=== PATIENT | female | born 1960 | race Caucasian/White ===

== ENCOUNTER 2022-11-22 08:43 | Outpatient (OUT) | payer OTHER, SELFPAY ==
--- NOTE | 2022-11-22 08:47 | MM_ITS ---
Patient: PARISA SANCHEZ Exam Date: 11/22/2022 : 1960 Gender:F Ordering : DR GURWINDER MAHMOOD Admission #: [id number] Family : DR LAU DeenaSmitha JOSEYUE Order #: [id number] CLICK HERE TO VIEW EXAM RADIOLOGY REPORT PROCEDURE: MM TOMOSYNTHESIS SCREENING BI COMPARISON: MG MAMM SCREEN 3D CJ CAD, 11/02/2021. MG MAMM SCREEN CJ W CAD, 05/02/2020. MG MAMM SCREEN CJ W CAD, 01/05/2019. MG MAMM CJ SCRN W CAD DIG, 05/10/2009. INDICATIONS: Screening Calculator Name NCI Breast Cancer Risk Assessment Tool 5 Year Breast Cancer Risk 3.00% Lifetime Breast Cancer Risk 12.40% Personal Breast Cancer No Personal Ovarian Cancer No Treatments chemotherapy, bowel resection- hysterectomy Family Cancers Mother with breast cancer at age 42. LOCATION: [facility] BREAST COMPOSITION: Scattered areas fibroglandular density. FINDINGS: DIAGNOSTIC CATEGORY 2--BENIGN FINDING: RIGHT BREAST: No significant suspicious finding. Scattered benign-appearing calcifications are present. No significant change has occurred. LEFT BREAST: No significant suspicious finding. Scattered benign-appearing calcifications are present. No significant change has occurred. RECOMMENDATIONS: ROUTINE MAMMOGRAM AND CLINICAL EVALUATION IN 12 MONTHS. PLEASE NOTE: A NORMAL MAMMOGRAM DOES NOT EXCLUDE THE POSSIBILITY OF BREAST CANCER. A CLINICALLY SUSPICIOUS PALPABLE LUMP SHOULD BE BIOPSIED. Dictated by: Carlos Chappell M.D. on 11/22/2022 at 12:48 Approved by: Carlos Chappell M.D. on 11/22/2022 at 12:51
== END 2022-11-22 08:44 | disposition home or self-care (01) ==
LOC: MAMMO 08:43
PROVIDERS: PCP Family Medicine; Visit Provider Nurse Practitioner Family
DX: Z12.31 Encounter for screening mammogram for malignant neoplasm of breast (principal); Z80.3 Family history of malignant neoplasm of breast
CPT/HCPCS: 77063; 77067

== ENCOUNTER 2023-06-23 07:38 | Outpatient (OUT) | payer OTHER, SELFPAY ==
[2023-06-23 09:46] LABS: Alanine Aminotransferase 47 U/L (14-59); Albumin Globulin Ratio 0.9; Albumin Level 3.7 g/dL (3.4-5.0); Alkaline Phosphatase 62 U/L (46-116); Anion Gap 13.7; Aspartate Amino Transferase 32 U/L (15-37); BUN Creatinine Ratio 25.5; Bilirubin Total 0.7 mg/dL (0.2-1.0); Calcium 9.5 mg/dL (8.5-10.1); Carbon Dioxide 26.7 mmol/L (21.0-32.0); Chloride 104 mmol/L (98-107); Estimated GFR (African America >60 (>=60); Estimated GFR (Non-African Ame >60 (>=60); Globulin 4.2 g/dL; Glucose 125 mg/dL (74-106); Potassium 3.4 mmol/L (3.5-5.1); Sodium 141 mmol/L (136-145); Total Protein 7.9 g/dL (6.4-8.2)
[2023-06-23 11:14] LABS: Free T4 1.07 ng/dL (0.76-1.46)
[2023-06-23 11:19] LABS: Thyroid Stimulating Hormone 0.015 uIU/mL (0.358-3.740)
[2023-06-23 12:11] LABS: Estimated Average Glucose 137 mg/dL; Glycohemoglobin A1C 6.4 % (4.5-6.2)
== END 2023-06-23 07:39 | disposition home or self-care (01) ==
LOC: LAB 07:40
PROVIDERS: PCP Family Medicine; Visit Provider Nurse Practitioner Family
DX: E11.65 Type 2 diabetes mellitus with hyperglycemia (principal); E05.90 Thyrotoxicosis, unspecified without thyrotoxic crisis or storm
CPT/HCPCS: 36415; 80053; 83036; 84439; 84443

== ENCOUNTER 2023-11-28 07:28 | Outpatient (OUT) | payer OTHER, SELFPAY ==
--- OUTSIDE RECORDS SUMMARY | 2023-11-28 07:31 | XMS_ITS | CCD ---
Author Organization [facility]ini[facility] Care Team Providers Care Broomcorn Seeder Name Role Phone DR CARYN GOMEZ Admitting Unavailable PATRICIA, DR CARYN Art Attending Unavailable RAYMOND, DR SID Shaffer Primary Care Unavailable PETER, DR CARLOS Art Consulting Unavailable PATRICIA, DR CARYN Art Consulting Unavailable Yina Avila Unavailable Patricia DATA MANAGEMENT MANAGER-CENTRAL OFFICE EQUIPMENT INSTALLERCaryn Fraire Primary Care Provider LEOPOLDO CHIU. Attending Unavailable CLINT BOYKIN Referring Unavailable CARYN GOMEZ Primary Care Unavailable CLINT BOYKIN Attending Unavailable CARYN GOMEZ Referring Unavailable CARYN GOMEZ Primary Care Unavailable LEOPOLDO CHIU Attending Unavailable LEOPOLDO CHIU Referring Unavailable CARYN GOMEZ Primary Care Unavailable FRED MILLER Admitting Unavailable CARYN GOMEZ Attending Unavailable CARYN GOMEZ Referring Unavailable CARYN GOMEZ Primary Care Unavailable Allergies Allergy Classification Reported Allergen(s) Allergy Type Date of Onset Reaction(s) Facility (12 sources) Acetaminophen / oxyCODONE Drug Allergy 3 Vomiting [facility] Other (1 source) Adhesive Tape Propensity to adverse reactions rash [facility] Other (15 sources) Cephalexin; Translations: [CEPHALEXIN] Drug Allergy rash [facility] Other (1 source) Cephalexin Drug Allergy rash [facility] Other (15 sources) predniSONE; Translations: [PREDNISONE] Drug Allergy rash [facility] Other (14 sources) Adhesive Tape-Silicones; Translations: [ADHESIVE TAPE-SILICONES] Propensity to adverse reactions to drug [facility] Work Phone: (3 sources) Acetaminophen / oxyCODONE; Translations: [OXYCODONE-ACETAM INOPHEN] Drug Allergy 3 [facility] Medications Current Medications Medication Drug Class(es) Dates Sig (Normalized) Sig (Original) acetaminophen 500 mg oral tablet (11 sources) take 1 tablet by mouth every six hours as needed for pain acetaminophen (TYLENOL) 500 mg tablet Indications: headache disorder Take 1 tablet (500 mg total) by mouth every 6 (six) hours as needed for pain Indications: headache. 0 Active Monica-D 24 Hour (1 source) Monica-D 24 Renetta r Active amLODIPine 5 mg oral tablet (13 sources) Dihydropyridine Calcium Channel Tiffany Start: 04-09-2022 End: 04-07-2023 take 1 tablet by mouth once daily amLODIPine (NORVASC) 5 mg tablet Take 1 tablet by mouth once daily 90 tablet 0 04/07/2023 Active amLODIPine Besyl ate Active calcium carbonate 1500 mg oral tablet (11 sources) take 1 tablet by mouth in the morning, then take 1 tablet by mouth at mealtime calcium carbonate (OS-HARRISON) 600 mg (1,500 mg) tablet Take 1 tablet (600 mg total) by mouth in the morning and 1 tablet (600 mg total) in the evening. Take with meals. 0 Active doxycycline monohydrate 100 mg oral capsule (1 source) Tetracycline-class Drug Start: 02-21-20 take 1 capsule by mouth every twelve hours Doxycycline Monohydrate 100 MG 1 capsule Orally every 12 hrs for 10 days Jan, Active empagliflozin 10 mg oral tablet (13 sources) Sodium-Glucose Cotransporter 2 Inhibitor Start: 11-06-19 End: 05-12-19 take 1 tablet by mouth once daily JARDIANCE 10 mg tablet tablet Take 1 tablet by mouth once daily 90 tablet 0 05/12/2023 Active Jardiance Active escitalopram 10 mg oral tablet (13 sources) Serotonin Reuptake Inhibitor Start: 12-03-2022 End: 03-04-2023 take 1 tablet by mouth once daily in the evening escitalopram (LEXAPRO) 10 mg tablet TAKE 1 TABLET BY MOUTH ONCE DAILY IN THE EVENING 90 tablet 1 03/04/2023 Active Lexapro Active 24 hr fexofenadine hydrochloride 180 mg / pseudoephedrine hydrochloride 240 mg extended release oral tablet (11 sources) alpha-Adrenergic Agonist, Histamine-1 Receptor Antagonist Start: 05-29-2022 take 1 tablet by mouth once in the morning fexofenadine-pseudoephedrine (MONICA-D 24) 180-240 mg per 24 hr tablet Indications: Seasonal allergic rhinitis due to pollen Take 1 tablet by mouth in the morning. 30 tablet 11 05/29/2022 Active lisinopril 20 mg oral tablet (11 sources) Angiotensin Converting Enzyme Inhibitor Start: 11-05-2022 take 1 tablet by mouth in the morning lisinopriL (PRINIVIL,ZESTRIL) 20 mg tablet Take 1 tablet (20 mg total) by mouth in the morning. 90 tablet 1 11/05/2022 Active Lisinopril unknown (1 source) take 1 tablet by mouth once daily metFORMIN hydrochloride 500 mg oral tablet (14 sources) Biguanide Start: 06-01-2023 take 2 tablets by mouth twice daily metFORMIN (GLUCOPHAGE) 500 mg tablet Take 2 tablets by mouth twice daily 360 tablet 0 06/01/2023 Active Start: 12-03-2022 End: 06-01-2023 take 2 tablets by mouth twice daily metFORMIN (GLUCOPHAGE) 500 mg tablet Take 2 tablets by mouth twice daily 360 tablet 0 03/03/2023 06/01/2023 Discontinued take 1 tablet by kimberley th once daily metFORMIN HCl 1000 MG (OSM) 1 tablet with evening meal Orally Once a day for 30 day(s) Active Multi Vitamin Daily - (1 source) take 1 tablet by mouth once daily Multi Vitamin Daily - 1 tablet Orally Once a day Active egnndmfl-mswu-VN-calc ium &mins (THERAGRAN-M) 9 mg iron-400 mcg tablet (11 sources) eqklbtxr-wuyh-HD -calc ium &mins (THERAGRAN-M) 9 mg iron-400 mcg tablet Take 1 tablet by mouth in the morning. 0 Active nystatin [id number] unt/ml topical cream (11 sources) Polyene Antifungal Start: nystatin (MYCOSTATIN) cream Indications: Candidiasis of genitalia Apply topically 3 (three) times a day. 60 g 1 12/10/2022 Active prasterone 6.5 mg vaginal insert (12 sources) Start: End: 024 prasterone, dhea, (INTRAROSA) 6.5 mg insert Indications: Vaginal atrophy , Dyspareunia in female , Vaginal dryness, menopausal INSERT 1 SUPPOSITORY VAGINALLY ONCE DAILY IN THE MORNING 28 each 3 04/07/2023 Active simvastatin 20 mg oral tablet (11 sources) HMG-CoA Reductase Inhibitor Start: 023 take 1 tablet by mouth once daily simvastatin (ZOCOR) 20 mg tablet Indications: Mixed hyperlipidemia Take 1 tablet by mouth nightly 90 tablet 1 01/01/2023 Active Simvastatin unknown (1 source) triamcinolone acetonide 0.055 mg/actuat metered dose nasal spray (13 sources) Corticosteroid take 2 spray(s) nasal route in the morning triamcinolone (NASACORT) 55 mcg nasal inhaler Administer 2 sprays into each nostril in the morning. 0 Active take 1 puff(s) nasal route once daily Nasacort Allergy 24HR 55 MCG/ACT 1 puff in each nostril Nasally Once a day Active Triamcinolone Ac etonide Active Completed/Discontinued Medications Medication Drug Class(es) Dates Sig (Normalized) Sig (Original) amoxicillin 875 mg / clavulanate 125 mg oral tablet (1 source) Penicillin-class Antibacterial Start: 08-23-2018 take 1 tablet by mouth every twelve hours Amoxicillin-Pot Clavulanate 875-125 MG 1 tablet Orally every 12 hrs for 10 day(s) Jul, Not-Taking/PRN Problems Active Problems Problem Classification Problem Date Documented Da te Episodic/Chronic Adjustment disorders (1 source) Adjustment disorder with mixed anxiety and depressed mood; Translations: [Adjustment disorder with mixed anxiety and depressed mood] Onset: 06-30-2023 Chronic Cancer of rectum and anus (11 sources) Malignant neoplasm of colon and/or rectum; Translations: [Malignant neoplasm of rectosigmoid junction] Onset: 11-18-2018 11-18-2018 Chronic Cancer of uterus (11 sources) Endometrial carcinoma; Translations: [Malignant neoplasm of endometrium] Onset: 01-19-2018 11-18-2018 Chronic Diabetes mellitus with complications (1 source) Type 2 diabetes mellitus with hyperglycemia; Translations: [Type 2 diabetes mellitus with hyperglycemia] Onset: 11-18-2018 Chronic Diabetes mellitus without complication (13 sources) Type 2 diabetes mellitus without complication; Translations: [Diabetes mellitus without mention of complication, type II or unspecified, not stated as uncontrolled] Onset: 11-18-2018 11-18-2018 Chronic Disorders of lipid metabolism (12 sources) Mixed hyperlipidemia; Translations: [Hyperlipidemia, mixed] Onset: 11-18-2018 11-18-2018 Chronic Essential hypertension (13 sources) Hypertensive disorder; Translations: [Hypertension, unspecified] Onset: 11-18-2018 05-22-2022 Chronic Malignant neoplasm without specification of site (11 sources) Malignant neoplastic disease; Translations: [Malignant (primary) neoplasm, unspecified] Onset: 11-18-2018 11-18-2018 Chronic Menopausal disorders (2 sources) Atrophy of vagina; Translations: [Postmenopausal atrophic vaginitis] 04-07-2023 Chronic Other connective tissue disease (1 source) Plantar fascial fibromatosis; Translations: [Plantar fascial fibromatosis] Onset: 06-30-2023 Episodic Other diseases of kidney and ureters (12 sources) Renal mass; Translations: [Other specified disorders of kidney and ureter] Onset: 03-10-2023 02-25-2023 Chronic Other diseases of kidney and ureters (2 sources) Other specified disorders of kidney and ureter; Translations: [Other specified disorders of kidney and ureter] Onset: 02-25-2023 Chronic Other ear and sense organ disorders (11 sources) Otitis externa; Translations: [Unspecified otitis externa, unspecified ear] Onset: 11-18-2018 11-18-2018 Chronic Other ear and sense organ disorders (11 sources) Conductive hearing loss, bilateral; Translations: [Conductive hearing loss, bilateral] Onset: 11-26-2021 11-26-2021 Chronic Other female genital disorders (1 source) Pain in female genitalia on intercourse; Translations: [Unspecified dyspareunia] 04-07-2023 Chronic Other nutritional; endocrine; and metabolic disorders (11 sources) Obesity; Translations: [Obesity, unspecified] Onset: 11-18-2018 11-18-2018 Chronic Other nutritional; endocrine; and metabolic disorders (1 source) Morbid (severe) obesity due to excess calories; Translations: [Morbid (severe) obesity due to excess calories] Onset: 11-18-2018 Chronic Other nutritional; endocrine; and metabolic disorders (1 source) Body mass index (BMI) 35.0-35.9, adult; Translations: [Body mass index (BMI) 35.0-35.9, adult] Onset: 11-18-2018 Chronic Other screening for suspected conditions (not mental disorders or infectious disease) (4 sources) Encounter for screening mammogram for malignant neoplasm of breast; Translations: [ENC SCR MAMMO MALIG NEOPLASM BREAST] Onset: 11-02-2021 Episodic Other upper respiratory infections (1 source) Acute maxillary sinusitis, unspecified Episodic Residual codes; unclassified (1 source) Family history of malignant neoplasm of breast; Translations: [FAMILY HX MALIG NEOPLASM OF BREAST] Onset: 11-09-2021 Episodic Thyroid disorders (12 sources) Hyperthyroidism; Translations: [Thyrotoxicosis, unspecified without thyrotoxic crisis or storm] Onset: 11-18-2018 11-18-2018 Chronic Unclassified (1 source) Right Renal Mass Onset: 03-10-2023 Unclassified (1 source) New Patient Onset: 02-25-2023 Past or Other Problems Problem Classification Problem Date Documented Da te Episodic/Chronic Abdominal hernia (13 sources) Hernia of anterior abdominal wall; Translations: [Ventral hernia without obstruction or gangrene] Onset: 03-02-2018 02-25-2023 Episodic Cancer of colon (11 sources) Malignant tumor of large intestine ; Translations: [Malignant neoplasm of colon, unspecified] Onset: 11-18-2018 Resolved: 12-10-2022 12-10-2022 Chronic Cancer of colon (12 sources) History of malignant neoplasm of colon; Translations: [History of large intestine malignacy] Onset: 01-19-2018 04-12-2021 Episodic Deficiency and other anemia (11 sources) Anemia; Translations: [Anemia, unspecified] Onset: 11-18-2018 11-18-2018 Episodic Mood disorders (11 sources) Mood disorders Onset: 12-10-2022 12-10-2022 Mycoses (11 sources) Candidiasis of vagina; Translations: [Candidiasis of vagina] Onset: 11-18-2018 11-18-2018 Episodic Open wounds of head; neck; and trunk (20 sources) Open wound of abdomen; Translations: [Unspecified open wound of abdominal wall, unspecified quadrant without penetration into peritoneal cavity, initial encounter] Onset: 08-17-2018 08-17-2018 Episodic Phlebitis; thrombophlebitis and thromboembolism (11 sources) Deep venous thrombosis; Translations: [Acute embolism and thrombosis of unspecified deep veins of unspecified lower extremity] Onset: 11-18-2018 11-18-2018 Episodic Unclassified (1 source) Acute cough R05.1 Unclassified (11 sources) Onset: 12-10-2022 12-10-2022 Results Test Name Value Interpretation Reference Range Facility COVID + FLU Quick Testingon 02-20-2023 SARS-CoV-2 (COVID-19) RNA [place]+probe Ql (Unsp spec) Negative [facility] Other COVID + FLU Quick Testing Negative [facility] Other MG MAMM SCREEN 3D CJ CADon 11-02-2021 MG MAMM SCREEN 3D CJ CAD Patient: SANYD SANCHEZ Exam Date: 11/02/2021 : 1960 Gender:F Ordering : DR CARYN GOMEZ Admission #: [id number] Family : Order #: [id number] CLICK HERE TO VIEW EXAM RADIOLOGY REPORT PROCEDURE: MAMMOGRAM SCREENING 3D BILATERAL CAD COMPARISON: MG MAMM SCREEN CJ W CAD, 05/02/2020. MG MAMM SCREEN CJ W CAD, 01/05/2019. INDICATIONS: Screening mammography Calculator Name NCI Breast Cancer Risk Assessment Tool 5 Year Breast Cancer Risk 2.90% Lifetime Breast Cancer Risk 12.80% Personal Breast Cancer No Personal Ovarian Cancer No Treatments chemotherapy, bowel resection- hysterectomy Family Cancers Mother with breast cancer at age 42. LOCATION: [facility] BREAST COMPOSITION: Scattered areas fibroglandular density. FINDINGS: DIAGNOSTIC CATEGORY 2--BENIGN FINDING: RIGHT BREAST: No significant suspicious finding. Scattered benign-appearing calcifications are present. No significant change has occurred. LEFT BREAST: No significant suspicious finding. Scattered benign-appearing calcifications are present. No significant change has occurred. RECOMMENDATIONS: ROUTINE MAMMOGRAM AND CLINICAL EVALUATION IN 12 MONTHS. PLEASE NOTE: A NORMAL MAMMOGRAM DOES NOT EXCLUDE THE POSSIBILITY OF BREAST CANCER. A CLINICALLY SUSPICIOUS PALPABLE LUMP SHOULD BE BIOPSIED. Dictated by: Carlos Chappell M.D. on 11/02/2021 at 12:35 Approved by: Carlos Chappell M.D. on 11/02/2021 at 12:38 Normal [facility] ALBUMIN, RANDOM URINE W/CREA TININEon 04-05-2021 ALBUMIN, URINE 2.0 mg/dL Normal See Note: [facility] Comment on above: Result Comment: Refe rence Range: Reference Range Not established Performed By: #### 6 517, 35554, 496, 84547, 7600 #### [facility] [address], [address] [place] [address] [employer]: Judd Warren MD ALBUMIN/CREATININE RATIO, RANDOM URINE 17 mcg/mg creat Normal <30 [facility] Comment on above: Result Comment: The ADA defines abnormalities in albumin excretion as follows: Albuminuria Category Result (mcg/mg creatinine) Normal to Mildly increased <30 Moderately increased 30-299 Severely increased > OR = 300 The ADA recommends that at least two of three specimens collected within a 3-6 month period be abnormal before considering a patient to be within a diagnostic category. Performed By: #### 6 517, 48185, 496, 66835, 7600 #### [facility] [address], [address] [place] [address] [employer]: Judd Warren MD Creatinine (U) [Mass/Vol] 115 mg/dL Normal 20-275 [facility] Comment on above: Performed By: #### 6 517, 12593, 496, 56612, 7600 #### [facility] [address], [address] [place] [address] [employer]: Judd Warren MD [facility] 04-05-2021 Albumin [Mass/Vol] 4.5 g/dL Normal 3.6-5.1 [facility] Comment on above: Performed By: #### 6 517, 02245, 496, 51164, 7600 #### [facility] [address], [address] [place] [address] [employer]: Judd Warren MD Albumin/Globulin [Mass ratio] 1.4 {ratio} Normal 1.0-2.5 [facility] Comment on above: Performed By: #### 6 517, 07368, 496, 39743, 7600 #### [facility] [address], [address] [place] [address] [employer]: Judd Warren MD ALP [Catalytic activity/Vol] 65 U/L Normal 37-153 [facility] Comment on above: Performed By: #### 6 517, 93016, 496, 00573, 7600 #### [facility] of [address], [address] [place] [address] [employer]: Judd Warren MD ALT [Catalytic activity/Vol] 44 U/L High 6-29 [facility] Comment on above: Performed By: #### 6 517, 45408, 496, 03635, 7600 #### [facility] of [address], [address] [place] [address] [employer]: Judd Warren MD AST [Catalytic activity/Vol] 31 U/L Normal 10-35 [facility] Comment on above: Performed By: #### 6 517, 59708, 496, 52459, 7600 #### [facility] of [address], [address] [place] [address] [employer]: Judd Warren MD Bilirubin [Mass/Vol] 0.7 mg/dL Normal 0.2-1.2 [facility] Comment on above: Performed By: #### 6 517, 66768, 496, 93092, 7600 #### [facility] [address], [address] [place] [address] [employer]: Judd Warren MD BUN/CREATININE RATIO NOT APPLICABLE Normal 6-22 [facility] Comment on above: Performed By: #### 6 517, 21246, 496, 56618, 7600 #### [facility] [address], [address] [place] [address] [employer]: Judd Warren MD Calcium [Mass/Vol] 9.5 mg/dL Normal 8.6-10.4 [facility] Comment on above: Performed By: #### 6 517, 50013, 496, 98680, 7600 #### [facility] [address], [address] [place] [address] [employer]: Judd Warren MD Chloride [Moles/Vol] 106 mmol/L Normal 98-110 [facility] Comment on above: Performed By: #### 6 517, 04526, 496, 08598, 7600 #### [facility] [address], [address] [place] [address] [employer]: Judd Warren MD CO2 [Moles/Vol] 23 mmol/L Normal 20-32 [facility] Comment on above: Performed By: #### 6 517, 97887, 496, 94005, 7600 #### [facility] [address], [address] [place] [address] [employer]: Judd Warren MD Creatinine [Mass/Vol] 0.55 mg/dL Normal 0.50-0.99 [facility] Comment on above: Result Comment: For patients >49 years of age, the reference limit for Creatinine is approximately 13% higher for people identified as -Cymraes. Performed By: #### 6 517, 20919, 496, 60470, 7600 #### [facility] [address], [address] [place] [address] [employer]: Judd Warren MD eGFR NON-AFR. MARTINIQUAIS 101 mL/min/1.73m2 Normal > OR = 60 [facility] Comment on above: Performed By: #### 6 517, 87213, 496, 02456, 7600 #### [facility] [address], [address] [place] [address] [employer]: Judd Warren MD GFR/1.73 sq M.predicted among blacks MDRD (S/P/Bld) [Vol rate/Area] 117 mL/min/{1.73_m2} Normal > OR = 60 [facility] Comment on above: Performed By: #### 6 517, 02969, 496, 34346, 7600 #### [facility] [address], [address] [place] [address] [employer]: Judd Warren MD Globulin (S) [Mass/Vol] 3.3 g/dL Normal 1.9-3.7 [facility] Comment on above: Performed By: #### 6 517, 48205, 496, 90115, 7600 #### [facility] [place] [address] [employer]: Judd Warren MD Glucose [Mass/Vol] 131 mg/dL High 65-99 [facility] Comment on above: Result Comment: Fasting reference interval For someone without known diabetes, a glucose value >125 mg/dL indicates that they may have diabetes and this should be confirmed with a follow-up test. Performed By: #### 6 517, 32449, 496, 17941, 7600 #### [facility] [place] [address] [employer]: Judd Warren MD Potassium [Moles/Vol] 3.9 mmol/L Normal 3.5-5.3 [facility] Comment on above: Performed By: #### 6 517, 59195, 496, 42212, 7600 #### [facility] [place] [address] [employer]: Judd Warren MD Protein [Mass/Vol] 7.8 g/dL Normal 6.1-8.1 [facility] Comment on above: Performed By: #### 6 517, 66065, 496, 30068, 7600 #### [facility] [place] [address] [employer]: Judd Warren MD Sodium [Moles/Vol] 139 mmol/L Normal 135-146 [facility] Comment on above: Performed By: #### 6 517, 56219, 496, 38982, 7600 #### [facility] [place] [address] [employer]: Judd Warren MD Urea nitrogen [Mass/Vol] 16 mg/dL Normal 7-25 [facility] Comment on above: Performed By: #### 6 517, 74711, 496, 42521, 7600 #### [facility] [address], [address] [place] [address] [employer]: Judd Warren MD HEMOGLOBIN A1con 04-05-2021 HEMOGLOBIN A1c 6.5 % of total Hgb High <5.7 [facility] Comment on above: Result Comment: For someone without known diabetes, a hemoglobin A1c value of 6.5% or greater indicates that they may have diabetes and this should be confirmed with a follow-up test. For someone with known diabetes, a value <7% indicates that their diabetes is well controlled and a value greater than or equal to 7% indicates suboptimal control. A1c targets should be individualized based on duration of diabetes, age, comorbid conditions, and other considerations. Currently, no consensus exists regarding use of hemoglobin A1c for diagnosis of diabetes for children. Performed By: #### 6 517, 75770, 496, 85833, 7600 #### [facility] [address], [address] [place] [address] [employer]: Judd Warren MD LIPID PANEL, STANDARDon 03-27 Cholesterol [Mass/Vol] 119 mg/dL Normal <200 [facility] Comment on above: Order Comment: FASTI NG:YES FASTING: YES Performed By: #### 6 517, 72741, 496, 96028, 7600 #### [facility] [address], [address] [place] [address] [employer]: Judd Warren MD Cholesterol in HDL [Mass/Vol] 49 mg/dL Low > OR = 50 [facility] Comment on above: Order Comment: FASTI NG:YES FASTING: YES Performed By: #### 6 517, 22326, 496, 60189, 7600 #### [facility] [address], [address] [place] [address] [employer]: Judd Warren MD Cholesterol in LDL [Mass/Vol] 52 mg/dL Normal [facility] Comment on above: Order Comment: FASTI NG:YES FASTING: YES Result Comment: Refe rence range: <100 Desirable range <100 mg/dL for primary prevention; <70 mg/dL for patients with CHD or diabetic patients with > or = 2 CHD risk factors. LDL-C is now calculated using the Blanca calculation, which is a validated novel method providing better accuracy than the Friedewald equation in the estimation of LDL-C. Horacio SS et al. ISHMAEL. 2013;310(19): 2178-4118 (http://education.Ciplex/faq/ZIP911) Performed By: #### 6 517, 56049, 496, 59443, 7600 #### [facility] [address], [address] [place] [address] [employer]: Judd Warren MD Cholesterol.total/C holesterol in HDL [Mass ratio] 2.4 {ratio} Normal <5.0 [facility] Comment on above: Order Comment: FASTI NG:YES FASTING: YES Performed By: #### 6 517, 08960, 496, 59257, 7600 #### [facility] [address], [address] [place] [address] [employer]: Judd Warren MD NON HDL CHOLESTEROL 70 mg/dL (calc) Normal <130 [facility] Comment on above: Order Comment: FASTI NG:YES FASTING: YES Result Comment: For patients with diabetes plus 1 major ASCVD risk factor, treating to a non-HDL-C goal of <100 mg/dL (LDL-C of <70 mg/dL) is considered a therapeutic option. Performed By: #### 6 517, 63588, 496, 62463, 7600 #### [facility] [address], [address] [place] [address] [employer]: Judd Warren MD Triglyceride [Mass/Vol] 96 mg/dL Normal <150 [facility] Comment on above: Order Comment: FASTI NG:YES FASTING: YES Performed By: #### 6 517, 69821, 496, 22427, 7600 #### [facility] [address], [address] [place] [address] [employer]: Judd Warren MD TSH+FREE T4on 04-05-2021 Free T4 [Mass/Vol] 1.1 ng/dL Normal 0.8-1.8 [facility] Comment on above: Performed By: #### 6 517, 52806, 496, 77215, 7600 #### [facility] [address] [facility], [address] [place] [address] [employer]: Judd Warren MD TSH Qn 0.05 m[IU]/L Low 0.40-4.50 [facility] Comment on above: Performed By: #### 6 517, 77991, 496, 12241, 7600 #### [facility] [facility] [address] [place] [address], [address] [place] [address] Door To Door Lead Generation: Judd Warren MD Vital Signs Date Time Vital Sign Value Performing Clinician Facility 03-10-2023 13:58-0500 Body height 157.5 cm Leopoldo Chiu MD Work Phone: [facility] 03-10-2023 13:58-0500 Body mass index (BMI) [Ratio] 40.24 kg/m2 Leopoldo Chiu MD Work Phone: [facility] 03-10-2023 13:58-0500 Body weight 99.79 kg Leopoldo Chiu MD Work Phone: [facility] 03-10-2023 13:58-0500 Diastolic blood pressure 80 mm[Hg] Leopoldo Chiu MD Work Phone: [facility] 03-10-2023 13:58-0500 Heart rate 92 /min Leopoldo Chiu MD Work Phone: [facility] 03-10-2023 13:58-0500 Systolic blood pressure 125 mm[Hg] Leopoldo Chiu MD Work Phone: [facility] 02-25-2023 09:36-0500 Body height 157.5 cm Clint Boykin MD Work Phone: [facility] 02-25-2023 09:36-0500 Body mass index (BMI) [Ratio] 40.24 kg/m2 Clint Boykin MD Work Phone: [facility] 02-25-2023 09:36-0500 Body weight 99.79 kg Clint Boykin MD Work Phone: [facility] 02-20-2023 13:20-0500 Body height 160.02 cm Yina Avila Other [facility] Other 02-20-2023 13:20-0500 Body mass index (BMI) [Ratio] 34.89 kg/m2 Yina Avila Other [facility] Other 02-20-2023 13:20-0500 Body temperature 98.5 [degF] Yina Avila Other [facility] Other 02-20-2023 13:20-0500 Body weight 89.36 kg Yina Avila Other [facility] Other 02-20-2023 13:20-0500 Respiratory rate 18 /min Yina Avila Other [facility] Other 02-20-2023 13:20-0500 SaO2% (BldA) [Mass fraction] 98 % Yina Avila Other [facility] Other Encounters Encounter Date Encounter Type Care Provider Facility Start: 06-30-2023 End: 06-30-2023 ambulatory CARYN GOMEZ [facility] Start: 06-01-2023 Refill Caryn Gomez DATA MANAGEMENT MANAGER-CENTRAL OFFICE EQUIPMENT INSTALLER Work Phone: [facility] Internal [facility] - Family [facility] Start: 05-12-2023 Telephone encounter Caryn Gomez DATA MANAGEMENT MANAGER-CENTRAL OFFICE EQUIPMENT INSTALLER Work Phone: [facility] - [facility] Start: 05-11-2023 Refill Caryn Gomez DATA MANAGEMENT MANAGER-CENTRAL OFFICE EQUIPMENT INSTALLER Work Phone: [facility] Internal Medicine - Family Medicine Start: 04-19-2023 Telephone encounter Leopoldo Chiu MD Work Phone: [facility] Start: 04-07-2023 Refill Caryn Gomez DATA MANAGEMENT MANAGER-CENTRAL OFFICE EQUIPMENT INSTALLER Work Phone: [facility] - [facility] Comment on above: Vaginal atrophy; Dyspareunia in female; Vaginal dryness, menopausal Start: 04-04-2023 Telephone encounter Leopoldo Chiu MD Work Phone: [facility] Start: 04-02-2023 End: 04-02-2023 ambulatory LEOPOLDO CHIU [facility] Start: 03-10-2023 End: 03-10-2023 ambulatory LEOPOLDO CHIU [facility] Start: 03-10-2023 End: 03-10-2023 Office consultation new/estab patient 60 min Leopoldo Chiu MD Work Phone: [facility] Comment on above: Renal mass (Primary Dx); Right renal mass Start: 03-04-2023 Refill Caryn Gomez DATA MANAGEMENT MANAGER-CENTRAL OFFICE EQUIPMENT INSTALLER [facility] Start: 03-02-2023 Refill Caryn Gomez DATA MANAGEMENT MANAGER-CENTRAL OFFICE EQUIPMENT INSTALLER Work Phone: [facility] - [facility] Start: 02-25-2023 End: 02-25-2023 ambulatory CLINT BOYKIN [facility] Start: 02-25-2023 End: 02-25-2023 Office outpatient new 45 minutes Clint Boyikn MD Work Phone: [facility] General [facility] Comment on above: Right renal mass (Pr imary Dx); Ventral hernia without obstruction or gangrene Start: 02-20-2023 End: 02-20-2023 ambulatory Yina Avila Other [facility] Other Start: 02-20-2023 Office outpatient ne w 30 minutes Yina Avila [facility] Start: 11-02-2021 End: 11-03-[address] CARYN GOMEZ Facility:H1 Procedures Date Procedure Procedure Detail Performing Clinician Start: 12-10-2022 Adult depression scr eening assessment Clint Boykin MD Work Phone: Start: 11-25-2022 Mammography Clint dwyer MD Work Phone: Start: 06-20-2022 Diabetic retinal eye exam Clint Boykin MD Work Phone: Start: 05-23-2022 Microalbumin [Mass/v olume] in Urine by Test strip Clint Boykin MD Work Phone: Start: 05-02-2021 Colonoscopy Clint dwyer MD Work Phone: Plan of Treatment Date Care Activity Detail Author Start: 12-16-2029 DTaP,Tdap and Td Vaccines (3 - Td or Tdap) DTaP,Tdap and Td Vaccines (3 - Td or Tdap) [facility] Start: 05-02-2026 Screening for malign ant neoplasm of colon Colonoscopy [facility] Start: 03-10-2024 Adult BMI Screening Adult BMI Screen ing [facility] Start: 03-10-2024 Tobacco Screening Tobacco Screening [facility] Start: 02-26-2024 Adult BMI Screening Adult BMI Screen ing [facility] Start: 02-26-2024 Tobacco Screening Tobacco Screening [facility] Start: 01-19-2024 End: 01-19-2024 Patient encounter procedure 01/19/2024 1:45 PM EST Office Visit [facility] [address] [place] [address] [place] [address] Leopoldo Chiu MD [address] [place] [address] [facility] Start: 01-09-2024 End: 01-09-2024 Patient encounter procedure 01/09/2024 11:00 AM EST Office Visit [facility] [address] [address] Mendy Plascencia, PAVikram [address] [place] [address] [facility] Start: 12-30-2023 End: 04-18-2024 MR Abdomen WO and W contrast IV MR abdomen with and without contrast Imaging Routine Renal mass Expected: 12/30/2023 (Approximate), Expires: 04/18/2024 [facility] Work Phone: Comment on above: Expected: 12/30/2023 (Approximate), Expires: 04/18/2024 Start: 12-11-2023 Adult BMI Follow Up Plan Adult BMI Follow Up Plan [facility] Start: 12-11-2023 Depression Screening Depression Scre ening [facility] Start: 11-26-2023 Screening for malign ant neoplasm of breast Mammogram [facility] Start: 10-26-2023 Influenza vaccination Influenza Vacc ine [facility] Start: 08-26-2023 End: 08-26-2023 Patient encounter procedure 08/26/2023 10:00 AM EDT Office Visit [facility] [address] [facility] [address] [place] [address] Clint Boykin MD [address] [facility] [place] [address] [facility] Start: 06-21-2023 Glaucoma screening Diabetic Op hthalmology Exam [facility] Start: 05-30-2023 Diabetic foot examination Diabetic Foot Exam [facility] Start: 05-24-2023 Urine screening for protein Urine Microalbumin [facility] Start: 05-14-2023 End: 05-14-2023 Patient encounter procedure 05/14/2023 11:45 AM EDT Office Visit [facility] [address] [place] [address] [address] [facility] [place] [address] Leopoldo Chiu MD [address] [place] [id number] [facility] Start: 03-10-2023 End: 03-10-2024 Guidance for cryoablation of Kidney IR cryoablation renal right Imaging Routine Right renal mass Expected: 03/10/2023, Expires: 03/10/2024 [facility] Work Phone: Comment on above: Expected: 03/10/2023 , Expires: 03/10/2024 Start: 03-10-2023 End: 03-10-2023 Patient encounter procedure 03/10/2023 2:00 PM EST Office Visit [facility] [address] [place] [address] [address] [place] [address] Leopoldo Chiu MD [address] [place] [address] [facility] Start: 03-10-2023 End: 03-09-2024 XR Chest PA and Lateral X-ray chest 2 views Imaging Routine Right renal mass Expected: 03/10/2023, Expires: 03/09/2024 [facility] Comment on above: Expected: 03/10/2023 , Expires: 03/09/2024 Immunizations Immunization Date Immunization Notes Care Provider [facility] 12-08-2022 influenza, injectabl e, quadrivalent, preservative free Clint Boykin MD Work Phone: [facility] 12-08-2022 influenza virus vaccine, unspecified formulation Caryn Gomez DATA MANAGEMENT MANAGER-CENTRAL OFFICE EQUIPMENT INSTALLER Work Phone: [facility] 05-16-2022 zoster vaccine recombinant Clint Boykin MD Work Phone: [facility] 01-15-2022 zoster vaccine recombinant Clint Boykin MD Work Phone: [facility] 01-08-2022 zoster vaccine recombinant Clint Boykin MD Work Phone: [facility] 01-08-2022 zoster vaccine, live Clint Boykin MD Work Phone: [facility] 12-01-2021 influenza virus vaccine, unspecified formulation Clint Boykin MD Work Phone: [facility] 12-01-2021 influenza, injectabl e, quadrivalent, preservative free Clint Boykin MD Work Phone: [facility] 12-17-2019 influenza, injectabl e, quadrivalent, preservative free Clint Boykin MD Work Phone: [facility] 12-17-2019 tetanus toxoid, redu felix diphtheria toxoid, and acellular pertussis vaccine, adsorbed Clint Boykin MD Work Phone: [facility] 02-04-2019 Seasonal, quadrivale nt, recombinant, injectable influenza vaccine, preservative free Clint Boykin MD Work Phone: [facility] 12-24-2017 influenza, injectabl e, quadrivalent, contains preservative Clint Boykin MD Work Phone: [facility] 12-25-2016 influenza virus vaccine, unspecified formulation Clint Boykin MD Work Phone: [facility] 02-07-2014 influenza virus vaccine, unspecified formulation Clint Boykin MD Work Phone: [facility] 02-07-2013 pneumococcal conjuga te vaccine, 13 valent Clint Boykin MD Work Phone: [facility] 07-06-2010 tetanus toxoid, redu felix diphtheria toxoid, and acellular pertussis vaccine, adsorbed Clint Boykin MD Work Phone: [facility] 03-06-2009 novel [id number], preservative-free, injectable Clint Boykin MD Work Phone: [facility] Payers Date Payer Category Payer Private Health Insurance [employer] ACCESS PLUS (OAP,OA PLUS) [id number] 2018-Present [phone] [address] [place] [address] [id number] 1960 Unknown [id number] 1960 Unknown [id number] 1960 Unknown [id number] 1960 Unknown [id number] 1960 Unknown [id number] 1960 Private Health Insurance [id number] Social History Date Type Detail Facility Start: 11-25-2021 End: 03-10-2023 Sex Assigned At [facility] Start: 04-23-2022 Tobacco smoking status NHIS Never smoked tobacco [facility] Start: 04-23-2022 Tobacco use and exposure Smokeless tobacco non-user [facility] Start: 02-25-2023 End: 03-10-2023 Alcohol intake Current non-drinker of alcohol (finding) [facility] Start: 11-25-2021 End: 03-10-2023 History of Social function [facility] Do you belong to any clubs or organizations such as holiness groups, unions, fraternal or athletic groups, or school groups? Yes [facility] Are you now , , , , never or living with a partner? [facility] How often to you hav e a drink containing alcohol? Never [facility] How many standard dr inks containing alcohol do you have on a typical day? Patient does not drink [facility] How hard is it for y ou to pay for the very basics like food, housing, medical care, and heating Not very hard [facility] Do you feel stress - tense, restless, nervous, or anxious, or unable to sleep at night because your mind is troubled all the time - these days [OSQ] Only a little [facility] Start: 11-25-2021 Education 17 [facility] Start: 1960 Sex Assigned At Female [facility] Start: 11-16-2019 Gender identity Identifies as female gender (finding) [facility] Start: 11-16-2019 Sexual orientation Heterosexual (finding) [facility] Medical Equipment Procedure Code Equipment Code Equipment Origin al Text Equipment Identifier Dates 1 strip by other route in the morning. [id number] Start: 04-08-2022 Inject 1 Lancet. under the skin in the morning. [id number] Start: 04-08-2022 Goals Date Patient Goal Desired Activity /State Personal health goal Comment on above: Formatting of this n ote might be different from the original. Evaluation of progress towards goal: Pt plans to discharge home with self care and family assistance. Clinical Notes 02-20-2023 to 05-12-2023 Telephone Encounter - Lashonda Reid - 05/12/2023 12:00 PM EDTTelephone Encounter - Lashonda Reid - 05/12/2023 12:00 PM EDTTelephone Encounter - Lashonda Reid - 05/12/2023 12:00 PM EDT Note Date & Type Note Facility 05-12-2023 Miscellaneous Notes ----- Message from CHAVA Sprague sent at 12/10/2022 3:41 PM EDT ----- Regarding: cv, dm Due mid June 17 - usually gets labs before - Caryn LM on VM LM on VM Sending letter documented in this encounter [facility] 05-12-2023 Telephone encounter Note ----- Message from Caryn Gomez APRN-JEIMY sent at 12/10/2022 3:41 PM EDT ----- Regarding: cv, dm Due mid June 17 - usually gets labs before - Caryn [facility] 05-12-2023 Telephone encounter Note LM on VM [facility] 05-12-2023 Telephone encounter Note LM on VM [facility] 05-12-2023 Telephone encounter Note Sending letter [facility] 04-19-2023 Miscellaneous Notes Have the patient obtain an MRI in about 9 months. Return the office after that MRIs done off day appointment. Has a renal mass that we are following. documented in this encounter [facility] 04-19-2023 Telephone encounter Note Have the patient obtain an MRI in about 9 months. Return the office after that MRIs done off day appointment. Has a renal mass that we are following. [facility] 04-04-2023 Note CONSULT TO INTERVENT IONAL RADIOLOGY Consultation in Interventional Radiology, Consulting Physician: Dr. Fred Miller Referring Physician: Dr. Chiu Reason for consultation: Renal Lesion History: The patient is a 63-year-old female seen in interventional radiology clinic today for discussion of incidentally discovered right renal lesion. Patient was seen with family members today in clinic. The patient has a history of colon and uterine cancer as well as multiple intra-abdominal surgeries. Patient had a CT scan done and the radiologist noted in upper pole renal lesion measuring approximately 1.5 cm. Patient was initially seen by urology and was referred to interventional radiology for at least discussion of percutaneous ablation. Patient is currently doing well with no acute complaints. Patient denies any flank pain, abdominal pain, hematuria, or recent illness. Patient denies headache, chest pain, neurologic deficit. Past Medical History: Colon cancer. Cataracts. Diabetes. Hearing loss. DVT in 2005 and 2010. Hypertension. Uterine cancer Past Surgical History: . Colon resection. Hernia repair. Hysterectomy. Medications: Reviewed and electronic medical record and positive for amlodipine. Lisinopril. Metformin. Simvastatin. Allergies: Cephalexin. Prednisone. Adhesive tape. Oxycodone/acetaminophen Imaging: CT scan 02/05/2023 and MRI 02/19/2023 demonstrated an approximately 1.6 cm slightly endophytic upper pole right renal lesion at the hepatorenal border. Physical Examination: General appearance?- alert, well appearing, and in no distress Mental status?- affect appropriate to mood Neurological?- alert, oriented, normal speech Head?- normocephalic, atraumatic Chest?- no tachypnea, retractions or cyanosis Heart?- On palpation rate is regular Labs: Most recent labs on 12/03/2022 demonstrated a normal creatinine. IMPRESSION: The patient is a 63-year-old female seen in interventional radiology clinic today for discussion of incidentally discovered right upper pole enhancing renal lesion. The patient has a history of colon and uterine cancer with multiple intra-abdominal surgeries. Patient initially was seen by urology and was referred to us for discussion of ablation candidacy for this lesion. During clinic visit today, I discussed the imaging findings with the patient. I discussed solid renal masses in detail. I discussed that there is a high likelihood that this could be a very small renal cell carcinoma however it could also be a benign entity as well. I reviewed in general treatment options for small solid renal cell tumors including conservative management with imaging follow-up, partial nephrectomy, and percutaneous ablation. I discussed the ablation procedure in detail. I discussed that the ablation procedures performed under ultrasound and CT guidance under moderate sedation. I discussed percutaneous needle access into the lesion with either microwave or cryoablation to treat the lesion. I discussed the risks of the procedure including but not limited to infection, bleeding, or nontarget ablation injury. I discussed the need for routine imaging follow-up post procedure to assess for any residual or recurrent neoplasm. I reviewed with the patient that this lesion is very small and in a somewhat difficult location at the upper pole right kidney at the hepatorenal space. Given the small size of the lesion in the difficult location, my recommendation was to treat this finding conservatively for now with follow-up imaging in 6-12 months. If this solid lesion were to increase in size over time, it would be possible to perform a biopsy and cryoablation of this lesion if necessary. The patient was understanding of this and all the patient's questions were answered. I will refer the patient back to urology and if in the future on follow-up imaging this lesion does grow, I'm happy to see her back for discussion of treatment if needed. Plan: 1. No IR intervention at this time. 2. The patient's upper pole right renal lesion would be amendable to biopsy and/or ablation at this time if necessary; however, given the very small size of the lesion, continued imaging follow-up with MRI in 6-12 months is totally reasonable. 3. If the upper pole right renal lesion does show any interval growth, we can proceed with biopsy and/or ablation at that time if the patient so desires. Thank you very much for referring Sandy Sanchez to the Interventional Radiology clinic. Please contact me with any questions or concerns. Fred Miller M.D. Interventional radiologist. Finalized by Fred Miller MD on 04/04/2023 4:51 PM [facility] 04-04-2023 Miscellaneous Notes error documented in this encounter [facility] 04-04-2023 Telephone encounter Note error [facility] 03-10-2023 Evaluation + Plan note Associated Problem(s): Renal mass Liver looks good on MRI. Complete metastatic evaluation. PA and lateral chest x-ray. [facility] 03-10-2023 Miscellaneous Notes Associated Problem(s): Renal mass Liver looks good on MRI. Complete metastatic evaluation. PA and lateral chest x-ray. documented in this encounter [facility] 03-10-2023 History of Presen t illness Narrative Images from the original note were not included. [address] [place] [address] [address] [facility] [place] [address] Patient: Sandy Sanchez Date of : 1960 Encounter Date: 03/10/2023 History of Present Illness: The patient is a 62 y.o. female, a new patient consultation, and is here for right renal mass. Incidentally found. Very small. 16 mm. 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 Two major abdominal surgeries. Does have a ventral hernia as well. No gross hematuria no dysuria. Chief Complaint: Urinalysis today: No results for input(s): EXTPOCURCO , EXTPOCURCH , EXTPOCAPP , EXTPOCURBS , EXTPOCURBIL , EXTPOCUKET , EXTPOCUSPG , EXTPOCUHGB , EXTPOCUPRO , EXTPOCUURO , EXTPOCULEU , EXTPOCUNIT , EXTPOCUWBC , EXTPOCUBLD , EXTPOCURBC , EXTPOCUCRY , EXTPOCUBAC , EXTPOCUTREP , EXTPOCUPH , EXTPOCULEE in the last 72 hours. Last BUN and creatinine: Lab Results Component Value Date BUN 18 12/03/2022 Lab Results Component Value Date CREATININE 0.56 02/05/2023 Last PSA: No results found for: PSA No results found for: PROSTATICSP Past Medical, Family, and Social History Update: The following portions of the patient's history were reviewed and updated as appropriate: allergies, current medications, past family history, past medical history, past social history, past surgical history and problem list. Past Medical History: Diagnosis Date Cataract Colon cancer ([facility]) Dental disease crowns Diabetes ([facility]) Diabetes mellitus type 2, controlled ([facility]) Disease of thyroid gland Eczema History of chemotherapy 2005 HL (hearing loss) hearing aids Hx of blood clots 2005 and 2010 Hyperlipidemia Hypertension Obesity Uterine cancer ([facility]) Visual impairment glasses left Past Surgical History: Procedure Laterality Date SECTION COLON SURGERY colon resection COLONOSCOPY COLONOSCOPY N/A 05/02/2021 Performed by Jose Chambers DO at [facility] CYSTOSCOPY W/ SPINCTEROTOMY DEBRIDEMENT WOUND ABDOMEN N/A 11/18/2018 Performed by Clint Boykin MD at [facility] HEMICOLECTOMY HERNIA REPAIR RECURRENT INCARCERATED INCISIONAL HERNIA REPAIR WITH LEFT MYOFASCIAL FLAP ADVANCEMENT AND RIGHT MYOFASCIAL FLAP ADVANCEMENT N/A 04/03/2018 Performed by Clint Boykin MD at [facility] TOTAL HYSTERECTOMY ABDOMINAL BSO/REGIONAL LYMPHADENECTOMY, LEFT URETEROLYSIS, PARTIAL GREATER OMENTECTOMY, BIOPSY VAGINA, CYTOLOGIC PELVIC WASHINGS N/A 04/03/2018 Performed by Maurizio Gutierres MD at [facility] TUBAL LIGATION Family History Problem Relation Age of Onset Diabetes Mother Breast cancer Mother 42 Cancer Mother Hypertension Father Stroke Father Arthritis Father COPD Father Diabetes Sister Diabetes Brother Anesthesia problems Neg Hx Current Outpatient Medications Medication Sig Dispense Refill acetaminophen (TYLENOL) 500 mg tablet Take 1 tablet (500 mg total) by mouth every 6 (six) hours as needed for pain Indications: headache. amLODIPine (NORVASC) 5 mg tablet Take 1 tablet by mouth once daily 90 tablet 1 blood sugar diagnostic (ONETOUCH ULTRA TEST) strip 1 strip by other route in the morning. 100 strip 3 calcium carbonate (OS-HARRISON) 600 mg (1,500 mg) tablet Take 1 tablet (600 mg total) by mouth in the morning and 1 tablet (600 mg total) in the evening. Take with meals. empagliflozin (JARDIANCE) 10 mg tablet tablet Take 1 tablet (10 mg total) by mouth in the morning. 90 tablet 1 escitalopram (LEXAPRO) 10 mg tablet TAKE 1 TABLET BY MOUTH ONCE DAILY IN THE EVENING 90 tablet 1 fexofenadine-pseudoephedrine (MONICA-D 24) 180-240 mg per 24 hr tablet Take 1 tablet by mouth in the morning. 30 tablet 11 lancets 33 gauge misc Inject 1 Lancet. under the skin in the morning. 100 each 3 lisinopriL (PRINIVIL,ZESTRIL) 20 mg tablet Take 1 tablet (20 mg total) by mouth in the morning. 90 tablet 1 metFORMIN (GLUCOPHAGE) 500 mg tablet Take 2 tablets by mouth twice daily 360 tablet 0 wjxucllj-qjbi-JK-calcium &mins (THERAGRAN-M) 9 mg iron-400 mcg tablet Take 1 tablet by mouth in the morning. nystatin (MYCOSTATIN) cream Apply topically 3 (three) times a day. 60 g 1 prasterone, dhea, (INTRAROSA) 6.5 mg insert INSERT 1 SUPPOSITORY VAGINALLY ONCE DAILY IN THE MORNING 84 each 0 simvastatin (ZOCOR) 20 mg tablet Take 1 tablet by mouth nightly 90 tablet 1 triamcinolone (NASACORT) 55 mcg nasal inhaler Administer 2 sprays into each nostril in the morning. No current facility-administered medications for this visit. (All medications reviewed and updated by provider since last office visit or hospitalization) Allergies: Cephalexin, Prednisone, Adhesive tape-silicones, and Oxycodone-acetaminophen Tobacco History: Social History Tobacco Use Smoking Status Never Smokeless Tobacco Never (If patient a smoker, smoking cessation counseling offered) Social History: Social History Substance and Sexual Activity Alcohol Use No Review of Systems: Constitutional: Normal activity and energy. Patient denies change in appetite, weight loss or gain, malaise (depression), chills, fever, or diaphoresis (sweating). Eyes: Patient denies vision changes or diplopia (double vision). Ears, Nose, Nose and Throat: Hearing Loss Respiratory: Patient denies dyspnea (shortness of breath), cough, hemotypsis (blood in sputum), and wheezing. Cardiovascular: Patient denies chest pain, palpitations, and shortness of breath. Gastrointestinal: Patient denies abdominal pain, nausea, vomiting, bloating, diarrhea (chronic), constipation (chronic), melena (black stool), hematochezia (blood in stool). Musculoskeletal: Patient denies joint pain/stiffness, weakness, swelling, and backache. Neurologic: Patient denies weakness, dizziness, loss of consciousness, transient ischemic symptoms, and seizures. Integument: Patient denies rashes and non-healing lesions. Psychiatric: Patient denies increased nervousness, mood changes, or depression. Endocrine: Diabetes Blood Disorders: Patient denies anemia, easy bruising, and easy bleeding. Physical Exam: BP 125/80 Pulse 92 Ht 157.5 cm (5' 2 ) Wt 99.8 kg (220 lb) BMI 40.24 kg/m General Alert., Cooperative. Not in acute distress. Non-toxic. Orientation - Oriented X3. Head and Neck Normocephalic, atraumatic with no lesions. No abnormal movements. Trachea - midline. Integumentary Normal coloration of skin. Skin Moisture - normal skin moisture. Chest and Lung Exam Quiet, even and easy respiratory effort with no use of accessory muscles. Neurologic NON-focal Multiple midline well healed the incisions. Larger pannus. Assessment and Plan: Sandy was seen today for right renal mass. Diagnoses and all orders for this visit: Renal mass Right renal mass - [facility] - RUBIN Yan - LUIS cryoablation renal right; Future - X-ray chest 2 views; Future Problem List High Renal mass - Primary Overview ==== 03/10/2023 ==== incidentally found right renal mass. Workup for ventral hernia repair. Regarding ventral hernia this is observation. Hostile abdomen given prior history colon carcinoma. Uterine carcinoma as well. Distant history DVT. No longer on any antiplatelet therapy. Size lesion is only 16 mm. Quite small. Plan: Given the size is probably too small to biopsy or treat but I do want Interventional Radiology input regarding the location lesion whether not they feel should the lesion meet size criteria in the future that it could be treated percutaneously. Current Assessment & Plan Liver looks good on MRI. Complete metastatic evaluation. PA and lateral chest x-ray. Follow-up: Leopoldo Chiu MD This note was created with the assistance of a speech recognition program. While intending to generate a timely document that accurately reflects the content of the visit, no guarantee can be provided that every grammatical or spelling mistake has been or will be identified or corrected. Thank you for your understanding. documented in this encounter [facility] 02-25-2023 History of Presen t illness Narrative Images from the original note were not included. Clint Boykin MD, FACS General Surgery and Minimally Invasive Surgery Chief Complaint: recurrent ventral hernia History of Present Illness: Sandy Sanchez is a 62 y.o. female with a recurrent ventral hernia. The patient denies the hernias are bothersome at this time. Currently, she is actively losing weight and has noticed the hernias more. Patient has a past surgical history of a total hysterectomy abdominal BSO/Regional lymphadenectomy left ureterolysis, partial greater omentectomy on 04/03/2018. MRI Abdomen 02/19/2023 was independently interpreted and demonstrates a complex ventral incisional hernia containing nonobstructed sigmoid and transverse colon CT AP 02/05/2023 was independently interpreted and demonstrates an indeterminate 1.7 mm right renal lesion is seen in the right upper pole. She presents to me for further care/evaluation. Review of Systems Constitutional: Negative for activity change and appetite change. HENT: Negative for double vision and tinnitus. Eyes: Negative for redness and itching. Respiratory: Negative for chest tightness and shortness of breath. Cardiovascular: Negative for chest pain and chest discomfort. Gastrointestinal: Negative for abdominal pain and abdominal distention. Endocrine: Negative for cold intolerance and heat intolerance. Genitourinary: Negative for dysuria and hematuria. Musculoskeletal: Negative for myalgias and arthralgias. Skin: Negative for rash and wound. Allergic/Immunologic: Negative for environmental allergies and food allergies. Neurological: Negative for dizziness and light-headedness. Hematological: Negative for adenopathy. Does not bruise/bleed easily. Psychiatric/Behavioral: Negative for behavioral problems. The patient is not nervous/anxious. Past Medical History: Diagnosis Date Cataract Colon cancer ([facility]) Dental disease crowns Diabetes ([facility]) Diabetes mellitus type 2, controlled ([facility]) Disease of thyroid gland Eczema History of chemotherapy 2005 HL (hearing loss) hearing aids Hx of blood clots 2005 and 2010 Hyperlipidemia Hypertension Obesity Uterine cancer ([facility]) Visual impairment glasses left Past Surgical History: Procedure Laterality Date SECTION COLON SURGERY colon resection COLONOSCOPY COLONOSCOPY N/A 05/02/2021 Performed by Jose Chambers DO at [facility] CYSTOSCOPY W/ SPINCTEROTOMY DEBRIDEMENT WOUND ABDOMEN N/A 11/18/2018 Performed by Clint Boykin MD at [facility] HEMICOLECTOMY HERNIA REPAIR RECURRENT INCARCERATED INCISIONAL HERNIA REPAIR WITH LEFT MYOFASCIAL FLAP ADVANCEMENT AND RIGHT MYOFASCIAL FLAP ADVANCEMENT N/A 04/03/2018 Performed by Clint Boykin MD at [facility] TOTAL HYSTERECTOMY ABDOMINAL BSO/REGIONAL LYMPHADENECTOMY, LEFT URETEROLYSIS, PARTIAL GREATER OMENTECTOMY, BIOPSY VAGINA, CYTOLOGIC PELVIC WASHINGS N/A 04/03/2018 Performed by Maurizio Gutierres MD at [facility] TUBAL LIGATION Allergies Allergen Reactions Cephalexin Rash Prednisone Rash Adhesive Tape-Silicones Oxycodone-Acetaminophen Vomiting Current Outpatient Medications: acetaminophen (TYLENOL) 500 mg tablet, Take 1 tablet (500 mg total) by mouth every 6 (six) hours as needed for pain Indications: headache., Disp: , Rfl: amLODIPine (NORVASC) 5 mg tablet, Take 1 tablet by mouth once daily, Disp: 90 tablet, Rfl: 1 blood sugar diagnostic (GrooptTOUCH ULTRA TEST) strip, 1 strip by other route in the morning., Disp: 100 strip, Rfl: 3 calcium carbonate (OS-HARRISON) 600 mg (1,500 mg) tablet, Take 1 tablet (600 mg total) by mouth in the morning and 1 tablet (600 mg total) in the evening. Take with meals., Disp: , Rfl: empagliflozin (JARDIANCE) 10 mg tablet tablet, Take 1 tablet (10 mg total) by mouth in the morning., Disp: 90 tablet, Rfl: 1 escitalopram (LEXAPRO) 10 mg tablet, TAKE 1 TABLET BY MOUTH ONCE DAILY IN THE EVENING, Disp: 90 tablet, Rfl: 0 fexofenadine-pseudoephedrine (MONICA-D 24) 180-240 mg per 24 hr tablet, Take 1 tablet by mouth in the morning., Disp: 30 tablet, Rfl: 11 lancets 33 gauge misc, Inject 1 Lancet. under the skin in the morning., Disp: 100 each, Rfl: 3 lisinopriL (PRINIVIL,ZESTRIL) 20 mg tablet, Take 1 tablet (20 mg total) by mouth in the morning., Disp: 90 tablet, Rfl: 1 metFORMIN (GLUCOPHAGE) 500 mg tablet, Take 2 tablets by mouth twice daily, Disp: 360 tablet, Rfl: 0 pzxcdoqe-ebxo-TV-calcium &mins (THERAGRAN-M) 9 mg iron-400 mcg tablet, Take 1 tablet by mouth in the morning., Disp: , Rfl: nystatin (MYCOSTATIN) cream, Apply topically 3 (three) times a day., Disp: 60 g, Rfl: 1 prasterone, dhea, (INTRAROSA) 6.5 mg insert, INSERT 1 SUPPOSITORY VAGINALLY ONCE DAILY IN THE MORNING, Disp: 84 each, Rfl: 0 simvastatin (ZOCOR) 20 mg tablet, Take 1 tablet by mouth nightly, Disp: 90 tablet, Rfl: 1 triamcinolone (NASACORT) 55 mcg nasal inhaler, Administer 2 sprays into each nostril in the morning., Disp: , Rfl: Social History Socioeconomic History Marital status: Spouse name: Not on file Number of children: Not on file Years of education: Not on file Highest education level: Bachelor's degree (e.g., BA, AB, BS) Occupational History Not on file Tobacco Use Smoking status: Never Smokeless tobacco: Never Substance and Sexual Activity Alcohol use: No Drug use: No Sexual activity: Defer Other Topics Concern Not on file Social History Narrative Not on file Social Determinants of Health Financial Resource Strain: Low Risk (12/03/2022) Overall Financial Resource Strain (CARDIA) Difficulty of Paying Living Expenses: Not very hard Food Insecurity: No Food Insecurity (02/25/2023) Hunger Screening Food Insecurity - Worry: Never True Food Insecurity - Inability: Never True Transportation Needs: No Transportation Needs (12/03/2022) PRAPARE - Transportation Lack of Transportation (Medical): No Lack of Transportation (Non-Medical): No Physical Activity: Inactive (11/25/2021) Exercise Vital Sign Days of Exercise per Week: 0 days Minutes of Exercise per Session: 0 min Stress: No Stress Concern Present (11/25/2021) [employer] [place] [employer] - Occupational Stress Questionnaire Feeling of Stress : Only a little Social Connections: Socially Integrated (11/25/2021) Social Connection and Isolation Panel [NHANES] Frequency of Communication with Friends and Family: Three times a week Frequency of Social Gatherings with Friends and Family: Once a week Attends Mandaeism Services: More than 4 times per year Active Member of Clubs or Organizations: Yes Attends Club or Organization Meetings: More than 4 times per year Marital Status: Interpersonal Safety: Not At Risk (11/25/2021) Humiliation, Afraid, Rape, and Kick questionnaire Fear of Current or Ex-Partner: No Emotionally Abused: No Physically Abused: No Sexually Abused: No Family History Problem Relation Age of Onset Diabetes Mother Breast cancer Mother 42 Cancer Mother Hypertension Father Stroke Father Arthritis Father COPD Father Diabetes Sister Diabetes Brother Anesthesia problems Neg Hx Physical Exam Constitutional: Appearance: Normal appearance. HENT: Head: Normocephalic and atraumatic. Right Ear: External ear normal. Left Ear: External ear normal. Nose: Nose normal. Eyes: Pupils: Pupils are equal, round, and reactive to light. Abdominal: General: There is no distension. Palpations: There is no mass. Tenderness: There is no abdominal tenderness. There is no guarding or rebound. Hernia: A hernia is present. Musculoskeletal: General: Normal range of motion. Cervical back: Normal range of motion. Neurological: General: No focal deficit present. Mental Status: She is alert. Psychiatric: Mood and Affect: Mood normal. Behavior: Behavior normal. Labs: Lab Results Component Value Date WBC 8.7 04/08/2018 HGB 10.9 (L) 04/08/2018 HCT 32.6 (L) 04/08/2018 MCV 85 04/08/2018 PLT 236 04/08/2018 Lab Results Component Value Date GLU 134 (H) 12/03/2022 CALCIUM 9.8 12/03/2022 K 3.7 12/03/2022 CO2 24 12/03/2022 CL 106 12/03/2022 BUN 18 12/03/2022 CREATININE 0.56 02/05/2023 No results found for: AMYLASE No results found for: LIPASE Lab Results Component Value Date ALT 51 (H) 12/03/2022 AST 42 (H) 12/03/2022 ALKPHOS 56 12/03/2022 No results found for: INR , PROTIME Imaging: MRI Abdomen 02/19/2023 was independently interpreted and demonstrates a complex ventral incisional hernia containing nonobstructed sigmoid and transverse colon CT AP 02/05/2023 was independently interpreted and demonstrates an indeterminate 1.7 mm right renal lesion is seen in the right upper pole. Assessment: Sandy Sanchez is a 62 y.o.female with a recurrent ventral hernia. Plan: 1) Recurrent ventral hernia - I had a long discussion with the patient regarding the ventral hernia, its etiology, and potential treatment options. - I discussed her previous mesh was infected and removed during her total hysterectomy on 04/03/2018. - I briefly discussed a laparoscopic ventral hernia repair with mesh. - The patient is currently losing weight. I advised she continue to lose more weight before discussing surgical intervention of the hernia and mesh repair. 2) potential renal cell carcinoma - I reviewed and discussed the results of her MRI abdomen. - I will refer her to urology. - I will follow up with patient in 6 months in follow up. She may call with any questions or concerns. Clint Boykin MD, [facility] General Surgery and Minimally Invasive Surgery [address], [address] [place] [address] Office: Scribed for and in the presence of Clint Boykin MD by Fadi Blankenship(scribe). Provider Statement: I, Clint Boykin MD, personally performed the services described in the documentation as scribed by Fadi Blankenship in my presence, and it is both accurate and complete. Electronically signed by Clint Boykin MD. Fadi Blankenship 02/25/2023 9:49 AM Fadi Blankenship CMA 02/25/23 0950 documented in this encounter [facility] 02-20-2023 Evaluation note Encounter Date Diagnosis Assessment Notes Jan, Acute non-recurrent maxillary sinusitis (ICD-10 - J01.00) Advised patient that rapid COVID/influenz a A/B test was negative today in office. Discussed diagnosis with patient. Will today for bacterial sinusitis based on physical exam and duration of symptoms. Take antibiotic as prescribed, complete entire course of therapy even if symptoms resolve. Reviewed allergies and recent antibiotic use with patient. Encouraged supportive care as directed, push fluids and rest, Tylenol and/or Motrin as directed for discomfort/fev er, warm moist compress over sinuses several times a day, cool mist humidification , nasal saline spray as directed. Symptoms should improve in the next 3 days, if symptoms persist follow up with PCP. Immediate eval for warning s/sx as discussed. Patient verbalizes understanding and is agreeable to treatment plan Jan, Acute cough (ICD-10 - R05.1) [facility] [employer] [facility] Other Evaluation note* Diagnosis Right renal mass- Primary Unspecified disorder of kidney and ureter Ventral hernia without obstruction or gangrene Unspecified ventral hernia without mention of obstruction or gangrene documented in this encounter [facility]* Diagnosis Renal mass- Primary Unspecified disorder of kidney and ureter Right renal mass Unspecified disorder of kidney and ureter documented in this encounter [facility]* Diagnosis Vaginal atrophy Postmenopausal atrophic vaginitis Dyspareunia in female Vaginal dryness, menopausal [facility] Diagnosis Renal mass- Primary Unspecified disorder of kidney and ureter documented in this encounter [facility] System[facility] general Narrative - Reported* Type Description Date Medical History hyperlipidemia Medical History HTN Medical History Diabetes type 2 Medical History colon cancer Medical History uterine cancer Surgical History x 3 Surgical History hernia surgery x 2 Surgical History bowel reconstruction Surgical History cholecystectomy Surgical History hysterectomy, total with BSO Surgical History hernia repair Hospitalization History see surgical hx [facility] [employer] [facility] Other InstructionsNot on filedocumented in this encounter [facility] filedocumented in this encounter [facility] filedocumented in this encounter [facility] on filedocumented in this encounter [facility]Not on filedocumented in this encounter [facility] System[facility]ructionsNot on filedocumented in this encounter [facility] SystemReason for referral (narrative)* Consultation (Routine) - Pending Review Specialty Diagnoses / Procedures Referred By Yasmani andre Referred To Contact Urology Diagnoses Right renal mass Clint Boykin MD [address] [address] [facility] [address] [place] [address] Referral ID Status Reason Start Date Expiration Date Visits Requested Visits Authorized [id number] Pending Review Specialty Services Required 02/25/2023 02/25/[address] [facility] Summary Purpose Family History No Family History Records FoundNo Family History Records FoundNo Family History Records FoundNo Family History Records FoundNo Family History Records Found Advance Directives No Advanced Directives Records FoundLatest Code Status on File Code Status Date Activated Date Inactivated Comments Full Code 04/03/2018 11:19 AM 04/08/2018 3:38 PM Latest Code Status on File Code Status Date Activated Date Inactivated Comments Full Code 04/03/2018 11:19 AM 04/08/2018 3:38 PM Reason for Referral Specialty Diagnoses / Procedures Referred By Contac t Referred To Contact Radiology Diagnoses Renal mass Procedures MR abdomen with and without contrast Leopoldo Chiu MD [address] [place] [address] Referral ID Status Reason Start Date Expiration Date V isits Requested Visits Authorized [id number] Pending Review 04/19/2023 04/18/2024 1 1 Specialty Diagnoses / Procedures Referred By Contac t Referred To Contact Radiology Diagnoses Right renal mass Procedures IR cryoablation renal right Leopoldo Chiu MD [address] [place] [id number] Referral ID Status Reason Start Date Expiration Date V isits Requested Visits Authorized [id number] Pending Review 03/10/2023 03/09/2024 1 1 Additional Source Comments INFORMATION SOURCE (unrecogn ized section and content) DATE CREATED AUTHOR 04/05/2021 [facility] DATE CREATED AUTHOR AUTHOR'S ORGANIZ ATION 11/24/2021 [facility] DATE CREATED AUTHOR AUTHOR'S ORGANIZ ATION 03/11/[address] [facility] DATE CREATED AUTHOR AUTHOR'S ORGANIZ ATION 04/07/2023 [facility] DATE CREATED AUTHOR AUTHOR'S ORGANIZ ATION 07[facility]01/2023 [facility] REASON FOR VISIT (unrecogniz ed section and content) Reason Comments New Patient Ventral hernia Specialty Diagnoses / Procedures Referred By Contac t Referred To Contact General Surgery Diagnoses Ventral hernia without obstruction or gangrene Mendy Plascencia, PA-C [address] [facility] [address] [place] [address] Clint Boykin MD [address] [facility] [address] [place] [address] Referral ID Status Reason Start Date Expiration Date Visits Requested Visits Authorized [id number] Pending Review Specialty Services Required 3 01/07/2024 1 1 Reason Comments Med Refill Reason Comments Right Renal Mass Specialty Diagnoses / Procedures Referred By Contjavier t Referred To Contact Urology Diagnoses Right renal mass Clint Boykin MD [address] [facility] [address] [place] [address] [facility] [address] [place] [address] Referral ID Status Reason Start Date Expiration Date Visits Requested Visits Authorized [id number] Pending Review Specialty Services Required 02/25/2023 02/25/2024 1 1 Care Teams (unrecognized sec tion and content) [employer] Relationship Specialty Start Date End Date Caryn Gomez APRN-FNP [address] [place] [address] PCP - General Internal Medicine 05/22/22 [employer] Se[employer] Relationship Specialty Start Date End Date Caryn Gomez APRN-FNP [address] [place] [address] PCP - General Internal Medicine 05/22/22 [employer] Seeder Relationship Specialty Start Date End Date Caryn Gomez APRN-FNP [address] [place] [address] PCP - General Internal Medicine 05/22/22 [employer] Seeder Relationship Specialty Start Date End Date Caryn Gomez APRN-FNP [address] [place] [address] PCP - General Internal Medicine 05/22/22 [employer] Seeder Relationship Specialty Start Date End Date [facility] [address] [place] [address] PCP - General Internal Medicine 05/22/22 [employer] Seeder Relationship Specialty Start Date End Date Caryn Gomez [facility] [address] [place] [address] PCP - General Internal Medicine 05/22/22 [employer] Seeder Relationship Specialty Start Date End Date Caryn Gomez [facility] [address] [place] [address] PCP - General Internal Medicine 05/22/22 [employer] Seeder Relationship Specialty Start Date End Date Caryn Gomez [facility] [address] [place] [address] PCP - General Internal Medicine 05/22/22 FOR RECORDS PERTAINING TO PATIENTS WHO ARE OR HAVE BEEN ENROLLED IN A CHEMICAL DEPENDENCY/SUBSTANCEABUSE PROGRAM, SOME INFORMATION MAY BE OMITTED. This clinical summary was aggregated from multiple sources. Caution should be exercised in using it in the provision of clinical care. This summary normalizes information from multiple sources, and as a consequence, information in this document may materially change the coding, format and clinical context of patient data. In addition, data may be omitted in some cases. CLINICAL DECISIONS SHOULD BE BASED ON THE PRIMARY CLINICAL RECORDS. [employer] [facility]. provides no warranty or guarantee of the accuracy or completeness of information in this document.
--- NOTE | 2023-11-28 07:42 | MM_ITS ---
Patient Name: PARISA SANCHEZ MR#: [id number] : 1960 Exam Date: 11/28/2023 Ordering Doctor: YASHIRA CORONADO RADIOLOGY REPORT PROCEDURE: MM TOMOSYNTHESIS SCREENING BI COMPARISON: MM TOMOSYNTHESIS SCREENING BI, 11/22/2022. MG MAMM SCREEN 3D CJ CAD, 11/02/2021. MG MAMM SCREEN CJ W CAD, 05/02/2020. MG MAMM CJ SCRN W CAD DIG, 05/10/2009. INDICATIONS: Screening Calculator Name NCI Breast Cancer Risk Assessment Tool 5 Year Breast Cancer Risk 3.10% Lifetime Breast Cancer Risk 12.10% Personal Breast Cancer No Personal Ovarian Cancer No Treatments chemotherapy, bowel resection- hysterectomy Family Cancers Mother with breast cancer at age 42. LOCATION: [facility] BREAST COMPOSITION: There are scattered areas of fibroglandular density. FINDINGS: DIAGNOSTIC CATEGORY 2--BENIGN FINDING: RIGHT BREAST: No significant suspicious finding. Scattered benign-appearing calcifications are present. No significant change has occurred. LEFT BREAST: No significant suspicious finding. Scattered benign-appearing calcifications are present. No significant change has occurred. RECOMMENDATIONS: ROUTINE MAMMOGRAM AND CLINICAL EVALUATION IN 12 MONTHS. PLEASE NOTE: A NORMAL MAMMOGRAM DOES NOT EXCLUDE THE POSSIBILITY OF BREAST CANCER. A CLINICALLY SUSPICIOUS PALPABLE LUMP SHOULD BE BIOPSIED. Dictated by: Carlos Chappell M.D. on 11/28/2023 at 10:30 Approved by: Carlos Chappell M.D. on 11/28/2023 at 10:33
[2023-11-28 08:16] LABS: Basophils Absolute Auto 0.1 10^3/uL (0.0-0.1); Basophils Percent Auto 0.7 % (0.2-2.0); Eosinophils Absolute Auto 0.2 10^3/uL (0.0-0.7); Eosinophils Percent Auto 1.6 % (0.9-7.0); Hematocrit 45.8 % (36.0-48.0); Hemoglobin 14.8 g/dL (12.0-16.0); Immature Granulocytes Abs Auto 0.03 10^3/uL (0.00-0.03); Immature Granulocytes Pct Auto 0.3 % (0.0-0.5); Lymphocytes Absolute Auto 2.8 10^3/uL (1.2-3.8); Lymphocytes Percent Auto 29.2 % (20.5-60.0); Mean Corpuscular HGB Conc 32.3 g/dL (29.9-35.2); Mean Corpuscular Hemoglobin 28.3 pg (26.7-34.0); Mean Corpuscular Volume 87.6 fL (81.0-99.0); Monocytes Absolute Auto 0.8 10^3/uL (0.3-0.8); Monocytes Percent Auto 7.8 % (1.7-12.0); Neutrophils Absolute Auto 5.8 10^3/uL (1.4-6.5); Neutrophils Percent Auto 60.4 % (43.0-75.0); Platelet Count 249 10^3/uL (150-450); Red Blood Count 5.23 10^6/uL (4.20-5.40); Red Cell Distribution Width 13.1 % (11.0-15.0); White Blood Count 9.6 10^3/uL (4.0-11.0)
[2023-11-28 08:38] LABS: Microalbumin Urine Random 2.2 mg/dL (<=30.0)
[2023-11-28 08:40] LABS: Estimated Average Glucose 134 mg/dL; Glycohemoglobin A1C 6.3 % (4.5-6.2)
[2023-11-28 09:25] LABS: Chol HDL Ratio 2.1; Cholesterol 115 mg/dL (<=200); HDL Cholesterol 54 mg/dL (40-60); LDL Cholesterol Calculated 40.8 mg/dL; Thyroid Stimulating Hormone 0.008 uIU/mL (0.358-3.740); Triglycerides 101 mg/dL (<=150); VLDL CHOLESTEROL 20.2 mg/dL
== END 2023-11-28 07:29 | disposition home or self-care (01) ==
LOC: LAB 07:29
PROVIDERS: PCP Family Medicine; Visit Provider Nurse Practitioner
DX: Z00.00 Encounter for general adult medical examination without abnormal findings (principal); E11.65 Type 2 diabetes mellitus with hyperglycemia; Z13.820 Encounter for screening for osteoporosis; Z78.0 Asymptomatic menopausal state; Z12.31 Encounter for screening mammogram for malignant neoplasm of breast; Z80.3 Family history of malignant neoplasm of breast
CPT/HCPCS: 36415; 77063; 77067; 80061; 82043; 82570; 83036; 84443; 85025

== ENCOUNTER 2023-12-01 12:56 | Outpatient (OUT) | payer OTHER, SELFPAY ==
--- NOTE | 2023-12-01 13:00 | XR_ITS ---
The [address] [address] Patient Name: PARISA SANCHEZ MRN: [id number] date: 1960 Sex: F Assigned Patient Location: [facility] Current Patient Location: Accession/Order Number: [id number] Exam Date: 12/01/2023 13:05 Report Date: 12/02/2023 04:53 At the request of: YASHIRA CORONADO Procedure: XR DEXA axial skeleton EXAMINATION: XR DEXA axial skeleton HISTORY: Screening Osteoporosis COMPARISON: No relevant comparison available. TECHNIQUE: Dual-energy X-ray absorptiometry (DXA) was performed. FINDINGS: SPINE ANALYSIS: Average bone mineral density is 1.23 g/cm2. T-score (standard deviation relative to young adult mean): 0.7 . HIP ANALYSIS: Lowest bone mineral density is within the right femoral neck, 1.046 g/cm2. T-score (standard deviation relative to young adult mean): 0.1 . XR/XR DEXA axial skeleton IMPRESSION: World Health Organization Classification: Normal - Low Fracture Risk FRAX: Cannot be calculated. Pharmacologic treatment recommendations * No uniform recommendation applies to all patients. Management plans must be individualized. * Consider initiating pharmacologic treatment in postmenopausal women and men >= 50 years of age who have the following: Primary fracture prevention: * T-score <= - 2.5 at the femoral neck, total hip, lumbar spine, 33% radius (some uncertainty with existing data) by DXA. * Low bone mass (osteopenia: T-score between - 1.0 and - 2.5) at the femoral neck or total hip by DXA with a 10-year hip fracture risk >= 3% or a 10-year major osteoporosis-related fracture risk >= 20% (i.e., clinical vertebral, hip, forearm, or proximal humerus) based on the [place]-adapted FRAXregistered model. Secondary fracture prevention: * Fracture of the hip or vertebra regardless of BMD [4, 5]. * Fracture of proximal humerus, pelvis, or distal forearm in persons with low bone mass (osteopenia: T-score between - 1.0 and - 2.5). The decision to treat should be individualized in persons with a fracture of the proximal humerus, pelvis, or distal forearm who do not have osteopenia or low BMD [12, 13]. Leslie MS, Avinash SL, Alexa KL, Sweetie EM, Mitch KG, AJ, Johnny ES. The clinician's guide to prevention and treatment of osteoporosis. Osteoporos Int. 2021;33(10):1924-1962. doi: 10.1007/r69983-924-84494-f. Epub 2021Jun 21. Erratum in: Osteoporos Int. 2021Sep 20;: PMID: [id number]; PMCID: [id number]. Electronically authenticated by: MICHAEL GREEN Date: 12/02/2023 04:53
--- OUTSIDE RECORDS SUMMARY | 2023-12-01 13:00 | XMS_ITS | CCD ---
Author Organization [facility]iniSymi Care Team Providers Care Tappet Adjuster Name Role Phone DR CARYN GOMEZ Admitting Unavailable PATRICIA, DR CARYN Art Attending Unavailable RAYMOND, DR SID Shaffer Primary Care Unavailable PETER, DR CARLOS Art Consulting Unavailable PATRICIA, DR CARYN Art Consulting Unavailable Yina Avila Unavailable Patricia GARBAGE COLLECTOR DRIVER-ESTATE PLANNING DIRECTORCaryn Fraire Primary Care Provider LEOPOLDO CHIU. Attending [...] Acetaminophen / oxyCODONE Drug Allergy 3 Vomiting [facility] Other (1 source) Adhesive Tape Propensity to adverse reactions rash [facility] Other (15 sources) Cephalexin; Translations: [CEPHALEXIN] Drug Allergy rash [facility] Other (1 source) Cephalexin Drug Allergy rash [facility] Other (15 sources) predniSONE; Translations: [PREDNISONE] Drug Allergy rash [facility] Other (14 sources) Adhesive Tape-Silicones; Translations: [ADHESIVE TAPE-SILICONES] Propensity to adverse reactions to drug [facility] Work Phone: (3 sources) Acetaminophen [...] 1 tablet Orally Once a day Active cizeuxmm-cmlq-WD-calc ium &mins (THERAGRAN-M) 9 mg iron-400 mcg tablet (11 sources) wtncklns-rwtr-VP -calc ium &mins (THERAGRAN-M) 9 mg iron-400 mcg tablet Take 1 tablet by mouth in the morning. 0 Active nystatin [id number] unt/ml topical cream (11 sources) Polyene Antifungal [...] (COVID-19) RNA SANFORD+probe Ql (Unsp spec) Negative [facility] Other COVID + FLU Quick Testing Negative [facility] Other MG MAMM SCREEN 3D CJ CADon 11-02-2021 MG MAMM SCREEN 3D CJ CAD Patient: SANDY SANCHEZ Exam Date: 11/02/2021 : 1960 Gender:F Ordering : DR CARYN GOMEZ Admission #: [id number] Family : Order #: [id number] CLICK HERE TO VIEW EXAM RADIOLOGY REPORT [...] breast cancer at age 41. LOCATION: [facility] BREAST COMPOSITION: Scattered areas fibroglandular density. FINDINGS: [...] M.D. on 11/02/2021 at 12:38 Normal [facility] ALBUMIN, RANDOM URINE W/CREA TININEon 04-05-2021 ALBUMIN, URINE 2.0 mg/dL Normal See Note: [facility] Comment on above: Result Comment: Refe rence Range: Reference Range Not established Performed By: #### 6 517, 64548, 496, 99450, 7600 #### [facility] [address], [address] [place] [address] Helmet Hat Brim Cutter: Judd Warren MD ALBUMIN/CREATININE RATIO, RANDOM URINE [...] diagnostic category. Performed By: #### 6 517, 16326, 496, 98612, 7600 #### [facility] [address], [address] [place] [address] Helmet Hat Brim Cutter: Judd Warren MD Creatinine (U) [Mass/Vol] 115 mg/dL Normal 20-275 [facility] Comment on above: Performed By: #### 6 517, 63943, 496, 34839, 7600 #### [facility] [address], [address] [place] [address] Helmet Hat Brim Cutter: Judd Warren MD [facility] METABOLIC PANE [facility] ([place], [place]) 04-05-2021 Albumin [Mass/Vol] 4.5 g/dL Normal 3.6-5.1 [facility] Comment on above: Performed By: #### 6 517, 39288, 496, 03819, 7600 #### [facility] [address], [address] [place] [address] Helmet Hat Brim Cutter: Judd Warren MD Albumin/Globulin [Mass ratio] 1.4 {ratio} Normal 1.0-2.5 [facility] Comment on above: Performed By: #### 6 517, 87676, 496, 63366, 7600 #### [facility] [address], [address] [place] [address] Helmet Hat Brim Cutter: Judd Warren MD ALP [Catalytic activity/Vol] 65 U/L Normal 37-153 [facility] Comment on above: Performed By: #### 6 517, 55369, 496, 96538, 7600 #### [facility] of [address], [address] [place] [address] Helmet Hat Brim Cutter: Judd Warren MD ALT [Catalytic activity/Vol] 44 U/L High 6-29 [facility] Comment on above: Performed By: #### 6 517, 37487, 496, 49465, 7600 #### [facility] of [address], [address] [place] [address] Helmet Hat Brim Cutter: Judd Warren MD AST [Catalytic activity/Vol] 31 U/L Normal 10-35 [facility] Comment on above: Performed By: #### 6 517, 47559, 496, 28573, 7600 #### [facility] [address], [address] [place] [address] Helmet Hat Brim Cutter: Judd Warren MD Bilirubin [Mass/Vol] 0.7 mg/dL Normal 0.2-1.2 [facility] Comment on above: Performed By: #### 6 517, 87873, 496, 31202, 7600 #### [facility] [address], [address] [place] [address] Helmet Hat Brim Cutter: Judd Warren MD BUN/CREATININE RATIO NOT APPLICABLE Normal 6-22 [facility] Comment on above: Performed By: #### 6 517, 52849, 496, 05896, 7600 #### [facility] [address], [address] [place] [address] Helmet Hat Brim Cutter: Judd Warren MD Calcium [Mass/Vol] 9.5 mg/dL Normal 8.6-10.4 [facility] Comment on above: Performed By: #### 6 517, 74514, 496, 48443, 7600 #### [facility] [address], [address] [place] [address] Helmet Hat Brim Cutter: Judd Warren MD Chloride [Moles/Vol] 106 mmol/L Normal 98-110 [facility] Comment on above: Performed By: #### 6 517, 01199, 496, 87913, 7600 #### [facility] [address], [address] [place] [address] Helmet Hat Brim Cutter: Judd Warren MD CO2 [Moles/Vol] 23 mmol/L Normal 20-32 [facility] Comment on above: Performed By: #### 6 517, 31926, 496, 83430, 7600 #### [facility] [address], [address] [place] [address] Helmet Hat Brim Cutter: Judd Warren MD Creatinine [Mass/Vol] 0.55 mg/dL Normal 0.50-0.99 [facility] Comment on above: Result Comment: For patients >49 years of age, the reference limit for Creatinine is approximately 13% higher for people identified as -Bruneian. Performed By: #### 6 517, 73228, 496, 55353, 7600 #### [facility] [address], [address] [place] [address] Helmet Hat Brim Cutter: Judd Warren MD eGFR NON-AFR. EGYPTIAN 101 mL/min/1.73m2 Normal > OR = 60 [facility] Comment on above: Performed By: #### 6 517, 64565, 496, 60529, 7600 #### [facility] [address], [address] [place] [address] Helmet Hat Brim Cutter: Judd Warren MD GFR/1.73 sq M.predicted among blacks MDRD (S/P/Bld) [Vol rate/Area] 117 mL/min/{1.73_m2} Normal > OR = 60 [facility] Comment on above: Performed By: #### 6 517, 60188, 496, 70164, 7600 #### [facility] [address], [address] [place] [address] Helmet Hat Brim Cutter: Judd Warren MD Globulin (S) [Mass/Vol] 3.3 g/dL Normal 1.9-3.7 [facility] Comment on above: Performed By: #### 6 517, 31366, 496, 24433, 7600 #### [facility] [place] [address] Helmet Hat Brim Cutter: Judd Warren MD Glucose [Mass/Vol] 131 mg/dL High 65-99 [facility] Comment on above: Result Comment: Fasting reference interval For someone without known diabetes, a glucose value >125 mg/dL indicates that they may have diabetes and this should be confirmed with a follow-up test. Performed By: #### 6 517, 79065, 496, 78465, 7600 #### [facility] [place] [address] Helmet Hat Brim Cutter: Judd Warren MD Potassium [Moles/Vol] 3.9 mmol/L Normal 3.5-5.3 [facility] Comment on above: Performed By: #### 6 517, 32551, 496, 97247, 7600 #### [facility] [place] [address] Helmet Hat Brim Cutter: Judd Warren MD Protein [Mass/Vol] 7.8 g/dL Normal 6.1-8.1 [facility] Comment on above: Performed By: #### 6 517, 88090, 496, 64625, 7600 #### [facility] [place] [address] Helmet Hat Brim Cutter: Judd Warren MD Sodium [Moles/Vol] 139 mmol/L Normal 135-146 [facility] Comment on above: Performed By: #### 6 517, 04104, 496, 32940, 7600 #### [facility] [place] [address] Helmet Hat Brim Cutter: Judd Warren MD Urea nitrogen [Mass/Vol] 16 mg/dL Normal 7-25 [facility] Comment on above: Performed By: #### 6 517, 90917, 496, 73425, 7600 #### [facility] [address], [address] [place] [address] Helmet Hat Brim Cutter: uJdd Warren MD HEMOGLOBIN A1con 04-05-2021 HEMOGLOBIN A1c [...] for children. Performed By: #### 6 517, 50652, 496, 13045, 7600 #### [facility] [address], [address] [place] [address] Helmet Hat Brim Cutter: Judd Warren MD LIPID PANEL, STANDARDon 03-27 Cholesterol [Mass/Vol] 119 mg/dL Normal <200 [facility] Comment on above: Order Comment: FASTI NG:YES FASTING: YES Performed By: #### 6 517, 98780, 496, 12705, 7600 #### [facility] [address], [address] [place] [address] Helmet Hat Brim Cutter: Judd Warren MD Cholesterol in HDL [Mass/Vol] 49 mg/dL Low > OR = 50 [facility] Comment on above: Order Comment: FASTI NG:YES FASTING: YES Performed By: #### 6 517, 66733, 496, 66601, 7600 #### [facility] [address], [address] [place] [address] Helmet Hat Brim Cutter: Judd Warren MD Cholesterol in LDL [Mass/Vol] [...] LDL-C. Horacio SS et al. ISHMAEL. 2013;310(19): 6813-0333 (http://education.Guide [employer]/faq/KXN174) Performed By: #### 6 517, 15859, 496, 75088, 7600 #### [facility] [address], [address] [place] [address] Helmet Hat Brim Cutter: Judd Warren MD Cholesterol.total/C holesterol in HDL [Mass ratio] 2.4 {ratio} Normal <5.0 [facility] Comment on above: Order Comment: FASTI NG:YES FASTING: YES Performed By: #### 6 517, 04530, 496, 28551, 7600 #### [facility] [address], [address] [place] [address] Helmet Hat Brim Cutter: Judd Warren MD NON HDL CHOLESTEROL 70 mg/dL (calc) Normal <130 [facility] Comment on above: Order Comment: FASTI NG:YES FASTING: YES Result Comment: For patients with diabetes plus 1 major ASCVD risk factor, treating to a non-HDL-C goal of <100 mg/dL (LDL-C of <70 mg/dL) is considered a therapeutic option. Performed By: #### 6 517, 22955, 496, 80779, 7600 #### [facility] [address], [address] [place] [address] Helmet Hat Brim Cutter: Judd Warren MD Triglyceride [Mass/Vol] 96 mg/dL Normal <150 [facility] Comment on above: Order Comment: FASTI NG:YES FASTING: YES Performed By: #### 6 517, 65219, 496, 74112, 7600 #### [facility] [address], [address] [place] [address] Helmet Hat Brim Cutter: Judd Warren MD TSH+FREE T4on 04-05-2021 Free T4 [Mass/Vol] 1.1 ng/dL Normal 0.8-1.8 [facility] Comment on above: Performed By: #### 6 517, 85607, 496, 77506, 7600 #### [facility] [address] [facility], [address] [place] [address] Helmet Hat Brim Cutter: Judd Warren MD TSH Qn 0.05 m[IU]/L Low 0.40-4.50 [facility] Comment on above: Performed By: #### 6 517, 97060, 496, 45760, 7600 #### [facility] [address] [place] [address], [address] [place] [address] Helmet Hat Brim Cutter: Judd Warren MD Vital Signs Date Time Vital Sign Value Performing Clinician Facility 03-10-2023 13:58-0500 Body height 157.5 cm Leopoldo Chiu MD Work Phone: [facility] 03-10-2023 13:58-0500 Body mass index (BMI) [Ratio] 40.24 kg/m2 Leopoldo Chiu MD Work Phone: [facility] 03-10-2023 13:58-0500 Body weight 99.79 kg Leopoldo Chiu MD Work Phone: [facility] 03-10-2023 13:58-0500 Diastolic blood pressure 80 mm[Hg] Leopoldo Chiu MD Work Phone: [facility] 03-10-2023 13:58-0500 Heart rate 92 /min Leopoldo Chiu MD Work Phone: [facility] 03-10-2023 13:58-0500 Systolic blood pressure 125 mm[Hg] Leopoldo Chiu MD Work Phone: [facility] 02-25-2023 09:36-0500 Body height 157.5 cm Clint Boykin MD Work Phone: [facility] 02-25-2023 09:36-0500 Body mass index (BMI) [Ratio] 40.24 kg/m2 Clint Boykin MD Work Phone: [facility] 02-25-2023 09:36-0500 Body weight 99.79 kg Clint Boykin MD Work Phone: [facility] [employer] [facility] 02-20-2023 13:20-0500 Body height 160.02 cm Yina Avila Other [facility] Other 02-20-2023 13:20-0500 Body mass index (BMI) [Ratio] 34.89 kg/m2 Yina Avila Other [facility] Other 02-20-2023 13:20-0500 Body temperature 98.5 [degF] Yina Avila Other [facility] Other 02-20-2023 13:20-0500 Body weight 89.36 kg Yina Avila Other [facility] Other 02-20-2023 13:20-0500 Respiratory rate 18 /min Yina Avila Other [facility] Other 02-20-2023 13:20-0500 SaO2% (BldA) [Mass fraction] 98 % Yina Avila Other [facility] Other Encounters Encounter Date Encounter Type Care Provider Facility Start: 06-30-2023 End: 06-30-2023 ambulatory CARYN GOMEZ [facility] Start: 06-01-2023 Refill Caryn Gomez GARBAGE COLLECTOR DRIVER-ESTATE PLANNING DIRECTOR Work Phone: [facility] - [facility] Start: 05-12-2023 Telephone encounter Caryn Gomez GARBAGE COLLECTOR DRIVER-ESTATE PLANNING DIRECTOR Work Phone: [facility] - [facility] Start: 05-11-2023 Refill Caryn Gomez GARBAGE COLLECTOR DRIVER-ESTATE PLANNING DIRECTOR Work Phone: [facility] Internal Medicine - Family Medicine Start: 04-19-2023 Telephone encounter Leopoldo Chiu MD Work Phone: [facility] Start: 04-07-2023 Refill Caryn Gomez GARBAGE COLLECTOR DRIVER-ESTATE PLANNING DIRECTOR Work Phone: [facility] - [facility] Comment on above: Vaginal atrophy; Dyspareunia in female; Vaginal dryness, menopausal Start: 04-04-2023 Telephone encounter Leopoldo Chiu MD Work Phone: [facility] Start: 04-02-2023 End: 04-02-2023 ambulatory LEOPOLDO CHIU [facility] Start: 03-10-2023 End: 03-10-2023 ambulatory LEOPOLDO CHIU [facility] Start: 03-10-2023 End: 03-10-2023 Office consultation new/estab patient 60 min Leopoldo Chiu MD Work Phone: [facility] Comment on above: Renal mass (Primary Dx); Right renal mass Start: 03-04-2023 Refill Caryn Gomez GARBAGE COLLECTOR DRIVER-ESTATE PLANNING DIRECTOR [facility] Start: 03-02-2023 Refill Caryn Gomez GARBAGE COLLECTOR DRIVER-ESTATE PLANNING DIRECTOR Work Phone: [facility] - [facility] Start: 02-25-2023 End: 02-25-2023 ambulatory CLINT BOYKIN [facility] Start: 02-25-2023 End: 02-25-2023 Office outpatient new 45 minutes Clint Boykin MD Work Phone: [facility] General Surgery Comment on above: Right renal mass (Pr imary Dx); Ventral hernia without obstruction or gangrene Start: 02-20-2023 End: 02-20-2023 ambulatory Yina Avila Other [facility] Other Start: 02-20-2023 Office outpatient ne w 30 minutes Yina Avila [facility] Start: 11-02-2021 End: [...] Td Vaccines (3 - Td or Tdap) [facility] Start: 05-02-2026 Screening for malign ant neoplasm of colon Colonoscopy [facility] Start: 03-10-2024 Adult BMI Screening Adult BMI Screen ing [facility] Start: 03-10-2024 Tobacco Screening Tobacco Screening [facility] Start: 02-26-2024 Adult BMI Screening Adult BMI Screen ing [facility] Start: 02-26-2024 Tobacco Screening Tobacco Screening [facility] Start: 01-19-2024 End: 01-19-2024 Patient encounter procedure 01/19/2024 1:45 PM EST Office Visit [facility] [address] [place] [address] [place] [address] Leopoldo Chiu MD [address] [place] [address] [facility] Start: 01-09-2024 End: 01-09-2024 Patient encounter procedure 01/09/2024 11:00 AM EST Office Visit [facility] [address] [address] Mendy Plascencia, PAVikram [address] [place] [address] [facility] Start: 12-30-2023 End: 04-18-2024 MR Abdomen WO and W contrast IV MR abdomen with and without contrast Imaging Routine Renal mass Expected: 12/30/2023 (Approximate), Expires: 04/18/2024 [facility] Work Phone: Comment on above: Expected: 12/30/2023 (Approximate), Expires: 04/18/2024 Start: 12-11-2023 Adult BMI Follow Up Plan Adult BMI Follow Up Plan [facility] Start: 12-11-2023 Depression Screening Depression Scre ening [facility] Start: 11-26-2023 Screening for malign ant neoplasm of breast Mammogram [facility] Start: 10-26-2023 Influenza vaccination Influenza Vacc ine [facility] Start: 08-26-2023 End: 08-26-2023 Patient encounter procedure 08/26/2023 10:00 AM EDT Office Visit [facility] [address] [place] [address] Clint Boykin MD [address] [facility] [place] [address] [facility] General Surgery Start: 06-21-2023 Glaucoma screening Diabetic Op hthalmology Exam [facility] Start: 05-30-2023 Diabetic foot examination Diabetic Foot Exam [facility] Start: 05-24-2023 Urine screening for protein Urine Microalbumin [facility] Start: 05-14-2023 End: 05-14-2023 Patient encounter procedure 05/14/2023 11:45 AM EDT Office Visit [facility] [address] [place] [address] [address] [facility] [address] Leopoldo Chiu MD [address] [place] [address] [id number] [facility] Start: 03-10-2023 End: 03-10-2024 Guidance for cryoablation of Kidney IR cryoablation renal right Imaging Routine Right renal mass Expected: 03/10/2023, Expires: 03/10/2024 [facility] Work Phone: Comment on above: Expected: 03/10/2023 , Expires: 03/10/2024 Start: 03-10-2023 End: 03-10-2023 Patient encounter procedure 03/10/2023 2:00 PM EST Office Visit [facility] [address] [place] [address] [address] [place] [address] Leopoldo Chiu MD [address] [place] [address] [facility] Start: 03-10-2023 End: 03-09-2024 XR Chest PA and Lateral X-ray chest 2 views Imaging Routine Right renal mass Expected: 03/10/2023, Expires: 03/09/2024 [facility] Comment on above: Expected: 03/10/2023 , Expires: 03/09/2024 Immunizations Immunization Date Immunization Notes Care Provider [facility] 12-08-2022 influenza, injectabl e, quadrivalent, preservative free Clint Boykin MD Work Phone: [facility] 12-08-2022 influenza virus vaccine, unspecified formulation Caryn Gomez GARBAGE COLLECTOR DRIVER-ESTATE PLANNING DIRECTOR Work Phone: [facility] 05-16-2022 zoster vaccine recombinant Clint Boykin MD Work Phone: [facility] 01-15-2022 zoster vaccine recombinant Clint Boykin MD Work Phone: [facility] 01-08-2022 zoster vaccine recombinant Clint Boykin MD Work Phone: [facility] 01-08-2022 zoster vaccine, live Clint Boykin MD Work Phone: [facility] 12-01-2021 influenza virus vaccine, unspecified formulation Clint Boykin MD Work Phone: [facility] 12-01-2021 influenza, injectabl e, quadrivalent, preservative free Clint Boykin MD Work Phone: [facility] 12-17-2019 influenza, injectabl e, quadrivalent, preservative free Clint Boykin MD Work Phone: [facility] 12-17-2019 tetanus toxoid, redu felix diphtheria toxoid, and acellular pertussis vaccine, adsorbed Clint Boykin MD Work Phone: [facility] 02-04-2019 Seasonal, quadrivale nt, recombinant, injectable influenza vaccine, preservative free Clint Boykin MD Work Phone: [facility] 12-24-2017 influenza, injectabl e, quadrivalent, contains preservative Clint Boykin MD Work Phone: [facility] 12-25-2016 influenza virus vaccine, unspecified formulation Clint Boykin MD Work Phone: [facility] 02-07-2014 influenza virus vaccine, unspecified formulation Clint Boykin MD Work Phone: [facility] 02-07-2013 pneumococcal conjuga te vaccine, 13 valent Clint Boykin MD Work Phone: [facility] 07-06-2010 tetanus toxoid, redu felix diphtheria toxoid, and acellular pertussis vaccine, adsorbed Clint Boykin MD Work Phone: [facility] 03-06-2009 novel [id number], preservative-free, injectable Clint Boykin MD Work Phone: [facility] Payers Date Payer Category Payer Private Health Insurance [employer]-OPEN ACCESS PLUS (OAP,OA PLUS) [id number] 2018-Present [phone] [address] [place] [address] [id number] 1960 Unknown [id number] 1960 Unknown [id number] 1960 Unknown [id number] 1960 Unknown [id number] 1960 Unknown [id number] 1960 Private Health Insurance [id number] Social History Date Type Detail Facility Start: 11-25-2021 End: 03-10-2023 Sex Assigned At [facility] Start: 04-23-2022 Tobacco smoking status NHIS Never smoked tobacco [facility] Start: 04-23-2022 Tobacco use and exposure Smokeless tobacco non-user [facility] Start: 02-25-2023 End: 03-10-2023 Alcohol intake Current non-drinker of alcohol (finding) [facility] Start: 11-25-2021 End: 03-10-2023 History of Social function [facility] Do you belong to any clubs or organizations such as lutheran groups, unions, fraternal or athletic groups, or school groups? Yes [facility] Are you now , , , , never or living with a partner? [facility] How often to you hav e a drink containing alcohol? Never [facility] How many standard dr inks containing alcohol do you have on a typical day? Patient does not drink [facility] How hard is it for y ou to pay for the very basics like food, housing, medical care, and heating Not very hard [facility] Do you feel stress - tense, restless, nervous, or anxious, or unable to sleep at night because your mind is troubled all the time - these days [OSQ] Only a little [facility] Start: 11-25-2021 Education 17 [facility] Start: 1960 Sex Assigned At Female [facility] Start: 11-16-2019 Gender identity Identifies as female gender (finding) [facility] Start: 11-16-2019 Sexual orientation Heterosexual (finding) [facility] Medical Equipment Procedure Code Equipment Code Equipment Origin al Text Equipment Identifier Dates 1 strip by other route in the morning. [id number] Start: 04-08-2022 Inject 1 Lancet. under the skin in the morning. [id number] Start: 04-08-2022 Goals Date Patient Goal Desired [...] VM Sending letter documented in this encounter [facility] 05-12-2023 Telephone encounter Note ----- Message from Caryn Gomez APRN-JIEMY sent at 12/10/2022 3:41 PM EDT ----- Regarding: cv, dm Due mid June 17 - usually gets labs before - Caryn [facility] 05-12-2023 Telephone encounter Note LM on VM [facility] 05-12-2023 Telephone encounter Note LM on VM [facility] 05-12-2023 Telephone encounter Note Sending letter [facility] 04-19-2023 Miscellaneous Notes Have the patient obtain an MRI in about 9 months. Return the office after that MRIs done off day appointment. Has a renal mass that we are following. documented in this encounter [facility] 04-19-2023 Telephone encounter Note Have the patient obtain an MRI in about 9 months. Return the office after that MRIs done off day appointment. Has a renal mass that we are following. [facility] 04-04-2023 Note CONSULT TO INTERVENT IONAL RADIOLOGY [...] Fred Miller MD on 04/04/2023 4:51 PM [facility] 04-04-2023 Miscellaneous Notes error documented in this encounter [facility] 04-04-2023 Telephone encounter Note error [facility] 03-10-2023 Evaluation + Plan note Associated Problem(s): Renal mass Liver looks good on MRI. Complete metastatic evaluation. PA and lateral chest x-ray. [facility] 03-10-2023 Miscellaneous Notes Associated Problem(s): Renal mass Liver looks good on MRI. Complete metastatic evaluation. PA and lateral chest x-ray. documented in this encounter [facility] 03-10-2023 History of Presen t illness Narrative Images from the original note were not included. [address] [place] [address] [address] [facility] [id number] Patient: Sandy Sanchez Date of : 1960 [...] Medical History: Diagnosis Date Cataract Colon cancer ([facility]) Dental disease crowns Diabetes ([facility]) Diabetes mellitus type 2, controlled ([facility]) Disease of thyroid gland Eczema History of chemotherapy 2005 HL (hearing loss) hearing aids Hx of blood clots 2005 and 2010 Hyperlipidemia Hypertension Obesity Uterine cancer ([facility]) Visual impairment glasses left Past Surgical History: Procedure Laterality Date SECTION COLON SURGERY colon resection COLONOSCOPY COLONOSCOPY N/A 05/02/2021 Performed by Jose Chambers DO at [facility] CYSTOSCOPY W/ SPINCTEROTOMY DEBRIDEMENT WOUND ABDOMEN N/A 11/18/2018 Performed by Clint Boykin MD at [facility] EYE SURGERY HEMICOLECTOMY HERNIA REPAIR RECURRENT INCARCERATED INCISIONAL HERNIA REPAIR WITH LEFT MYOFASCIAL FLAP ADVANCEMENT AND RIGHT MYOFASCIAL FLAP ADVANCEMENT N/A 04/03/2018 Performed by Clint Boykin MD at [facility] TOTAL HYSTERECTOMY ABDOMINAL BSO/REGIONAL LYMPHADENECTOMY, LEFT URETEROLYSIS, PARTIAL GREATER OMENTECTOMY, BIOPSY VAGINA, CYTOLOGIC PELVIC WASHINGS N/A 04/03/2018 Performed by Maurizio Gutierres MD at [facility] TUBAL LIGATION Family History Problem Relation [...] by mouth twice daily 360 tablet 0 cyctrdif-jtdl-DY-calcium &mins (THERAGRAN-M) 9 mg iron-400 mcg tablet [...] visit: Renal mass Right renal mass - [facility] - RUBIN Yan - [...] for your understanding. documented in this encounter [facility] 02-25-2023 History of Presen t illness Narrative [...] Medical History: Diagnosis Date Cataract Colon cancer ([facility]) Dental disease crowns Diabetes ([facility]) Diabetes mellitus type 2, controlled ([facility]) Disease of thyroid gland Eczema History of chemotherapy 2005 HL (hearing loss) hearing aids Hx of blood clots 2005 and 2010 Hyperlipidemia Hypertension Obesity Uterine cancer ([facility]) Visual impairment glasses left Past Surgical History: Procedure Laterality Date SECTION COLON SURGERY colon resection COLONOSCOPY COLONOSCOPY N/A 05/02/2021 Performed by Jose Chambers DO at [facility] CYSTOSCOPY W/ SPINCTEROTOMY DEBRIDEMENT WOUND ABDOMEN N/A 11/18/2018 Performed by Clint Boykin MD at [facility] EYE SURGERY HEMICOLECTOMY HERNIA REPAIR RECURRENT INCARCERATED INCISIONAL HERNIA REPAIR WITH LEFT MYOFASCIAL FLAP ADVANCEMENT AND RIGHT MYOFASCIAL FLAP ADVANCEMENT N/A 04/03/2018 Performed by Clint Boykin MD at [facility] TOTAL HYSTERECTOMY ABDOMINAL BSO/REGIONAL LYMPHADENECTOMY, LEFT URETEROLYSIS, PARTIAL GREATER OMENTECTOMY, BIOPSY VAGINA, CYTOLOGIC PELVIC WASHINGS N/A 04/03/2018 Performed by Maurizio Gutierres MD at [facility] TUBAL LIGATION Allergies Allergen Reactions Cephalexin Rash Prednisone Rash Adhesive Tape-Silicones Oxycodone-Acetaminophen Vomiting Current Outpatient Medications: acetaminophen (TYLENOL) 500 mg tablet, Take 1 tablet (500 mg total) by mouth every 6 (six) hours as needed for pain Indications: headache., Disp: , Rfl: amLODIPine (NORVASC) 5 mg tablet, Take 1 tablet by mouth once daily, Disp: 90 tablet, Rfl: 1 blood sugar diagnostic (Mallzee.comTOUCH ULTRA TEST) strip, 1 strip by other [...] twice daily, Disp: 360 tablet, Rfl: 0 xyuhdaig-ebsl-BG-calcium &mins (THERAGRAN-M) 9 mg iron-400 mcg tablet, [...] min Stress: No Stress Concern Present (11/25/2021) [place] [place] [employer] - Occupational Stress Questionnaire Feeling of Stress : Only a little Social Connections: Socially Integrated (11/25/2021) Social Connection and Isolation Panel [NHANES] Frequency of Communication with Friends and Family: Three times a week Frequency of Social Gatherings with Friends and Family: Once a week Attends Buddhism Services: More than 4 times per year [...] any questions or concerns. Clint Boykin MD, [facility] General Surgery and Minimally Invasive Surgery [address] [facility], [address] [place] [address] Office: Scribed for and in the presence of Clint Boykin MD by Fadi Blankenship(scribe). Provider Statement: I, Clint Boykin MD, personally performed the services described in the documentation as scribed by Fadi Blankenship in my presence, and it is both accurate and complete. Electronically signed by Clint Boykin MD. Fadi Blankenship 02/25/2023 9:49 AM Fadi Blankenship CMA 02/25/23 0950 documented in this encounter [facility] 02-20-2023 Evaluation note Encounter Date Diagnosis Assessment [...] plan Jan, Acute cough (ICD-10 - R05.1) [facility] Other Evaluation note* Diagnosis Right renal mass- Primary Unspecified disorder of kidney and ureter Ventral hernia without obstruction or gangrene Unspecified ventral hernia without mention of obstruction or gangrene documented in this encounter [facility] [employer] SystemEvaluation note* Diagnosis Renal mass- Primary Unspecified disorder of kidney and ureter Right renal mass Unspecified disorder of kidney and ureter documented in this encounter [facility] [employer] SystemEvaluation note* Diagnosis Vaginal atrophy Postmenopausal atrophic vaginitis Dyspareunia in female Vaginal dryness, menopausal [facility] this [facility] Diagnosis Renal mass- Primary Unspecified disorder of kidney and ureter documented in this encounter [facility] [employer] SystemHistory general Narrative - Reported* Type Description Date Medical History hyperlipidemia Medical History HTN Medical History Diabetes type 2 Medical History colon cancer Medical History uterine cancer Surgical History x 3 Surgical History hernia surgery x 2 Surgical History bowel reconstruction Surgical History cholecystectomy Surgical History hysterectomy, total with BSO Surgical History hernia repair Hospitalization History see surgical hx [facility] Other InstructionsNot on filedocumented in this encounter [facility] SystemInstructionsNot on filedocumented in this encounter [facility] filedocumented in this encounter [facility]ructionsNot on filedocumented in this encounter [facility] SystemInstructionsNot on filedocumented in this encounter [facility] FS[employer] SystemInstructionsNot on filedocumented in this encounter [facility] [employer] SystemReason for referral (narrative)* Consultation (Routine) - Pending Review Specialty Diagnoses / Procedures Referred By Yasmani andre Referred To Contact Urology Diagnoses Right renal mass Clint Boykin MD [address] [address] [facility] [address] [place] [address] Referral ID Status Reason Start Date Expiration Date Visits Requested Visits Authorized [id number] Pending Review Specialty Services Required 02/25/2023 02/25/2024 1 1 Health system Summary Purpose Family History No Family History [...] with and without contrast Leopoldo Chiu MD [address] [place] [id number] Referral ID Status Reason Start Date Expiration Date V isits Requested Visits Authorized [id number] Pending Review 04/19/2023 04/18/2024 1 1 Specialty Diagnoses / Procedures Referred By Contac t Referred To Contact Radiology Diagnoses Right renal mass Procedures IR cryoablation renal right Leopoldo Chiu MD [address] [place] [id number] Referral ID Status Reason Start Date Expiration Date V isits Requested Visits Authorized [id number] Pending Review 03/10/2023 03/09/2024 1 1 Additional Source Comments INFORMATION SOURCE (unrecogn ized section and content) DATE CREATED AUTHOR 04/05/2021 [facility] DATE CREATED AUTHOR AUTHOR'S ORGANIZ ATION 11/24/2021 [facility] DATE CREATED AUTHOR AUTHOR'S ORGANIZ ATION 03/11/2023 [facility] DATE CREATED AUTHOR AUTHOR'S ORGANIZ ATION 04/07/2023 [facility] DATE CREATED AUTHOR AUTHOR'S ORGANIZ ATION [facility]01[facility]2023 [facility] REASON FOR VISIT (unrecogniz ed section and content) Reason Comments New Patient Ventral hernia Specialty Diagnoses / Procedures Referred By Contac t Referred To Contact General Surgery Diagnoses Ventral hernia without obstruction or gangrene Mendy Plascencia, PA-C [address] [facility] [address] [place] [address] Clint Boykin MD [address] [facility] [address] [place] [address] Referral ID Status Reason Start Date Expiration Date Visits Requested Visits Authorized [id number] Pending Review Specialty Services Required 3 01/07/2024 1 1 Reason Comments Med Refill Reason Comments Right Renal Mass Specialty Diagnoses / Procedures Referred By Contjavier t Referred To Contact Urology Diagnoses Right renal mass Clint Boykin MD [address] [facility] [address] [place] [address] [facility] [address] [place] [address] Referral ID Status Reason Start Date Expiration Date Visits Requested Visits Authorized [id number] Pending Review Specialty Services Required 02/25/2023 02/25/2024 1 1 Care Teams (unrecognized sec tion and content) Tappet Adjuster Relationship Specialty Start Date End Date Caryn Gomez APRN-FNP [address] [place] [address] PCP - General Internal Medicine 05/22/22 Tappet Adjuster Relationship Specialty Start Date End Date Caryn Gomez APRN-FNP [address] [place] [address] PCP - General Internal Medicine 05/22/22 Tappet Adjuster Relationship Specialty Start Date End Date Caryn Gomez APRN-FNP [address] [place] [address] PCP - General Internal Medicine 05/22/22 Tappet Adjuster Relationship Specialty Start Date End Date Caryn Gomez APRN-FNP [address] [place] [address] PCP - General Internal Medicine 05/22/22 Tappet Adjuster Relationship Specialty Start Date End Date [facility] [address] [place] [address] PCP - General Internal Medicine 05/22/22 Tappet Adjuster Relationship Specialty Start Date End Date Caryn Gomez [facility] [address] [place] [address] PCP - General Internal Medicine 05/22/22 Tappet Adjuster Relationship Specialty Start Date End Date Caryn Gomez [facility] [address] [place] [address] PCP - General Internal Medicine 05/22/22 Tappet Adjuster Relationship Specialty Start Date End Date Caryn Goemz GARBAGE COL[facility]OR [facility] [address] [place] [address] PCP - General Internal Medicine 05/22/22 FOR [...] BE BASED ON THE PRIMARY CLINICAL RECORDS. [employer] [facility]. provides no warranty or guarantee of the accuracy or completeness of information in this document.
== END 2023-12-01 12:57 | disposition home or self-care (01) ==
LOC: RAD 12:56
PROVIDERS: PCP Family Medicine; Visit Provider Nurse Practitioner
DX: Z13.820 Encounter for screening for osteoporosis (principal); Z78.0 Asymptomatic menopausal state
CPT/HCPCS: 77080

== ENCOUNTER 2024-05-03 07:37 | Outpatient (OUT) | payer OTHER, SELFPAY ==
--- OUTSIDE RECORDS SUMMARY | 2024-05-03 07:43 | XMS_ITS | CCD ---
Author Organization [facility] Care Team Providers Care Non Morse Intercept Technician Name Role Phone DR CARYN GOMEZ Admitting Unavailable TIMOTEO, DR CARYN Art Attending Unavailable RAYMOND, DR MACK Shaffer Primary Care Unavailable PETER, DR MICHAEL Art Consulting Unavailable KUNS, DR CARYN Art Consulting Unavailable Yina Avila Unavailable LEOPOLDO CHIU Attending Unavailable GIUSEPPE BOYKIN Referring Unavailable CARYN GOMEZ Primary Care Unavailable GIUSEPPE BOYKIN Attending Unavailable ACRYN GOMEZ Referring Unavailable CARYN GOMEZ Primary Care Unavailable LEOPOLDO CHIU Attending Unavailable LEOPOLDO CHIU Referring Unavailable TIMOTEO, CARYN SANCHEZ Primary Care Unavailable FRED MILLER Admitting Unavailable CARYN GOMEZ Attending Unavailable CARYN GOMEZ Referring Unavailable TIMOTEO, CARYN SANCHEZ Primary Care Unavailable YASHIRA ROMAN Attending Unavailable YASHIRA ROMAN Referring Unavailable YASHIRA ROMAN Primary Care Unavailable Yashira Moralez Unavailable Mack Jarrett MD Primary Care Provider LUZMARIA MONTERO Attending Unavailable LUZMARIA MONTERO Referring Unavailable MICHAEL CURRAN Attending Unavailable YASHIRA ROMAN Referring Unavailable Brandans WES-PROFILING MACHINE SET UP OPERATORCaryn Primary Care Provider Abel HARVEY-AUTOMOBILE SERVICE STATION ATTENDANTYashira Primary Care [facility] Luzmaria Montero DO Unavailable Mack Jarrett DO Primary Care Provider Ivory Estrada Attending Unavailable Ivory Estrada Attending Unavailable MACK JARRETT Primary Care Unavailab le MILES, EVE Referring Unavailable KRISTINE VINCENT Attending Unavailable MACK JARRETT Primary Care Unavailab le Allergies Allergy Classification Reported Allergen(s) Allergy Type Date of Onset Reaction(s) Facility (20 sources) Acetaminophen / oxyCODONE Drug Allergy 3 Vomiting [facility] [employer] Other (1 source) Adhesive Tape Propensity to adverse reactions rash [facility] Other (20 sources) Cephalexin; Translations: [CEPHALEXIN] Drug Allergy 4 rash [facility] (1 source) Cephalexin Drug Allergy rash [facility] Other (20 sources) predniSONE; Translations: [PREDNISONE] Drug Allergy 4 rash [facility] (4 sources) Acetaminophen / oxyCODONE; Translations: [OXYCODONE-ACETAM INOPHEN] Drug Allergy 3 [facility] (20 sources) ADHESIVE TAPE-SILICONES; Translations: [ADHESIVE TAPE-SILICONES] Propensity to adverse reactions to drug (disorder) 5 Rash [facility] (4 sources) Latex Allergy to substance 4 Rash [facility] Healthcare (4 sources) oxyCODONE Drug Allergy 4 Unknown [facility] Healthcare (4 sources) Wound Dressing Adhesive Drug Allergy 4 Rash [facility] Healthcare Medications Current Medications Medication Drug Class(es) Dates Sig (Normalized) Sig (Original) acetaminophen 500 mg oral tablet (17 sources) take 1 tablet by mouth every six hours as needed for pain acetaminophen (TYLENOL) 500 mg tablet Indications: headache disorder Take 1 tablet (500 mg total) by mouth every 6 (six) hours as needed for pain Indications: headache. Active Monica-D 24 Hour (1 source) Monica-D 24 Renetta r Active amLODIPine 5 mg oral tablet (20 sources) Dihydropyridine Calcium Channel Osiel Start: 04-26-2024 take 1 tablet by mouth in the morning amLODIPine (NORVASC) 5 mg tablet Indications: Primary hypertension TAKE 1 TABLET BY MOUTH IN THE MORNING 90 tablet 1 04/26/2024 Active Start: 04-09-2022 End: 04-26-2024 take 1 tablet by mouth in the morning amLODIPine (NORVASC) 5 mg tablet Indications: Primary hypertension Take 1 tablet (5 mg total) by mouth in the morning. 90 tablet 1 10/28/2023 04/26/2024 Discontinued amLODIPine Besyl ate Active calcium carbonate 1500 mg oral tablet (17 sources) take 1 tablet by mouth in the morning, then take 1 tablet by mouth at mealtime calcium carbonate (OS-HARRISON) 600 mg (1,500 mg) tablet Take 1 tablet (600 mg total) by mouth in the morning and 1 tablet (600 mg total) in the evening. Take with meals. Active Calcium Carbonate / vitamin D3 (4 sources) CALCIUM CARBONATE/VITAMIN D3 (CALTRATE 600 + D ORAL) Take by mouth once daily. Active Calcium-Cholecalcifer ol-Zinc (VIACTIV CALCIUM IMMUNE PO) (4 sources) Calcium-Cholecal cife rol-Zinc (VIACTIV CALCIUM IMMUNE PO) Take by mouth Active doxycycline monohydrate 100 mg oral capsule (1 source) Tetracycline-class Drug Start: 02-21-20 take 1 capsule by mouth every twelve hours Doxycycline Monohydrate 100 MG 1 capsule Orally every 12 hrs for 10 days Jan, Active empagliflozin 10 mg oral tablet (20 sources) Sodium-Glucose Cotransporter 2 Inhibitor Start: 08-04-19 24 End: 12-01-19 24 take 1 tablet by mouth in the morning empagliflozin (JARDIANCE) 10 mg tablet tablet Indications: Type 2 diabetes mellitus with hyperglycemia, without long-term current use of insulin ([facility]) Take 1 tablet (10 mg total) by mouth in the morning. 90 tablet 1 12/01/2023 Active Start: 11-05-2022 End: 05-12-2023 take 1 tablet by mouth once daily JARDIANCE 10 mg tablet tablet Take 1 tablet by mouth once daily 90 tablet 05/12/2023 Active Jardiance Active escitalopram 20 mg oral tablet (20 sources) Serotonin Reuptake Inhibitor Start: 06-30-2023 End: 12-01-2023 take 1 tablet by mouth in the morning escitalopram (LEXAPRO) 20 mg tablet Indications: Situational mixed anxiety and depressive disorder Take 1 tablet (20 mg total) by mouth in the morning. 90 tablet 1 12/01/2023 Active Start: 12-03-2022 End: 03-04-2023 take 1 tablet by mouth once daily in the evening escitalopram (LEXAPRO) 10 mg tablet TAKE 1 TABLET BY MOUTH ONCE DAILY IN THE EVENING 90 tablet 1 03/04/2023 Active Lexapro Active ferrous sulfate (4 sources) take 1 tablet by mouth in the morning Ferrous Sulfate (IRON PO) Take 1 tablet by mouth in the morning. Active 24 hr fexofenadine hydrochloride 180 mg / pseudoephedrine hydrochloride 240 mg extended release oral tablet (20 sources) alpha-Adrenergic Agonist, Histamine-1 Receptor Antagonist Start: End: take 1 tablet by mouth once in the morning, then take 1 tablet by mouth every twenty-four hours MONICA-D 24 HOUR 180-240 mg per 24 hr tablet Indications: Seasonal allergic rhinitis due to pollen Take 1 tablet by mouth in the morning. 30 tablet 6 12/01/2023 Active Start: 09-03-2023 take 1 tablet by kimberley th once in the morning, then take 1 tablet by mouth every twenty-four hours fexofenadine-pseudoephedrine (MONICA-D 24 HOUR) 180-240 mg per 24 hr tablet Indications: Seasonal allergic rhinitis due to pollen Take 1 tablet by mouth in the morning. 30 tablet 1 09/03/2023 Active Start: 07-29-2023 take 1 tablet by kimberley th once in the morning, then take 1 tablet by mouth every twenty-four hours MONICA-D 24 HOUR 180-240 mg per 24 hr tablet Indications: Seasonal allergic rhinitis due to pollen take 1 tablet by mouth in the morning 30 tablet 07/29/2023 Active Start: 06-02-2023 End: 06-30-2023 take 1 tablet by mouth once in the morning, then take 1 tablet by mouth every twenty-four hours MONICA-D 24 HOUR 180-240 mg per 24 hr tablet Indications: Seasonal allergic rhinitis due to pollen take 1 tablet by mouth in the morning 30 tablet 06/30/2023 Active Start: 05-29-2022 take 1 tablet by kimberley th once in the morning fexofenadine-pseudoephedrine (MONICA-D 24) 180-240 mg per 24 hr tablet Indications: Seasonal allergic rhinitis due to pollen Take 1 tablet by mouth in the morning. 30 tablet 11 05/29/2022 Active fexofenadine/pse udoephedrine (MONICA-D 24 HOUR ORAL) Active take 180-240 mg by m outh every twenty-four hours in the morning Monica-D Allergy & Congestion 180-240 M G 24 hr tablet Take 1 tablet by mouth in the morning. Active lisinopril 20 mg oral tablet (20 sources) Angiotensin Converting Enzyme Inhibitor Start: 04-26-2024 End: 04-27-2024 take 1 tablet by mouth in the morning lisinopriL (PRINIVIL,ZESTRIL) 20 mg tablet Take 1 tablet (20 mg total) by mouth in the morning. 90 tablet 1 04/27/2024 Active Start: 11-05-2022 End: 04-26-2024 take 1 tablet by mouth in the morning lisinopriL (PRINIVIL,ZESTRIL) 20 mg tablet Take 1 tablet (20 mg total) by mouth in the morning. 90 tablet 1 10/28/2023 04/26/2024 Discontinued Lisinopril unknown (1 source) take 1 tablet by mouth once daily metFORMIN hydrochloride 500 mg oral tablet (20 sources) Biguanide Start: 09-03-2023 End: 12-01-2023 take 2 tablets by mouth in the morning, then take 2 tablets by mouth at mealtime metFORMIN (GLUCOPHAGE) 500 mg tablet Indications: Type 2 diabetes mellitus with hyperglycemia, without long-term current use of insulin ([facility]) Take 2 tablets (1,000 mg total) by mouth in the morning and 2 tablets (1,000 mg total) in the evening. Take with meals. 360 tablet 1 12/01/2023 Active Start: 06-01-2023 take 2 tablets by mo uth twice daily metFORMIN (GLUCOPHAGE) 500 mg tablet Take 2 tablets by mouth twice daily 360 tablet 06/01/2023 Active Start: 12-03-2022 take 2 tablets by mo uth twice daily metFORMIN (GLUCOPHAGE) 500 mg tablet Take 2 tablets by mouth twice daily 360 tablet 0 03/03/2023 Active take 1 tablet by kimberley th once daily at breakfast metFORMIN 1,000 mg tablet Take 1,000 mg by mouth daily with breakfast. Active Multi Vitamin Daily - (1 source) take 1 tablet by kimberley th once daily Multi Vitamin Daily - 1 tablet Orally Once a day Active gcyygzlx-fsth-VU-calcium &mins (THERAGRAN-M) 9 mg iron-400 mcg tablet (17 sources) mvoqelbg-qktl-HL -calcium &mins (THERAGRAN-M) 9 mg iron-400 mcg tablet Take 1 tablet by mouth in the morning. Active whszprgp-mewv-AK -calcium &mins (THERAGRAN-M) 9 mg iron-400 mcg tablet Take 1 tablet by mouth in the morning. 0 Active nystatin 199649 unt/ml topical cream (17 sources) Polyene Antifungal Start: 12-10-2022 nystatin (M YCOSTATIN) cream Indications: Candidiasis of genitalia Apply topically 3 (three) times a day. 60 g 1 12/10/2022 Active prasterone 6.5 mg vaginal insert (20 sources) Start: 12-25-2023 prasterone, dh ea, (INTRAROSA) 6.5 mg insert Indications: Vaginal atrophy , Dyspareunia in female , Vaginal dryness, menopausal INSERT 1 SUPPOSITORY VAGINALLY ONCE DAILY IN THE MORNING 28 each 3 12/25/2023 Active Start: 12-25-2023 Intrarosa 6.5 MG insert Insert 6.5 mg into the vagina 1 time 12/25/2023 Active Start: 04-07-2023 End: 09-29-2023 prasterone, dhea, (INTRAROSA ) 6.5 mg insert Indications: Vaginal atrophy , Dyspareunia in female , Vaginal dryness, menopausal INSERT 1 SUPPOSITORY VAGINALLY ONCE DAILY IN THE MORNING 28 each 2 09/29/2023 Active Start: 01-07-2023 prasterone, dh ea, (INTRAROSA) 6.5 mg insert Indications: Vaginal atrophy , Dyspareunia in female , Vaginal dryness, menopausal INSERT 1 SUPPOSITORY VAGINALLY ONCE DAILY IN THE MORNING 84 each 0 01/07/2023 Active simvastatin 20 mg oral tablet (20 sources) HMG-CoA Reductase Inhibitor Start: 04-26-2024 take 1 tablet by mouth once daily simvastatin (ZOCOR) 20 mg tablet Indications: Mixed hyperlipidemia Take 1 tablet by mouth nightly 90 tablet 1 04/26/2024 Active Start: 01-01-2023 End: 04-26-2024 take 1 tablet by mouth once daily simvastatin (ZOCOR) 20 mg tablet Indications: Mixed hyperlipidemia Take 1 tablet (20 mg total) by mouth nightly. 90 tablet 1 10/28/2023 04/26/2024 Discontinued Simvastatin unknown (1 source) triamcinolone acetonide 0.055 mg/actuat metered dose nasal spray (20 sources) Corticosteroid take 2 spray(s) nasal route in the morning triamcinolone (NASACORT) 55 mcg nasal inhaler Administer 2 sprays into each nostril in the morning. Active take 1 puff(s) nasal route once [...] Date Documented Da te Episodic/Chronic Adjustment disorders (2 sources) Adjustment disorder with mixed anxiety and depressed mood; Translations: [Mixed anxiety and depressive disorder] Onset: 06-30-2023 12-01-2023 Chronic Administrative/social admission (2 sources) Persons encountering health services in other specified circumstances; Translations: [Referral statuses] Onset: 12-01-2023 12-01-2023 Episodic Cancer of rectum and anus (20 sources) Malignant neoplasm of colon and/or rectum; Translations: [Malignant neoplasm of rectosigmoid junction] Onset: 11-18-2018 11-18-2018 Chronic Cancer of uterus (17 sources) Endometrial carcinoma; Translations: [Malignant neoplasm of endometrium] Onset: 01-19-2018 11-18-2018 Chronic Diabetes mellitus with complications (4 sources) Type 2 diabetes mellitus with hyperglycemia; Translations: [Type 2 diabetes mellitus] Onset: 11-18-2018 06-06-2023 Chronic Diabetes mellitus without complication (20 sources) Type 2 diabetes mellitus without complication; Translations: [Diabetes mellitus without mention of complication, type II or unspecified, not stated as uncontrolled] Onset: 11-18-2018 11-18-2018 Chronic Disorders of lipid metabolism (20 sources) Mixed hyperlipidemia; Translations: [Hyperlipidemia, mixed] Onset: 11-18-2018 11-18-2018 Chronic Essential hypertension (20 sources) Hypertensive disorder; Translations: [Hypertension, unspecified] Onset: 11-18-2018 05-22-2022 Chronic Malignant neoplasm without specification of site (17 sources) Malignant neoplastic disease; Translations: [Malignant (primary) neoplasm, unspecified] Onset: 11-18-2018 11-18-2018 Chronic Menopausal disorders (4 sources) Atrophy of vagina; Translations: [Postmenopausal atrophic vaginitis] 07-27-2023 Chronic Other connective tissue disease (2 sources) Pain in hallux; Translations: [Pain in right toe(s)] 01-05-2024 Episodic Other diseases of kidney and ureters (2 sources) Other specified disorders of kidney and ureter; Translations: [Other specified disorders of kidney and ureter] Onset: 02-25-2023 Chronic Other diseases of kidney and ureters (19 sources) Renal mass; Translations: [Other specified disorders of kidney and ureter] Onset: 03-10-2023 02-25-2023 Chronic Other ear and sense organ disorders (17 sources) Otitis externa; Translations: [Unspecified otitis externa, unspecified ear] Onset: 11-18-2018 11-18-2018 Chronic Other ear and sense organ disorders (17 sources) Conductive hearing loss, bilateral; Translations: [Conductive hearing loss, bilateral] Onset: 11-26-2021 11-26-2021 Chronic Other female genital disorders (2 sources) Pain in female genitalia on intercourse; Translations: [Unspecified dyspareunia] 07-27-2023 Chronic Other gastrointestinal disorders (4 sources) Disorder of abdomen; Translations: [Other specified complication of other internal prosthetic devices, implants and grafts, initial encounter] 01-08-2024 Episodic Other nervous system disorders (2 sources) Difficulty walking; Translations: [Difficulty in walking, not elsewhere classified] 01-05-2024 Chronic Other nutritional; endocrine; and metabolic disorders (1 source) Morbid (severe) obesity due to excess calories; Translations: [Morbid (severe) obesity due to excess calories] Onset: 11-18-2018 Chronic Other nutritional; endocrine; and metabolic disorders (1 source) Body mass index (BMI) 35.0-35.9, adult; Translations: [Body mass index (BMI) 35.0-35.9, adult] Onset: 11-18-2018 Chronic Other nutritional; endocrine; and metabolic disorders (17 sources) Obesity; Translations: [Obesity, unspecified] Onset: 11-18-2018 11-18-2018 Chronic Other screening for suspected conditions (not mental disorders or infectious disease) (4 sources) Encounter for screening mammogram for malignant neoplasm of breast; Translations: [ENC SCR MAMMO MALIG NEOPLASM BREAST] Onset: 11-02-2021 Episodic Other skin disorders (2 sources) Acquired keratoderma; Translations: [Acquired keratosis [keratoderma] palmaris et plantaris] 01-05-2024 Episodic Other skin disorders (2 sources) Ingrowing nail; Translations: [Ingrowing nail] 01-05-2024 Episodic Other upper respiratory disease (1 source) Allergic rhinitis due to pollen; Translations: [Allergic rhinitis due to pollen] Onset: 12-01-2023 Chronic Other upper respiratory disease (2 sources) Allergic rhinitis due to pollen; Translations: [Allergic rhinitis due to pollen] 06-30-2023 Chronic Other upper respiratory infections (1 source) Acute maxillary sinusitis, unspecified Episodic Residual codes; unclassified (1 source) Family history of malignant neoplasm of breast; Translations: [FAMILY HX MALIG NEOPLASM OF BREAST] Onset: 11-09-2021 Episodic Thyroid disorders (19 sources) Thyrotoxicosis, unspecified without thyrotoxic crisis or storm; Translations: [Hyperthyroidism] Onset: 11-18-2018 11-18-2018 Chronic Unclassified (1 source) Right Renal Mass Onset: 03-10-2023 Unclassified (1 source) New Patient Onset: 02-25-2023 Unclassified (3 sources) Preprocedural examination done 04-22-2024 Past or Other Problems Problem Classification Problem Date Documented Da te Episodic/Chronic Abdominal hernia (20 sources) Ventral hernia without obstruction or gangrene; Translations: [Hernia of abdominal cavity] Onset: 03-02-2018 01-08-2024 Episodic Cancer of colon (17 sources) Malignant tumor of large intestine ; Translations: [Malignant neoplasm of colon, unspecified] Onset: 11-18-2018 Resolved: 12-10-2022 12-10-2022 Chronic Cancer of colon (18 sources) History of malignant neoplasm of colon; Translations: [History of large intestine malignacy] Onset: 01-19-2018 04-12-2021 Episodic Deficiency and other anemia (17 sources) Anemia; Translations: [Anemia, unspecified] Onset: 11-18-2018 11-18-2018 Episodic Mood disorders (17 sources) Mood disorders Onset: 12-10-2022 Resolved: 06-30-2023 12-10-2022 Mycoses (17 sources) Candidiasis of vagina; Translations: [Candidiasis of vagina] Onset: 11-18-2018 11-18-2018 Episodic Open wounds of head; neck; and trunk (20 sources) Open wound of abdomen; Translations: [Unspecified open wound of abdominal wall, unspecified quadrant without penetration into peritoneal cavity, initial encounter] Onset: 08-17-2018 08-17-2018 Episodic Other connective tissue disease (1 source) Plantar fascial fibromatosis; Translations: [Plantar fascial fibromatosis] Onset: 06-30-2023 Episodic Phlebitis; thrombophlebitis and thromboembolism (17 sources) Deep venous thrombosis; Translations: [Acute embolism and thrombosis of unspecified deep veins of unspecified lower extremity] Onset: 11-18-2018 11-18-2018 Episodic Unclassified (1 source) Acute cough R05.1 Unclassified (17 sources) Onset: 12-10-2022 Resolved: 12-01-2023 12-10-2022 Results Test Name Value Interpretation Reference Range Facility [facility] 04-19-2024 CNOV Office Visit (GENN) ---- PARISA SANCHEZ ([id number]) 1960 F Date Time Provider Department 04/19/24 2:30 PM KRISTINE VINCENT During your visit today, we recorded the following information about you: Temperature Pulse Blood pressure Weight 97.2 degrees 98/minute 114/67 86.2 kg Height 1.588 m Carlos Dang MA 04/19/2024 4:02 PM Signed What is the reason for your visit today? Consult Who is your referring physician? No Are you having poor oral intake? NO Have you had unintentional weight loss of 15 lbs/7 Kg in the last 3-6 months? NO Bowels: regular Wound: None Temperature: No Drains: No Childs, Ashish, MD 04/19/2024 4:02 PM Signed [facility] - HISTORY AND PHYSICAL SUBJECTIVE: Chief Complaint: ventral hernia HPI: Parisa Sanchez is a 64 year old female with history of CP, T2DM, HTN, colon cancer, endometrial carcinoma, and h/o multiple recurrent incisional hernia repairs who presents with multiple ventral hernias containing fat and colon. Approximately 2 years after most recent surgery, patient noticed an increasing abdominal bulge. Denies obstructive symptoms. Has very minimal pain from hernias. Will have increase in size throughout the day. Patient recently had to change surgeons d/t insurance. Has had SBO in the past, but ~2010. No use of blood thinners. Patient is in the process of being seen for potential RCC. 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 - open cholecystectomy 2005 - R fay-colectomy (unclear how much bowel resected, for colon CA) and appendectomy Multiple hernia repairs with mesh infections and explants 2019 - mesh removal, possible rectus abdominal muscle release v partial component separation 2019 - IANDD chronic abdominal wound Smoking status: N/A Risk factors: History of component separation, History of abdominal wall surgical site infection Opioid Dependence Risk Screen: No history of Psychiatric Disorders or Opioid Use Functional Status: Independent Employment: Unknown Sporting Activity: Sporadic (once/month) Co-morbidities: Hypertension, Diabetes Mellitus Complete Review of Systems: GENERAL: No weight loss, malaise or fevers HEENT: No changes in hearing or vision, no nose bleeds or other nasal problems NECK: Negative for lumps, goiter, pain and significant neck swelling RESPIRATORY: Negative for cough, hemoptysis, wheezing, dyspnea or shortness of breath CARDIOVASCULAR: Negative for chest pain, leg swelling, or palpitations GI: No nausea, vomiting, or diarrhea : No history of dysuria, frequency or incontinence MUSCULOSKELETAL: Negative for joint pain or swelling, back pain or muscle pain SKIN: Negative for lesions, rash, and itching PSYCH: Negative for sleep disturbance, mood disorder and recent psychosocial stressors HEMATOLOGY/LYMPHOLO GY: Negative for prolonged bleeding, bruising easily or swollen nodes ENDOCRINE: Negative for cold or heat intolerance, polyuria, polydipsia and goiter NEURO: No history of headaches, syncope, paralysis, seizures or tremors PAST MEDICAL HISTORY Diagnosis Date Colorectal cancer No past surgical history on file. FAMILY HISTORY Problem Relation Age of Onset Breast Cancer Mother Social History Tobacco Use Smoking status: Never Smokeless tobacco: Never Prior to Admission medications as of 04/19/24 1521 Medication Sig Last Dose Taking fexofenadine/pseudo ephedrine (MONICA-D 24 HOUR ORAL) Yes JARDIANCE 10 mg tablet Take 10 mg by mouth every morning. Yes amLODIPine (NORVASC) 5 mg tablet Take 5 mg by mouth every morning. Yes escitalopram oxalate (LEXAPRO) 20 mg tablet Take 20 mg by mouth every morning. Yes metFORMIN 1,000 mg tablet Take 1,000 mg by mouth daily with breakfast. Yes lisinopril 20 mg tablet Take 20 mg by mouth once daily. Yes simvastatin 20 mg tablet Take 20 mg by mouth daily at bedtime. Yes CALCIUM CARBONATE/VITAMIN D3 (CALTRATE 600 + D ORAL) Take by mouth once daily. Yes ALLERGIES Allergen Reactions Cephalexin Rash Prednisone Rash Percocet [Oxycodone* Vomiting Adhesive Tape-Silic* Rash PHYSICAL EXAM: BP 114/67 Pulse 98 Temp (Src) 97.2 (Temporal) Ht 5' 2.5 (1.59m) Wt 190 lb (86.2kg) BMI 34.18 kg/(m2). GENERAL: awake, alert and oriented, no acute distress. CARDIOVASCULAR: warm and well perfused throughout, regular rate and rhythm, normal S1 and S2. LUNGS: non-labored breathing, lungs clear to auscultation, good diaphragmatic excursion. ABDOMEN: soft, non-tender, non-distended. Multiple well-healed abdominal incisions. Midline bulge, soft, nontender. EXTREMITY: no lower extremity edema. NEUROLOGICAL: no gross focal neurologic deficits. IMAGING: CT A/P 04/19: numerous hernias along the anterior abdominal wall c (more content not included)... Normal [facility] CT ABD/PEL WO IVCONon 2024 CT ABD/PEL WO IVCON * * *Final Report* * * DATE OF EXAM: Apr 19 2024 10:32AM [facility] [id number] - CT ABD/PEL WO IVCON / PROCEDURE REASON: Ventral hernia without obstruction or gangrene * * * * Physician Interpretation * * * * EXAMINATION: CT ABDOMEN AND PELVIS WITHOUT IV CONTRAST CLINICAL HISTORY: Ventral hernia. TECHNIQUE: Non-IV contrast imaging of the abdomen and pelvis was performed using standard technique, scanning from just above the dome of the diaphragm to the symphysis pubis. Unenhanced imaging is limited for the evaluation of some intra-abdominal and pelvic pathology. MQ: [id number] Contrast: IV: None CT Radiation dose: Integrated Dose-length product (DLP) for this visit = 950 mGy*cm. CT Dose Reduction Employed: Automated exposure control (AEC) COMPARISON: None. RESULT: Evaluation of the abdomen and pelvis is limited due to the lack of intravenous contrast. The following findings are within this limitation. Abdomen / Pelvis: Liver: There is very minimal nodularity on the contour of the liver. This makes it difficult to exclude mild/early cirrhosis. Biliary: Cholecystectomy. Pneumobilia. Spleen: Benign calcified splenic granulomas. Pancreas: Unremarkable. Adrenals: No mass. Kidneys: Along the lateral upper pole of the right kidney, there is a 1.7 x 1.5 cm partially exophytic lesion on slice 59 of series 3. This is greater in density than expected for a simple renal cyst. This may represent a hemorrhagic/protein aceous cyst or a solid renal mass. GI Tract: No bowel obstruction. Small bowel anastomosis renny are present in the right mid abdomen. Surgical changes compatible with right hemicolectomy. Multiple abdominal wall hernias. For example, there is a small hernia along the right upper abdominal wall on slice 62 of series 3 which contains fat and transverse colon. Moderate sized hernia along the right mid abdominal wall containing fat and transverse colon on slice 79 of series 3. Moderate sized hernia along the right mid abdominal wall containing fat and sigmoid colon on slice 97 of series 3. Small fat-containing hernia along the left lower abdominal wall on slice 113 of series 3. Small fat-containing hernia along the left lower abdominal wall on slice 129 of series 3. Within the fat, there is a nonspecific density with peripheral calcification which may represent an area of fat necrosis. There are additional small fat-containing abdominal wall hernias. Lymph Nodes: No lymphadenopathy. Mesentery/peritoneu m: No ascites. Pelvis: Hysterectomy. Bones/Soft Tissues: Multilevel spondylosis and degenerative disc disease of the lumbar spine. Lower thorax: Unremarkable. Localizer images: No additional findings. IMPRESSION: 1. Numerous hernias along the anterior abdominal wall as described above. This includes hernias containing both fat and colon as described above. 2. Along the lateral upper pole of the right kidney, there is a 1.7 x 1.5 cm partially exophytic lesion. This is greater in density than expected for a simple renal cyst. This may represent a hemorrhagic/protein aceous cyst or a solid renal mass. Would advise attempt differentiation between a hemorrhagic/protein aceous cyst and a solid renal mass with renal ultrasound. If this area remains indeterminate on ultrasound, then a renal protocol MRI with and without contrast can be performed. 3. Very minimal nodularity on the contour of the liver. This makes it difficult to exclude mild/early cirrhosis. ACTIONABLE RESULT: FOLLOW-UP Acuity: Actionable Findings: Kidneys/Ureters/Blaze dder Routing Code: GU_1 Recommendation: US KIDNEY/BLADDER Time Frame: 4-6 weeks COMMUNICATION: Results will be communicated with the ordering provider via [employer] staff message or phone message by [facility] within 2 business days of report finalization. --END OF FINDING-- Algorithms for management of incidental imaging findings can be found on the [facility] Intranet Sharepoint site at: [email or web address] Incidental%20Findi ngs%20at%20Imaging/ [email or web address] Farmworker Machine: [email or web address] Transcribe Date/Time: Apr 19 2024 10:48A Dictated by : LEOPOLDO CARY MD This examination was interpreted and the report reviewed and electronically signed by: LEOPOLDO CARY MD on Apr 19 2024 11:10AM EST [id number] [id number] ACTIONABLE Invalid Interpretation Code [facility] CT Abdomen and Pelvis WO con trastOrdered By: [facility] Provider on 04-19-2024 Interpretation and review of laboratory results Abnormal [facility] tino Radiology Result ACTIONABLE Abnormal [facility] Comment on above: This report contains an incidental or actionable finding. This finding may be a new finding separate from the reason your provider ordered the imaging test or it may be an already known finding that needs additional or continued follow-up. Because of this incidental or actionable finding, you may need another test (imaging or a different type of test). Please contact your provider for the next steps. [facility] CT Abdomen and Pelvis WO con traston 04-19-2024 IMPRESSION: 1. Numerous hernias along the anterior abdominal wall as described above. This includes hernias containing both fat and colon as described above. 2. Along the lateral upper pole of the right kidney, there is a 1.7 x 1.5 cm partially exophytic lesion. This is greater in density than expected for a simple renal cyst. This may represent a hemorrhagic/protein aceous cyst or a solid renal mass. Would advise attempt differentiation between a hemorrhagic/protein aceous cyst and a solid renal mass with renal ultrasound. If this area remains indeterminate on ultrasound, then a renal protocol MRI with and without contrast can be performed. 3. Very minimal nodularity on the contour of the liver. This makes it difficult to exclude mild/early cirrhosis. ACTIONABLE RESULT: FOLLOW-UP Acuity: Actionable Findings: Kidneys/Ureters/Blaze dder Routing Code: GU_1 Recommendation: US KIDNEY/BLADDER Time Frame: 4-6 weeks COMMUNICATION: Results will be communicated with the ordering provider via [employer] staff message or phone message by [facility] within 2 business days of report finalization. --END OF FINDING-- Algorithms for management of incidental imaging findings can be found on the [facility] Intranet Sharepoint site at: [email or web address] Incidental%20Findi ngs%20at%20Imaging/ [email or web address] Farmworker Machine: [email or web address] Transcribe Date/Time: Apr 19 2024 10:48A Dictated by : LEOPOLDO CARY MD This examination was interpreted and the report reviewed and electronically signed by: LEOPOLDO CARY MD on Apr 19 2024 11:10AM [facility] DIVISION OF RADIOLOGY * * *Final Report* * * DATE OF EXAM: Apr 19 2024 10:32AM [facility] 0531 - CT ABD/PEL WO IVCON / PROCEDURE REASON: Ventral hernia without obstruction or gangrene * * * * Physician Interpretation * * * * EXAMINATION: CT ABDOMEN AND PELVIS WITHOUT IV CONTRAST CLINICAL HISTORY: Ventral hernia. TECHNIQUE: Non-IV contrast imaging of the abdomen and pelvis was performed using standard technique, scanning from just above the dome of the diaphragm to the symphysis pubis. Unenhanced imaging is limited for the evaluation of some intra-abdominal and pelvic pathology. MQ: CTAPWO_3 Contrast: IV: None CT Radiation dose: Integrated Dose-length product (DLP) for this visit = 950 mGy*cm. CT Dose Reduction Employed: Automated exposure control (AEC) COMPARISON: None. RESULT: Evaluation of the abdomen and pelvis is limited due to the lack of intravenous contrast. The following findings are within this limitation. Abdomen / Pelvis: Liver: There is very minimal nodularity on the contour of the liver. This makes it difficult to exclude mild/early cirrhosis. Biliary: Cholecystectomy. Pneumobilia. Spleen: Benign calcified splenic granulomas. Pancreas: Unremarkable. Adrenals: No mass. Kidneys: Along the lateral upper pole of the right kidney, there is a 1.7 x 1.5 cm partially exophytic lesion on slice 59 of series 3. This is greater in density than expected for a simple renal cyst. This may represent a hemorrhagic/protein aceous cyst or a solid renal mass. GI Tract: No bowel obstruction. Small bowel anastomosis renny are present in the right mid abdomen. Surgical changes compatible with right hemicolectomy. Multiple abdominal wall hernias. For example, there is a small hernia along the right upper abdominal wall on slice 62 of series 3 which contains fat and transverse colon. Moderate sized hernia along the right mid abdominal wall containing fat and transverse colon on slice 79 of series 3. Moderate sized hernia along the right mid abdominal wall containing fat and sigmoid colon on slice 97 of series 3. Small fat-containing hernia along the left lower abdominal wall on slice 113 of series 3. Small fat-containing hernia along the left lower abdominal wall on slice 129 of series 3. Within the fat, there is a nonspecific density with peripheral calcification which may represent an area of fat necrosis. There are additional small fat-containing abdominal wall hernias. Lymph Nodes: No lymphadenopathy. Mesentery/peritoneu m: No ascites. Pelvis: Hysterectomy. Bones/Soft Tissues: Multilevel spondylosis and degenerative disc disease of the lumbar spine. Lower thorax: Unremarkable. Localizer images: No additional findings. DIVISION OF RADIOLOGY Provider, [facility] Imaging [place] - 04/19/2024 * * *Final Report* * * DATE OF EXAM: Apr 19 2024 10:32AM [facility] 0531 - CT ABD/PEL WO IVCON / PROCEDURE REASON: Ventral hernia without obstruction or gangrene * * * * Physician Interpretation * * * * EXAMINATION: CT ABDOMEN AND PELVIS WITHOUT IV CONTRAST CLINICAL HISTORY: Ventral hernia. TECHNIQUE: Non-IV contrast imaging of the abdomen and pelvis was performed using standard technique, scanning from just above the dome of the diaphragm to the symphysis pubis. Unenhanced imaging is limited for the evaluation of some intra-abdominal and pelvic pathology. MQ: CTAPWO_3 Contrast: IV: None CT Radiation dose: Integrated Dose-length product (DLP) for this visit = 950 mGy*cm. CT Dose Reduction Employed: Automated exposure control (AEC) COMPARISON: None. RESULT: Evaluation of the abdomen and pelvis is limited due to the lack of intravenous contrast. The following findings are within this limitation. Abdomen / Pelvis: Liver: There is very minimal nodularity on the contour of the liver. This makes it difficult to exclude mild/early cirrhosis. Biliary: Cholecystectomy. Pneumobilia. Spleen: Benign calcified splenic granulomas. Pancreas: Unremarkable. Adrenals: No mass. Kidneys: Along the lateral upper pole of the right kidney, there is a 1.7 x 1.5 cm partially exophytic lesion on slice 59 of series 3. This is greater in density than expected for a simple renal cyst. This may represent a hemorrhagic/protein aceous cyst or a solid renal mass. GI Tract: No bowel obstruction. Small bowel anastomosis renny are present in the right mid abdomen. Surgical changes compatible with right hemicolectomy. Multiple abdominal wall hernias. For example, there is a small hernia along the right upper abdominal wall on slice 62 of series 3 which contains fat and transverse colon. Moderate sized hernia along the right mid abdominal wall containing fat and transverse colon on slice 79 of series 3. Moderate sized hernia along the right mid abdominal wall containing fat and sigmoid colon on slice 97 of series 3. Small fat-containing hernia along the left lower abdominal wall on slice 113 of series 3. Small fat-containing hernia along the left lower abdominal wall on slice 129 of series 3. Within the fat, there is a nonspecific density with peripheral calcification which may represent an area of fat necrosis. There are additional small fat-containing abdominal wall hernias. Lymph Nodes: No lymphadenopathy. Mesentery/peritoneu m: No ascites. Pelvis: Hysterectomy. Bones/Soft Tissues: Multilevel spondylosis and degenerative disc disease of the lumbar spine. Lower thorax: Unremarkable. Localizer images: No additional findings. IMPRESSION IMPRESSION: 1. Numerous hernias along the anterior abdominal wall as described above. This includes hernias containing both fat and colon as described above. 2. Along the lateral upper pole of the right kidney, there is a 1.7 x 1.5 cm partially exophytic lesion. This is greater in density than expected for a simple renal cyst. This may represent a hemorrhagic/protein aceous cyst or a solid renal mass. Would advise attempt differentiation between a hemorrhagic/protein aceous cyst and a solid renal mass with renal ultrasound. If this area remains indeterminate on ultrasound, then a renal protocol MRI with and without contrast can be performed. 3. Very minimal nodularity on the contour of the liver. This makes it difficult to exclude mild/early cirrhosis. ACTIONABLE RESULT: FOLLOW-UP Acuity: Actionable Findings: Kidneys/Ureters/Blaze dder Routing Code: GU_1 Recommendation: US KIDNEY/BLADDER Time Frame: 4-6 weeks COMMUNICATION: Results will be communicated with the ordering provider via [employer] staff message or phone message by Imaging Support Services within 2 business days of report finalization. --END OF FINDING-- Algorithms for management of incidental imaging findings can be found on the [facility] Intranet Sharepoint site at: [email or web address] [email or web address] ngs%[email or web address]/ [email or web address] Farmworker Machine: EZ Transcribe Date/Time: Apr 19 2024 10:48A Dictated by : LEOPOLDO CARY MD This examination was interpreted and the report reviewed and electronically signed by: LEOPOLDO CARY MD on Apr 19 2024 11:10AM EST [facility] Radiology Study observation (narrative) [facility] HISTORY PHYSICALon HISTORY PHYSICAL HNO ID: [id number] Author: ASHISH CHILDS MD Service: ? Author Type: Resident Type: H&P Filed: 04/19/2024 16:02 Note Text: [facility] - HISTORY AND PHYSICAL SUBJECTIVE: Chief Complaint: ventral hernia HPI: Parisa Sanchez is a 64 year old female with history of CP, T2DM, HTN, colon cancer, endometrial carcinoma, and h/o multiple recurrent incisional hernia repairs who presents with multiple ventral hernias containing fat and colon. Approximately 2 years after most recent surgery, patient noticed an increasing abdominal bulge. Denies obstructive symptoms. Has very minimal pain from hernias. Will have increase in size throughout the day. Patient recently had to change surgeons d/t insurance. Has had SBO in the past, but ~2010. No use of blood thinners. Patient is in the process of being seen for potential RCC. 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 - open cholecystectomy 2005 - R fay-colectomy (unclear how much bowel resected, for colon CA) and appendectomy Multiple hernia repairs with mesh infections and explants 2019 - mesh removal, possible rectus abdominal muscle release v partial component separation 2019 - IANDD chronic abdominal wound Smoking status: N/A Risk factors: History of component separation, History of abdominal wall surgical site infection Opioid Dependence Risk Screen: No history of Psychiatric Disorders or Opioid Use Functional Status: Independent Employment: Unknown Sporting Activity: Sporadic (once/month) Co-morbidities: Hypertension, Diabetes Mellitus Complete Review of Systems: GENERAL: No weight loss, malaise or fevers HEENT: No changes in hearing or vision, no nose bleeds or other nasal problems NECK: Negative for lumps, goiter, pain and significant neck swelling RESPIRATORY: Negative for cough, hemoptysis, wheezing, dyspnea or shortness of breath CARDIOVASCULAR: Negative for chest pain, leg swelling, or palpitations GI: No nausea, vomiting, or diarrhea : No history of dysuria, frequency or incontinence MUSCULOSKELETAL: Negative for joint pain or swelling, back pain or muscle pain SKIN: Negative for lesions, rash, and itching PSYCH: Negative for sleep disturbance, mood disorder and recent psychosocial stressors HEMATOLOGY/LYMPHOLO GY: Negative for prolonged bleeding, bruising easily or swollen nodes ENDOCRINE: Negative for cold or heat intolerance, polyuria, polydipsia and goiter NEURO: No history of headaches, syncope, paralysis, seizures or tremors PAST MEDICAL HISTORY Diagnosis Date Colorectal cancer No past surgical history on file. FAMILY HISTORY Problem Relation Age of Onset Breast Cancer Mother Social History Tobacco Use Smoking status: Never Smokeless tobacco: Never Prior to Admission medications as of 04/19/24 1521 Medication Sig Last Dose Taking fexofenadine/pseudo ephedrine (MONICA-D 24 HOUR ORAL) Yes JARDIANCE 10 mg tablet Take 10 mg by mouth every morning. Yes amLODIPine (NORVASC) 5 mg tablet Take 5 mg by mouth every morning. Yes escitalopram oxalate (LEXAPRO) 20 mg tablet Take 20 mg by mouth every morning. Yes metFORMIN 1,000 mg tablet Take 1,000 mg by mouth daily with breakfast. Yes lisinopril 20 mg tablet Take 20 mg by mouth once daily. Yes simvastatin 20 mg tablet Take 20 mg by mouth daily at bedtime. Yes CALCIUM CARBONATE/VITAMIN D3 (CALTRATE 600 + D ORAL) Take by mouth once daily. Yes ALLERGIES Allergen Reactions Cephalexin Rash Prednisone Rash Percocet [Oxycodone* Vomiting Adhesive Tape-Silic* Rash PHYSICAL EXAM: BP 114/67 Pulse 98 Temp (Src) 97.2 (Temporal) Ht 5' 2.5 (1.59m) Wt 190 lb (86.2kg) BMI 34.18 kg/(m2). GENERAL: awake, alert and oriented, no acute distress. CARDIOVASCULAR: warm and well perfused throughout, regular rate and rhythm, normal S1 and S2. LUNGS: non-labored breathing, lungs clear to auscultation, good diaphragmatic excursion. ABDOMEN: soft, non-tender, non-distended. Multiple well-healed abdominal incisions. Midline bulge, soft, nontender. EXTREMITY: no lower extremity edema. NEUROLOGICAL: no gross focal neurologic deficits. IMAGING: CT A/P 04/19: numerous hernias along the anterior abdominal wall containing both fat and colon. ASSESSMENT/PLAN: Parisa Sanchez is a 64 year old female with history CP, T2DM, HTN, colon cancer, endometrial carcinoma, and h/o multiple recurrent incisional hernia repairs who presents with multiple ventral hernias containing fat and colon. Risks and benefits of repair were discussed in detail with the patient and her . All questions were answered. Patient elects to proceed with open abdominal wall reconstruction with mesh. Consent was obtained and placed in the chart. - open abdominal wall reconstruction with mesh - consent obtained Patient seen and discusse (more content not included)... Normal [facility] COVID + FLU Quick Testingon 02-20-2023 SARS-CoV-2 (COVID-19) RNA [place]+probe Ql (Unsp spec) Negative [facility] Other COVID + FLU Quick Testing Negative [facility] Other MG MAMM SCREEN 3D CJ CADon 11-02-2021 MG MAMM SCREEN 3D CJ CAD Patient: PARISA SANCHEZ Exam Date: 11/02/2021 : 1960 Gender:F Ordering : DR CARYN GOMEZ Admission #: [id number] Family : Order #: [id number] CLICK HERE TO VIEW EXAM RADIOLOGY REPORT [...] breast cancer at age 41. LOCATION: [facility] BREAST COMPOSITION: Scattered areas fibroglandular density. FINDINGS: [...] PALPABLE LUMP SHOULD BE BIOPSIED. Dictated by: Michael Chappell M.D. on 11/02/2021 at 12:35 Approved by: Michael Chappell M.D. on 11/02/2021 at 12:38 Normal [facility] ALBUMIN, RANDOM URINE W/CREA TININEon 04-05-2021 ALBUMIN, URINE 2.0 mg/dL Normal See Note: [facility] Comment on above: Result Comment: Refe rence Range: Reference Range Not established Performed By: #### 6 517, [id number], 496, 61936, 7600 #### [facility] of [place], [address] [place] [address] Residential Support Worker: Judd Warren MD ALBUMIN/CREATININE RATIO, RANDOM URINE 17 mcg/mg creat Normal <30 [facility] Comment on above: Result Comment: The ADA [...] diagnostic category. Performed By: #### 6 517, 83165, 496, 50099, 7600 #### [facility] [place] [address] Residential Support Worker: Judd Warren MD Creatinine (U) [Mass/Vol] 115 mg/dL Normal 20-275 [facility] Comment on above: Performed By: #### 6 517, 10803, 496, 93609, 7600 #### [facility] [place] [address] Residential Support Worker: Judd Warren MD [facility] METABOLIC [facility] 04-05-2021 Albumin [Mass/Vol] 4.5 g/dL Normal 3.6-5.1 [facility] Comment on above: Performed By: #### 6 517, 62494, 496, 65955, 7600 #### [facility] [place] [address] Residential Support Worker: Judd Warren MD Albumin/Globulin [Mass ratio] 1.4 {ratio} Normal 1.0-2.5 [facility] Comment on above: Performed By: #### 6 517, 02177, 496, 06886, 7600 #### [facility] [place] [address] Residential Support Worker: Judd Warren MD ALP [Catalytic activity/Vol] 65 U/L Normal 37-153 [facility] Comment on above: Performed By: #### 6 517, 32717, 496, 68142, 7600 #### [facility] [address] [place] [address] Residential Support Worker: Judd Warren MD ALT [Catalytic activity/Vol] 44 U/L High 6-29 [facility] Comment on above: Performed By: #### 6 517, 11150, 496, 86071, 7600 #### [facility] of [address], [address] [place] [address] Residential Support Worker: Judd Warren MD AST [Catalytic activity/Vol] 31 U/L Normal 10-35 [facility] Comment on above: Performed By: #### 6 517, 96561, 496, 81588, 7600 #### [facility] of [address], [address] [place] [address] Residential Support Worker: Judd Warren MD Bilirubin [Mass/Vol] 0.7 mg/dL Normal 0.2-1.2 [facility] Comment on above: Performed By: #### 6 517, 98151, 496, 74598, 7600 #### [facility] of [address], [address] [place] [address] Residential Support Worker: Judd Warren MD BUN/CREATININE RATIO NOT APPLICABLE Normal 6-22 [facility] Comment on above: Performed By: #### 6 517, 62660, 496, 79379, 7600 #### [facility] of [address], [address] [place] [address] Residential Support Worker: Judd Warren MD Calcium [Mass/Vol] 9.5 mg/dL Normal 8.6-10.4 [facility] Comment on above: Performed By: #### 6 517, 84399, 496, 96723, 7600 #### [facility] of [address], [address] [place] [address] Residential Support Worker: Judd Warren MD Chloride [Moles/Vol] 106 mmol/L Normal 98-110 [facility] Comment on above: Performed By: #### 6 517, 90555, 496, 16752, 7600 #### [facility] of [address], [address] [place], [place] [address] Residential Support Worker: Judd Warren MD CO2 [Moles/Vol] 23 mmol/L Normal 20-32 [facility] Comment on above: Performed By: #### 6 517, 29880, 496, 55064, 7600 #### [facility] [place] [address] Residential Support Worker: Judd Warren MD Creatinine [Mass/Vol] 0.55 mg/dL Normal 0.50-0.99 [facility] Comment on above: Result Comment: For patients >49 years of age, the reference limit for Creatinine is approximately 13% higher for people identified as -[place]. Performed By: #### 6 517, 25877, 496, 81934, 7600 #### [facility] [place] [address] Residential Support Worker: Judd Warren MD eGFR NON-AFR. MONTSERRATIAN 101 mL/min/1.73m2 Normal > OR = 60 [facility] Comment on above: Performed By: #### 6 517, 89392, 496, 36027, 7600 #### [facility] [place] [address] Residential Support Worker: Judd Warren MD GFR/1.73 sq M.predicted among blacks MDRD (S/P/Bld) [Vol rate/Area] 117 mL/min/{1.73_m2} Normal > OR = 60 [facility] Comment on above: Performed By: #### 6 517, 61341, 496, 09329, 7600 #### [facility] [place] [address] Residential Support Worker: Judd Warren MD Globulin (S) [Mass/Vol] 3.3 g/dL Normal 1.9-3.7 [facility] Comment on above: Performed By: #### 6 517, 18114, 496, 56281, 7600 #### [facility] [place] [address] Residential Support Worker: Judd Warren MD Glucose [Mass/Vol] 131 mg/dL High 65-99 [facility] Comment on above: Result Comment: Fasting reference interval For someone without known diabetes, a glucose value >125 mg/dL indicates that they may have diabetes and this should be confirmed with a follow-up test. Performed By: #### 6 517, 37417, 496, 87234, 7600 #### [facility] [place] [address] Residential Support Worker: Judd Warren MD Potassium [Moles/Vol] 3.9 mmol/L Normal 3.5-5.3 [facility] Comment on above: Performed By: #### 6 517, 87693, 496, 12447, 7600 #### [facility] [place] [address] Residential Support Worker: Judd Warren MD Protein [Mass/Vol] 7.8 g/dL Normal 6.1-8.1 [facility] Comment on above: Performed By: #### 6 517, 17094, 496, 31662, 7600 #### [facility] [place] [address] Residential Support Worker: Judd Warren MD Sodium [Moles/Vol] 139 mmol/L Normal 135-146 [facility] Comment on above: Performed By: #### 6 517, 60756, 496, 22869, 7600 #### [facility] [place] [address] Residential Support Worker: Judd Warren MD Urea nitrogen [Mass/Vol] 16 mg/dL Normal 7-25 [facility] Comment on above: Performed By: #### 6 517, 60491, 496, 03004, 7600 #### [facility] [place] [address] Residential Support Worker: Judd Warren MD HEMOGLOBIN A1con 04-05-2021 HEMOGLOBIN [...] for children. Performed By: #### 6 517, 64110, 496, 22839, 7600 #### [facility] [address], [address] [place] [address] Residential Support Worker: Judd Warren MD LIPID PANEL, [facility] 03-27 Cholesterol [Mass/Vol] 119 mg/dL Normal <200 [facility] Comment on above: Order Comment: FASTI NG:YES FASTING: YES Performed By: #### 6 517, 35146, 496, 52464, 7600 #### [facility] [address], [address] [place] [address] Residential Support Worker: Judd Warren MD Cholesterol in HDL [Mass/Vol] 49 mg/dL Low > OR = 50 [facility] Comment on above: Order Comment: FASTI NG:YES FASTING: YES Performed By: #### 6 517, 96622, 496, 12623, 7600 #### [facility] [address], [address] [place] [address] Residential Support Worker: Judd Warren MD Cholesterol in LDL [Mass/Vol] 52 mg/dL Normal [facility] Comment on above: Order Comment: [...] equation in the estimation of LDL-C. Horacio DE LA CRUZ et al. ISHMAEL. 2013;310(19): 7520-4169 (http://education.Dog Digital.MetaCarta/faq/BKD125) Performed By: #### 6 517, 72544, 496, 65320, 7600 #### [facility] [place] [address] Residential Support Worker: Judd Warren MD Cholesterol.total/C holesterol in HDL [Mass ratio] 2.4 {ratio} Normal <5.0 [facility] Comment on above: Order Comment: FASTI NG:YES FASTING: YES Performed By: #### 6 517, 82187, 496, 07211, 7600 #### [facility] [address], [address] [place] [address] Residential Support Worker: Judd Warren MD NON HDL CHOLESTEROL 70 mg/dL (calc) Normal <130 [facility] Comment on above: Order Comment: FASTI NG:YES FASTING: YES Result Comment: For patients with diabetes plus 1 major ASCVD risk factor, treating to a non-HDL-C goal of <100 mg/dL (LDL-C of <70 mg/dL) is considered a therapeutic option. Performed By: #### 6 517, 10685, 496, 78855, 7600 #### [facility] [place] [address] Residential Support Worker: Judd Warren MD Triglyceride [Mass/Vol] 96 mg/dL Normal <150 [facility] Comment on above: Order Comment: FASTI NG:YES FASTING: YES Performed By: #### 6 517, 06714, 496, 77277, 7600 #### [facility] [place] [address] Residential Support Worker: Judd Warren MD TSH+FREE T4on 04-05-2021 Free T4 [Mass/Vol] 1.1 ng/dL Normal 0.8-1.8 [facility] Comment on above: Performed By: #### 6 517, 93006, 496, 77036, 7600 #### [facility] [place] [address] Residential Support Worker: Judd Warren MD TSH Qn 0.05 m[IU]/L Low 0.40-4.50 [facility] Comment on above: Performed By: #### 6 517, 42075, 496, 68711, 7600 #### [facility] [address], [address] [place] [address] Residential Support Worker: Judd Warren MD Vital Signs Date Time Vital Sign Value Performing Clinician Facility 04-19-2024 14:37-0500 Body height 158.8 cm Kristine Vincent MD Work Phone: [facility] 04-19-2024 14:37-0500 Body mass index (BMI) [Ratio] 34.2 kg/m2 Kristine Vincent MD Work Phone: [facility] 04-19-2024 14:37-0500 Body temperature 97.2 [degF] Kristine Vincent MD Work Phone: [facility] 04-19-2024 14:37-0500 Body weight 86.18 kg Kristine Vincent MD Work Phone: [facility] 04-19-2024 14:37-0500 Diastolic blood pressure 67 mm[Hg] Kristine Vincent MD Work Phone: [facility] 04-19-2024 14:37-0500 Heart rate 98 /min Kristine Vincent MD Work Phone: [facility] 04-19-2024 14:37-0500 Systolic blood pressure 114 mm[Hg] Kristine Vincent MD Work Phone: [facility] 01-05-2024 13:49-0500 Body height 158.8 cm Michael Curran DPM Work Phone: [facility] 01-05-2024 13:49-0500 Body mass index (BMI) [Ratio] 34.74 kg/m2 Michael Curran DPM Work Phone: [facility] 01-05-2024 13:49-0500 Body weight 87.54 kg Michael GOMEZM Work Phone: [facility] 01-05-2024 08:19-0500 Body mass index (BMI) [Ratio] 34.77 kg/m2 Luzmaria Montero DO Work Phone: [facility] 01-05-2024 08:19-0500 Body weight 87.64 kg Luzmaria Montero DO Work Phone: [facility] 01-05-2024 08:19-0500 Diastolic blood pressure 78 mm[Hg] Luzmaria Montero DO Work Phone: [facility] 01-05-2024 08:19-0500 Heart rate 96 /min Luzmariaderian Montero DO Work Phone: [facility] 01-05-2024 08:19-0500 Respiratory rate 14 /min Luzmariaderian Montero [employer] Work Phone: [facility] 01-05-2024 08:19-0500 SaO2% (BldA) [Mass fraction] 98 % Luzmariaderian Montero [employer] Work Phone: [facility] 01-05-2024 08:19-0500 Systolic blood pressure 126 mm[Hg] Luzmaria Montero [employer] Work Phone: [facility] 12-01-2023 10:22-0400 Body height 157.5 cm Yashira Roman APRNTODD Work Phone: [facility] 12-01-2023 10:22-0400 Body mass index (BMI) [Ratio] 35.01 kg/m2 Yashira Roman STAFF ANTISUBMARINE OFFICER-AUTOMOBILE SERVICE STATION ATTENDANT Work Phone: [facility] 12-01-2023 10:22-0400 Body temperature 97.7 [degF] Yashira Daltonillo STAFF ANTISUBMARINE OFFICER-AUTOMOBILE SERVICE STATION ATTENDANT Work Phone: [facility] 12-01-2023 10:22-0400 Body weight 86.82 kg Yashira Roman STAFF ANTISUBMARINE OFFICER-AUTOMOBILE SERVICE STATION ATTENDANT Work Phone: [facility] 12-01-2023 10:22-0400 Diastolic blood pressure 60 mm[Hg] Yashira Roman STAFF ANTISUBMARINE OFFICER-AUTOMOBILE SERVICE STATION ATTENDANT Work Phone: [facility] 12-01-2023 10:22-0400 Heart rate 88 /min Yashira Roman APRN-AUTOMOBILE SERVICE STATION ATTENDANT Work Phone: [facility] 12-01-2023 10:22-0400 Respiratory rate 18 /min Yashira Roman APRN-AUTOMOBILE SERVICE STATION ATTENDANT Work Phone: [facility] 12-01-2023 10:22-0400 SaO2% (BldA) [Mass fraction] 98 % Yashira Roman APRN-AUTOMOBILE SERVICE STATION ATTENDANT Work Phone: [facility] 12-01-2023 10:22-0400 Systolic blood pressure 110 mm[Hg] Yashira Roman APRN-AUTOMOBILE SERVICE STATION ATTENDANT Work Phone: [facility] 03-10-2023 13:58-0500 Body height 157.5 cm Leopoldo Chiu MD Work Phone: [facility] 03-10-2023 13:58-0500 Body mass index (BMI) [Ratio] 40.24 kg/m2 Leopoldo Chiu MD Work Phone: [facility] 03-10-2023 13:58-0500 Body weight 99.79 kg Leopoldo Chiu MD Work Phone: [facility] 03-10-2023 13:58-0500 Diastolic blood pressure 80 mm[Hg] Leopoldo Chiu MD Work Phone: [facility] 03-10-2023 13:58-0500 Heart rate 92 /min Leopoldo Chiu MD Work Phone: [facility] 03-10-2023 13:58-0500 Systolic blood pressure 125 mm[Hg] Leopoldo Chiu MD Work Phone: [facility] 02-25-2023 09:36-0500 Body height 157.5 cm Giuseppe Boykin MD Work Phone: [facility] 02-25-2023 09:36-0500 Body mass index (BMI) [Ratio] 40.24 kg/m2 Giuseppe Boykin MD Work Phone: [employer] 02-25-2023 09:36-0500 Body weight 99.79 kg Giuseppe Boykin MD Work Phone: [facility] 02-20-2023 13:20-0500 Body height 160.02 cm Yina Avila Other [employer] Other 02-20-2023 13:20-0500 Body mass index (BMI) [Ratio] 34.89 kg/m2 Yina Avila Other [employer] Other 02-20-2023 13:20-0500 Body temperature 98.5 [degF] Yina Avila Other [employer] Other 02-20-2023 13:20-0500 Body weight 89.36 kg Yina Avila Other [employer] Other 02-20-2023 13:20-0500 Respiratory rate 18 /min Yina Avila Other [employer] Other 02-20-2023 13:20-0500 SaO2% (BldA) [Mass fraction] 98 % Yina Avila Other [employer] Other Encounters Encounter Date Encounter Type Care Provider Facility Start: 05-26-2024 ambulatory Ivory Estrada Facility:[facility] Start: 04-27-2024 End: 04-27-2024 Refill Bri[facility] Kaye C[facility] Start: 04-23-2024 End: 04-26-2024 Refill Yashira NIETO Work Phone: [facility] Comment on above: Mixed hyperlipidemia ; Primary hypertension Start: 04-21-2024 End: 04-22-2024 ambulatory Kristine Vincent MD Work Phone: [facility] Comment on above: 07.22.25 Cure (Open Complex AWR 6 hours los 5) Start: 04-21-2024 End: 04-22-2024 Preprocedural examination done Kristine Vincent MD Work Phone: [facility] Start: 04-19-2024 End: 04-19-2024 Patient encounter procedure Kristine Vincent MD Work Phone: General Surgery Comment on above: Incisional hernia, w ithout obstruction or gangrene (Primary Dx) Start: 04-19-2024 End: 04-19-2024 ambulatory KRISTINE VINCENT Facility:[facility] Start: 04-19-2024 End: 04-19-2024 ambulatory MACK JARRETT Facility:[facility] Start: 04-19-2024 End: 04-19-2024 Subsequent hospital visit by physician Mary Chacon Work Phone: Radiology Comment on above: Ventral hernia witho ut obstruction or gangrene [K43.9] Start: 04-16-2024 End: 04-19-2024 Orders Only Eve Todd APRN.CNP Work Phone: General Surgery Comment on above: Ventral hernia witho ut obstruction or gangrene (Primary Dx) Start: 02-04-2024 ambulatory Ivory Estrada Facility:[facility] Start: 01-27-2024 End: 01-27-2024 Telephone encounter Leopoldo Chiu MD Work Phone: [facility] Start: 01-05-2024 End: 01-05-2024 Bamboo flowsheet Luzmaria Montero DO Work Phone: [facility] Start: 01-05-2024 End: 01-05-2024 Bamboo flowsheet Luzmaria Montero DO Work Phone: [facility] Start: 01-05-2024 End: 01-05-2024 ambulatory MICHAEL CURRAN Not Available Start: 01-05-2024 End: 01-05-2024 Office outpatient new 30 minutes Michael Carol Curran DPM Work Phone: [facility] Comment on above: Acquired keratoderma (Primary Dx); Onychocryptosis; Pain of right great toe; Difficulty walking Start: 01-05-2024 End: 01-05-2024 ambulatory LUZMARIA MONTERO Not Available Start: 01-05-2024 End: 01-05-2024 Office outpatient new 45 minutes Luzmaria Montero DO Work Phone: [facility] Comment on above: Recurrent abdominal hernia without obstruction or gangrene, unspecified hernia type (Primary Dx); 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 Facility:[facility] Start: 12-01-2023 End: 12-01-2023 Office outpatient visit 25 minutes Yashira Roman APRN-AUTOMOBILE SERVICE STATION ATTENDANT Work Phone: [facility] Comment on above: Primary hypertension (Primary Dx); Seasonal allergic rhinitis due to pollen; Referral of patient; Type 2 diabetes mellitus with hyperglycemia, without long-term current use of insulin ([facility]); Situational mixed anxiety and depressive disorder Start: 12-01-2023 End: 12-01-2023 ambulatory [facility] Start: 10-28-2023 End: 10-28-2023 Refill Yashira Roman APRN-AUTOMOBILE SERVICE STATION ATTENDANT Work Phone: [facility] Comment on above: Primary hypertension (Primary Dx); Mixed hyperlipidemia Start: 09-29-2023 End: 09-29-2023 Refill Mendy Plascencia PA-C Work Phone: [facility] Comment on above: Vaginal atrophy; Dyspareunia in female; Vaginal dryness, menopausal Start: 08-12-2023 End: 08-12-2023 Refill Caryn Gomez APRN-PROFILING MACHINE SET UP OPERATOR Work Phone: [facility] Comment on above: Type 2 diabetes alexander itus without complication, without long- term current use of insulin [place] Start: 07-27-2023 End: 07-27-2023 Refill Mendy Plascencia PA-C Work Phone: [facility] Comment on above: Vaginal atrophy; Dyspareunia in female; Vaginal dryness, menopausal Start: 06-30-2023 End: 06-30-2023 Refill Caryn Gomez STAFF ANTISUBMARINE OFFICER-PROFILING MACHINE SET UP OPERATOR Work Phone: [facility] Comment on above: Seasonal allergic rh initis due to pollen; Mixed hyperlipidemia Start: 06-30-2023 End: 06-30-2023 ambulatory [facility] Start: 06-06-2023 End: 06-06-2023 Orders Only Alisha Hawley STAFF ANTISUBMARINE OFFICER-AUTOMOBILE SERVICE STATION ATTENDANT Work Phone: [facility] Comment on above: Type 2 diabetes alexander itus with hyperglycemia, without long-term current use of insulin ([facility]) (Primary Dx); Hyperthyroidism Start: 05-11-2023 Refill Caryn Gomez STAFF ANTISUBMARINE OFFICER-PROFILING MACHINE SET UP OPERATOR Work Phone: [facility] Start: 04-19-2023 Telephone encounter Leopoldo Chiu MD Work Phone: [facility] Start: 04-02-2023 End: 04-02-2023 ambulatory LEOPOLDO CHIU [facility] Start: 03-10-2023 End: 03-10-2023 ambulatory LEOPOLDO CHIU [facility] Start: 03-10-2023 End: 03-10-2023 Office consultation new/estab patient 60 min Leopoldo Chiu MD Work Phone: [facility] Comment on above: Renal mass (Primary Dx); Right renal mass Start: 03-04-2023 Refill Caryn Gomez STAFF ANTISUBMARINE OFFICER-PROFILING MACHINE SET UP OPERATOR Work Phone: [facility] Start: 02-25-2023 End: 02-25-2023 ambulatory GIUSEPPE BOYKIN [facility] Start: 02-25-2023 End: 02-25-2023 Office outpatient new 45 minutes Giuseppe Boykin MD Work Phone: [facility] Comment on above: Right renal mass (Pr imary Dx); Ventral hernia without obstruction or gangrene Start: 02-20-2023 End: 02-20-2023 ambulatory Yina Avila Other [employer] Other Start: 02-20-2023 Office outpatient ne w 30 minutes Yina Avila [facility] Start: 11-02-2021 End: 11-03-[address] CARYN GOMEZ Facility:[facility] Procedures Date Procedure Procedure Detail Performing Clinician Start: 04-19-2024 Ct abdomen & pelvis w/o contrast material Eve Todd APRN.AUTOMOBILE SERVICE STATION ATTENDANT Work Phone: Start: 06-30-2023 Adult depression scr eening assessment Caryn Gomez STAFF ANTISUBMARINE OFFICER-PROFILING MACHINE SET UP OPERATOR Work Phone: Start: 12-10-2022 Adult depression scr eening assessment Giuseppe Boykin MD Work Phone: Start: 12-03-2022 Lipid 1996 panel - S george or Plasma Eve Todd STAFF ANTISUBMARINE OFFICER.AUTOMOBILE SERVICE STATION ATTENDANT Work Phone: Start: 11-25-2022 Mammography Giuseppe dwyer MD Work Phone: Start: 06-20-2022 Diabetic retinal eye exam Giuseppe Boykin MD Work Phone: Start: 05-23-2022 Microalbumin [Mass/v olume] in Urine by Test strip Giuseppe Boykin MD Work Phone: Start: 05-02-2021 Colonoscopy Giuseppe dwyer MD Work Phone: Plan of Treatment Date Care Activity Detail Author Start: 2034 RSV Vaccine (1 - 1-d ose 75+ series) RSV Vaccine (1 - 1-dose 75+ series) [facility] Start: 12-16-2029 DTaP,Tdap and Td Vaccines (3 - Td or Tdap) DTaP,Tdap and Td Vaccines (3 - Td or Tdap) [facility] Start: 12-16-2029 Urine microalbumin profile DTaP,Tdap,Td Vaccine (3 - Td or Tdap) [facility] Start: 12-04-2027 Lipid panel Lipid Screening [facility] Start: 11-27-2026 Diabetes Screening Diabetes Screenin g [facility] Start: 05-02-2026 Screening for malign ant neoplasm of colon Colonoscopy [facility] Start: 11-30-2024 Adult BMI Follow Up Plan Adult BMI Follow Up Plan [facility] Start: 11-30-2024 Adult BMI Screening Adult BMI Screen ing [facility] Start: 11-30-2024 Tobacco Screening Tobacco Screening [facility] Start: 09-14-2024 End: 09-14-2024 Admission to same day surgery center 09/14/2024 7:30 AM EDT - 09/14/2024 3:14 PM EDT Surgery Admitting [address] [place] [address] Kristine Vincent MD [address] [place] [address] HERNIORRHAPHY INCISIONAL ABDOMINAL RECURRENT REDUCIBLE GREATER THAN 10cm Admitting Comment on above: HERNIORRHAPHY INCISI ONAL ABDOMINAL RECURRENT REDUCIBLE GREATER THAN 10cm Start: 09-14-2024 End: 09-14-2024 HERNIORRHAPHY INCISIONAL ABDOMINAL RECURRENT REDUCIBLE GREATER THAN 10cm HERNIORRHAPHY INCISIONAL ABDOMINAL RECURRENT REDUCIBLE GREATER THAN 10cm Preoperative examination Incisional hernia, without obstruction or gangrene 09/14/2024 7:30 AM EDT [facility] Start: 09-14-2024 Subsequent hospital visit by physician 09/14/2024 7:30 AM EDT Hospital Encounter Admitting [address] [place] [address] Kristine Vincent MD [address] [facility] [place] [address] Preoperative examination [Z01.818], Incisional hernia, without obstruction or gangrene [K43.2] Admitting Comment on above: Preoperative examina tion [Z01.818], Incisional hernia, without obstruction or gangrene [K43.2] Start: 08-25-2024 End: 11-25-2024 aPTT in Platelet poor plasma by Coagulation assay ACTIVATED PARTIAL THROMBOPLASTIN TIME Lab Routine Preoperative examination Incisional hernia, without obstruction or gangrene Expected: 08/25/2024, Expires: 11/25/2024 [facility] Comment on above: Expected: 08/25/2024 , Expires: 11/25/2024 Start: 08-25-2024 End: 11-25-2024 CBC W Auto Differential panel - Blood COMPLETE BLOOD COUNT AND DIFFERENTIAL Lab Routine Preoperative examination Incisional hernia, without obstruction or gangrene Expected: 08/25/2024, Expires: 11/25/2024 [facility] Comment on above: Expected: 08/25/2024 , Expires: 11/25/2024 Start: 08-25-2024 End: 11-25-2024 Comprehensive metabolic 2000 panel - Serum or Plasma COMPREHENSIVE METABOLIC PANEL Lab Routine Preoperative examination Incisional hernia, without obstruction or gangrene Expected: 08/25/2024, Expires: 11/25/2024 [facility] Comment on above: Expected: 08/25/2024 , Expires: 11/25/2024 Start: 08-25-2024 End: 11-25-2024 PT panel - Platelet poor plasma by Coagulation assay PROTHROMBIN TIME Lab Routine Preoperative examination Incisional hernia, without obstruction or gangrene Expected: 08/25/2024, Expires: 11/25/2024 [facility] Comment on above: Expected: 08/25/2024 , Expires: 11/25/2024 Start: 08-25-2024 End: 11-25-2024 TYPE AND SCREEN,30 DAY TYPE AND SCREEN,30 DAY Blood Bank Routine Preoperative examination Incisional hernia, without obstruction or gangrene Expected: 08/25/2024, Expires: 11/25/2024 [facility] Comment on above: Expected: 08/25/2024 , Expires: 11/25/2024 Start: 06-29-2024 Adult BMI Follow Up Plan Adult BMI Follow Up Plan [facility] Start: 06-29-2024 Adult BMI Screening Adult BMI Screen ing [facility] Start: 06-29-2024 Depression Screening Depression Scre ening [facility] Start: 06-29-2024 Diabetic foot examination Diabetic Foot Exam [facility] Start: 06-29-2024 Tobacco Screening Tobacco Screening [facility] Start: 06-25-2024 Covid-19 Vaccine () Covid-19 Vaccine () [facility] Start: 05-18-2024 End: 05-18-2024 Patient encounter procedure 05/18/2024 11:30 AM EDT Office Visit [facility] [place] [address] [place] [address] [facility] Start: 05-17-2024 End: 05-17-2024 Patient encounter procedure 05/17/2024 9:00 AM EDT Office Visit [facility] [address] [facility] [address] Yashira Roman, STAFF ANTISUBMARINE OFFICER-AUTOMOBILE SERVICE STATION ATTENDANT [address] [facility] [address] [facility] Start: 04-28-2024 End: 04-28-2024 Patient encounter procedure 04/28/2024 11:00 AM EST Office Visit [facility] [place] [address] [place] [address] [facility] Start: 04-19-2024 End: 04-19-2024 Patient encounter procedure 04/19/2024 2:30 PM EST Office Visit General Surgery [address] [address] Kristine Vincent MD [address] [place] [address] K46.9 (ICD-10-CM) - Non-recurrent abdominal hernia without obstruction or gangrene, unspecified hernia type General Surgery Comment on above: K46.9 (ICD-10-CM) - Non-recurrent abdominal hernia without obstruction or gangrene, unspecified hernia type Start: 04-19-2024 End: 04-19-2024 Patient encounter procedure 04/19/2024 10:30 AM EST Appointment Radiology [address] [place] [address] Ventral hernia without obstruction or gangrene [K43.9] Radiology Comment on above: Ventral hernia witho ut obstruction or gangrene [K43.9] Start: 2024 Advance Directive Discussion Advance Directive Discussion [facility] Start: 2024 Fall Risk Screening Fall Risk Screen ing [facility] Start: 03-10-2024 Adult BMI Screening Adult BMI Screen ing [facility] Start: 03-10-2024 Tobacco Screening Tobacco Screening [facility] Start: 03-09-2024 End: 03-09-2024 Patient encounter procedure 03/09/2024 10:30 AM EST Office Visit [facility] [address] [place] [id number] Yashira Roman, STAFF ANTISUBMARINE OFFICER-AUTOMOBILE SERVICE STATION ATTENDANT [address] [place] [address] [facility] Start: 02-26-2024 Adult BMI Screening Adult BMI Screen ing [facility] Start: 02-26-2024 Tobacco Screening Tobacco Screening [facility] Start: 01-19-2024 End: 01-19-2024 Patient encounter procedure 01/19/2024 1:45 PM EST Office Visit [facility] [address] [place] [address] [place] [address] Leopoldo Chiu MD [address] [place] [address] [facility] Start: 01-09-2024 End: 01-09-2024 Patient encounter procedure 01/09/2024 11:00 AM EST Office Visit [facility] [address] [place] [phone] Mendy Plascencia PA-C [address] [place] [address] [facility] Start: 01-05-2024 End: 01-05-2024 Patient encounter procedure 01/05/2024 1:45 PM EST Office Visit [facility] [address] [place] [address] Michael Curran DPM [address] [place], [place] [id number] [facility] Start: 12-30-2023 End: 04-18-2024 MR Abdomen WO and W contrast IV MR abdomen with and without contrast Imaging Routine Renal mass Expected: 12/30/2023 (Approximate), Expires: 04/18/2024 [facility] Work Phone: Comment on above: Expected: 12/30/2023 (Approximate), Expires: 04/18/2024 Start: 12-11-2023 Adult BMI Follow Up Plan Adult BMI Follow Up Plan [facility] Start: 12-11-2023 Depression Screening Depression [facility] Start: 12-01-2023 End: 12-01-2023 Patient encounter procedure 12/01/2023 10:20 AM EDT [facility] - [facility] [address] [place] [address] Yashira Roman, STAFF ANTISUBMARINE OFFICER-AUTOMOBILE SERVICE STATION ATTENDANT [address] [place] [id number] [facility] Start: 11-26-2023 Screening for malign ant neoplasm of breast [facility] Start: 10-26-2023 Covid-19 Vaccine (1 - 2024-25 season) Covid-19 Vaccine ( season) [facility] Start: 10-26-2023 Influenza vaccination [facility] Start: 08-26-2023 End: 08-26-2023 Patient encounter procedure 08/26/2023 10:00 AM EDT Office Visit [facility] [address] [place] [address] Giuseppe Boykin MD [address] [place] [address] [facility] Start: 06-30-2023 End: 06-30-2023 Patient encounter procedure 06/30/2023 1:40 PM EDT Office Visit [facility] - Family Medicine [address] [place] [address] Caryn Gomez, WES-PROFILING MACHINE SET UP OPERATOR [address] [place] [address] [facility] Start: 06-21-2023 Glaucoma screening Diabetic Op hthalmology Exam [facility] Start: 06-06-2023 End: 06-05-2024 Thyrotropin [Units/volume] in Serum or Plasma TSH Lab Routine Hyperthyroidism Expected: 06/06/2023 (Approximate), Expires: 06/05/2024 [facility] Comment on above: Expected: 06/06/2023 (Approximate), Expires: 06/05/2024 Start: 05-30-2023 Diabetic foot examination Diabetic Foot Exam [facility] Start: 05-24-2023 Urine screening for protein Urine Microalbumin [facility] Start: 05-14-2023 End: 05-14-2023 Patient encounter procedure 05/14/2023 11:45 AM EDT Office Visit [facility] [address] [place] [address] [place] [phone] Leopoldo Chiu MD [address] [place] [address] [facility] Start: 03-10-2023 End: 03-10-2024 Guidance for cryoablation of Kidney IR cryoablation renal right Imaging Routine Right renal mass Expected: 03/10/2023, Expires: 03/10/2024 [facility] Work Phone: Comment on above: Expected: 03/10/2023 , Expires: 03/10/2024 Start: 03-10-2023 End: 03-10-2023 Patient encounter procedure 03/10/2023 2:00 PM EST Office Visit [facility] [address] [place] [address] [address] [place] [address] Leopoldo Chiu MD [address] [place] [address] [facility] Start: 03-10-2023 End: 03-09-2024 XR Chest PA and Lateral X-ray chest 2 views Imaging Routine Right renal mass Expected: 03/10/2023, Expires: 03/09/2024 [facility] Comment on above: Expected: 03/10/2023 , Expires: 03/09/2024 Start: 02-07-2014 Pneumococcal Vaccine : 50+ (2 of 2 - PPSV23) Pneumococcal Vaccine: 50+ (2 of 2 - PPSV23) [facility] Start: 2004 Screening for malign ant neoplasm of colon [facility] Start: 1989 Screening for malign ant neoplasm of cervix [facility] Start: 1980 Screening for malign ant neoplasm of cervix Pap Smear [facility] Start: 1977 Anxiety Screening Anxiety Screening [facility] Start: 1977 [facility]: [facility] Hepatitis C screening Hepatitis C Sc tabitha [facility] Start: 1977 HIV screening HIV Screening [facility] Start: 1959 Screening for malign ant neoplasm of colon [facility] End: 06-05-2024 Comprehensive metabolic 2000 panel - Serum or Plasma Comprehensive metabolic panel Lab Routine Type 2 diabetes mellitus with hyperglycemia, without long-term current use of insulin ([facility] 1 Occurrences starting 06/06/2023 until 06/05/2024 [place] Work Phone: Comment on above: 1 Occurrences starti ng 06/06/2023 until 06/05/2024 End: 04-19-2025 Comprehensive metabolic 2000 panel - Serum or Plasma Comprehensive metabolic panel Lab Routine Type 2 diabetes mellitus with hyperglycemia, without long-term current use of insulin ([facility] 1 Occurrences starting 04/19/2024 until 04/19/2025 [facility] Comment on above: 1 Occurrences starti ng 04/19/2024 until 04/19/2025 End: 05-16-2025 CT Abdomen and Pelvis WO contrast CT ABD/PEL WO IVCON Radiology Routine Ventral hernia without obstruction or gangrene 1 Occurrences starting 04/16/2024 until 05/16/2025 [facility] Work Phone: Comment on above: 1 Occurrences starti ng 04/16/2024 until 05/16/2025 End: 04-21-2025 ECG COMPLETE ECG COMPLETE ECG Routine Preoperative examination Incisional hernia, without obstruction or gangrene 1 Occurrences starting 04/22/2024 until 04/21/2025 [facility] Comment on above: 1 Occurrences starti ng 04/22/2024 until 04/21/2025 End: 06-05-2024 Hemoglobin A1c/Hemoglobin.total in Blood Hemoglobin A1c Lab Routine Type 2 diabetes mellitus with hyperglycemia, without long-term current use of insulin ([facility] 1 Occurrences starting 06/06/2023 until 06/05/2024 [facility] Comment on above: 1 Occurrences starti ng 06/06/2023 until 06/05/2024 End: 04-20-2025 Hemoglobin A1c/Hemoglobin.total in Blood Hemoglobin A1c Lab Routine Type 2 diabetes mellitus with hyperglycemia, without long-term current use of insulin ([facility] 1 Occurrences starting 04/19/2024 until 04/20/2025 [facility] Comment on above: 1 Occurrences starti ng 04/19/2024 until 04/20/2025 End: 04-19-2025 Microalbumin - Albumin: Creatinine Urine Ratio Microalbumin - Albumin: Creatinine Urine Ratio Lab Routine Type 2 diabetes mellitus with hyperglycemia, without long-term current use of insulin ([facility] 1 Occurrences starting 04/19/2024 until 04/19/2025 [facility] Work Phone: Comment on above: 1 Occurrences starti ng 04/19/2024 until 04/19/2025 REFER FOR ADMIT INTERVIEW REFER FOR ADMIT INTERVIEW Procedures Routine Preoperative examination Incisional hernia, without obstruction or gangrene Ordered: 04/22/2024 [facility] Work Phone: Comment on above: Ordered: 04/22/2024 End: 06-05-2024 Thyroxine (T4) free [Mass/volume] in Serum or Plasma T4, free Lab Routine Hyperthyroidism 1 Occurrences starting 06/06/2023 until 06/05/2024 [facility] Comment on above: 1 Occurrences starti ng 06/06/2023 until 06/05/2024 Immunizations Immunization Date Immunization Notes Care Provider [facility] 12-08-2022 influenza, injectabl e, quadrivalent, preservative free Giuseppe Boykin MD Work Phone: [facility] 12-08-2022 influenza virus vaccine, unspecified formulation Alisha NIETO Work Phone: [facility] 05-16-2022 zoster vaccine recombinant Giuseppe Boykin MD Work Phone: [facility] 01-15-2022 zoster vaccine recombinant Giuseppe Boykin MD Work Phone: [facility] 01-08-2022 zoster vaccine recombinant Giuseppe Boykin MD Work Phone: [facility] 01-08-2022 zoster vaccine, live Giuseppe Boykin MD Work Phone: [facility] 12-01-2021 influenza virus vaccine, unspecified formulation Giuseppe Boykin MD Work Phone: [facility] 12-01-2021 influenza, injectabl e, quadrivalent, preservative free Giuseppe Boykin MD Work Phone: [facility] 12-17-2019 influenza, injectabl e, quadrivalent, preservative free Giuseppe Boykin MD Work Phone: [facility] 12-17-2019 tetanus toxoid, redu felix diphtheria toxoid, and acellular pertussis vaccine, adsorbed Giuseppe Boykin MD Work Phone: [facility] 02-04-2019 Seasonal, quadrivale nt, recombinant, injectable influenza vaccine, preservative free Giuseppe Boykin MD Work Phone: [facility] 12-24-2017 influenza, injectabl e, quadrivalent, contains preservative Giuseppe Boykin MD Work Phone: [facility] 12-25-2016 influenza virus vaccine, unspecified formulation Giuseppe Boykin MD Work Phone: [facility] 02-07-2014 influenza virus vaccine, unspecified formulation Giuseppe Boykin MD Work Phone: [facility] 02-07-2013 pneumococcal conjuga te vaccine, 13 valent Giuseppe Boykin MD Work Phone: [facility] 07-06-2010 tetanus toxoid, redu felix diphtheria toxoid, and acellular pertussis vaccine, adsorbed Giuseppe Boykin MD Work Phone: [facility] 03-06-2009 novel [id number], preservative-free, injectable Giuseppe Boykin MD Work Phone: [facility] Payers Date Payer Category Payer Private Health Insurance [id number] 1960 Unknown [id number] [id number] [id number] 1960 Unknown [id number] [id number] 1959 Unknown [id number] [id number] 1959 Unknown [id number] 2.16.84 [id number] 1959 Unknown [id number] 2.16.8 [id number] 1959 Unknown [id number] 2.16.8 [id number] 1959 Unknown [id number] 2.16.84 [id number] 1959 Unknown [id number] [id number] [id number] 1960 Private Health Insurance [id number] Social History Date Type Detail Facility Start: 11-25-2021 End: 01-05-2024 Sex Assigned At [facility] Tobacco smoking stat [facility] Tobacco smoking consumption unknown [facility] Start: 1960 Sex assigned at Not on file [facility] Start: 04-23-2022 End: 01-05-2024 Tobacco smoking status [facility] Never smoked tobacco [facility] Start: 01-05-2024 Alcoholic beverage intake Lifetime non-drinker (finding) [facility] Start: 11-25-2021 End: 01-05-2024 History of Social function [facility] Start: 07-22-2012 End: 04-23-2022 Tobacco use and exposure Smokeless tobacco non-user [facility] Start: 02-25-2023 End: 12-01-2023 Alcohol intake Current non-drinker of alcohol (finding) [facility] Do you belong to any clubs or organizations such as christianity groups, unions, fraternal or athletic groups, or school groups? Yes [facility] Are you now , , , , never or living with a partner? [facility] How often to you hav e a drink containing alcohol? Never [facility] How many standard dr inks containing alcohol do you have on a typical day? Patient does not drink [facility] How hard is it for y ou to pay for the very basics like food, housing, medical care, and heating Not very hard [facility] Do you feel stress - tense, restless, nervous, or anxious, or unable to sleep at night because your mind is troubled all the time - these days [OSQ] Only a little [facility] Start: 11-25-2021 Education 17 [facility] Start: 1960 Sex Assigned At Female [facility] Start: 11-16-2019 Gender identity Identifies as female gender (finding) [facility] Start: 11-16-2019 Sexual orientation Heterosexual (finding) [facility] Start: 09-29-2014 Sex Female (finding) [facility] Start: 07-22-2012 End: 04-19-2024 Alcoholic beverage intake Not Asked [facility] Procedure Code Equipment Code Equipment Origin al Text Equipment Identifier Dates 1 strip by other route in the morning. [id number] Start: 04-08-2022 End: 08-12-2023 Inject 1 Lancet. under the skin in the morning. [id number] Start: 04-08-2022 End: 08-12-2023 1 strip by other route in the morning. [id number] Start: 08-12-2023 Inject 1 Lancet. under the skin in the morning. [id number] Start: 08-12-2023 Goals Date Patient Goal Desired Activity /State Personal health goal Comment on above: Formatting of this n ote might be different from the original. Evaluation of progress towards goal: Pt plans to discharge home with self care and family assistance. Clinical Notes 02-20-2023 to 04-19-2024 Kristine Vincent MD - 04/19/2024 3:55 PM Carlos Garcia MA - 04/19/2024 2:36 PM Ashish Rosas MD - 04/19/2024 2:58 PM Ashish Rosas MD - 04/19/2024 2:58 PM ESTPatient Instructions Note Date & Type Note Facility 04-19-2024 Note HNO ID: [id number] Author: KRISTINE VINCENT MD Service: ? Author Type: Physician Type: Progress Notes Filed: 04/19/2024 16:02 Note Text: Consultation requested by Dr. Mack Jarrett for an opinion regarding multiply recurrent incisional hernia. My final recommendations will be communicated back to the requesting physician by way of shared Medical record or letter to requesting physician via [place] mail. I have seen and evaluated the patient and discussed the case with the resident physician. I agree with the assessment and plan as documented in the resident?s note. Parisa Sanchez is a 64 year old female here for evaluation of a(n) incisional hernia hernia. Prior surgical history is significant for multiple prior hernia repairs, prior mesh infection (notes not available from hernia repairs other than one with PTFE but cannot tell where that was placed), and prior open cholecystectomy. Now with recurrent hernia. She thinks she underwent some type of component separation with primary hernia repair but is not sure and there are no notes to describe this. Other significant comorbidities include kidney mass that is being followed, Dm, HTN, depression. On exam, she has a protuberant abdomen with multiple scars and a midline hernia defect. Plan is for open AWR with mesh. She is understandably anxious given her prior infectious history. Of note, there is a R kidney lesion that she is having followed by imaging with a urologist - no current plans for intervention. Patient consented for study? Not applicable Kristine Vincent MD April 19, 2024 3:55 PM [facility] 04-19-2024 History of Present illness Narrative Consultation requested by Dr. Mack Jarrett for an opinion regarding multiply recurrent incisional hernia. My final recommendations will be communicated back to the requesting physician by way of shared Medical record or letter to requesting physician via [place] mail. I have seen and evaluated the patient and discussed the case with the resident physician. I agree with the assessment and plan as documented in the resident s note. Parisa Sanchez is a 64 year old female here for evaluation of a(n) incisional hernia hernia. Prior surgical history is significant for multiple prior hernia repairs, prior mesh infection (notes not available from hernia repairs other than one with PTFE but cannot tell where that was placed), and prior open cholecystectomy. Now with recurrent hernia. She thinks she underwent some type of component separation with primary hernia repair but is not sure and there are no notes to describe this. Other significant comorbidities include kidney mass that is being followed, Dm, HTN, depression. On exam, she has a protuberant abdomen with multiple scars and a midline hernia defect. Plan is for open AWR with mesh. She is understandably anxious given her prior infectious history. Of note, there is a R kidney lesion that she is having followed by imaging with a urologist - no current plans for intervention. Patient consented for study? Not applicable Kristine Vincent MD April 19, 2024 3:55 PM What is the reason for your visit today? Consult Who is your referring physician? No Are you having poor oral intake? NO Have you had unintentional weight loss of 15 lbs/7 Kg in the last 3-6 months? NO Bowels: regular Wound: None Temperature: No Drains: No documented in this encounter [facility] 04-19-2024 History and physical note [facility] Abdominal [facility] - HISTORY AND PHYSICAL SUBJECTIVE: Chief Complaint: ventral hernia HPI: Parisa Sanchez is a 64 year old female with history of CP, T2DM, HTN, colon cancer, endometrial carcinoma, and h/o multiple recurrent incisional hernia repairs who presents with multiple ventral hernias containing fat and colon. Approximately 2 years after most recent surgery, patient noticed an increasing abdominal bulge. Denies obstructive symptoms. Has very minimal pain from hernias. Will have increase in size throughout the day. Patient recently had to change surgeons d/t insurance. Has had SBO in the past, but ~2010. No use of blood thinners. Patient is in the process of being seen for potential RCC. 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 - open cholecystectomy 2005 - R fay-colectomy (unclear how much bowel resected, for colon CA) and appendectomy Multiple hernia repairs with mesh infections and explants 2019 - mesh removal, possible rectus abdominal muscle release v partial component separation 2019 - I&D chronic abdominal wound Smoking status: N/A Risk factors: History of component separation, History of abdominal wall surgical site infection Opioid Dependence Risk Screen: No history of Psychiatric Disorders or Opioid Use Functional Status: Independent Employment: Unknown Sporting Activity: Sporadic (once/month) Co-morbidities: Hypertension, Diabetes Mellitus Complete Review of Systems: GENERAL: No weight loss, malaise or fevers HEENT: No changes in hearing or vision, no nose bleeds or other nasal problems NECK: Negative for lumps, goiter, pain and significant neck swelling RESPIRATORY: Negative for cough, hemoptysis, wheezing, dyspnea or shortness of breath CARDIOVASCULAR: Negative for chest pain, leg swelling, or palpitations GI: No nausea, vomiting, or diarrhea : No history of dysuria, frequency or incontinence MUSCULOSKELETAL: Negative for joint pain or swelling, back pain or muscle pain SKIN: Negative for lesions, rash, and itching PSYCH: Negative for sleep disturbance, mood disorder and recent psychosocial stressors HEMATOLOGY/LYMPHOLOGY: Negative for prolonged bleeding, bruising easily or swollen nodes ENDOCRINE: Negative for cold or heat intolerance, polyuria, polydipsia and goiter NEURO: No history of headaches, syncope, paralysis, seizures or tremors PAST MEDICAL HISTORY Diagnosis Date Colorectal cancer No past surgical history on file. FAMILY HISTORY Problem Relation Age of Onset Breast Cancer Mother Social History Tobacco Use Smoking status: Never Smokeless tobacco: Never Prior to Admission medications as of 04/19/24 1521 Medication Sig Last Dose Taking fexofenadine/pseudoephedrine (MONICA-D 24 HOUR ORAL) Yes JARDIANCE 10 mg tablet Take 10 mg by mouth every morning. Yes amLODIPine (NORVASC) 5 mg tablet Take 5 mg by mouth every morning. Yes escitalopram oxalate (LEXAPRO) 20 mg tablet Take 20 mg by mouth every morning. Yes metFORMIN 1,000 mg tablet Take 1,000 mg by mouth daily with breakfast. Yes lisinopril 20 mg tablet Take 20 mg by mouth once daily. Yes simvastatin 20 mg tablet Take 20 mg by mouth daily at bedtime. Yes CALCIUM CARBONATE/VITAMIN D3 (CALTRATE 600 + D ORAL) Take by mouth once daily. Yes ALLERGIES Allergen Reactions Cephalexin Rash Prednisone Rash Percocet [Oxycodone* Vomiting Adhesive Tape-Silic* Rash PHYSICAL EXAM: BP 114/67 Pulse 98 Temp (Src) 97.2 (Temporal) Ht 5' 2.5 (1.59m) Wt 190 lb (86.2kg) BMI 34.18 kg/(m^2). GENERAL: awake, alert and oriented, no acute distress. CARDIOVASCULAR: warm and well perfused throughout, regular rate and rhythm, normal S1 and S2. LUNGS: non-labored breathing, lungs clear to auscultation, good diaphragmatic excursion. ABDOMEN: soft, non-tender, non-distended. Multiple well-healed abdominal incisions. Midline bulge, soft, nontender. EXTREMITY: no lower extremity edema. NEUROLOGICAL: no gross focal neurologic deficits. IMAGING: CT A/P 04/19: numerous hernias along the anterior abdominal wall containing both fat and colon. ASSESSMENT/PLAN: Parisa Sanchez is a 64 year old female with history CP, T2DM, HTN, colon cancer, endometrial carcinoma, and h/o multiple recurrent incisional hernia repairs who presents with multiple ventral hernias containing fat and colon. Risks and benefits of repair were discussed in detail with the patient and her . All questions were answered. Patient elects to proceed with open abdominal wall reconstruction with mesh. Consent was obtained and placed in the chart. - open abdominal wall reconstruction with mesh - consent obtained Patient seen and discussed with Dr. Vincent. Ashish Childs MD [facility] Work Phone: 04-19-2024 History and physical note [facility] Abdominal [facility] - HISTORY AND PHYSICAL SUBJECTIVE: Chief Complaint: ventral hernia HPI: Parisa Sanchez is a 64 year old female with history of CP, T2DM, HTN, colon cancer, endometrial carcinoma, and h/o multiple recurrent incisional hernia repairs who presents with multiple ventral hernias containing fat and colon. Approximately 2 years after most recent surgery, patient noticed an increasing abdominal bulge. Denies obstructive symptoms. Has very minimal pain from hernias. Will have increase in size throughout the day. Patient recently had to change surgeons d/t insurance. Has had SBO in the past, but ~2010. No use of blood thinners. Patient is in the process of being seen for potential RCC. 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 - open cholecystectomy 2005 - R fay-colectomy (unclear how much bowel resected, for colon CA) and appendectomy Multiple hernia repairs with mesh infections and explants 2019 - mesh removal, possible rectus abdominal muscle release v partial component separation 2019 - I&D chronic abdominal wound Smoking status: N/A Risk factors: History of component separation, History of abdominal wall surgical site infection Opioid Dependence Risk Screen: No history of Psychiatric Disorders or Opioid Use Functional Status: Independent Employment: Unknown Sporting Activity: Sporadic (once/month) Co-morbidities: Hypertension, Diabetes Mellitus Complete Review of Systems: GENERAL: No weight loss, malaise or fevers HEENT: No changes in hearing or vision, no nose bleeds or other nasal problems NECK: Negative for lumps, goiter, pain and significant neck swelling RESPIRATORY: Negative for cough, hemoptysis, wheezing, dyspnea or shortness of breath CARDIOVASCULAR: Negative for chest pain, leg swelling, or palpitations GI: No nausea, vomiting, or diarrhea : No history of dysuria, frequency or incontinence MUSCULOSKELETAL: Negative for joint pain or swelling, back pain or muscle pain SKIN: Negative for lesions, rash, and itching PSYCH: Negative for sleep disturbance, mood disorder and recent psychosocial stressors HEMATOLOGY/LYMPHOLOGY: Negative for prolonged bleeding, bruising easily or swollen nodes ENDOCRINE: Negative for cold or heat intolerance, polyuria, polydipsia and goiter NEURO: No history of headaches, syncope, paralysis, seizures or tremors PAST MEDICAL HISTORY Diagnosis Date Colorectal cancer No past surgical history on file. FAMILY HISTORY Problem Relation Age of Onset Breast Cancer Mother Social History Tobacco Use Smoking status: Never Smokeless tobacco: Never Prior to Admission medications as of 04/19/24 1521 Medication Sig Last Dose Taking fexofenadine/pseudoephedrine (MONICA-D 24 HOUR ORAL) Yes JARDIANCE 10 mg tablet Take 10 mg by mouth every morning. Yes amLODIPine (NORVASC) 5 mg tablet Take 5 mg by mouth every morning. Yes escitalopram oxalate (LEXAPRO) 20 mg tablet Take 20 mg by mouth every morning. Yes metFORMIN 1,000 mg tablet Take 1,000 mg by mouth daily with breakfast. Yes lisinopril 20 mg tablet Take 20 mg by mouth once daily. Yes simvastatin 20 mg tablet Take 20 mg by mouth daily at bedtime. Yes CALCIUM CARBONATE/VITAMIN D3 (CALTRATE 600 + D ORAL) Take by mouth once daily. Yes ALLERGIES Allergen Reactions Cephalexin Rash Prednisone Rash Percocet [Oxycodone* Vomiting Adhesive Tape-Silic* Rash PHYSICAL EXAM: BP 114/67 Pulse 98 Temp (Src) 97.2 (Temporal) Ht 5' 2.5 (1.59m) Wt 190 lb (86.2kg) BMI 34.18 kg/(m^2). GENERAL: awake, alert and oriented, no acute distress. CARDIOVASCULAR: warm and well perfused throughout, regular rate and rhythm, normal S1 and S2. LUNGS: non-labored breathing, lungs clear to auscultation, good diaphragmatic excursion. ABDOMEN: soft, non-tender, non-distended. Multiple well-healed abdominal incisions. Midline bulge, soft, nontender. EXTREMITY: no lower extremity edema. NEUROLOGICAL: no gross focal neurologic deficits. IMAGING: CT A/P 04/19: numerous hernias along the anterior abdominal wall containing both fat and colon. ASSESSMENT/PLAN: Parisa Sanchez is a 64 year old female with history CP, T2DM, HTN, colon cancer, endometrial carcinoma, and h/o multiple recurrent incisional hernia repairs who presents with multiple ventral hernias containing fat and colon. Risks and benefits of repair were discussed in detail with the patient and her . All questions were answered. Patient elects to proceed with open abdominal wall reconstruction with mesh. Consent was obtained and placed in the chart. - open abdominal wall reconstruction with mesh - consent obtained Patient seen and discussed with Dr. Vincent. Ashish Childs MD documented in this encounter [facility] 04-19-2024 Note HNO ID: [id number] Author: CARLOS DANG MA Service: ? Author Type: Medical Records Secretary Type: Progress Notes Filed: 04/19/2024 16:02 Note Text: What is the reason for your visit today? Consult Who is your referring physician? No Are you having poor oral intake? NO Have you had unintentional weight loss of 15 lbs/7 Kg in the last 3-6 months? NO Bowels: regular Wound: None Temperature: No Drains: No [facility] 04-19-2024 History of Present illness Narrative Radiology Service Progress Note PATIENT NAME: Parisa Sanchez DATE OF SERVICE: April 19, 2024 TIME: 10:27 AM PATIENT IDENTITY VERIFICATION COMPLETED USING TWO (2) IDENTIFIERS: Name and Date of confirmed by patient verbally and Name and Date of confirmed by identification band. FALL SCREENING: Has the patient had 2 falls in the last year or 1 fall with injury or currently using an Ambulatory Assistive Device (Walker, Cane, Wheelchair, Crutches, etc.)? No PATIENT GENDER DATA: Assigned female at . status: : No status: NO. PATIENT RELEVANT IMPLANT DATA REVIEWED: Yes PATIENT PRESENTS WITH AN IMPLANTABLE OR ATTACHED DELIVERY STOCK CLERK: No RADIOLOGY DEPARTMENT: CT; Exam(s) Completed: Abdomen/Pelvis PERIPHERAL IV DATA: Not applicable SIGNED BY: RT Jameson(Rubens) April 19, 2024 10:27 AM documented in this encounter [facility] 04-19-2024 Note HNO ID: [id number] Author: KARON ELIZALDE RT(R) Service: ? Author Type: Technologist Type: Progress Notes Filed: 04/19/2024 10:28 Note Text: Radiology Service Progress Note PATIENT NAME: Parisa Sanchez DATE OF SERVICE: April 19, 2024 TIME: 10:27 AM PATIENT IDENTITY VERIFICATION COMPLETED USING TWO (2) IDENTIFIERS: Name and Date of confirmed by patient verbally and Name and Date of confirmed by identification band. FALL SCREENING: Has the patient had 2 falls in the last year or 1 fall with injury or currently using an Ambulatory Assistive Device (Walker, Cane, Wheelchair, Crutches, etc.)? No PATIENT GENDER DATA: Assigned female at . status: : No status: NO. PATIENT RELEVANT IMPLANT DATA REVIEWED: Yes PATIENT PRESENTS WITH AN IMPLANTABLE OR ATTACHED DELIVERY STOCK CLERK: No RADIOLOGY DEPARTMENT: CT; Exam(s) Completed: Abdomen/Pelvis PERIPHERAL IV DATA: Not applicable SIGNED BY: RT Jameson(Rubens) April 19, 2024 10:27 AM [facility] 04-16-2024 Miscellaneous Notes Comes in 05/17 would like labs sent to [facility] documented in this encounter [facility] 04-16-2024 Telephone encounter Note Comes in 05/17 would like labs sent to [facility] 01-27-2024 Miscellaneous Notes Based on previous notes the patient secondary to insurance canceled their appointment with us. Please send certified letter stating that the patient has been followed for small renal masses potentially for kidney cancer that needs continued follow up with another provider. Can you please place a referral to a provider outside of [facility] - I can send it with the letter. documented in this encounter [facility] 01-27-2024 Telephone encounter Note Based on previous notes the patient secondary to insurance canceled their appointment with us. Please send certified letter stating that the patient has been followed for small renal masses potentially for kidney cancer that needs continued follow up with another provider. [facility] 01-27-2024 Telephone encounter Note Can you please place a referral to a provider outside of [facility] - I can send it with the letter. [facility] 01-05-2024 History of Present illness Narrative Images from the original note were not included. Subjective Patient ID: Parisa Sanchez is a 63 y.o. female who presents for Callouses (Parisa Sanchez 63yo New Patient, referred by Jayden, for callous. BS149 A1C 6.3V. Abel 12/01/2023 Patient relates she is hearing impaired. SS10 SS 10). HPI Initial patient encounter and assessment. Chief complaint: Problematic/symptomatic callus and ingrown toenail deformity of the right great toe. Insidious onset without known injury or trauma. Relates no recent change in activity. Relates recent change to new balance shoes (from [employer]); with some relief and improvement noted. The condition has been problematic/mildly symptomatic over the past 5 or 6 months or so. Denies bleeding or drainage. Attempts at self-care are difficult, ineffective and not practical. Onychocryptosis condition recently exacerbated following pedicure treatment. Risk factors: Type II diabetes. Cerebral palsy by history with atrophy of the right lower extremity. Mobility, flexibility and dexterity restraints. Digital and/or shoe trauma and related complications. Medications Current Outpatient Medications: escitalopram (Lexapro) 20 MG tablet, Take 20 mg by mouth in the morning., Disp: , Rfl: simvastatin (Zocor) 20 MG tablet, Take 20 mg by mouth at bedtime, Disp: , Rfl: Monica-D Allergy & Congestion 180-240 MG 24 hr tablet, Take 1 tablet by mouth in the morning., Disp: , Rfl: Hattgrd-Iiefqzjlxlcaxmq-Kzoo (VIACTIV CALCIUM IMMUNE PO), Take by mouth, Disp: , Rfl: empagliflozin (Jardiance) 10 MG, Take 10 mg by mouth in the morning., Disp: , Rfl: Ferrous Sulfate (IRON PO), Take 1 tablet by mouth in the morning., Disp: , Rfl: Intrarosa 6.5 MG insert, Insert 6.5 mg into the vagina 1 time, Disp: , Rfl: lisinopril 20 MG tablet, Take 20 mg by mouth in the morning., Disp: , Rfl: metFORMIN (Glucophage) 1000 MG tablet, Take 1,000 mg by mouth in the morning. Take with meals., Disp: , Rfl: triamcinolone (Nasacort) 55 MCG/ACT nasal inhaler, Administer 2 sprays into affected nostril(s) in the morning., Disp: , Rfl: Allergies Cephalexin, Prednisone, Oxycodone hcl, Latex, and Wound dressing adhesive Past Surgical History History reviewed. No pertinent surgical history. Family History No family history on file. Objective GENERAL ASSESSMENT: Alert and oriented. Pleasant disposition. Independently ambulatory. Wearing new balance footwear. Vascular: DP 2/4 bilateral. PT 1/4 bilateral. CFT brisk all digits. Gradient temperature: Warm-warm bilateral. Unremarkable for ankle edema. Left lower extremity: Multiple telangiectasias with several varicosities. Neurologic: Tactile and light touch sensation intact. 5.07 monofilament: Intact localization multiple sites. Dermatologic: Skin turgor is good. Web space areas are clean, dry, non-inflamed. Unremarkable for eczema or dermatitis. Mild non-inflamed xerosis bilateral. Right great toe: Pincer toenail deformity: The medial margin is incurvated, keratotic, tender, slightly inflamed, without drainage. All remaining digits: Toenails are clear, minimally dystrophic. Unremarkable for ulceration or open wound. Orthopedic: Range of motion: Functional ankle, subtalar and 1st MTP joint range of motion. Deformity: Atrophic right lower extremity (cerebral palsy). Right foot: Mild HAV deformity; flexible and reducible. Lesion pattern: Well-defined, slightly raised pinch callus lesion of the right great toe; minimally tender, non-inflamed; without drainage. Radiology: Assessment/Plan Symptomatic onychocryptosis medial margin right great toe. Mildly inflamed pinch callus lesion right great toe. Cerebral palsy by history. Stable atrophy right lower extremity. DVT LLE by history (2004). Tendo-Achilles lengthening right (1972) Plan: Conservative and palliative care measures are recommended, understood, preferred and indicated. Right great toe: Debridement with curettage of the offending keratotic margin; providing effective relief. Right great toe: # 15 scalpel: Aseptic technique: Sharp debridement of pinch callus lesion; reducing direct and indirect pressure; providing favorable symptom relief. Discussed appropriate supportive footwear with inherently deeper and wider toe box. Diabetic education and assessment. Recommend Amlactin lotion daily. Procedure: This note was created with the assistance of a speech recognition program. While intending to generate a timely document that accurately reflects the content of the visit, no guarantee can be provided that every grammatical or spelling mistake has been or will be identified or corrected. Thank you for your understanding. Michael Curran DPM documented in this encounter [facility] 01-05-2024 Instructions Michael Curran DPM - 01/05/2024 1:45 PM EST As noted documented in this encounter [facility] 01-05-2024 History of Present illness Narrative General Surgery H&P Parisa Sanchez 1960 Parisa Sanchez is a 63 y.o. female presents with chief complaint of a large ventral hernia. Pt presents today with what appears to be a loss of domain along side of multiple ventral hernias. She states that she has had it for a couple of years. She states that it does not currently cause her any pain. She was seeing Dr. Boykin at [facility] and he was going to do the surgery, but [facility] no longer takes [employer] insurance. She denies any issues with eating and no changes in her normal day to day activities. Denies hx of excessive weight loss. Denies fevers, chills, or sweats. Denies nausea or vomiting. Discussed how complex her abdominal wall is. She states she has had over 3-4 surgeries on her abdominal wall with the most recent being in [address] Boykin that involved a mesh removal and what sounds like a possible rectus abdominal muscle release vs partial component separation. She is unsure if Dr. Boykin used mesh the most recent time. We talked about given the complexity of her past surgeries and the need for specialized care beyond a standard hernia repair and the benefits of going to an abdominal wall reconstruction specialist such as the [facility].. She is agreeable and referral given. We discussed the warning signs of a strangulation event and reasons to present to the hospital sooner. SUBJECTIVE: MEDICATIONS: ALLERGIES Current Outpatient Medications Medication Instructions Monica-D Allergy & Congestion 180-240 MG 24 hr tablet 1 tablet, Every morning Kipctov-Rdrfalwefaklmqa-Esks (VIACTIV CALCIUM IMMUNE PO) Take by mouth empagliflozin (JARDIANCE) 10 mg, Daily RT Ferrous Sulfate (IRON PO) 1 tablet, Daily RT Intrarosa 6.5 mg, Once lisinopril 20 mg, Daily RT metFORMIN (GLUCOPHAGE) 1,000 mg, Daily with breakfast triamcinolone (Nasacort) 55 MCG/ACT nasal inhaler 2 sprays, Daily RT Allergies Allergen Reactions Cephalexin Rash Prednisone Rash Oxycodone Hcl Unknown Latex Rash Wound Dressing Adhesive Rash PAST MEDICAL HISTORY: SOCIAL HISTORY SURGICAL HISTORY: History reviewed. No pertinent past medical history. History reviewed. No pertinent surgical history. No family history on file. Allergies Allergen Reactions Cephalexin Rash Prednisone Rash Oxycodone Hcl Unknown Latex Rash Wound Dressing Adhesive Rash History reviewed. No pertinent surgical history. Tobacco Use: Low Risk (12/01/2023) Received from [facility] Patient History Smoking Tobacco Use: Never Smokeless Tobacco Use: Never Passive Exposure: Not on file Alcohol Use: Not At Risk (11/25/2021) Received from [facility] AUDIT-C Frequency of Alcohol Consumption: Never Average Number of Drinks: Patient does not drink Frequency of Binge Drinking: Never Depression: Not at risk (06/30/2023) Received from [facility] PHQ-2 Total Score: 0 Physical Activity: Inactive (11/25/2021) Received from [facility] Exercise Vital Sign Days of Exercise per Week: 0 days Minutes of Exercise per Session: 0 min REVIEW OF SYMPTOMS: Review of Systems All other systems reviewed and are negative. 10 systems were reviewed. Positives noted above. Remainder are negative per CMS guidelines OBJECTIVE: Visit Vitals BP 126/78 Pulse 96 Resp 14 Wt 193 lb 3.2 oz SpO2 98% BMI 34.77 kg/m BSA 1.97 m Physical Exam Vitals reviewed. General: AAOx3, NAD Head: atraumatic normocephalic Neck: trachea midline. No masses or lymphadenopathy Heart: Regular rate and rhythm Lungs: equal chest rise and fall, non labored breathing Abdomen: soft, nontender, loss of domain along side of multiple ventral hernias with many abdominal wall scars, partially reducible epigastric bulge Ext: motor 5/5 all extremities with no gross deformities Psych: alert and oriented, behavior appropriate ASSESSMENT AND PLAN: Assessment/Plan Diagnoses and all orders for this visit: recurrent abdominal hernia without obstruction or gangrene, unspecified hernia type - Ambulatory referral to General Surgery- [facility] hernia specialists 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 We talked about given the complexity of her past surgeries and the need for specialized care beyond a standard hernia repair and the benefits of going to an abdominal wall reconstruction specialist such as the [facility]. She is agreeable and referral given. We discussed the warning signs of a strangulation event and reasons to present to the hospital sooner. Thank you, Tiffany Montero DO documented in this encounter [facility] 12-30-2023 Miscellaneous Notes Patient's daughter called to cancel patients appointment due to patient having [employer] insurance. documented in this encounter [facility] 12-30-2023 Telephone encounter Note Patient's daughter called to cancel patients appointment due to patient having [employer] insurance. [facility] [employer] 12-01-2023 History of Present illness Narrative Images from the original note were not included. [address] [place] [address] SUBJECTIVE: Patient ID: Parisa Sanchez is a 63 y.o. female. Chief Complaint Patient presents with Diabetes Previous patient of Caryn Gomez APRN. She has completed her labs and A1c for review today. Patient has a concern about two calluses on her right foot. There is no open wounds. Would like to be seen by podiatry. States her moods have been overall stable but her anxiety does bother her at times. She worries about things that change in her life. States Lexapro is beneficial, helps her moods. Diabetes She presents for her follow-up diabetic visit. She has type 2 diabetes mellitus. Her disease course has been stable. There are no hypoglycemic associated symptoms. Pertinent negatives for diabetes include no chest pain and no foot paresthesias. There are no hypoglycemic complications. Symptoms are stable. There are no diabetic complications. Risk factors for coronary artery disease include diabetes mellitus, dyslipidemia, family history, hypertension, obesity and post-menopausal. Current diabetic treatment includes oral agent (dual therapy). She is compliant with treatment all of the time. She is following a generally healthy and low fat/cholesterol diet. Meal planning includes avoidance of concentrated sweets. She participates in exercise intermittently. There is no change in her home blood glucose trend. An MADISON inhibitor/angiotensin II receptor osiel is being taken. Eye exam is current. Hypertension This is a chronic problem. The current episode started more than 1 year ago. The problem is controlled. Pertinent negatives include no chest pain, palpitations or shortness of breath. There are no associated agents to hypertension. Risk factors for coronary artery disease include diabetes mellitus, dyslipidemia, family history, obesity, sedentary lifestyle and post-menopausal state. Past treatments include MADISON inhibitors and calcium channel blockers. The current treatment provides significant improvement. There are no compliance problems. Depression Visit: Follow-up Initial visit: Symptoms: no chest pain, no palpitations and no shortness of breath Follow-up visit: Symptoms: excessive worry and nervous/anxious Frequency: Occasionally Severity: Mild Current Treatment: SSRI's Response to treatment: Stable Hyperlipidemia This is a chronic problem. The current episode started more than 1 year ago. Recent lipid tests were reviewed and are variable. Exacerbating diseases include diabetes and obesity. There are no known factors aggravating her hyperlipidemia. Pertinent negatives include no chest pain or shortness of breath. Current antihyperlipidemic treatment includes statins. The current treatment provides significant improvement of lipids. There are no compliance problems. The following portions of the patient's history were reviewed and updated as appropriate: allergies, current medications, past family history, past medical history, past social history, past surgical history and problem list. Past Surgical History: Procedure Laterality Date SECTION COLON SURGERY colon resection COLONOSCOPY COLONOSCOPY N/A 05/02/2021 Performed by Jose Chambers DO at [facility] CYSTOSCOPY W/ SPINCTEROTOMY DEBRIDEMENT WOUND ABDOMEN N/A 11/18/2018 Performed by Giuseppe Boykin MD at [facility] EYE SURGERY HEMICOLECTOMY HERNIA REPAIR RECURRENT INCARCERATED INCISIONAL HERNIA REPAIR WITH LEFT MYOFASCIAL FLAP ADVANCEMENT AND RIGHT MYOFASCIAL FLAP ADVANCEMENT N/A 04/03/2018 Performed by Giuseppe Boykin MD at [facility] TOTAL HYSTERECTOMY ABDOMINAL BSO/REGIONAL LYMPHADENECTOMY, LEFT URETEROLYSIS, PARTIAL GREATER OMENTECTOMY, BIOPSY VAGINA, CYTOLOGIC PELVIC WASHINGS N/A 04/03/2018 Performed by Maurizio Gutierres MD at [facility] TUBAL LIGATION Past Medical History: Diagnosis Date Cataract [place] Dental disease crowns Diabetes [place] Diabetes mellitus type 2, controlled ([facility] Disease of thyroid gland Eczema History of chemotherapy 2005 HL (hearing loss) hearing aids Hx of blood clots 2005 and 2010 Hyperlipidemia Hypertension Obesity Uterine cancer [place] Visual impairment glasses left Immunization History Administered Date(s) Administered COVID-19, mRNA, LNP-S, PF, 30mcg/0.3mL Dose 05/05/2020, 05/25/2020 Covid-19, Mrna, Lnp-s, Bivalent, Pf, 30mcg/0.3 ml 12/20/2021 Covid-19, Mrna, Lnp-s, Pf,carlee-sucrose,30 Mcg/0.3ml Fall23 01/31/2023 H1N1 Inj Preservative Free 03/06/2009 Influenza, Injectable, Quadrivalent 12/24/2017 Influenza, Injectable, quadrivalent (PF) 12/17/2019, 12/01/2021, 12/08/2022 Influenza, Recombinant, Quadrivalent, Injectable, Preserv 02/04/2019 Influenza, Unspecified 02/07/2014, 12/25/2016, 12/01/2021 Pneumococcal Conjugate 13-Valent 02/07/2013 Tdap 07/06/2010, 12/17/2019 Zoster Live 01/08/2022 Zoster Vaccine Recombinant 01/08/2022, 01/15/2022, 05/16/2022 REVIEW OF SYSTEMS: Review of Systems Constitutional: Negative for chills and fever. HENT: Negative. Eyes: Negative for visual disturbance. Respiratory: Negative for chest tightness and shortness of breath. Cardiovascular: Negative for chest pain and palpitations. Gastrointestinal: Negative. Endocrine: Negative. Genitourinary: Negative for menstrual problem and pelvic pain. Musculoskeletal: Negative. Skin: Calluses on right foot Allergic/Immunologic: Negative. Neurological: Negative for syncope and facial asymmetry. Hematological: Does not bruise/bleed easily. Psychiatric/Behavioral: Negative. PHYSICAL EXAMINATION: Vitals: 12/01/23 1022 BP: 110/60 BP Site: Left Arm BP Postition: Sitting Pulse: 88 Resp: 18 Temp: 36.5 C (97.7 F) TempSrc: Oral SpO2: 98% Weight: 86.8 kg (191 lb 6.4 oz) Height: 157.5 cm (5' 2 ) Patient noted to have elevated BMI and the following intervention(s) were applied: encouragement to exercise. Physical Exam Vitals and nursing note reviewed. Constitutional: General: She is not in acute distress. Appearance: She is well-developed. She is not diaphoretic. HENT: Head: Normocephalic and atraumatic. Right Ear: Tympanic membrane and external ear normal. Left Ear: Tympanic membrane and external ear normal. Nose: Nose normal. Mouth/Throat: Mouth: Mucous membranes are moist. Pharynx: No oropharyngeal exudate. Eyes: General: Right eye: No discharge. Left eye: No discharge. Conjunctiva/sclera: Conjunctivae normal. Pupils: Pupils are equal, round, and reactive to light. Neck: Thyroid: No thyromegaly. Vascular: No JVD. Cardiovascular: Rate and Rhythm: Normal rate and regular rhythm. Heart sounds: Normal heart sounds. No murmur heard. No friction rub. No gallop. Pulmonary: Effort: Pulmonary effort is normal. Breath sounds: Normal breath sounds. Abdominal: General: Bowel sounds are normal. There is no distension. Palpations: Abdomen is soft. There is no mass. Tenderness: There is no abdominal tenderness. Musculoskeletal: General: Normal range of motion. Cervical back: Normal range of motion and neck supple. Feet: Feet: Left foot: Skin integrity: Callus present. Lymphadenopathy: Cervical: No cervical adenopathy. Skin: General: Skin is warm and dry. Capillary Refill: Capillary refill takes less than 2 seconds. Neurological: Mental Status: She is alert and oriented to person, place, and time. Deep Tendon Reflexes: Reflexes are normal and symmetric. Psychiatric: Mood and Affect: Mood normal. Behavior: Behavior normal. Thought Content: Thought content normal. Judgment: Judgment normal. ASSESSMENT/PLAN: Parisa was seen today for diabetes. Diagnoses and all orders for this visit: Primary hypertension Seasonal allergic rhinitis due to pollen - MONICA-D 24 HOUR 180-240 mg per 24 hr tablet; Take 1 tablet by mouth in the morning. Referral of patient - Ambulatory referral to Podiatry (Non[facility]); Future Type 2 diabetes mellitus with hyperglycemia, without long-term current use of insulin [place] - empagliflozin (JARDIANCE) 10 mg tablet tablet; Take 1 tablet (10 mg total) by mouth in the morning. - metFORMIN (GLUCOPHAGE) 500 mg tablet; Take 2 tablets (1,000 mg total) by mouth in the morning and 2 tablets (1,000 mg total) in the evening. Take with meals. Situational mixed anxiety and depressive disorder - escitalopram (LEXAPRO) 20 mg tablet; Take 1 tablet (20 mg total) by mouth in the morning. Type 2 DM A1c 6.3%, was 6.4. Stable. Encourage routine home blood sugar monitoring, diet modification, and exercise regimen. Doing well with metformin and Jardiance. Will continue current doses. Is taking statin and MADISON. Encourage yearly eye exams or as directed by eye provider Daily self skin foot checks Calluses Has two calluses on right foot. One is lateral top of great toe, second is along hallux. Referral to podiatry. HTN Controlled Continue amlodipine and lisinopril Mixed hyperlipidemia Continue simvastatin Depression and anxiety Depression: Not at risk (06/30/2023) PHQ-2 PHQ-2 Score: 0 Doing well with Lexapro. Admits to increased anxiety at times when she worries. Continue Lexapro 20 mg oral daily ALL QUESTIONS ANSWERED Total time spent was 40 minutes: Preparing to see the patient (e.g., review of tests) Obtaining and/or reviewing separately obtained history Performing a medically appropriate examination and/or evaluation Counseling and educating the patient/family/caregiver Ordering medications, tests, or procedures Follow-up: 3 months Dm htn GERSON Schmidt 12/01/23 1539 documented in this encounter [facility] [employer] [facility] 04-19-2023 Miscellaneous Notes Have the patient obtain an MRI in about 9 months. Return the office after that MRIs done off day appointment. Has a renal mass that we are following. [facility] 04-19-2023 Telephone encounter Note Have the patient obtain an MRI in about 9 months. Return the office after that MRIs done off day appointment. Has a renal mass that we are following. [facility] 04-04-2023 [facility] Consultation in Interventional Radiology, Consulting [...] desires. Thank you very much for referring Parisa Sanchez to the Interventional Radiology clinic. Please contact me with any questions or concerns. Fred Miller M.D. Interventional radiologist. Finalized by Fred Miller MD on 04/04/2023 4:51 PM [facility] 03-10-2023 Evaluation + Plan note Associated Problem(s): Renal mass Liver looks good on MRI. Complete metastatic evaluation. PA and lateral chest x-ray. [facility] 03-10-2023 Miscellaneous Notes Associated Problem(s): Renal mass Liver looks good on MRI. Complete metastatic evaluation. PA and lateral chest x-ray. documented in this encounter [facility] 03-10-2023 History of Present illness Narrative Images from the original note were not included. [address] [place] [address] [address] [facility] [address] Patient: Parisa Sanchez Date of : 1960 Encounter Date: [...] Medical History: Diagnosis Date Cataract [place] Dental disease crowns Diabetes [place] Diabetes mellitus type 2, controlled ([facility] Disease of thyroid gland Eczema History of chemotherapy 2005 HL (hearing loss) hearing aids Hx of blood clots 2005 and 2010 Hyperlipidemia Hypertension Obesity Uterine cancer ([facility] Visual impairment glasses left Past Surgical History: Procedure Laterality Date SECTION COLON SURGERY colon resection COLONOSCOPY COLONOSCOPY N/A 05/02/2021 Performed by Jose Chambers DO at [facility] CYSTOSCOPY W/ SPINCTEROTOMY DEBRIDEMENT WOUND ABDOMEN N/A 11/18/2018 Performed by Giuseppe Boykin MD at [facility] EYE SURGERY HEMICOLECTOMY HERNIA REPAIR RECURRENT INCARCERATED INCISIONAL HERNIA REPAIR WITH LEFT MYOFASCIAL FLAP ADVANCEMENT AND RIGHT MYOFASCIAL FLAP ADVANCEMENT N/A 04/03/2018 Performed by Giuseppe Boykin MD at [facility] TOTAL HYSTERECTOMY ABDOMINAL BSO/REGIONAL LYMPHADENECTOMY, LEFT URETEROLYSIS, PARTIAL GREATER OMENTECTOMY, BIOPSY VAGINA, CYTOLOGIC PELVIC WASHINGS N/A 04/03/2018 Performed by Maurizio Gutierres MD at [facility] TUBAL LIGATION Family History Problem Relation [...] by mouth twice daily 360 tablet 0 tvnydmuc-dgal-RL-calcium &mins (THERAGRAN-M) 9 mg iron-400 mcg tablet [...] the incisions. Larger pannus. Assessment and Plan: Parisa was seen today for right renal mass. Diagnoses and all orders for this visit: Renal mass Right renal mass - [facility] - RUBIN Yan [...] for your understanding. documented in this encounter [facility] 02-25-2023 History of Present illness Narrative Images from the original note were not included. Giuseppe Boykin MD, FACS General Surgery and Minimally Invasive Surgery Chief Complaint: recurrent ventral hernia History of Present Illness: Parisa Sanchez is a 62 y.o. female with [...] Medical History: Diagnosis Date Cataract Colon cancer ([facility]) Dental disease crowns Diabetes ([facility]) Diabetes mellitus type 2, controlled ([facility]) Disease of thyroid gland Eczema History of chemotherapy 2005 HL (hearing loss) hearing aids Hx of blood clots 2005 and 2010 Hyperlipidemia Hypertension Obesity Uterine cancer ([facility]) Visual impairment glasses left Past Surgical History: Procedure Laterality Date SECTION COLON SURGERY colon resection COLONOSCOPY COLONOSCOPY N/A 05/02/2021 Performed by Jose Chambers DO at [facility] CYSTOSCOPY W/ SPINCTEROTOMY DEBRIDEMENT WOUND ABDOMEN N/A 11/18/2018 Performed by Giuseppe Boykin MD at [facility] EYE SURGERY HEMICOLECTOMY HERNIA REPAIR RECURRENT INCARCERATED INCISIONAL HERNIA REPAIR WITH LEFT MYOFASCIAL FLAP ADVANCEMENT AND RIGHT MYOFASCIAL FLAP ADVANCEMENT N/A 04/03/2018 Performed by Giuseppe Boykin MD at [facility] TOTAL HYSTERECTOMY ABDOMINAL BSO/REGIONAL LYMPHADENECTOMY, LEFT URETEROLYSIS, PARTIAL GREATER OMENTECTOMY, BIOPSY VAGINA, CYTOLOGIC PELVIC WASHINGS N/A 04/03/2018 Performed by Maurizio Gutierres MD at [facility] TUBAL LIGATION Allergies Allergen Reactions Cephalexin Rash Prednisone Rash Adhesive Tape-Silicones Oxycodone-Acetaminophen Vomiting Current Outpatient Medications: acetaminophen (TYLENOL) 500 mg tablet, Take 1 tablet (500 mg total) by mouth every 6 (six) hours as needed for pain Indications: headache., Disp: , Rfl: amLODIPine (NORVASC) 5 mg tablet, Take 1 tablet by mouth once daily, Disp: 90 tablet, Rfl: 1 blood sugar diagnostic (CloudadminTOUCH ULTRA TEST) strip, 1 strip by other [...] twice daily, Disp: 360 tablet, Rfl: 0 nrgrvzge-aula-OK-calcium &mins (THERAGRAN-M) 9 mg iron-400 mcg tablet, [...] min Stress: No Stress Concern Present (11/25/2021) [employer] - Occupational Stress Questionnaire Feeling of Stress : Only a little Social Connections: Socially Integrated (11/25/2021) Social Connection and Isolation Panel [NHANES] Frequency of Communication with Friends and Family: Three times a week Frequency of Social Gatherings with Friends and Family: Once a week Attends Religion Services: More than 4 times per year [...] seen in the right upper pole. Assessment: Parisa Sanchez is a 62 y.o.female with a [...] may call with any questions or concerns. Giuseppe Boykin MD, [facility] General Surgery and Minimally Invasive Surgery [address], [address] [place] [address] Office: Scribed for and in the presence of Giuseppe Boykin MD by Fadi Blankenship(scribe). Provider Statement: I, Giuseppe Boykin MD, personally performed the services described in the documentation as scribed by Fadi Blankenship in my presence, and it is both accurate and complete. Electronically signed by Giuseppe Boykin MD. Fadi Blankenship 02/25/2023 9:49 AM Fadi Blankenship CMA 02/25/23 0950 documented in this encounter [facility] 02-20-2023 Evaluation note Encounter Date Diagnosis Assessment [...] plan Jan, Acute cough (ICD-10 - R05.1) Jambo Other Evaluation note* Diagnosis Recurrent abdominal hernia without obstruction or gangrene, unspecified hernia type- Primary 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 documented in this encounter [facility]* Diagnosis Acquired keratoderma- Primary Onychocryptosis Ingrowing nail Pain of right great toe Difficulty walking Difficulty in walking documented in this encounter [facility]* Diagnosis Right renal mass- Primary Unspecified disorder of kidney and ureter Ventral hernia without obstruction or gangrene Unspecified ventral hernia without mention of obstruction or gangrene [facility] Diagnosis Seasonal allergic rhinitis due to pollen Mixed hyperlipidemia [facility] Diagnosis Renal mass- Primary Unspecified disorder of kidney and ureter Right renal mass Unspecified disorder of kidney and ureter [facility] Diagnosis Vaginal atrophy Postmenopausal atrophic vaginitis Dyspareunia in female Vaginal dryness, menopausal [facility] Diagnosis Type 2 diabetes mellitus without complication, without long-term current use of insulin ([facility] [facility] Diagnosis Renal mass- Primary Unspecified disorder of kidney and ureter [facility] Diagnosis Vaginal atrophy Postmenopausal atrophic vaginitis Dyspareunia in female Vaginal dryness, menopausal [facility]* Diagnosis Type 2 diabetes mellitus with hyperglycemia, without long-term current use of insulin ([facility] Primary Hyperthyroidism Thyrotoxicosis without mention of goiter or other cause, without mention of thyrotoxic crisis or storm [facility]* Diagnosis Primary hypertension- Primary Unspecified essential hypertension Mixed hyperlipidemia [facility]* Diagnosis Primary hypertension- Primary Unspecified essential hypertension Seasonal allergic rhinitis due to pollen Referral of patient Referral of patient without examination or treatment Type 2 diabetes mellitus with hyperglycemia, without long-term current use of insulin ([facility] Situational mixed anxiety and depressive disorder [facility]* Diagnosis Ventral hernia without obstruction or gangrene- Primary Ventral hernia, unspecified, without mention of obstruction or gangrene documented [facility] [place] [facility] Diagnosis Renal mass- Primary Unspecified disorder of kidney and ureter Right renal mass Unspecified disorder of kidney and ureter Type 2 diabetes mellitus with hyperglycemia, without long-term current use of insulin ([facility])- Primary [facility] Diagnosis Incisional hernia, without obstruction or gangrene- Primary Incisional hernia without mention of obstruction or gangrene [facility] [place] [facility]* Diagnosis Ventral hernia without obstruction or gangrene Ventral hernia, unspecified, without mention of obstruction or gangrene documented in this encounter [facility] [place] [facility]* Diagnosis Preoperative examination- Primary Preoperative examination, unspecified Incisional hernia, without obstruction or gangrene Incisional hernia without mention of obstruction or gangrene Preoperative examination Preoperative examination, unspecified Incisional hernia, without obstruction or gangrene Incisional hernia without mention of obstruction or gangrene documented in this encounter [facility] [place] [facility]* Diagnosis Renal mass- Primary Unspecified disorder of kidney and ureter Right renal mass Unspecified disorder of kidney and ureter Mixed hyperlipidemia Primary hypertension Unspecified essential hypertension [facility] N[facility] - Reported* Type Description Date Medical History hyperlipidemia Medical History HTN Medical History Diabetes type 2 Medical History colon cancer Medical History uterine cancer Surgical History x 3 Surgical History hernia surgery x 2 Surgical History bowel reconstruction Surgical History cholecystectomy Surgical History hysterectomy, total with BSO Surgical History hernia repair Hospitalization History see surgical hx [employer] Other InstructionsNot on filedocumented in this encounter [facility] filedocumented in this encounter [facility] filedocumented in this encounter [facility] filedocumented in this encounter [facility] filedocumented in this encounter [facility] on filedocumented in this encounter [facility]* Attachments The following attachments cannot be sent through Care Everywhere. * High Blood Pressure Discharge Instructions (Cymraes) documented in [facility]ructionsNot on file documented in this encounter[facility] System[facility]ructionsNot on file [facility] (n[facility])* Consultation (Routine) - Pending Review Specialty Diagnoses / Procedures Referred By Yasmani andre Referred To Contact Urology Diagnoses Right renal mass Giuseppe Boykin MD [address] [address] [address] [facility] [address] [place] [address] Referral ID Status Reason Start Date Expiration Date Visits Requested Visits Authorized [id number] Pending Review Specialty Services Required 02/25/2023 02/25/2024 1 1 [facility] for referral (narrative)* Consultation (Routine) - Pending Review Specialty Diagnoses / Procedures Referred By Contjavier t Referred To Contact Podiatry Diagnoses Referral of patient Yashira Roman APRN-AUTOMOBILE SERVICE STATION ATTENDANT [address] [place] [address] Erick Marcial, JYOTI [address] [place] [address] [place] [address] Referral ID Status Reason Start Date Expiration Date Visits Requested Visits Authorized [id number] Pending Review Specialty Services Required 12/01/2023 11/30/2024 1 1 T [facility] Summary Purpose Family History No Family History Records FoundNo Family History Records FoundNo Family History Records FoundNo Family History Records FoundNo Family History Records FoundNo Family History Records FoundNo Family History Records FoundNo Family History Records Found Advance Directives Latest Code Status on File Code Status Date Activated Date Inactivated Comments Full Code 04/03/2018 11:19 AM 04/08/2018 3:38 PM Latest Code Status on File Code Status Date Activated Date Inactivated Comments Full Code 04/03/2018 11:19 AM 04/08/2018 3:38 PM Date Activated Date Inactivated Comments 04/03/2018 11:19 AM 04/08/2018 3:38 PM Date Activated Date Inactivated Comments 04/03/2018 11:19 AM 04/08/2018 3:38 PM Reason for Referral Specialty Diagnoses / Procedures Referred By Contac t Referred To Contact Radiology Diagnoses Renal mass Procedures MR abdomen with and without contrast Leopoldo Chiu MD [address] [place] [address] Referral ID Status Reason Start Date Expiration Date V isits Requested Visits Authorized [id number] Pending Review 04/19/2023 04/18/2024 1 1 Specialty Diagnoses / Procedures Referred By Contac t Referred To Contact Radiology Diagnoses Right renal mass Procedures IR cryoablation renal right Leopoldo Chiu MD [address] [place] [address] Referral ID Status Reason Start Date Expiration Date V isits Requested Visits Authorized [id number] Pending Review 03/10/2023 03/09/2024 1 1 Additional Source Comments INFORMATION SOURCE (unrecogn ized section and content) DATE CREATED AUTHOR 04/05/2021 [facility] DATE CREATED AUTHOR AUTHOR'S ORGANIZ ATION 11/24/2021 [facility] DATE CREATED AUTHOR AUTHOR'S ORGANIZ ATION 03/11/2023 [facility] DATE CREATED AUTHOR AUTHOR'S ORGANIZ ATION 04/07/2023 [facility] DATE CREATED AUTHOR AUTHOR'S ORGANIZ ATION 12/02/2023 [facility] DATE CREATED AUTHOR AUTHOR'S ORGANIZ ATION 01/06/2024 [facility] DATE CREATED AUTHOR AUTHOR'S ORGANIZ ATION 04/17/2024 [facility] DATE CREATED AUTHOR AUTHOR'S ORGANIZ ATION 04/24/2024 [facility] REASON FOR VISIT (unrecogniz ed section and content) Reason Comments Hernia Pt presents today wi th an abdominal hernia located on the right side of her abdomen. She states that she has had it for a couple of years. She states that it does not currently cause her any pain. She was seeing Dr. Boykin at [facility] and he was going to do the surgery, but mellisa no longer takes [employer] insurance. Specialty Diagnoses / Procedures Referred By Yasmani andre Referred To Contact General Surgery Diagnoses Non-recurrent abdominal hernia without obstruction or gangrene, unspecified hernia type Procedures AK OFFICE/OUTPATIENT NEW HIGH MDM 60 MINUTES Luzmaria Montero, [address] [facility] [address] [place] [address] Phone: tel: fax: Luzmaria Montero, [address] [facility] [address] [place] [address] Phone: tel: fax: Referral ID Status Reason Start Date Expiration Date V vivienne Requested Visits Authorized [id number] Closed Specialty Services Required 12/30/2023 06/27/2024 1 1 Reason Comments Callouses Parisa Adonsi 63yo Ne w Patient, referred by Jayden, for callous. BS149 A1C 6.3V. Abel 12/01/2023 Patient relates she is hearing impaired. SS10 SS 10 Specialty Diagnoses / Procedures Referred By Yasmani andre Referred To Contact Podiatry Diagnoses Type 2 diabetes mellitus with hyperglycemia, without long-term current use of insulin ([facility]) Callus of foot Procedures AMB REFERRAL TO PODIATRY Yashira Roman CRNP [address], [place] [address] Phone: tel: fax: Michael Curran, DPM [address] [place] [address] Phone: tel: fax: Referral ID Status Reason Start Date Expiration Date Visits Re quested Visits Authorized [id number] Closed 12/04/2023 12/03/2024 1 1 Reason Comments New Patient Ventral hernia Specialty Diagnoses / Procedures Referred By Yasmani andre Referred To Contact General Surgery Diagnoses Ventral hernia without obstruction or gangrene Mendy Plascencia, TONY [address] [facility] [facility] [address] [place] [address] Giuseppe Boykin MD [address] [address] Referral ID Status Reason Start Date Expiration Date Visits Requested Visits Authorized [id number] Pending Review Specialty Services Required 01/07/2024 1 1 Reason Comments Med Refill Reason Comments Right Renal Mass Specialty Diagnoses / Procedures Referred By Contac t Referred To Contact Urology Diagnoses Right renal mass Giuseppe Boykin MD [address] [address] [address] [place] [address] Referral ID Status Reason Start Date Expiration Date Visits Requested Visits Authorized [id number] Pending Review Specialty Services Required 02/25/2023 02/25/2024 1 1 Reason Onset Date Comments Med Refill 08/12/2023 Reason Onset Date Comments Med Refill 10/28/2023 Reason Comments Diabetes Reason Comments New Patient Evaluation Reason Comments Radiology CT Specialty Diagnoses / Procedures Referred By Contac t Referred To Contact CT IMAGING Diagnoses Ventral hernia without obstruction or gangrene Procedures CT ABD/PEL WO IVCON CT ABD & PELVIS W/O CONTRAST Eve Todd, STAFF ANTISUBMARINE OFFICER.AUTOMOBILE SERVICE STATION ATTENDANT [address] [address] Phone: tel: fax: [place] [address] Referral ID Status Reason Start Date Expiration Date V isits Requested Visits Authorized [id number] Closed Auto-Generat ed Referral Patient Cleared - Admin/Chairm an/Director advise to proceed or did not respond 04/16/2024 10/13/2024 1 1 Reason Comments 07.22.25 Cure Open Complex AWR 6 h ours los 5 Reason Onset Date Comments Med Refill 04/27/2024 Care Teams (unrecognized sec tion and content) Non Morse Intercept Technician Relationship Specialty Start Date End Date Mack Jarrett MD [address] [facility], [place] [address] PCP - General Family Medicine 12/11/23 Yashira Roman CRNP [address] [place] [address] Primary Care Provider Nurse Practitioner 12/11/23 Non Morse Intercept Technician Relationship Specialty Start Date End Date Mack Jarrett MD [address] [place] [address] [place] [address] PCP - General Family Medicine 12/11/23 Yashira Roman CRNP [address] [place] [address] Primary Care Provider Nurse Practitioner 12/11/23 Non Morse Intercept Technician Relationship Specialty Start Date End Date Mack Jarrett MD [address] [place] [address] [place] [address] PCP - General Family Medicine 12/11/23 Yashira Roman CRNP [address] [place] [address] Primary Care Provider Nurse Practitioner 12/11/23 Non Morse Intercept Technician Relationship Specialty Start Date End Date Caryn Gomez, STAFF ANTISUBMARINE OFFICER-PROFILING MACHINE SET UP OPERATOR [address] [place] [address] PCP - General Internal Medicine 05/22/22 Non Morse Intercept Technician Relationship Specialty Start Date End Date Caryn Gomez, STAFF ANTISUBMARINE OFFICER-PROFILING MACHINE SET UP OPERATOR [address] [place] [address] PCP - General Internal Medicine 05/22/22 Non Morse Intercept Technician Relationship Specialty Start Date End Date Caryn Gomez, STAFF ANTISUBMARINE OFFICER-PROFILING MACHINE SET UP OPERATOR [address] [place] [address] PCP - General Internal Medicine 05/22/22 Non Morse Intercept Technician Relationship Specialty Start Date End Date Caryn Gomez, STAFF ANTISUBMARINE OFFICER-PROFILING MACHINE SET UP OPERATOR [address] [place] [address] PCP - General Internal Medicine 05/22/22 Non Morse Intercept Technician Relationship Specialty Start Date End Date Yashira Roman [facility] [address] [place] [address] PCP - General Family Medicine 08/04/23 Non Morse Intercept Technician Relationship Specialty Start Date End Date Caryn Gomez, STAFF ANTISUBMARINE OFFICER-[facility] [address] [place] [address] PCP - General Internal Medicine 05/22/22 Non Morse Intercept Technician Relationship Specialty Start Date End Date Caryn Gomez, STAFF ANTISUBMARINE OFFICER-[facility] [address] [place] [address] PCP - General Internal Medicine 05/22/22 Non Morse Intercept Technician Relationship Specialty Start Date End Date Yashira Roman STAFF [facility]BMARINE [facility] [address] [place] [address] PCP - General Family Medicine 08/04/23 Non Morse Intercept Technician Relationship Specialty Start Date End Date Caryn Gomez, STAFF ANTISUBMARINE OFFICER-PROFILING MACHINE SET UP OPERATOR [address] [place] [address] PCP - General Internal Medicine 05/22/22 Non Morse Intercept Technician Relationship Specialty Start Date End Date Yashira Roman APRN-AUTOMOBILE SERVICE STATION ATTENDANT [address] [place] [address] PCP - General Family Medicine 08/04/23 Non Morse Intercept Technician Relationship Specialty Start Date End Date [facility]ash[facility] [address] [place] [address] PCP - General Family Medicine 08/04/23 Non Morse Intercept Technician Relationship Specialty Start Date End Date Mack Jarrett DO [address] [place] [address] PCP - General Family Medicine 01/07/24 Luzmaria Montero DO [address] [place] [address] Referring General Surgery 01/07/24 Non Morse Intercept Technician Relationship Specialty Start Date End Date [facility]ira [facility] [address] [place] [address] PCP - General Family Medicine 08/04/23 Non Morse Intercept Technician Relationship Specialty Start Date End Date Mack Jarrett DO [address] [place] [address] PCP - General Family Medicine 01/07/24 Luzmaria Montero DO [address] [place] [address] Referring General Surgery 01/07/24 Non Morse Intercept Technician Relationship Specialty Start Date End Date Mack Jarrett DO [address] [place] [id number] PCP - General Family Medicine 01/07/24 Luzmaria Montero, [address] [place] [address] Referring General Surgery 01/07/24 Non Morse Intercept Technician Relationship Specialty Start Date End Date Mack Jarrett [address] [place] [address] PCP - General Family Medicine 01/07/24 Winston Luzmariaderian Parisi, [address] [place] [address] Referring General Surgery 01/07/24 Non Morse Intercept Technician Relationship Specialty Start Date End Date Yashira Roman APRN-[employer]ATION ATTENDANT [address] [place] [address] PCP - General Family Medicine 08/04/23 Source Comments (unrecognize d section and content) In the event this informatio n is protected by the Federal Confidentiality of Alcohol and Drug Abuse Patient Records regulations: The Federal rules restrict any use of the information to criminally investigate or prosecute any alcohol or drug abuse patient.[facility] the event this information is protected by the Federal Confidentiality of Alcohol and Drug Abuse Patient Records regulations: The Federal rules restrict any use of the information to criminally investigate or prosecute any alcohol or drug abuse patient.[facility] the event this information is protected by the Federal Confidentiality of Alcohol and Drug Abuse Patient Records regulations: The Federal rules restrict any use of the information to criminally investigate or prosecute any alcohol or drug abuse patient.[facility] the event this information is protected by the Federal Confidentiality of Alcohol and Drug Abuse Patient Records regulations: The Federal rules restrict any use of the information to criminally investigate or prosecute any alcohol or drug abuse patient.[facility] the event this information is protected by the Federal Confidentiality of Alcohol and Drug Abuse Patient Records regulations: The Federal rules restrict any use of the information to criminally investigate or prosecute any alcohol or drug abuse patient.[facility] FOR RECORDS PERTAINING TO PATIENTS WHO ARE [...] BE BASED ON THE PRIMARY CLINICAL RECORDS. [employer] [facility]. provides no warranty or guarantee of the accuracy or completeness of information in this document.
[2024-05-03 08:31] LABS: Creatinine Urine Random 110.12 mg/dL (20.00-300.00); Microalbum Creatinine Ratio Ur 29.9 mg/g (0.0-29.9); Microalbumin Urine Random 3.3 mg/dL (<=30.0)
[2024-05-03 09:46] LABS: Alanine Aminotransferase 39 U/L (14-59); Albumin Level 3.8 g/dL (3.4-5.0); Alkaline Phosphatase 54 U/L (46-116); Anion Gap 16.7; Aspartate Amino Transferase 25 U/L (15-37); BUN Creatinine Ratio 35.3; Bilirubin Total 0.5 mg/dL (0.2-1.0); Calcium 9.2 mg/dL (8.5-10.1); Carbon Dioxide 25.6 mmol/L (21.0-32.0); Chloride 105 mmol/L (98-107); Estimated GFR (African America >60 (>=60 mL/min/1.73m^2); Estimated GFR (Non-African Ame >60 (>=60 mL/min/1.73m^2); Globulin 3.8 g/dL; Glucose 132 mg/dL (74-106); Potassium 3.3 mmol/L (3.5-5.1); Sodium 144 mmol/L (136-145); Total Protein 7.6 g/dL (6.4-8.2)
[2024-05-03 10:10] LABS: Estimated Average Glucose 134 mg/dL; Glycohemoglobin A1C 6.3 % (4.5-6.2)
== END 2024-05-03 07:38 | disposition home or self-care (01) ==
LOC: LAB 07:38
PROVIDERS: PCP Family Medicine; Visit Provider Nurse Practitioner
DX: E11.65 Type 2 diabetes mellitus with hyperglycemia (principal)
CPT/HCPCS: 36415; 80053; 82043; 82570; 83036

== ENCOUNTER 2024-11-22 07:19 | Outpatient (OUT) | payer OTHER, SELFPAY ==
--- OUTSIDE RECORDS SUMMARY | 2024-10-11 11:08 | XMS_ITS ---
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 ointment and body lotion on the rashes and requests an evaluation of them. She reports diarrhea but does not consider it a concern, as she drinks a lot of water and believes her body is starting to form normal stools again. She denies vomiting, lightheadedness, dizziness, chest pain, or shortness of breath. Surgery Date and Procedure: Open left posterior myofascial component separation, open right posterior myofascial component separation incisional hernia repair with mesh. Randomized Controlled Trial: N/A Current Medications: Current Outpatient Medications Medication Sig Dispense Refill acetaminophen (TYLENOL) 500 mg tablet Take 2 tablets by mouth every 6 hours as needed for pain for up to 5 days. traMADol (ULTRAM) 50 mg tablet Take 1 tablet by mouth every 8 hours as needed for up to 7 days. 12 tablet 0 fexofenadine/pseudoephedrine (MONICA-D 24 HOUR ORAL) JARDIANCE 10 mg tablet Take 10 mg by mouth every morning. amLODIPine (NORVASC) 5 mg tablet Take 5 mg by mouth every morning. escitalopram oxalate (LEXAPRO) 20 mg tablet Take 20 mg by mouth every morning. metFORMIN 1,000 mg tablet Take 1,000 mg by mouth daily with breakfast. lisinopril 20 mg tablet Take 20 mg by mouth once daily. simvastatin 20 mg tablet Take 20 mg by mouth daily at bedtime. CALCIUM CARBONATE/VITAMIN D3 (CALTRATE 600 + D ORAL) Take by mouth once daily. No current facility-administered medications for this visit. REVIEW OF SYSTEMS: Constitutional: (+) insomnia Cardiovascular: (-) chest pain, (-) unilateral leg swelling Respiratory: (-) shortness of breath Gastrointestinal: (+) diarrhea, (-) vomiting Musculoskeletal: (+) abdominal wall pain Skin: (+) rash Neurological: (-) dizziness PHYSICAL EXAM: BP 108/79 Pulse 98 Temp 36.4 ?C (97.5 ?F) (Temporal) Ht 158.8 cm (5' 2.5 ) Wt 86 kg (189 lb 9.5 oz) BMI 34.12 kg/m? General: No acute distress. Skin: Allergic rashes noted on areas previously covered by adhesive and under abdominal binder Abd: Two surgical drains present. Midline with surgical glue. Scant serosanguinous fluid below umbilicus SURGICAL PATHOLOGY: N/A ASSESSMENT/PLAN: 1. Postoperative visit (Z48.89) Patient is 8 days post-abdominal wall surgery with two drains in place. Current pain management includes Tylenol, ibuprofen, and occasional tramadol. Patient reports difficulty sleeping, likely due to discomfort and presence of drains. Hypokalemia noted with a potassium level of 3.1 mEq/L five days ago. Patient is eating well and consuming protein shakes. Allergic reactions to adhesive tape noted, with multiple rashes present. Drain output is minimal, averaging 15-30 mL per day. - Ordered serum potassium level to be drawn today on the first floor; results to be reviewed tomorrow. - If potassium level remains low, will resend prescription for potassium chloride, 2 tablets to be taken twice daily for one day. - Removed both drains; applied gauze with paper tape to minimize allergic reaction. - Advised patient to let soap and water run over drain sites during showering, pat dry, and apply a small bandage or gauze for 1-2 days until sites scab over. -Keep gauze in place near umbilicus for scant serosanguinous fluid - Provided a fresh abdominal binder; instructed patient that wearing the binder is optional and for comfort - Recommended continuation of current pain management regimen with Tylenol and ibuprofen; tramadol to be used as needed for breakthrough pain. - Discussed sleep hygiene; advised use of melatonin if needed - Advised patient to increase activity as tolerated - she may drive as long as she is not taking Tramadol - Advised use of hydrocortisone cream for rashes and to avoid wearing the binder to allow skin to breathe. - Scheduled follow-up appointment with Dr. Vincent on the . Eve Fuentes, MARIA LUISA, MUSIC WORKER September 22, 2024 Referring Provider: JOCELYN GILL [[id number]] Allergies As of Date: 09/22/2024 Noted Allergy Reaction CEPHALEXIN 01/05/2024 2 - Rash PREDNISONE 01/05/2024 2 - Rash PERCOCET (OXYCODONE-ACETAMINOPHEN)07/22/2012 11 - Vomiting ADHESIVE TAPE-SILICONES 04/19/2024 2 - Rash Date Reviewed: 09/22/2024 Reviewed by: Anton Joshi MA - Fully Assessed Reason for Visit: Post Op [174] Primary Visit Diagnosis:Postoperative visit [Z48.89] Order(s):COMPREHENSIVE METABOLIC PANEL [SQCMP] Order #: [id number] FUTURE Prescriptions as of 09/22/2024 - acetaminophen (TYLENOL) 500 mg tablet Take 2 tablets by mouth every 6 hours as needed for pain for up to 5 days. - traMADol (ULTRAM) 50 mg tablet Take 1 tablet by mouth every 8 hours as needed for up to 7 days. - fexofenadine/pseudoephedrine (MONICA-D 24 HOUR ORAL) - JARDIANCE 10 mg tablet Take 10 mg by mouth every morning. - amLODIPine (NORVASC) 5 mg tablet Take 5 mg by mouth every morning. - escitalopram oxalate (LEXAPRO) 20 mg tablet Take 20 mg by mouth every morning. - metFORMIN 1,000 mg tablet Take 1,000 mg by mouth daily with breakfast. - lisinopril 20 mg tablet Take 20 mg by mouth once daily. - simvastatin 20 mg tablet Take 20 mg by mouth daily at bedtime. - CALCIUM CARBONATE/VITAMIN D3 (CALTRATE 600 + D ORAL) Take by mouth once daily. Problem List As Of Date 09/22/2024 Noted Resolved Colorectal cancer (HCC) [C19] Primary hypertension [I10] 09/06/2024 PONV (postoperative nausea and vomiting) [R11.2*09/06/2024 Type 2 diabetes mellitus without complication, *09/06/2024 History of DVT (deep vein thrombosis) [Z86.718] 09/06/2024 Class 1 obesity due to excess calories without *09/06/2024 Ventral hernia without obstruction or gangrene *09/14/2024 S/P hernia repair [Z98.890, Z87.19] 09/15/2024 Acute post-operative pain [G89.18] 09/15/2024 At risk for electrolyte imbalance [Z91.89] 09/15/2024 Encounter Status:Closed by EVE FUENTES on 09/22/24 PROGRESS Observed: 09/22/2024 3:01 PM Status: COMPLETED Source: [facility] HNO ID: [id number] Author: EVE FUENTES APRN.CNP Service: ? Author Type: Nurse Practitioner Type: Progress Notes Filed: 09/22/2024 15:59 Note Text: [facility] Clinic Date: September 22, 2024 Parisa Medina Laura 64 year old female CHIEF COMPLAINT: Patient presents for follow up from surgery. HPI: Here for follow up after open bilateral TAR, incisional hernia repair and implantation of mesh on 09/14/[address] Vincent. Parisa reports feeling pretty good postoperatively and has two drains in place. She notes that this surgery was totally different from her last one, feeling much more comfortable and expressing concern about potentially overdoing activities too early. She attributes her comfort to the COLEMAN block performed during surgery. She was prescribed potassium chloride, but the prescription was canceled by Arleen, and she has not been taking it. Her potassium level was 3.1 mEq/L five days ago. She has been eating well and drinking protein shakes. Regarding pain management, Parisa reports no major pain since returning home. She initially rotated Tylenol and ibuprofen and took tramadol on Friday and today for smoother pain control. She denies major pain but describes it as annoying by the end of the day. Parisa reports difficulty sleeping for two nights, not due to pain but discomfort and inability to get comfortable. Last night, she took Lexapro at her usual time, along with Tylenol and ibuprofen, and slept 7 hours straight without waking up to use the bathroom. She felt physically good upon waking. She denies any issues with urination. She has been able to get out of bed by herself since yesterday morning without pain, rolling on her side and pushing up. She inquires about when she can start driving again and mentions that her daughter advised her to ask about it. Parisa expresses dislike for the abdominal binder she has been wearing 16/09 except during showers. She has developed several rashes, which she attributes to an allergy to tape and sweating under the heart monitor. She has been using antibiotic ointment and body lotion on the rashes and requests an evaluation of them. She reports diarrhea but does not consider it a concern, as she drinks a lot of water and believes her body is starting to form normal stools again. She denies vomiting, lightheadedness, dizziness, chest pain, or shortness of breath. Surgery Date and Procedure: Open left posterior myofascial component separation, open right posterior myofascial component separation incisional hernia repair with mesh. Randomized Controlled Trial: N/A Current Medications: Current Outpatient Medications Medication Sig Dispense Refill acetaminophen (TYLENOL) 500 mg tablet Take 2 tablets by mouth every 6 hours as needed for pain for up to 5 days. traMADol (ULTRAM) 50 mg tablet Take 1 tablet by mouth every 8 hours as needed for up to 7 days. 12 tablet 0 fexofenadine/pseudoephedrine (MONICA-D 24 HOUR ORAL) JARDIANCE 10 mg tablet Take 10 mg by mouth every morning. amLODIPine (NORVASC) 5 mg tablet Take 5 mg by mouth every morning. escitalopram oxalate (LEXAPRO) 20 mg tablet Take 20 mg by mouth every morning. metFORMIN 1,000 mg tablet Take 1,000 mg by mouth daily with breakfast. lisinopril 20 mg tablet Take 20 mg by mouth once daily. simvastatin 20 mg tablet Take 20 mg by mouth daily at bedtime. CALCIUM CARBONATE/VITAMIN D3 (CALTRATE 600 + D ORAL) Take by mouth once daily. No current facility-administered medications for this visit. REVIEW OF SYSTEMS: Constitutional: (+) insomnia Cardiovascular: (-) chest pain, (-) unilateral leg swelling Respiratory: (-) shortness of breath Gastrointestinal: (+) diarrhea, (-) vomiting Musculoskeletal: (+) abdominal wall pain Skin: (+) rash Neurological: (-) dizziness PHYSICAL EXAM: BP 108/79 Pulse 98 Temp 36.4 ?C (97.5 ?F) (Temporal) Ht 158.8 cm (5' 2.5 ) Wt 86 kg (189 lb 9.5 oz) BMI 34.12 kg/m? General: No acute distress. Skin: Allergic rashes noted on areas previously covered by adhesive and under abdominal binder Abd: Two surgical drains present. Midline with surgical glue. Scant serosanguinous fluid below umbilicus SURGICAL PATHOLOGY: N/A ASSESSMENT/PLAN: 1. Postoperative visit (Z48.89) Patient is 8 days post-abdominal wall surgery with two drains in place. Current pain management includes Tylenol, ibuprofen, and occasional tramadol. Patient reports difficulty sleeping, likely due to discomfort and presence of drains. Hypokalemia noted with a potassium level of 3.1 mEq/L five days ago. Patient is eating well and consuming protein shakes. Allergic reactions to adhesive tape noted, with multiple rashes present. Drain output is minimal, averaging 15-30 mL per day. - Ordered serum potassium level to be drawn today on the first floor; results to be reviewed tomorrow. - If potassium level remains low, will resend prescription for potassium chloride, 2 tablets to be taken twice daily for one day. - Removed both drains; applied gauze with paper tape to minimize allergic reaction. - Advised patient to let soap and water run over drain sites during showering, pat dry, and apply a small bandage or gauze for 1-2 days until sites scab over. -Keep gauze in place near umbilicus for scant serosanguinous fluid - Provided a fresh abdominal binder; instructed patient that wearing the binder is optional and for comfort - Recommended continuation of current pain management regimen with Tylenol and ibuprofen; tramadol to be used as needed for breakthrough pain. - Discussed sleep hygiene; advised use of melatonin if needed - Advised patient to increase activity as tolerated - she may drive as long as she is not taking Tramadol - Advised use of hydrocortisone cream for rashes and to avoid wearing the binder to allow skin to breathe. - Scheduled follow-up appointment with Dr. Vincent on the . Eve Fuentes, MSN, MUSIC WORKER September 22, 2024 PROGRESS Observed: 09/22/2024 3:00 PM Status: COMPLETED Source: [facility] HNO ID: [id number] Author: ANTON JOSHI MA Service: ? Author Type: Polisher Implant Type: Progress Notes Filed: 09/22/2024 15:59 Note Text: What is the reason for your visit today? Post op Who is your referring physician? Dr. Fuentes Are you having poor oral intake? NO Have you had unintentional weight loss of 15 lbs/7 Kg in the last 3-6 months? NO Bowels: diarrhea Wound: clean AND dry Temperature: No Drains: Yes 2 josé miguel CNDS Observed: 09/17/2024 12:42 PM Status: COMPLETED Source: [facility] HNO ID: [id number] Author: KRISTINE VINCENT MD Service: General Surgery Author Type: Nurse Practitioner Type: Discharge Summary Filed: 09/17/2024 13:32 Note Text: Attestation signed by Kristine Vincent MD at 09/17/2024 1:32 PM Kristine Vincent MD September 17, 2024 1:32 PM GENERAL SURGERY DISCHARGE SUMMARY PATIENT NAME: Parisa Sanchez ADMISSION DATE: 09/14/2024 DISCHARGE DATE: 09/17/2024 ATTENDING PHYSICIAN: Kristine Vincent MD Code Status: Not on file Highest Readmission Risk Score: 9 The 30 day readmissions risk score is derived from an internally validated risk model which evaluates patient level characteristics, utilization history, medication orders and lab results up until the day of discharge. Patients with a score of 39 or above are considered highest risk for readmission. Specific patient level drivers will be listed at the bottom of the summary. REASON FOR HOSPITALIZATION: Hernia surgery and recovery OPERATIONS DURING HOSPITALIZATION: Bilateral TAR with mesh PROCEDURES DURING HOSPITALIZATION: IV access Intubation for surgery Anesthesia administration HOSPITAL COURSE: Parisa Sanchez is a 64 year old female with PMHx colorectal CA, history of DVT (no AC), HTN, T2DM, and obesity (BMI 34) who presented 09/14/24 for a TAR with mesh by Dr. Vincent. The patient tolerated the procedure well, and surgery went as expected. See separate operative report for full OR details. The patient recovered in the PACU, and then was transferred to a [facility]. Hospital course as follows: 09/15- POD 1. On a CLD. Keller removed. Started on DVT ppx with Lovenox. Electrolytes corrected (hypokalemia, hypomagnesemia). Tachycardic- given additional IVF. 09/16- Kept on CLD in the AM, then GIS in the afternoon. Hypophosphatemia treatment. 09/17- Hypokalemia treatment. Once tolerating a diet, discharged home in stable condition in the afternoon. Follow up in 1 week for removal. Active Hospital Problems Diagnosis POA Ventral hernia without obstruction or gangrene Yes S/P hernia repair No Acute post-operative pain No At risk for electrolyte imbalance Yes History of DVT (deep vein thrombosis) Yes Class 1 obesity due to excess calories without serious comorbidity with body mass index (BMI) of 34.0 to 34.9 in adult Yes Type 2 diabetes mellitus without complication, without long-term current use of insulin (HCC) Yes Primary hypertension Yes Resolved Hospital Problems No resolved problems to display. Transitions of Care Critical Issues: - Follow up in 3-4 weeks from discharge for post op visit. LABS AND PROCEDURES PENDING AT DISCHARGE: No pending results. CONSULTING TEAMS DURING HOSPITALIZATION: None Treatment Team: Attending Provider: Kristine Vincent MD Primary Service: JULEE TORRE PATIENT CONDITION AT DISCHARGE: Stable DISCHARGE DISPOSITION: Home with family INFORMATION PROVIDED TO PATIENT: DCI DIET: Soft Foods ACTIVITY: Lifting restricted to < 10 lbs for 4-6 weeks May shower, do not scrub incision No driving while on narcotics May walk and use stairs as tolerated WOUND/SURGICAL SITE CARE: None ALLERGIES Allergen Reactions Cephalexin Rash Prednisone Rash Percocet [Oxycodone* Vomiting Adhesive Tape-Silic* Rash DISCHARGE MEDICATION: Medication List START taking these medications acetaminophen 500 mg tablet Commonly known as: TYLENOL Take 2 tablets by mouth every 6 hours as needed for pain for up to 5 days. potassium chloride ER 20 mEq tablet Commonly known as: KLOR-CON Take 2 tablets by mouth two times a day for 1 dose. traMADol 50 mg tablet Commonly known as: ULTRAM Take 1 tablet by mouth every 8 hours as needed for up to 7 days. CONTINUE taking these medications MONICA-D 24 HOUR PO amLODIPine 5 mg tablet Commonly known as: NORVASC CALTRATE 600 + D ORAL escitalopram oxalate 20 mg tablet Commonly known as: LEXAPRO JARDIANCE 10 mg tablet Generic drug: empagliflozin lisinopril 20 mg tablet Commonly known as: ZESTRIL metFORMIN 1,000 mg tablet Commonly known as: GLUCOPHAGE simvastatin 20 mg tablet Commonly known as: ZOCOR Where to Get Your Medications These medications were sent to [address] [address] [address] - [phone] [facility] [address] potassium chloride ER 20 mEq tablet traMADol 50 mg tablet You can get these medications from any pharmacy You don't need a prescription for these medications acetaminophen 500 mg tablet PLAN OF CARE: Plan of care discussed with Provider, RN, Patient and Care Management FUTURE APPOINTMENTS: Future Appointments Date Time Provider Department Center 09/22/2024 3:30 PM Eve Fuentes APRN.CNP [facility] - A Bld 10/11/2024 11:30 AM [facility] The patient's risk for 30-day readmission is determined using the following contributing factors: Predictive Model Details 12% (Low) Factor Value Calculated 09/17/2024 05:20 14% Admission Provider Speciality GENERAL SURGERY [facility] READMISSION RISK Model -12% diagnosis count 11 -8% Zip Code [address] -8% ED visits (365d) 0 7% Creatinine (Max) 0.32 -6% [place] 4 -5% Admissions (365d) 1 -5% Length of Stay (d) 3 -5% Observations (365d) 0 -5% Facility [facility] I have performed the [id number] and relevant services for a total of >30 minutes. SIGNATURE: Jocelyn Gill APRN.CNP DATE: September 17, 2024 TIME: 12:42 PM THERAPY NT Observed: 09/17/2024 12:29 PM Status: COMPLETED Source: [facility] HNO ID: [id number] Author: ALEJANDRA TOLLIVER, PT Service: Physical Therapy Author Type: Physical Therapist Type: Therapy (PT/OT/Speech/Resp) Filed: 09/17/2024 13:48 Note Text: Physical Therapy Evaluation Summary SERVICE DATE: 09/17/2024 SERVICE TIME: 1229 to 1253 ROOM: [place] [address] PT 6 Clicks Score: 21 DISCHARGE RECOMMENDATIONS Home Anticipated Discharge Needs: Physical Assist at Home Physical Assist at Home for: Cleaning, Laundry, Meals, Shopping, Transportation Supervision at Home due to: (.) Recommended Discharge Equipment: Shower Chair, Wheeled Walker ASSESSMENT Response to Therapy Interventions: Good Participation in Activities, On-Track to Achieve Discharge Goals, Requires Additional Time to Complete Activities Pt pleasant and cooperative. Tolerated mobility well with minimal increase in pain. Presents with post-op weakness, impaired gait, and decreased balance. Safe to ambulate with spouse in martínez using IV pole. Edu on abdominal precautions with spouse and pt verbalizing good understanding. Denies any concerns completing stairs to enter home. Pt will benefit from continued PT. PRECAUTIONS Fall Risk, Lines/Tubes/Drains, Abdominal CURRENT HOSPITAL COURSE s/p 09/14 open ventral hernia repair and abdominal wall reconstruction with mesh (bilateral TAR) Relevant Past Medical History: obesity (BMI 34), HTN, T2D, provoked DVT (no longer on AC), colon cancer (s/p 2004 R hemicolectomy), and ventral hernia s/p multiple repairs/mesh infections presenting for a recurrent ventral hernia HOME LIVING Patient Lives With: Spouse, Family (14 year old grandson) Assistance Available: Part-Time Entry To Home: Stairs, With Rail Number Of Stairs Into Home: 3 Number Of Stairs To Bed/Bath: 0 Tub/Shower Type: Walk in shower Laundry: Main level - spouse completes Equipment Owned: Cane PRIOR FUNCTIONAL LEVEL Within Functional Limits, History of Falls Pt reports indep ADLs, indep iADLs, amb without use of device, (+) driving, (+) falls but none recent, sleeping in standard bed. SUBJECTIVE I'm going home today THERAPY DIAGNOSIS Reduced mobility-other, Muscle Weakness (generalized), Unsteadiness on feet TREATMENT INTERVENTIONS Evaluation, Gait Training ([id number]) Timed Code Treatment (minutes): 9 Skilled Treatment Time (minutes): 24 TRAINING AND EDUCATION PROVIDED Anatomy and Impact on Deficits, Assistive Device Use, Bed Mobility, Benefits of In-Hospital Mobility, Discharge Planning, Energy Conservation, Expected Functional Level, Exercise Program, Falls Prevention, Gait Pattern, Reduction of Deviations, Home Safety, Precautions/Restrictions, Role of Physical Therapy, Transfers, Standing Balance THERAPEUTIC SKILLS USED Activity Dosing, Assessment of Tolerance Including Vitals Response to Activity, Cues for Sequencing/Proper Technique for Activity, Cuing Tactile, Cuing Verbal, Cuing Visual, Management of Critical Lines, Tubes and/or Drains, Postural Alignment Correction, Repetitive Task Learning, Teach-Back for Education FUNCTIONAL STATUS Bed Mobility Supine To Sit: Supervision Sit to Supine: Supervision Scooting: Supervision Transfers Sit To Stand: Stand By Assistance Stand To Sit: Stand By Assistance Bed to Chair Contact Guard Assistance Bed To Chair Transfer Type: Stepping Bed To Chair Transfer Equipment: (IV pole) Gait Contact Guard Assistance Gait Device: IV Pole General Deviations/Observations: Citlalli decreased, Flexed trunk posture, Non-functional gait speed, Step length decreased, Lateral sway increased Gait Distance (feet): 225' Stairs GOALS Patient will demonstrate progress with functional mobility to allow safe discharge to home with available support and/or physical assistance. Rehab Potential: Excellent Excellent Rehab Potential Due To: Current objective clinical presentation, Good support system/ coping skills, Good motivation ACUTE CARE TREATMENT PLAN PT Frequency: Discontinue Therapy Services Reasons Therapy Services Discontinued: No skilled needs, Goals met SIGNATURE: Alejandra Tolliver PT PATIENT NAME: Parisa Sanchez DATE: September 17, 2024 TIME: 1:45 PM MEDICAL STEPHANIA Observed: 09/17/2024 12:02 PM Status: COMPLETED Source: [facility] HNO ID: [id number] Author: RADHA MAURO APRN.MUSIC WORKER Service: Sepsis Emergency Response Team Author Type: Nurse Practitioner Type: Chg in Clinical Condition Filed: 09/17/2024 12:02 Note Text: SERT (SEPSIS EMERGENCY RESPONSE TEAM) 24 HOUR FOLLOW-UP NOTE Date/Time of Last Fired SERT BPA: 09/16/2024 3:37 PM 24 HOUR FOLLOW-UP: Date and Time: 09/17/2024 12:02 PM Sepsis Identified During SERT Activation: No At Time of 24 Hour Review, Agree With Assessment at SERT Activation: No Comments: Afebrile, Sp02 up to 96% on RA, HR improved this AM to 80s. Leukocytosis down trending, 11 this AM, plan for likely discharge today. SERT to sign off SERT BPA in Last 24 Hours Sepsis SERT Notifications Date Triggers 09/16/24 1537 Open Patient Encounter Flowsheet Row - ADDY: Pulse [8] (Value: 113) Flowsheet Row - ADDY: Pulse [8] (Value: 109) Flowsheet Row - ADDY: SpO2 [10] (Value: 92 %) Flowsheet Row - ADDY: SpO2 [10] (Value: 88 %) Rule - CER: [facility] NO DISCHARGE DATE [832415] Lab Component - LRR: WBC [[id number]] (Result 1: 12.38, Extension - LPP: GREATER THAN (USE MOST RECENT RESULT) [02616], Result 1 Unit: k/uL, Result 1 Order: COMPLETE BLOOD COUNT AND DIFFERENTIAL [[id number]]) SIGNATURE: Radha Mauro APRN.CNP PATIENT NAME: Parisa Sanchez DATE: September 17, 2024 TIME: 12:02 PM THERAPY NT Observed: 09/17/2024 9:51 AM Status: COMPLETED Source: [facility] HNO ID: [id number] Author: SELVIN SPARKS OT/L Service: Occupational Therapy Author Type: Occupational Therapist Type: Therapy (PT/OT/Speech/Resp) Filed: 09/17/2024 09:51 Note Text: Occupational Therapy Treatment Summary SERVICE DATE: 09/17/2024 SERVICE TIME: 807 to 907 ROOM: [place] [address] OT 6 Clicks Score: 22 DISCHARGE RECOMMENDATIONS Home OT Anticipated Discharge Needs: Physical Assist at Home Physical Assist at Home for: Cleaning, Laundry, Meals, Safety, Self Care, Shopping, Transportation, Ambulation, Transfers Supervision at Home due to: (.) Recommended Discharge Equipment: Wheeled Walker, Shower Chair ASSESSMENT Response to Therapy Interventions: Good Participation in Activities, Improved Tolerance for Activity, Notable Progression with Functional Activities/Skills, On-Track to Achieve Discharge Goals, Pain, Requires Additional Time to Complete Activities, Requires Encouragement to Complete Activities Pt able to complete all ADLs and functional mobility with SBA/CGA this date. Pt functioning at baseline and no further acute OT needs idenified. PRECAUTIONS Fall Risk, Lines/Tubes/Drains CURRENT HOSPITAL COURSE s/p 09/14 open ventral hernia repair and abdominal wall reconstruction with mesh (bilateral TAR) Relevant Past Medical History: obesity (BMI 34), HTN, T2D, provoked DVT (no longer on AC), colon cancer (s/p 2005 R hemicolectomy), and ventral hernia s/p multiple repairs/mesh infections presenting for a recurrent ventral hernia HOME LIVING Patient Lives With: Spouse, Family (14 yo grandson) Assistance Available: Part-Time Entry To Home: Stairs, With Rail Number Of Stairs Into Home: 3 Number Of Stairs To Bed/Bath: 0 Tub/Shower Type: WIS Laundry: Main level- spouse can assist Equipment Owned: Cane PRIOR FUNCTIONAL LEVEL Within Functional Limits, History of Falls Pt reports indep ADLs, indep iADLs, amb without use of device, (+) driving, (+) falls but none recent, sleeping in standard bed Baseline Cognition: Oriented to self, Oriented to time, Oriented to place, Oriented to situation SUBJECTIVE Pt agreeable to therapy this date COGNITION Responsiveness: Alert, Awake Follows Commands: 2-step Commands, Cueing Needed Cueing to Follow Commands: Minimum Cog 6 Start of Session Total Points (Max Score = 24): 24 (09/17/24) Cog 6 End of Session Total Points (Max Score = 24): 24 (09/17/24) 4AT Score: 0 (09/17/24) Delirium Positive/Negative: Negative (09/17/24) THERAPY DIAGNOSIS Reduced mobility-other, Decreased activities of daily living (ADL), General symptoms and signs-other TREATMENT INTERVENTIONS Therapeutic Activity (62725) Timed Code Treatment (minutes): 60 Skilled Treatment Time (minutes): 60 TRAINING AND EDUCATION PROVIDED Activity Adaptation/Compensatory Strategies, Adaptive Equipment/DME, Assistive Device Use, Bed Mobility, Benefits of In-Hospital Mobility, Command Following, Discharge Planning, Energy Conservation, Environmental Modification, Executive Functions/Problem Solving, Expected Functional Level, Functional Mobility Involving ADLs, Grooming Tasks, Home Set-up/Modifications, IADLs/Home Management, Identification of Systems of Support, Insight into Deficits, Lower Extremity Bathing, Lower Extremity Dressing, Memory/Attention, Orientation, Positioning, Precautions/Restrictions, Role of Occupational Therapy, Safety/Judgment, Self-Efficacy, Sitting Balance to Improve Quinn with ADLs/Self-Care, Standing Balance to Improve Quinn with ADLs/Self-Care, Toileting , Transfer - Sit to Stand, Transfer - Toilet/Commode, Treatment Protocol, Visual Scanning/Attention Activities, Upper Extremity Bathing, Upper Extremity Dressing THERAPEUTIC SKILLS USED Activity Dosing, Assessment of Tolerance Including Vitals Response to Activity, Bilateral UE Integration, Cues for Sequencing/Proper Technique for Activity, Cuing Tactile, Cuing Verbal, Cuing Visual, Facilitation of Joint Range of Motion, Management of Critical Lines, Tubes and/or Drains, Movement Facilitation, Muscle Activation Facilitation, Physical Assist, Teach-Back for Education, Therapeutic Use of Self FUNCTIONAL STATUS Activities of Daily Living Assist Level Additional Information Feeding Set Up Grooming Set Up Bathing Upper Body Stand By Assistance Bathing Lower Body Contact Guard Assistance Dressing Upper Body Stand By Assistance Dressing Lower Body Minimal Assistance Toileting Stand By Assistance Mobility Assist Level Additional Information Bed Mobility Supine To Sit: Contact Guard Assistance Sit To Supine: Stand By Assistance Sit to Stand Contact Guard Assistance Stand to Sit Stand By Assistance Bed to Chair Toilet/Commode Stand By Assistance Shower Functional Mobility Contact Guard Assistance Functional Mobility Device: IV Pole GOALS Patient will demonstrate understanding of importance of mobility during hospital stay and resolve all self-care, cognitive and/or coping needs identified. Rehab Potential: Good Good Rehab Potential Due To: Current objective clinical presentation Progress Toward Goals: Progressing as expected ACUTE CARE TREATMENT PLAN OT Frequency: Discontinue Therapy Services Reasons Therapy Services Discontinued: Goals met, Independent in all functional mobility Treatment Interventions: Education, Self Care/Home Management, Energy Conservation Training, Strengthening, Balance Training, Functional Mobility Training, Joint Mobility Plan for Next Visit: (.) SIGNATURE: Selvin Sparks OT/L PATIENT NAME: Parisa Sanchez DATE: September 17, 2024 TIME: 9:51 AM CBC W AUTO DIFF BLD Collected: 09/17/2024 8:[address] atus: F Source: [facility] Order Comment: Specimen Type : BLOOD SPECIMEN Ordering Facility: [facility] Address: [address] [place] [address] TYPE CODE TESTS RESULT OUT OF RANGE REFERENCE UNITS LAB 6690-2(LOINC) WBC # Bld Auto 11.83 High 3.70-11.00 k/uL LAB 789-8(LOINC) RBC # Bld Auto 3.65 Low 3.90-5.20 m/ uL LAB 718-7(LOINC) Hgb Bld-mCnc 10.6 Low 11.5-15.5 g/dL LAB 4544-3(LOINC) Hct VFr Bld Auto 31.9 Low 36.0-46.0 % LAB 787-2(LOINC) MCV RBC Auto 87.4 80.0-100.0 fL LAB 785-6(LOINC) MCH RBC Qn Auto 29.0 26.0-34.0 p g LAB 786-4(LOINC) MCHC RBC Auto-mCnc 33.2 30.5-36.0 g/dL LAB 16133-1(LOINC) RDW RBC-Rto 13.4 11.5-15.0 % LAB 777-3(LOINC) Platelet # Bld Auto 151 150-400 k/uL LAB 84977-7([facility]) PMV Bld Auto 10.8 9.0-12.7 fL LAB 770-8([facility]) Neutrophils/leuk NFr Bld Auto 71.6 % LAB 751-8([facility]) Neutrophils # Bld Auto 8.47 High 1.45-7.50 k/uL LAB 736-9([facility]) Lymphocytes/leuk NFr Bld Auto 18.2 % LAB 731-0([facility]) Lymphocytes # Bld Auto 2.15 1.00-4.00 k/uL LAB 5905-5([facility]) Monocytes/leuk NFr Bld Auto 7.3 % LAB 742-7([facility]) Monocytes # Bld Auto 0.86 <0.87 k/uL LAB 713-8([facility]) Eosinophil/leuk NFr Bld Auto 2.2 % LAB 711-2([facility]) Eosinophil # Bld Auto 0.26 <0.46 k/uL LAB 706-2([facility]) Basophils/leuk NFr Bld Auto 0.3 % LAB 704-7([facility]) Basophils # Bld Auto 0.04 <0.11 k/uL LAB 35822-0([facility]) Imm Granulocytes/brendan k NFr Bld Auto 0.4 % LAB 66383-7([facility]) Imm Granulocytes # Bld Auto 0.05 <0.10 k/uL LAB 08017-0([facility]) nRBC/100 WBC Bld-Rto 0.0 /100 WBC LAB 771-6([facility]) nRBC # Bld Auto <0.01 <0.01 k/u L LAB 51673-0([facility]) Differential method Bld Auto Performed By: #### 80025-3 # ### [facility] CLIA [id number] [address] [place] [address] [place] BAS METAB 2000 PNL SERPL Collected: 8:02 AM Status: F Source: [facility] Order Comment: Specimen Type : BLOOD SPECIMEN Ordering Facility: [facility] Address: [address] [place] [address] TYPE CODE TESTS RESULT OUT OF RANGE REFERENCE UNITS LAB 2345-7(LOINC) Glucose SerPl-mCnc 155 High 74-99 mg/dL Result Comment: The [place] [employer] (ADA) provides guidance for cutoff values for fasting glucose and random glucose. The ADA defines fasting as no caloric intake for at least 8 hours. Fasting plasma glucose results between 100 to 125 mg/dL indicate increased risk for diabetes (prediabetes). Fasting plasma glucose results greater than or equal to 126 mg/dL meet the criteria for diagnosis of diabetes. In the absence of unequivocal hyperglycemia, results should be confirmed by repeat testing. In a patient with classic symptoms of hyperglycemia or hyperglycemic crisis, random plasma glucose results greater than or equal to 200 mg/dL meet the criteria for diagnosis of diabetes. Reference: Standards of Medical Care in Diabetes 2016, [place] [employer]. Diabetes Care. 2016.39(Suppl 1). LAB 3094-0(LOINC) BUN SerPl-mCnc 7 7-21 mg/dL LAB 2160-0(LOINC) Creat SerPl-mCnc 0.26 Low 0.58-0.96 mg/dL LAB 2951-2(LOINC) Sodium SerPl-sCnc 139 136-144 mmol/L LAB 2823-3(LOINC) Potassium SerPl-sCnc 3.1 Low 3.7-5.1 mmol/L LAB 2075-0(LOINC) Chloride SerPl-sCnc 103 98-107 mmol/L LAB 2028-9(LOINC) CO2 SerPl-sCnc 21 Low 22-30 mmol/L LAB 64117-1(LOINC) Anion Gap SerPl-sCnc 15 8-15 mmol/L LAB 90918-9(LOINC) Calcium SerPl-mCnc 8.7 8.5-10.2 mg/dL LAB 70713-5(LOINC) eGFRcr SerPlBld CKD-EPI 2020 122 >=60 mL/min/1. 73m??? Result Comment: Estimated Gl omerular Filtration Rate (eGFR) is calculated using the 2020 CKD-EPI creatinine equation. This equation utilizes serum creatinine, sex, and age as parameters. The creatinine assay has traceable calibration to isotope dilution-mass spectrometry. Refer to KDIGO guidelines for clinical interpretation. In patients with unstable renal function, e.g. those with acute kidney injury, the eGFR may not accurately reflect actual GFR. Performed By: #### 2777-1, 1 9123-9, 05579-7 #### [facility] CLIA [id number] [address] [place] [address] MAGNESIUM SERPL-MCNC Collected: 09/17/2024 8:02 AM S tatus: F Source: [facility] Order Comment: Specimen Type : BLOOD SPECIMEN Ordering Facility: [facility] Address: [address] [place] [address] TYPE CODE TESTS RESULT OUT OF RANGE REFERENCE UNITS LAB 09794-2(LOINC) Magnesium SerPl-mCnc 1.8 1.7-2.3 mg/dL Performed By: #### 2777-1, 1 9123-9, 66354-9 #### [facility] CLIA [id number] [address] [place] [address] PHOSPHATE SERPL-MCNC Collected: 09/17/2024 8:02 AM S tatus: F Source: [facility] Order Comment: Specimen Type : BLOOD SPECIMEN Ordering Facility: [facility] Address: [address] [place] [address] TYPE CODE TESTS RESULT OUT OF RANGE REFERENCE UNITS LAB 2777-1(LOINC) Phosphate SerPl-mCnc 2.3 Low 2.7-4.8 mg/dL Performed By: #### 2777-1, 1 23-9, 81909-4 #### [facility] CLIA [id number] [address] [place] [address] OF [place] PROGRESS Observed: 09/17/2024 7:17 AM Status: COMPLETED Source: [facility] HNO ID: [id number] Author: MERE DOBBINS MD Service: General Surgery Author Type: Resident Type: Progress Notes Filed: 09/17/2024 07:25 Note Text: GENERAL SURGERY SERVICE PROGRESS NOTE Subjective INTERVAL HPI: No acute events overnight, tachy to low 110s Afebrile, normotensive Satting well on RA Pain controlled Bowel function yesterday 1.6 L urine output JOSÉ MIGUEL output 115 and 120 cc sero-sang Objective BP 119/69 Pulse 104 Temp (Src) 97.9 (Oral) Resp 18 Ht 5' 2.5 (1.59m) Wt 190 lb (86.2kg) SpO2 96% BMI 34.18 kg/(m2). O2 Therapy: Room Air Date 09/16/24 07 - 09/17/24 0659 09/17/24 07 - 09/18/24 0659 Shift 4326-9255 8168-2852 4996-4506 24 Hour Total 1846-9681 3625-4443 6702-3716 24 Hour Total INTAKE PO 540 360 518 3407 PO 540 535 330 5452 IV 2300 600 2900 Volume (mL) (lactated ringers iv infusion) 2300 600 2900 Shift Total 2840 2925 285 7000 OUTPUT Urine 650 634 358 0757 Void (ml) 650 571 896 8790 Urine Not Saved. 1 x 1 x Tubes 120 85 30 235 Drain/Tube Output (Drain/Tube 09/14/24 1417 [facility] Sam Right Upper Quadrant Abdomen) 60 40 20 120 Drain/Tube Output (Drain/Tube 09/14/24 1400 [facility] Jhonathan Maciel Left) 60 45 10 115 # of BMs Number of BMs 0 x 2 x 1 x 3 x Shift Total 770 709 626 4839 Weight (kg) 86.2 86.2 86.2 86.2 86.2 86.2 86.2 86.2 Lines, Drains, and Airways Line Duration Peripheral 09/15/24 1602 [facility] Short Right Forearm 20 Gauge 1 day Drain Duration Drain/Tube 09/14/24 1400 [facility] Jhonathan Maciel Left 2 days Drain/Tube 09/14/24 [facility]7 [facility] Sam Right Upper Quadrant Abdomen 2 days PHYSICAL EXAM GENERAL: Alert and oriented times to person, place and time, in no acute distress. LUNGS: Non- Labored breathing CARDIAC: Regular rate. ABDOMEN: Abdomen soft, appropriately tender, non-distended. JOSÉ MIGUEL drains with serosang output INCISIONS: No dressings, wound clean, no signs of erythema or active bleeding EXTREMITIES: Warm, no lower extremity edema ASSESSMENT AND PLAN 64 year old woman with PMH obesity (BMI 34), HTN, T2D, provoked DVT (no longer on AC), colon cancer (s/p 2005 R hemicolectomy), and ventral hernia s/p multiple repairs/mesh infections presenting for a recurrent ventral hernia now s/p 09/14 open ventral hernia repair and abdominal wall reconstruction with mesh (bilateral TAR). Persistent mild tachycardia, asymptomatic, advanced to GI diet yesterday evening after ROBF, tolerating diet. Pain under control. Stable for discharge this afternoon. Neuro: Pain - tylenol, dilaudid RESPIRATORY CARE SPECIALIST, gabapentin Nausea - PRN zofran Home lexapro CV: Home norvasc, simvastatin Holding home lisinopril Pulm: Encourage incentive spirometry, wean O2 as tolerated FEN/GI: GI soft Milk of mg PRN zofran : Strict I's/O's Daily BMP Heme: Daily CBC ID: No acute concern for infection Endo: Sliding scale insulin #2 Holding home metformin and hardiance MSK: Physical therapy Occupational therapy Encourage out of bed, ambulation PPX: Lovenox 40 QD Sequential compression devices Lines: PIVx1 Drains: JPx2 Consults: n/a Dispo: D/C this afternoon Will be discussed with Dr. Carlton Estevez MD General Surgery PGY-1 September 17, 2024 7:17 AM Hernia Team Neo (Michele Bear): [id number] [place] (Ottoniel Vincent Petro): [address] After 6PM + weekends: [id number] [facility] [place] Observed: 09/16/2024 3:51 PM Status: COMPLETED Source: [facility] HNO ID: [id number] Author: KARON AMATO APRN.MUSIC WORKER Service: Sepsis Emergency Response Team Author Type: Nurse Practitioner Type: Chg in Clinical Condition Filed: 09/16/2024 15:51 Note Text: SERT (SEPSIS EMERGENCY RESPONSE TEAM) SCREENING NOTE Date and Time: 09/16/2024 3:51 PM Patient has been electronically reviewed by the Sepsis Emergency Response Team. No indication for SERT activation at this time; will defer to primary team regarding continued monitoring and intervention. S/p 09/14 open ventral hernia repair and abdominal wall reconstruction with mesh (bilateral TAR). Afebrile and HDS on room air. Flat leukocytosis. Ongoing post-op tachycardia (baseline HR 80's). Appears well hydrated. SERT will follow given elevated HR. SERT BPA in Last 24 Hours Sepsis SERT Notifications Date Triggers 09/16/24 1537 Open Patient Encounter Flowsheet Row - ADDY: Pulse [8] (Value: 113) Flowsheet Row - ADDY: Pulse [8] (Value: 109) Flowsheet Row - ADDY: SpO2 [10] (Value: 92 %) Flowsheet Row - ADDY: SpO2 [10] (Value: 88 %) Rule - CER: [facility] NO DISCHARGE DATE [285558] Lab Component - LRR: WBC [[id number]] (Result 1: 12.38, Extension - LPP: GREATER THAN (USE MOST RECENT RESULT) [51033], Result 1 Unit: k/uL, Result 1 Order: COMPLETE BLOOD COUNT AND DIFFERENTIAL [[id number]]) Trending of last 3 clinical abnormalities associated with Severe Sepsis or Septic Shock 09/16/2024 0352 09/16/2024 0744 09/16/2024 1119 Temp: 37.2 ?C (99 ?F) 36.6 ?C (97.9 ?F) 37.3 ?C (99.1 ?F) Pulse: 87 104 113 Resp: 18 17 16 BP: 142/65 112/69 131/80 MAP: 85 78 93 O2 Sat: 93 % 93 % 92 % Abnormal Labs Indicating Infection/Organ Failure in the Last 24 Hours WBC (k/uL) Date Value 09/16/2024 12.38 (H) SIGNATURE: Karon Amato APRN.CNP PATIENT NAME: Parisa Sanchez DATE: September 16, 2024 TIME: 3:51 PM THERAPY NT Observed: 09/16/2024 3:20 PM Status: COMPLETED Source: [facility] HNO ID: [id number] Author: ALEJANDRA TOLLIVER PT Service: Physical Therapy Author Type: Physical Therapist Type: Therapy (PT/OT/Speech/Resp) Filed: 09/16/2024 15:41 Note Text: PHYSICAL THERAPY MISSED VISIT SERVICE DATE: 09/16/2024 SERVICE TIME: 1520 ROOM: [place] [address] Patient not seen due to Patient Not Available. Pt sleeping and politely requests that she be allowed to rest. Also attempted at 1:28 pm, but pt was eating lunch. SIGNATURE: Alejandra Tolliver PT PATIENT NAME: Parisa Casillasp DATE: September 16, 2024 TIME: 3:40 PM THERAPY NT Observed: 09/16/2024 11:08 AM Status: COMPLETED Source: [facility] HNO ID: [id number] Author: SELVIN SPARKS OT/L Service: Occupational Therapy Author Type: Occupational Therapist Type: Therapy (PT/OT/Speech/Resp) Filed: 09/16/2024 11:08 Note Text: Occupational Therapy Evaluation Summary SERVICE DATE: 09/16/2024 SERVICE TIME: 953 to 1056 ROOM: [place] [address] OT 6 Clicks Score: 19 DISCHARGE RECOMMENDATIONS Home OT Anticipated Discharge Needs: Physical Assist at Home, Supervision at Home Physical Assist at Home for: Cleaning, Laundry, Meals, Safety, Self Care, Shopping, Transportation, Ambulation, Transfers Supervision at Home due to: (Fall risk) Recommended Discharge Equipment: Wheeled Walker, Shower Chair ASSESSMENT Response to Therapy Interventions: Good Participation in Activities, Needs Frequent Redirection or Reinstruction, On-Track to Achieve Discharge Goals, Pain, Requires Additional Time to Complete Activities, Requires Encouragement to Complete Activities Pt in bed upon OT arrival. Pt able to complete all functional transfers with CGA this date. Pt completed functional mobility for short household distance with use of IV pole and CGA for balance/safety- increased time required 2/2 LE length discrepancies (spouse reports pt begins dragging foot when fatigued causing falls). Pt would benefit from one additional visit to address LB ADLs and education ie. home safety/setup, DME, etc. PRECAUTIONS Fall Risk, Lines/Tubes/Drains CURRENT HOSPITAL COURSE s/p 09/14 open ventral hernia repair and abdominal wall reconstruction with mesh (bilateral TAR) Relevant Past Medical History: obesity (BMI 34), HTN, T2D, provoked DVT (no longer on AC), colon cancer (s/p 2005 R hemicolectomy), and ventral hernia s/p multiple repairs/mesh infections presenting for a recurrent ventral hernia HOME LIVING Patient Lives With: Spouse, Family (14 yo grandson) Assistance Available: Part-Time Entry To Home: Stairs, With Rail Number Of Stairs Into Home: 3 Number Of Stairs To Bed/Bath: 0 Tub/Shower Type: WIS Laundry: Main level- spouse can assist Equipment Owned: Cane PRIOR FUNCTIONAL LEVEL Within Functional Limits, History of Falls Pt reports indep ADLs, indep iADLs, amb without use of device, (+) driving, (+) falls but none recent, sleeping in standard bed Baseline Cognition: Oriented to self, Oriented to time, Oriented to place, Oriented to situation SUBJECTIVE Thank you so much COGNITION Responsiveness: Alert, Awake Follows Commands: 2-step Commands, Cueing Needed, With Repetition, With Increased Time Cueing to Follow Commands: Moderate Cog 6 Start of Session Total Points (Max Score = 24): 24 (09/16/24) Cog 6 End of Session Total Points (Max Score = 24): 24 (09/16/24) 4AT Score: 0 (09/16/24) Delirium Positive/Negative: Negative (09/16/24) THERAPY DIAGNOSIS Reduced mobility-other, Decreased activities of daily living (ADL), Muscle Weakness (generalized), Unsteadiness on feet, General symptoms and signs-other TREATMENT INTERVENTIONS Evaluation, Therapeutic Activity (83283) Timed Code Treatment (minutes): 48 Skilled Treatment Time (minutes): 63 TRAINING AND EDUCATION PROVIDED Activity Adaptation/Compensatory Strategies, Adaptive Equipment/DME, Assistive Device Use, Bed Mobility, Benefits of In-Hospital Mobility, Command Following, Discharge Planning, Energy Conservation, Environmental Modification, Executive Functions/Problem Solving, Expected Functional Level, Functional Mobility Involving ADLs, Grooming Tasks, Home Set-up/Modifications, IADLs/Home Management, Identification of Systems of Support, Insight into Deficits, Lower Extremity Bathing, Lower Extremity Dressing, Memory/Attention, Orientation, Positioning, Precautions/Restrictions, Role of Occupational Therapy, Safety/Judgment, Self-Efficacy, Sitting Balance to Improve Quinn with ADLs/Self-Care, Standing Balance to Improve Quinn with ADLs/Self-Care, Toileting , Transfer - Sit to Stand, Transfer - Toilet/Commode, Treatment Protocol, Visual Scanning/Attention Activities, Upper Extremity Bathing, Upper Extremity Dressing THERAPEUTIC SKILLS USED Activity Dosing, Assessment of Tolerance Including Vitals Response to Activity, Bilateral UE Integration, Cues for Sequencing/Proper Technique for Activity, Cuing Tactile, Cuing Verbal, Cuing Visual, Facilitation of Joint Range of Motion, Management of Critical Lines, Tubes and/or Drains, Movement Facilitation, Muscle Activation Facilitation, Physical Assist, Teach-Back for Education, Therapeutic Use of Self FUNCTIONAL STATUS Activities of Daily Living Assist Level Additional Information Feeding Set Up Grooming Set Up Bathing Upper Body Stand By Assistance Bathing Lower Body Minimal Assistance Dressing Upper Body Contact Guard Assistance Dressing Lower Body Moderate Assistance Toileting Contact Guard Assistance Mobility Assist Level Additional Information Bed Mobility Supine To Sit: Contact Guard Assistance Sit To Supine: Contact Guard Assistance Sit to Stand Contact Guard Assistance Stand to Sit Contact Guard Assistance Bed to Chair Toilet/Commode Contact Guard Assistance Shower Functional Mobility Contact Guard Assistance Functional Mobility Device: IV Pole GOALS Patient will demonstrate understanding of importance of mobility during hospital stay and resolve all self-care, cognitive and/or coping needs identified. Rehab Potential: Good Progress Toward Goals: Progressing as expected ACUTE CARE TREATMENT PLAN OT Frequency: One Additional Visit Treatment Interventions: Education, Self Care/Home Management, Energy Conservation Training, Joint Mobility, Strengthening, Functional Mobility Training, Balance Training Plan for Next Visit: Bathing Training, Chair/Commode Transfer Training, Bed Mobility, Dressing Training, Energy Conservation, Grooming Training, IADLs/Home Management, Sit to Stand Transfers, Sitting Balance, Sitting Tolerance, Standing Balance, Standing Tolerance SIGNATURE: Selvin Sparks, OT/L PATIENT NAME: Parisa Sanchez DATE: September 16, 2024 TIME: 11:08 AM PROGRESS Observed: 09/16/2024 8:57 AM Status: COMPLETED Source: [facility] HNO ID: [id number] Author: MARGA ADEN MD Service: General Surgery Author Type: Resident Type: Progress Notes Filed: 09/16/2024 08:57 Note Text: Documentation Query Please clarify the diagnosis associated with the clinical indicators for this patient Provider Response: Hypokalemia supported by: Continued Lab Monitoring, Oral Supplement of, and IV Infusion of Potassium This document will become part of the patient's medical record. PROGRESS Observed: 09/16/2024 8:57 AM Status: COMPLETED Source: [facility] HNO ID: [id number] Author: MARGA ADEN MD Service: General Surgery Author Type: Resident Type: Progress Notes Filed: 09/16/2024 08:57 Note Text: Documentation Query Please clarify the diagnosis associated with the clinical indicators for this patient Provider Response: Hypomagnesemia supported by: Continued Lab Monitoring and IV Infusion of Magnesium This document will become part of the patient's medical record. PROGRESS Observed: 09/16/2024 8:57 AM Status: COMPLETED Source: [facility] HNO ID: [id number] Author: MARGA ADEN MD Service: General Surgery Author Type: Resident Type: Progress Notes Filed: 09/16/2024 08:57 Note Text: Documentation Query Please clarify the diagnosis associated with the clinical indicators for this patient Provider Response: Hypophosphatemia supported by: Continued Lab Monitoring and IV Infusion of NaPhos This document will become part of the patient's medical record. PROGRESS Observed: 09/16/2024 5:55 AM Status: COMPLETED Source: [facility] HNO ID: [id number] Author: MERE DOBBINS MD Service: General Surgery Author Type: Resident Type: Progress Notes Filed: 09/16/2024 07:35 Note Text: GENERAL SURGERY SERVICE PROGRESS NOTE Subjective INTERVAL HPI: No acute events overnight Afebrile, normotensive, tachy to low 110s Satting well on 1L Pain controlled No bowel function, - flatus, -BM 3.5 L urine output JOSÉ MIGUEL output 145 and 125cc sero-sang Objective BP 142/65 Pulse 87 Temp (Src) 99 (Oral) Resp 18 Ht 5' 2.5 (1.59m) Wt 190 lb (86.2kg) SpO2 93% BMI 34.18 kg/(m2). O2 Therapy: Nasal Cannula, Liters (Numeric Only): 1 Date 09/15/24699 - 09/16/24 0659 09/16/24 07 - 09/17/24 0659 Shift 9339-9420 5553-5004 2306-6435 24 Hour Total 5148-1131 1904-7695 1698-9760 24 Hour Total INTAKE PO 240 370 100 710 PO 240 370 100 710 Supplements (mL) 0 0 IV 1100 1100 Volume (mL) (magnesium sulfate 1 g in D5W 100 mL) 100 100 Volume (mL) (potassium chloride iv piggyback 20 mEq/100 mL) 200 200 Volume (mL) (lactated ringers iv infusion) 800 800 Shift Total 1340 597 167 4480 OUTPUT Urine 1625 8089 709 9518 Void (ml) 1225 2636 770 8635 Output ([REMOVED] Indwelling Urinary Catheter 09/14/24 1055 [facility] 16 Fr 09/15/24 0912) 400 400 Tubes 65 145 60 270 Drain/Tube Output (Drain/Tube 09/14/24 1417 [facility] Sam Right Upper Quadrant Abdomen) 30 75 20 125 Drain/Tube Output (Drain/Tube 09/14/24 1400 [facility] Jhonathan Maciel Left) 35 70 40 145 # of BMs Number of BMs 0 x 0 x 0 x 0 x Shift Total 1690 5028 201 5215 Weight (kg) 86.2 86.2 86.2 86.2 86.2 86.2 86.2 86.2 Lines, Drains, and Airways Line Duration Peripheral 09/15/24 1602 [facility] Short Right Forearm 20 Gauge <1 day Drain Duration Drain/Tube 09/14/24 1400 [facility] Jhonathan Maciel Left 1 day Drain/Tube 09/14/24 1417 [facility] Sam Right Upper Quadrant Abdomen 1 day PHYSICAL EXAM GENERAL: Alert and oriented times to person, place and time, in no acute distress. LUNGS: Non- Labored breathing on 1L NC CARDIAC: Regular rate. ABDOMEN: Abdomen soft, appropriately tender, non-distended. JOSÉ MIGUEL drains with serosang output INCISIONS: No strikethrough on dressing EXTREMITIES: Warm, no lower extremity edema ASSESSMENT AND PLAN 64 year old woman with PMH obesity (BMI 34), HTN, T2D, provoked DVT (no longer on AC), colon cancer (s/p 2005 R hemicolectomy), and ventral hernia s/p multiple repairs/mesh infections presenting for a recurrent ventral hernia now s/p 09/14 open ventral hernia repair and abdominal wall reconstruction with mesh (bilateral TAR). Persistent mild tachycardia, though patient remains asymptomatic and Hb remains stable (12 from 12.6). Responsive to IV fluid resuscitation. Will reevaluate for ROBF in the afternoon for advancing to GI soft. 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 Discussed with staff Mere Estevez MD General Surgery PGY-1 September 16, 2024 6:06 AM Hernia Team Neo (Michele Bear): [phone] [place] ([place], [place], [place]): [phone] After 6PM + weekends: [id number] CBC W AUTO DIFF BLD Collected: 09/16/2024 12:14 AM S tatus: F Source: [facility] Order Comment: Specimen Type : BLOOD SPECIMEN Ordering Facility: [facility] Address: [address] [place] [address] TYPE CODE TESTS RESULT OUT OF RANGE REFERENCE UNITS LAB 6690-2(INC) WBC # Bld Auto 12.38 High 3.70-11.00 k/uL LAB 789-8(LOINC) RBC # Bld Auto 4.08 3.90-5.20 m/ uL LAB 718-7(INC) Hgb Bld-mCnc 12.0 11.5-15.5 g/dL LAB 4544-3(INC) Hct VFr Bld Auto 35.2 Low 36.0-46.0 % LAB 787-2(LOINC) MCV RBC Auto 86.3 80.0-100.0 fL LAB 785-6(LOINC) MCH RBC Qn Auto 29.4 26.0-34.0 p g LAB 786-4(LOINC) MCHC RBC Auto-mCnc 34.1 30.5-36.0 g/dL LAB 02150-4(LOINC) RDW RBC-Rto 13.4 11.5-15.0 % LAB 777-3(LOINC) Platelet # Bld Auto 161 150-400 k/uL LAB 55004-9(LOINC) PMV Bld Auto 10.4 9.0-12.7 fL LAB 770-8(LOINC) Neutrophils/leuk NFr Bld Auto 72.9 % LAB 751-8(LOINC) Neutrophils # Bld Auto 9.02 High 1.45-7.50 k/uL LAB 736-9(LOINC) Lymphocytes/leuk NFr Bld Auto 15.7 % LAB 731-0(LOINC) Lymphocytes # Bld Auto 1.94 1.00-4.00 k/uL LAB 5905-5(LOINC) Monocytes/leuk NFr Bld Auto 10.1 % LAB 742-7(LOINC) Monocytes # Bld Auto 1.25 High <0.87 k/uL LAB 713-8(LOINC) Eosinophil/leuk NFr Bld Auto 0.6 % LAB 711-2(LOINC) Eosinophil # Bld Auto 0.08 <0.46 k/uL LAB 706-2(LOINC) Basophils/leuk NFr Bld Auto 0.4 % LAB 704-7(LOINC) Basophils # Bld Auto 0.05 <0.11 k/uL LAB 17273-6(LOINC) Imm Granulocytes/brendan k NFr Bld Auto 0.3 % LAB 67304-5(LOINC) Imm Granulocytes # Bld Auto 0.04 <0.10 k/uL LAB 73781-9(LOINC) nRBC/100 WBC Bld-Rto 0.0 /100 WBC LAB 771-6([facility]) nRBC # Bld Auto <0.01 <0.01 k/u L LAB 50633-8([facility]) Differential method Bld Auto Performed By: #### 05946-2 # ### [facility] CLIA [id number] [address] [place] [address] STATES OF [facility] BAS METAB 2000 PNL SERPL Collected: 12:14 AM Status: F Source: [facility] Order Comment: Specimen Type : BLOOD SPECIMEN Ordering Facility: [facility] Address: [address] [place] [address] TYPE CODE TESTS RESULT OUT OF RANGE REFERENCE UNITS LAB 2345-7(INC) Glucose SerPl-mCnc 165 High 74-99 mg/dL Result Comment: The [place] Diabetes Association (ADA) provides guidance for cutoff values for fasting glucose and random glucose. The ADA defines fasting as no caloric intake for at least 8 hours. Fasting plasma glucose results between 100 to 125 mg/dL indicate increased risk for diabetes (prediabetes). Fasting plasma glucose results greater than or equal to 126 mg/dL meet the criteria for diagnosis of diabetes. In the absence of unequivocal hyperglycemia, results should be confirmed by repeat testing. In a patient with classic symptoms of hyperglycemia or hyperglycemic crisis, random plasma glucose results greater than or equal to 200 mg/dL meet the criteria for diagnosis of diabetes. Reference: Standards of Medical Care in Diabetes 2016, [place] [employer]. Diabetes Care. 2016.39(Suppl 1). LAB 3094-0(LOINC) BUN SerPl-mCnc 5 Low 7-21 mg/dL LAB 2160-0(LOINC) Creat SerPl-mCnc 0.31 Low 0.58-0.96 mg/dL LAB 2951-2(LOINC) Sodium SerPl-sCnc 137 136-144 mmol/L LAB 2823-3(LOINC) Potassium SerPl-sCnc 3.8 3.7-5.1 mmol/L LAB 2075-0(LOINC) Chloride SerPl-sCnc 100 98-107 mmol/L LAB 2028-9(LOINC) CO2 SerPl-sCnc 24 22-30 mmol/L LAB 57666-9(LOINC) Anion Gap SerPl-sCnc 13 8-15 mmol/L LAB 80571-4(LOINC) Calcium SerPl-mCnc 9.1 8.5-10.2 mg/dL LAB 03455-7(LOINC) eGFRcr SerPlBld CKD-EPI 2020 117 >=60 mL/min/1. 73m??? Result Comment: Estimated Gl omerular Filtration Rate (eGFR) is calculated using the 2020 CKD-EPI creatinine equation. This equation utilizes serum creatinine, sex, and age as parameters. The creatinine assay has traceable calibration to isotope dilution-mass spectrometry. Refer to KDIGO guidelines for clinical interpretation. In patients with unstable renal function, e.g. those with acute kidney injury, the eGFR may not accurately reflect actual GFR. Performed By: #### 75425-3, 2777-1, 15422-6 #### [facility] CLIA [id number] [address] [place] [address] [place] MAGNESIUM SERPL-MCNC Collected: 025 12:14 AM Status: F Source: [facility] Order Comment: Specimen Type : BLOOD SPECIMEN Ordering Facility: [facility] Address: [address] [id number] TYPE CODE TESTS RESULT OUT OF RANGE REFERENCE UNITS LAB 95699-8(INC) Magnesium SerPl-mCnc 1.9 1.7-2.3 mg/dL Performed By: #### 52603-2, 2777-1, 83388-0 #### [facility] CLIA [id number] [address] [place], [place] [id number] [facility] PHOSPHATE SERPL-MCNC Collected: 025 12:14 AM Status: F Source: [facility] Order Comment: Specimen Type : BLOOD SPECIMEN Ordering Facility: [facility] Address: [address] [place] [address] TYPE CODE TESTS RESULT OUT OF RANGE REFERENCE UNITS LAB 2777-1([facility]) Phosphate SerPl-mCnc 1.4 Low 2.7-4.8 mg/dL Performed By: #### 12373-5, 2776-1, #### [facility] CLIA [id number] [address] [place] [address] STATES OF [place] CBC PNL BLD AUTO Collected: 5 5:44 PM Status: F Source: [facility] Order Comment: Specimen Type : BLOOD SPECIMEN Ordering Facility: [facility] Address: [address] [place] [address] TYPE CODE TESTS RESULT OUT OF RANGE REFERENCE UNITS LAB 6690-2[facility] WBC # Bld Auto 12.38 High 3.70-11.00 k/uL LAB 789-8(LOINC) RBC # Bld Auto 4.32 3.90-5.20 m/uL LAB 718-7([facility]) Hgb Bld-mCnc 12.6 11.5-15.5 g/dL LAB 4544-3(LOINC) Hct VFr Bld Auto 37.8 36.0-46.0 % LAB 787-2(LOINC) MCV RBC Auto 87.5 80.0-100.0 fL LAB 785-6(LOINC) MCH RBC Qn Auto 29.2 26.0-34.0 pg LAB 786-4[facility]) MCHC RBC Auto-mCnc 33.3 30.5-36.0 g/dL LAB 26448-3([facility]) RDW RBC-Rto 13.3 11.5-15.0 % LAB 777-3([facility]) Platelet # Bld Auto 195 150-400 k/uL LAB 58123-6([facility]) PMV Bld Auto 10.6 9.0-12.7 fL LAB 771-6([facility]) nRBC # Bld Auto <0.01 <0.01 k/uL Performed By: #### 92623-6 # ### [facility] CLIA [id number] [address] [place] [address] CASE MGT INJAM MIRELES Observed: 09/15/2024 3:18 PM Status: COMPLETED Source: [facility] HNO ID: [id number] Author: GREGOR KASPER LSW Service: Care Management Author Type: Chief Crew Scheduler Type: Care Mgt Initial Assessment Filed: 09/15/2024 15:22 Note Text: CARE MANAGEMENT: ASSESSMENT AND DISCHARGE PLAN SERVICE DATE: September 15, 2024 SERVICE TIME: 3:18 PM PCP: Mack Andrade MD, DO Primary Contact: Extended Emergency Contact Information Primary Emergency Contact: AUTUMN SANCHEZ Address: [address] [place] [address] Mobile Relation: Spouse Admission Status: Inpatient Insurance Provider: GENOVEVA PICKETT Discharge Planning requested by: Per Department Practice Potential Transition Plans Home Advance Directives Current Advance Directive: None Calibration Checker Attempted to Assist with AD Completion: Yes Action: Education Provided Current Living Arrangements and Support Lives with: Spouse/significant other Type of Residence: Private Residence (House) Support: Spouse/significant other, Children How do you manage to accomplish the following: Independent: Ambulation, Bathe/Shower, Dress, Meals/Meal Prep, Going to the bathroom, Medication Management, Transportation to appointments/community Current Services/Equipment Current Post-Acute Service(s): None Discharge Planning Patient Goal(s): General wellness, Be able to go home Interior of Choice Explained: Interior of Choice Given: No Reason Not Given: No placements necessary Are you interested in bedside delivery of your medications? Yes Discharge Planning Participant(s): Spouse/significant other, Patient Patient/Family Comments: Spouse at bedside Caregiver Assessment: Caregiver is ready, willing and able to meet the patient's needs as recommended by the inter-professional team: Yes Name of Caregiver: Spouse Transport at Discharge: Transportation Arrangements: Car Needs Prior to Discharge: Needs Prior to Discharge: None Post-Acute Discharge Plan: Chart reviewed and met with pt at bedside. Spouse was also present. Pt is very [place], she deferred to spouse for most of conversation. Pt is s/p open ventral hernia repair and abdominal wall reconstruction with mesh (bilateral TAR). Per spouse, pt has had many hernia repairs in the past (6?). Prior to admission, pt reports she was mostly independent with self care. Spouse and dtr assisted as needed. Spouse reports that dtr assisted with wound care the last time pt needed assistance. Pt also had home care services at one point (many years ago). At this time, needs are unclear. Possible home care vs no skilled needs. Spouse is staying at a local hotel while pt is hospitalized. He will drive her home. CM following SIGNATURE: EDUARDO Ballard PATIENT NAME: Parisa Sanchez DATE: September 15, 2024 TIME: 3:18 PM PROGRESS Observed: 09/15/2024 11:00 AM Status: COMPLETED Source: [facility] HNO ID: [id number] Author: MARGA ADEN MD Service: General Surgery Author Type: Resident Type: Progress Notes Filed: 09/15/2024 11:09 Note Text: GENERAL SURGERY SERVICE PROGRESS NOTE Subjective INTERVAL HPI: No acute events overnight Afebrile, normotensive, tachy to low 100s (now s/p two 500cc LR boluses post-OR) Satting well on 2L Pain controlled No bowel function 2.5 L urine output JOSÉ MIGUEL output 170 and 250cc sero-sang Objective BP 132/79 Pulse 103 Temp (Src) 98.4 (Oral) Resp 16 Ht 5' 2.5 (1.59m) Wt 190 lb (86.2kg) SpO2 98% BMI 34.18 kg/(m2). O2 Therapy: Nasal Cannula, Liters (Numeric Only): 2.00 Date 09/14/24 0700 - 09/15/24 0659 09/15/24 0700 - 09/16/24 0659 Shift 2629-3314 5986-1617 2277-0807 24 Hour Total 9572-5872 0414-6317 3710-1607 24 Hour Total INTAKE PO 100 100 120 120 PO 100 100 120 120 IV 1050 2050 1191 4291 Volume (mL) (lactated ringers 500 mL iv bolus) 500 500 Volume (mL) (clindamycin iv piggyback 900 mg in D5W 50 mL (CLEOCIN)) 50 50 Volume (mL) (albumin (5%) 12.5 g infusion) 250 250 Volume (mL) (albumin (5%) 12.5 g infusion) 250 250 Volume (mL) (clindamycin iv piggyback 600 mg in D5W 50 mL (CLEOCIN)) 50 50 100 Volume (mL) (lactated ringers iv infusion) 641 641 Volume (mL) (lactated ringers iv infusion) 4697 500 3272 Volume (mL) (lactated ringers iv infusion) 200 200 Volume (mL) (lactated ringers iv infusion) 500 500 Shift Total 1050 2050 1291 4391 120 120 OUTPUT Urine 580 2782 035 9916 475 475 Void (ml) 75 75 OR Urine Output 580 580 Output ([REMOVED] Indwelling Urinary Catheter 09/14/24 1055 [facility] 16 Fr 09/15/24 09) 5363 704 8150 400 400 Tubes 300 120 420 Drain/Tube Output ([REMOVED] Drain/Tube 09/14/24 141 [facility] Sam Left Upper Quadrant Abdomen 09/15/24 0912) 110 60 170 Drain/Tube Output (Drain/Tube 09/14/24 1417 [facility] Sam Right Upper Quadrant Abdomen) 190 60 250 # of BMs Number of BMs 0 x 0 x 0 x 0 x Shift Total 580 2496 044 3344 475 475 Weight (kg) 86.2 86.2 86.2 86.2 86.2 86.2 86.2 86.2 Lines, Drains, and Airways Line Duration Peripheral 09/14/24 0830 [facility] Short Right Forearm 20 Gauge 1 day Peripheral 09/14/24 1055 Left Hand 16 Gauge 1 day Drain Duration Drain/Tube 09/14/24 1417 [facility] Sam Right Upper Quadrant Abdomen <1 day PHYSICAL EXAM GENERAL: Alert and oriented times to person, place and time, in no acute distress. LUNGS: Non- Labored breathing on 2L NC CARDIAC: Regular rate. ABDOMEN: Abdomen soft, appropriately tender, non-distended. JOSÉ MIGUEL drains with serosang output INCISIONS: No strikethrough on dressing EXTREMITIES: Warm, no lower extremity edema ASSESSMENT AND PLAN 64 year old woman with PMH obesity (BMI 34), HTN, T2D, provoked DVT (no longer on AC), colon cancer (s/p 2005 R hemicolectomy), and ventral hernia s/p multiple repairs/mesh infections presenting for a recurrent ventral hernia now s/p 09/14 open ventral hernia repair and abdominal wall reconstruction with mesh (bilateral TAR). Only active issue is mild tachycardia likely d/t hypovolemia, responsive to IV fluid resuscitation. Neuro: Pain - tylenol, dilaudid RESPIRATORY CARE SPECIALIST, gabapentin Nausea - PRN zofran Home lexapro CV: Home norvasc, simvastatin Holding home lisinopril Pulm: Encourage incentive spirometry, wean O2 as tolerated FEN/GI: CLD. Maintenance IV fluids @ 125cc/h Milk of mg PRN zofran : Remove keller Strict I's/O's Daily BMP Heme: Repeat noon CBC Daily CBC ID: No acute concern for infection Endo: Sliding scale insulin #2 Holding home metformin and hardiance MSK: Physical therapy Occupational therapy Encourage out of bed, ambulation PPX: Lovenox 40 QD Sequential compression devices Lines: PIVx2 Drains: JPx2 Consults: n/a Dispo: Regular nursing floor. Discussed with staff Marga Aden MD PGY-5 General Surgery Pager: [phone] CBC W AUTO DIFF BLD Collected: 09/15/2024 7:[address] atus: F Source: [facility] Order Comment: Specimen Type : BLOOD SPECIMEN Ordering Facility: [facility] Address: [address] [place] [address] TYPE CODE TESTS RESULT OUT OF RANGE REFERENCE UNITS LAB 6690-2(LOINC) WBC # Bld Auto 11.30 High 3.70-11.00 k/uL LAB 789-8(LOINC) RBC # Bld Auto 4.21 3.90-5.20 m/ uL LAB 718-7(LOINC) Hgb Bld-mCnc 12.3 11.5-15.5 g/dL LAB 4544-3([facility]) Hct VFr Bld Auto 36.7 36.0-46.0 % LAB 787-2([facility]) MCV RBC Auto 87.2 80.0-100.0 fL LAB 785-6([facility]) MCH RBC Qn Auto 29.2 26.0-34.0 p g LAB 786-4([facility]) MCHC RBC Auto-mCnc 33.5 30.5-36.0 g/dL LAB 24975-1([facility]) RDW RBC-Rto 13.3 11.5-15.0 % LAB 777-3([facility]) Platelet # Bld Auto 175 150-400 k/uL LAB 93010-9([facility]) PMV Bld Auto 10.3 9.0-12.7 fL LAB 770-8([facility]) Neutrophils/leuk NFr Bld Auto 74.3 % LAB 751-8([facility]) Neutrophils # Bld Auto 8.39 High 1.45-7.50 k/uL LAB 736-9([facility]) Lymphocytes/leuk NFr Bld Auto 16.6 % LAB 731-0([facility]) Lymphocytes # Bld Auto 1.88 1.00-4.00 k/uL LAB 5905-5([facility]) Monocytes/leuk NFr Bld Auto 8.2 % LAB 742-7([facility]) Monocytes # Bld Auto 0.93 High <0.87 k/uL LAB 713-8([facility]) Eosinophil/leuk NFr Bld Auto 0.1 % LAB 711-2([facility]) Eosinophil # Bld Auto <0.03 <0.46 k/uL LAB 706-2([facility]) Basophils/leuk NFr Bld Auto 0.3 % LAB 704-7([facility]) Basophils # Bld Auto 0.03 <0.11 k/uL LAB 99204-1([facility]) Imm Granulocytes/brendan k NFr Bld Auto 0.5 % LAB 20493-2([facility]) Imm Granulocytes # Bld Auto 0.06 <0.10 k/uL LAB 79530-4([facility]) nRBC/100 WBC Bld-Rto 0.0 /100 WBC LAB 771-6([facility]) nRBC # Bld Auto <0.01 <0.01 k/u L LAB 12477-3([facility]) Differential method Bld Auto Performed By: #### 88486-3 # ### [facility] CLIA [id number] [address] [place] [address] DEPRECATED HGB A1C BLD Collected: 09/15 7:08 AM Status: F Source: [facility] Comment: Specimen Type : BLOOD SPECIMEN Ordering Facility: [facility] Address: [address] [place] [address] TYPE CODE TESTS RESULT OUT OF RANGE REFERENCE UNITS LAB 4548-4([facility]) HbA1c MFr Bld 6.4 High 4.3-5.6 % Result Comment: [place] [employer] betes Association guidelines indicate that patients with HgbA1c in the range 5.7-6.4% are at increased risk for development of diabetes, and intervention by lifestyle modification may be beneficial. HgbA1c greater or equal to 6.5% is considered diagnostic of diabetes. LAB 01924-3([facility]) Est. average glucose Bld gHb Est-mCnc 137 mg/dL Result Comment: eAG: (Estima priscilla average glucose) is a calculated value from HgbA1c and is sales service representative of the average blood glucose level in the last 2-3 month period. Performed By: #### 00007-8 # ### [facility] CLIA [id number] [address] [place] [address] OF [place] BAS METAB 2000 PNL SERPL Collected: 7:08 AM Status: F Source: [facility] Comment: Specimen Type : BLOOD SPECIMEN Ordering Facility: [facility] Address: [address] [place] [address] TYPE CODE TESTS RESULT OUT OF RANGE REFERENCE UNITS LAB 2345-7([facility]) Glucose SerPl-mCnc 201 High 74-99 mg/dL Result Comment: The [place] Diabetes Association (ADA) provides guidance for cutoff values for fasting glucose and random glucose. The ADA defines fasting as no caloric intake for at least 8 hours. Fasting plasma glucose results between 100 to 125 mg/dL indicate increased risk for diabetes (prediabetes). Fasting plasma glucose results greater than or equal to 126 mg/dL meet the criteria for diagnosis of diabetes. In the absence of unequivocal hyperglycemia, results should be confirmed by repeat testing. In a patient with classic symptoms of hyperglycemia or hyperglycemic crisis, random plasma glucose results greater than or equal to 200 mg/dL meet the criteria for diagnosis of diabetes. Reference: Standards of Medical Care in Diabetes 2016, [place] [employer]. Diabetes Care. 2016.39(Suppl 1). LAB 3094-0(LOINC) BUN SerPl-mCnc 8 7-21 mg/dL LAB 2160-0(LOINC) Creat SerPl-mCnc 0.32 Low 0.58-0.96 mg/dL LAB 2951-2(LOINC) Sodium SerPl-sCnc 138 136-144 mmol/L LAB 2823-3(LOINC) Potassium SerPl-sCnc 3.1 Low 3.7-5.1 mmol/L LAB 2075-0(LOINC) Chloride SerPl-sCnc 101 98-107 mmol/L LAB 2027-9(LOINC) CO2 SerPl-sCnc 23 22-30 mmol/L LAB 07368-3(LOINC) Anion Gap SerPl-sCnc 14 8-15 mmol/L LAB 19946-1(LOINC) Calcium SerPl-mCnc 8.5 8.5-10.2 mg/dL LAB 77536-0(LOINC) eGFRcr SerPlBld CKD-EPI 2020 116 >=60 mL/min/1. 73m??? Result Comment: Estimated Gl omerular Filtration Rate (eGFR) is calculated using the 2020 CKD-EPI creatinine equation. This equation utilizes serum creatinine, sex, and age as parameters. The creatinine assay has traceable calibration to isotope dilution-mass spectrometry. Refer to KDIGO guidelines for clinical interpretation. In patients with unstable renal function, e.g. those with acute kidney injury, the eGFR may not accurately reflect actual GFR. Performed By: #### 61662-2, 2777-1, 82492-1 #### [facility] CLIA [id number] [address] [place] [address] [place] MAGNESIUM SERPL-MCNC Collected: 09/15/2024 7:08 AM S tatus: F Source: [facility] Order Comment: Specimen Type : BLOOD SPECIMEN Ordering Facility: [facility] Address: [address] [place] [address] TYPE CODE TESTS RESULT OUT OF RANGE REFERENCE UNITS LAB 16574-6(LOINC) Magnesium SerPl-mCnc 1.3 Low 1.7-2.3 mg/dL Performed By: #### 49952-1, 2777-1, 19877-4 #### [facility] CLIA [id number] [address] [place] [address] OF [place] PHOSPHATE SERPL-MCNC Collected: 09/15/2024 7:08 AM S tatus: F Source: [facility] Order Comment: Specimen Type : BLOOD SPECIMEN Ordering Facility: [facility] Address: [address] [place] [address] TYPE CODE TESTS RESULT OUT OF RANGE REFERENCE UNITS LAB 2777-1(LOINC) Phosphate SerPl-mCnc 2.6 Low 2.7-4.8 mg/dL Performed By: #### 01977-0, 2777-1, 06059-3 #### [facility] CLIA [id number] [address] [place] [address] [place] NURSING PROG Observed: 09/14/2024 10:52 PM Status: COMPLETED Source: [facility] HNO ID: [id number] Author: CASH MO RN Service: Nursing Author Type: Registered Nurse Type: Nursing Progress Note Filed: 09/15/2024 03:09 Note Text: Per provider order in secure message VS are to be done q2hrs until 0600 09/15/24. PCNA updated. RN to inform provider if SBP<100 and/or pt's HR goes above 120. Provider made aware that pt had a HR of 120 for a second and then went back to 115; pt is currently 115 Provider made aware pt's HR hit 120 and then went back down to 116 PROGRESS Observed: 09/14/2024 7:01 PM Status: COMPLETED Source: [facility] HNO ID: [id number] Author: GABE BYRNES, LAURY Service: Nursing Author Type: Registered Nurse Type: Progress Notes Filed: 09/14/2024 19:01 Note Text: Admission/Transfer Note PATIENT NAME: Parisa Sanchez Patient Location: Room: [place] [address] Patient admitted from PACU via bed in stable condition. Actions taken: Patient oriented to room. This note was completed by: Gabe Byrnes GAS + CO PNL BLDV Collected: 5:04 PM Status: F Source: [facility] Comment: Specimen Type : VENOUS BLOOD SPECIMEN Ordering Facility: [facility] Address: [address] [place] [address] TYPE CODE TESTS RESULT OUT OF RANGE REFERENCE UNITS LAB 2746-6(LOINC) pH BldV 7.32 7.32-7.42 LAB 62215-9(LOINC) pH temp adj BldV 7.32 7.32-7.42 LAB 2021-4(LOINC) pCO2 BldV 46 42-55 mmHg LAB 95044-4(LOINC) pCO2 temp adj BldV 45 42-55 mmHg LAB 2705-2(LOINC) pO2 BldV 70 High 35-45 mmHg LAB 22627-0(LOINC) pO2 temp adj BldV 68 High 35-45 mmHg LAB 2711-0(LOINC) SaO2 % BldV 93 High 60-85 % LAB BDVEN BASE DEFICIT, VENOUS -3 Low -2-0 mmol/L LAB 54875-5(LOINC) HCO3 BldV-sCnc 23 Low 24-28 mmol/L LAB 2716-9(LOINC) OxyHgb MFr BldV 91 High 60-85 % LAB 2032-1(LOINC) COHgb MFr BldV 1.1 0.0-2.0 % Result Comment: Carboxyhemog lobin Reference Range for Smokers: 2.0-8.0% LAB 2614-6(LOINC) MetHgb MFr Bld 1.1 0.0-1.5 % LAB 2947-0(LOINC) Sodium Bld-sCnc 141 136-144 mmol/L LAB 6298-4(LOINC) Potassium Bld-sCnc 3.4 Low 3.5-5.0 mmol/L LAB 77620-4(LOINC) Ca-I Bld-mCnc 1.16 1.08-1.30 mmol/L LAB 07012-9([facility]) Ca-I adj pH7.4 BldA-sCnc 1.11 1.08-1.30 mmol/L LAB 2339-0([facility]) Glucose Bld-mCnc 218 High 60-105 mg/dL LAB 29007-8([facility]) Lactate Bld-sCnc 2.8 High 0.5-2.2 mmol/L LAB 718-7([facility]) Hgb Bld-mCnc 13.3 11.5-15.5 g/dL LAB 4544-3([facility]) Hct VFr Bld Auto 40.8 36.0-46.0 % LAB VTMP TEMPERATURE, BODY 36.5 C LAB LITERBG LITERS 4 Liters/m in LAB VO2TH O2 THERAPY NC = Nasal Cannula Performed By: #### 11214-8 # ### [facility] CLIA [id number] [address] [place] [address] [place] ANES POSTPROC EVAL Observed: 09/14/2024 4:47 PM Status: COMPLETED Source: [facility] HNO ID: [id number] Author: ERIC FAIRCHILD MD Service: ? Author Type: Anesthesiologist Type: Anesthesia Postprocedure Evaluation Filed: 09/14/2024 16:47 Note Text: POST ANESTHESIA EVALUATION NOTE : 1960 Procedure Summary Date: 09/14/24 Room / Location: [address] [facility] Anesthesia Start: 1036 Anesthesia Stop: 1533 Procedure: HERNIORRHAPHY INCISIONAL ABDOMINAL RECURRENT REDUCIBLE GREATER THAN 10cm (Abdomen) Diagnosis: Preoperative examination Incisional hernia, without obstruction or gangrene (Preoperative examination [Z01.818]) (Incisional hernia, without obstruction or gangrene [K43.2]) Surgeons: Kristine Vincent MD Responsible Provider: Eric Fairchild MD Anesthesia Type: general ASA Status: 3 Anesthesia Type: general Airway Type: ETT Last Vitals Vitals Value Taken Time BP 111/62 09/14/24 1645 Temp 37.2 ?C (99 ?F) 09/14/24 1533 Pulse 112 09/14/24 1645 Resp 17 09/14/24 1645 SpO2 95 % 09/14/24 1645 Vitals shown include unfiled device data. Post Anesthesia Patient Status Patient Evaluation: PACU. PACU/ICU Patient Condition: stable. Anticipated Disposition: inpatient floor planned admission. Neurological Status: aware and responsive. Pulmonary Status: breathing comfortably on supplemental oxygen Airway Control: returned to baseline unsupported. Cardiovascular Status: stable. Pain Management: clinically adequate - multimodal analgesia pain management approach Postoperative Hydration: acceptable. Intraoperative Events: no significant anesthesia events Post Operative Nausea/Vomiting Status: no significant post operative nausea or vomiting Recommendation: further care per PACU/ICU/floor team. Anesthesia Observations No Documentation SIGNATURE: Eric Fairchild MD PATIENT NAME: Parisa [facility] DATE: September 14, 2024 TIME: 4:47 PM CSN: [id number] BRIEF OP NOT Observed: 09/14/2024 3:08 PM Status: COMPLETED Source: [facility] HNO ID: [id number] Author: KIMBERLY GARCES MD Service: General Surgery Author Type: Fellow Type: Brief Op Note Filed: 09/14/2024 15:11 Note Text: BRIEF OPERATIVE / PROCEDURE NOTE LOG ID: [id number] SURGERY/PROCEDURE DATE: 09/14/2024 INCISION/PROCEDURE START TIME: 11:19 AM INCISION CLOSE/PROCEDURE END TIME: 3:05 PM SURGEON(S)/PROCEDURALIST(S) AND PROCESS EXPERT(S): Surgeons and Role: * Kristine Vincent MD - Primary * Timbo Paniagua MD - Resident - Assisting * Kimberly Garces MD - Fellow No Additional Staff SURGERY/PROCEDURE(S): open bilateral TAR ANESTHESIA: General FINDINGS: - [id number] defect - 55h06dy prolene mesh - 2 RM drains ESTIMATED BLOOD LOSS: 125cc SPECIMENS: * No specimens in log * COMPLICATIONS: None PRE-OP/PRE-PROCEDURE DIAGNOSIS: ventral incisional hernia POST-OP/POST-PROCEDURE DIAGNOSIS: * No post-op diagnosis entered * same SIGNATURE: Kimberly Garces MD PATIENT NAME: Parisa [facility] DATE: September 14, 2024 TIME: 3:08 PM PAGER/CONTACT #: [phone] ANES PROCEDURE NOTE Observed: 09/14/2024 11:07 AM Status: COMPLETED Source: [facility] HNO ID: [id number] Author: LUISANA KENNEDY APRN.CRNA Service: ? Author Type: Nurse Fabrication Welder Type: Anesthesia Procedure Notes Filed: 09/14/2024 11:08 Note Text: ANESTHESIOLOGY PROCEDURE NOTE Airway General Information Procedure Start Time/Medication Administration: 09/14/2024 10:51 AM Procedure End Time: 09/14/2024 11:51 AM Patient location during procedure: OR Timeout Performed Pre-procedure: timeout performed Consent Obtained: Yes Patient identity confirmed: arm band Staffing Performed by: HAIR TINTER Indications and Patient Condition Indications for airway management: anesthesia and airway protection Preoxygenated: yes anesthesia circuit Patient position: sniffing Method: asleep Cricoid Pressure: No Manual In-Line Stabilization: No Difficult Mask: No Airway Accessory: oral airway Final Airway Details Final airway type: endotracheal airway Final Endotracheal Airway: ETT Cuffed: yes Successful intubation technique: direct laryngoscopy Endotracheal tube insertion site: oral Blade: Ginger Blade size: #3 ETT size (mm): 7.0 Measured from: teeth Measurement (cm): 20 Placement verified by: chest auscultation and capnometry Cormack-Lehane Classification: grade I - full view of glottis Number of attempts at approach: 1 Ventilation between attempts: none Failed airway: no Unrecognized esophageal intubation: no Airway not difficult SIGNATURE: Luisana Brown APRN.CRNA PATIENT NAME: Parisa Sanchez DATE: September 14, 2024 TIME: 11:07 AM CSN: [id number] ANES PRE-OP Observed: 09/14/2024 10:06 AM Status: COMPLETED Source: [facility] HNO ID: [id number] Author: ERIC FAIRCHILD MD Service: ? Author Type: Anesthesiologist Type: Anesthesia Preprocedure Evaluation Filed: 09/14/2024 10:07 Note Text: ANESTHESIOLOGY DAY OF SURGERY NOTE : 1960 Procedure Information Date/Time: 09/14/24 1015 Procedure: HERNIORRHAPHY INCISIONAL ABDOMINAL RECURRENT REDUCIBLE GREATER THAN 10cm (Abdomen) Location: [facility] Surgeons: Kristine Vincent MD Estimated body mass index is 34.2 kg/m? as calculated from the following: Height as of this encounter: 158.8 cm (5' 2.5 ). Weight as of this encounter: 86.2 kg (190 lb). Most recent hematocrit and potassium results: Hematocrit 44.6 09/06/2024 Potassium 3.7 09/06/2024 Relevant Problems ANESTHESIA (+) PONV (postoperative nausea and vomiting) CARDIO (+) Primary hypertension ENDO (+) Type 2 diabetes mellitus without complication, without long-term current use of insulin (HCC) NEURO-PSYCH (+) History of DVT (deep vein thrombosis) I - PHYSICAL EVALUATION AIRWAY Patient intubated: No. Tracheostomy tube not present Mallampati: II. TM distance: >3 FB. Neck ROM: full ROM without neurological symptoms. Mouth opening: adequate. Short neck: no. Thick neck: no Microretrognathia/Micronagthia/Recessed Chin: No DENTAL Dental findings: missing tooth/teeth. II - ANESTHESIA PLAN ASA Score: 3 Anesthetic Plan: general Airway type: ETT The patient is not a current smoker. NPO Status: adequate Beta Tiffany Monitoring Plan Monitoring plan: standard ASA. Post Procedure Analgesic Plan Postoperative analgesic plan: multimodal analgesia and parenteral or oral opioids. Informed Consent Anesthetic risks, benefits, alternatives, personnel and consent discussed: yes. Patient / Responsible Constitution Party agrees to proceed: yes Patient / Surrogate agrees to blood products: Yes Significant changes in the patient condition since the History and Physical, not otherwise documented in primary service progress note: no. Potential Anesthesia issues that may suggest increased risk of complications or contraindication to planned procedure: none. Vitals Value Taken Time BP 134/73 09/14/24 0940 Pulse 96 09/14/24 0940 Resp 18 09/14/24 0822 Temp 36.3 ?C (97.3 ?F) 09/14/24 0822 SpO2 96 % 09/14/24 0940 Vitals shown include unfiled device data. Facility-Administered Medications as of 09/14/2024 Medication Dose Route Frequency lidocaine (PF) 10 mg/mL (1 %) 1-2 mg injection (XYLOCAINE) 0.1-0.2 mL INTRADERMAL PRN Or lidocaine 1% 0.25 mL subcutaneous j-tip syringe (XYLOCAINE) 0.25 mL SUBCUTANEOUS PRN lactated ringers iv infusion 5-30 mL/hr INTRAVENOUS CONTINUOUS NaCl 0.9% iv flush bag 20 mL INTRAVENOUS PRN [COMPLETED] heparin 5,000 Units injection 5,000 Units SUBCUTANEOUS ONCE clindamycin iv piggyback 900 mg in D5W 50 mL (CLEOCIN) 900 mg INTRAVENOUS Pre-Op Once [COMPLETED] fentaNYL 50 mcg/mL injection (SUBLIMAZE) INTRAVENOUS PRN [COMPLETED] midazolam (PF) injection (VERSED) INTRAVENOUS PRN Outpatient Medications as of 09/14/2024 Medication Sig fexofenadine/pseudoephedrine (MONICA-D 24 HOUR ORAL) amLODIPine (NORVASC) 5 mg tablet Take 5 mg by mouth every morning. escitalopram oxalate (LEXAPRO) 20 mg tablet Take 20 mg by mouth every morning. metFORMIN 1,000 mg tablet Take 1,000 mg by mouth daily with breakfast. lisinopril 20 mg tablet Take 20 mg by mouth once daily. simvastatin 20 mg tablet Take 20 mg by mouth daily at bedtime. CALCIUM CARBONATE/VITAMIN D3 (CALTRATE 600 + D ORAL) Take by mouth once daily. JARDIANCE 10 mg tablet Take 10 mg by mouth every morning. I have interviewed and examined the patient. I have reviewed the medical record and/or the pre-anesthesia evaluation, pertinent labs, and test results. This contains updated information obtained within 48 hours of Surgery/Procedure. SIGNATURE: Eric Fairchild MD PATIENT NAME: Parisa Sanchez DATE: September 14, 2024 TIME: 10:06 AM CSN: [id number] ANES PROCEDURE NOTE Observed: 09/14/2024 9:35 AM Status: COMPLETED Source: [facility] ID: [id number] Author: GIANA SEGURA MD Service: ? Author Type: Resident Type: Anesthesia Procedure Notes Filed: 09/14/2024 11:46 Note Text: Attestation signed by Giana Segura MD at 09/14/2024 11:46 AM APS STAFF NOTE; I HAVE SUPERVISED RESIDENT DOING PROCEDURE US WAS USED TIMEOUT DONE AGREE WITH RESIDENT NOTE Giana Li MD APS STAFF ANESTHESIOLOGY PROCEDURE NOTE Peripheral Nerve Block General Information Procedure Start Time/Medication Administration: 09/14/2024 9:15 AM Procedure End time: 09/14/2024 9:32 AM Patient location during procedure: pre-op Timeout Performed Pre-procedure: timeout performed Consent Obtained: Yes Patient identity confirmed: arm band and patient Reason for block: post-op pain management/at surgeon's request Staffing Fellow: Paul Downs MD Performed by: anesthesiologist and resident Preparation Sterility Preparation: hand hygiene performed prior to procedure, sterile gloves, drapes, and procedure tray, surgical cap used, mask used, sterile drape used during line insertion, skin prep agent completely dried prior to procedure Sterility Technique Not Completely Performed Due to Extreme Emergency: No Site Prep: Chloraprep Pre-Procedure Neuro Exam Sensory: intact Motor: intact Procedure Details Patient Position: sitting Monitoring: Pulse OX, EKG and NIBP Block Type Trunk: erector spinae plane block Approach: posterior Laterality: bilateral Injection Technique: single-shot Ultrasound Guided: Yes Image in Chart: Yes Local Infiltration: Yes Needle Needle Type: echogenic Needle Gauge: 20 G Needle Length: 10 cm Needle Localization: ultrasound and anatomical landmarks Assessment Injection assessment: negative aspiration, no paresthesia on injection, incremental injection and local visualized surrounding nerve on ultrasound Post-Procedure Neuro Exam Expected Regional Anesthesia: Yes Medications Administered bupivacaine (PF) 0.25 % (2.5 mg/mL) injection (SENSORCAINE MPF) - peripheral nerve block 40 mL - 09/14/2024 9:15:00 AM bupivacaine liposome (PF) 1.3 % (13.3 mg/mL) injection (EXPAREL) - INFILTRATION 133 mg - 09/14/2024 9:15:00 AM Comments Patient is confirmed by two identifiers, the Risks, benefits and alternatives of the regional anesthesia procedure were explained and confirmed with the patient who agrees to proceed. Standard ASA monitors were applied according to the procedure protocol. Vital signs were stable throughout the procedure, and the patient was communicating. No pain on injection and the procedure was well tolerated. The post- procedure diagnosis is the same as pre- procedure. No significant findings. No Complications unless noted above. No specimen collected. Minimal or no blood loss Discharge/transfer criteria are met upon discharge. SIGNATURE: Paul Downs MD PATIENT NAME: Parisa Sanchez DATE: September 14, 2024 TIME: 9:35 AM CSN: [id number] OPERATIVE NO Observed: 09/14/2024 12:00 AM Status: COMPLETED Source: [facility] HNO ID: [id number] Author: KRISTINE VINCENT MD Service: General Surgery Author Type: Physician Type: Operative Report Filed: 09/15/2024 10:07 Note Text: [facility] - Operative Report [address] [place] [address] [place] PARISA SANCHEZ : 1960 AGE: 64. SEX: F PATIENT TYPE: I [facility] [place]: [facility] LOCATION: [id number] ATTENDING PHYSICIAN: Kristine Vincent M.D. CSN NUMBER: [id number] DATE OF SURGERY/PROCEDURE: 09/14/2024 INCISION/PROCEDURE START TIME: 11:19 AM INCISION CLOSE/PROCEDURE END TIME: 3:05 PM PREOPERATIVE DIAGNOSIS: Recurrent incisional hernia. POSTOPERATIVE DIAGNOSIS: Recurrent incisional hernia. SURGEON: Kristine Vincent M.D. PROCESS EXPERT: Fellow, Dr. Kimberly Garces. Please note that no other qualified respiratory therapy assistant was available to help with the operation. Dr. Garces helped with the entirety of the operation including opening the abdomen, adhesiolysis, dissection, and reconstruction with mesh. SURGERY/PROCEDURE: Open left posterior myofascial component separation, open right posterior myofascial component separation incisional hernia repair with mesh. ANESTHESIA: General endotracheal. ESTIMATED BLOOD LOSS: 100 mL. COMPLICATIONS: None apparent. INDICATIONS FOR PROCEDURE: The patient is a 64-year-old female with prior history significant for , open cholecystectomy and right hemicolectomy in the past and multiple hernia repairs, who presented with a recurrent incisional hernia. Prior to the operation, a detailed discussion was had regarding associated risks, potential complications, and possible outcomes of surgery. The patient stated she understood and wished to proceed with the surgery as outlined. DESCRIPTION OF PROCEDURE: The patient was brought to the operating room and placed supine on the OR table. Anesthesia was induced without any complications. Keller catheter was placed under sterile conditions. She received IV clindamycin and 5000 units of subcutaneous heparin and had bilateral sequential compression devices in place and on. After anesthesia was induced without any complications, Keller catheter was placed under sterile conditions. The abdomen was prepped and draped in the usual sterile fashion. A midline vertical incision was carried down through the skin and subcutaneous tissues. We entered safely in the upper abdomen and carefully dissected the soft tissue away from the midline and opened up the fascia from the cephalad aspect all the way down towards the feet. We lysed the adhesions which were minimal in the abdomen to clear both sides of the abdominal wall and then measured the defect to be 17 cm x 29 cm in greatest width by length respectively. There were some old Prolene sutures in the anterior fascia that were all removed and then we started on the patient's left side, taking down the posterior rectus sheath in a hemostatic fashion out to the perforating neurovascular bundles and the deep inferior epigastric vessels, which were identified and preserved. Coming just medial to this, we incised the posterior lamella of the internal oblique and posterior rectus sheath to reveal the transversus abdominis muscle in the upper abdomen and transversalis fascia in the lower abdomen. These were divided in a caudal to cephalad direction. We exploited the retroperitoneal plane back to the lateral aspect of the psoas and up underneath the costal margin toward the central tendon of the diaphragm and in the lower abdomen, it was dissected down the space of Retzius and we preserved the round ligament. In the upper abdomen, we dissected up underneath the costal margin towards the central tendon of the diaphragm. On the right side, we took down the posterior rectus sheath in a hemostatic fashion out to the perforating neurovascular bundles the deep inferior epigastric vessels, which were identified and preserved. Coming just medial to this, we incised the posterior lamella of the internal oblique and the posterior rectus sheath to reveal the transversus abdominis muscle in the upper abdomen and transversalis fascia in the lower abdomen. These were divided in a caudal to cephalad direction. We exploited the retroperitoneal plane back to the lateral aspect of the psoas and up beneath the costal margin towards the central tendon of the diaphragm. In the lower abdomen, we dissected down in the space of Retzius and divided the round ligament between 2 medium clips. Once hemostasis was ensured on both sides, the posterior rectus sheath was closed using 2-0 running Vicryl sutures and came together without any undue tension. A 30 x 30 cm piece of Prolene mesh was introduced in the retromuscular position. Two drains were brought and left on top of the mesh and underneath the muscle. The anterior fascia was run closed using #1 PDS sutures and came together without any undue tension. The skin was closed in absorbable layers and Exofin was applied. The patient was awoken and taken to the recovery room in excellent condition. COUNTS: All sponge, needle, and instrument counts were reported to be correct x3 at the end of the case. I was present and scrubbed for the entirety of the case. Kristine Vincent M.D. AP:[id number] /[id number] CONFIRM BLOOD TYPE Collected: 1:26 PM Status: F Source: [facility] Order Comment: Specimen Type : BLOOD SPECIMEN Ordering Facility: [facility] Address: [address] [place] [address] TYPE CODE TESTS RESULT OUT OF RANGE REFERENCE UNITS LAB [id number] ABO A LAB [id number] RH Positive Performed By: #### CONABO ## ## [facility] CLIA [id number] [address] [place] [address] OF [facility] HISTORY PHYSICAL Observed: 09/06/2024 1:02 PM Status: COMPLETED Source: [facility] HNO ID: [id number] Author: KANCHAN BURTON PA-C Service: ? Author Type: Physician Filter Press Operator Type: H&P Filed: 09/07/2024 14:53 Note Text: [facility] HISTORY AND PHYSICAL EXAMINATION SERVICE DATE: 09/06/2024 SERVICE TIME: 1:00 PM PRIMARY CARE PHYSICIAN: Mack Andrade MD, DO Assessment Patient has the following medical conditions which may affect adam-operative course: Colorectal cancer -s/p resection and chemo ~2004 Primary hypertension -controlled with Amlodipine and Lisinopril -BP in office today 122/72 PONV (postoperative nausea and vomiting) -reported by patient Type 2 diabetes mellitus without complication, without long-term current use of insulin (HCC) -on Jardiance and Metformin -BP in office today 122/72 History of DVT (deep vein thrombosis) -DVT in lower extremity in 2005 while receiving chemo for colon cancer -h/o PICC line DVT in RUE around 2009 -denies additional episodes -no longer on AC Class 1 obesity due to excess calories without serious comorbidity with body mass index (BMI) of 34.0 to 34.9 in adult -BMI 34.28 ANESTHESIA FINDINGS: Intubation History: No history of difficult intubation Significant Anesthesia Considerations: none Airway History: No history of difficult airway James Activity Status Index: METS: Walk indoors, such as around the house (1.75 METs) Do light work around the house, such as dusting or washing dishes (2.70 METs) Take care of self; that is eating, dressing, bathing, using the toilet (2.75 METs) Walk a block or two on level ground (2.75 METs) Do moderate work around the house, such as vacuuming, sweeping floors, or carrying in groceries (3.50 METs) Climb a flight of stairs or walk up a hill (5.50 METs) DASI Score: 18.95 Patient denies any chest pain or undue shortness of breath with the above physical activity. Clinical Frailty Scale: 3. Well, with treated comorbid disease STOP-Bang Score: Has or is being treated for high blood pressure Patient over 50 years old Denies snoring loudly Denies feeling tired, fatigued, or sleepy during the daytime Has not been observed to stop breathing or choking/gasping during sleep BMI less than or equal to 35 kg/m2 Does not have a large neck Non-male patient STOP-Bang Score: 2 I - PHYSICAL EVALUATION AIRWAY Patient intubated: No. Mallampati: II. TM distance: >3 FB. Neck ROM: full ROM without neurological symptoms. Mouth opening: adequate. Short neck: no. Thick neck: no Lip Bite Test: II Microretrognathia/Micronagthia/Recessed Chin: No DENTAL Dental findings: teeth intact. II - ANESTHESIA PLAN Anesthetic plan additional comments: *PACC/TCI - anesthesia choice. Beta Tiffany Monitoring Plan Post Procedure Analgesic Plan PLAN This patient is optimally prepared for surgery. CONSULTS: Patient does not require consults for optimization at this time. The Following Tests/Procedures Have Been Initiated: EKG, CBC, CMP, PT, PTT, TANDS and conabo ordered by surgical service Planned Anesthetic: Per anesthesia choice REASON FOR VISIT: Parisa Sanchez is a 64 year old female who is scheduled for Procedure(s): HERNIORRHAPHY INCISIONAL ABDOMINAL RECURRENT REDUCIBLE GREATER THAN 10cm (N/A) at the request of Kristine Vidales MD for consultation. My final recommendation will be communicated back to the requesting physician by way of shared medical record or letter. Subjective The patient has the following: COVID-19 Immunization Status Current Care Gaps Covid-19 Vaccine () Overdue since 06/25/2024 12/27/2023 Imm Admin: COVID-19 vaccine, age 12+ yr (MODERNA) 01/31/2023 Imm Admin: COVID-19 vaccine, age 12+ yr (PFIZER-BIONTECH COMIRNATY) 12/20/2021 Imm Admin: COVID-19 vaccine, age 12+ yr, bivalent (PFIZER-BIONTECH) Only the first 3 history entries have been loaded, but more history exists. CHIEF COMPLAINT: Incisional hernia HPI: Parisa Sanchez is a 64 year old female who presents to [facility] today for preop exam. Patient is scheduled for the above procedure on 09/14/24. Patient underwent cholecystectomy and colon resection for cancer in the past. She has developed a recurrent hernia. She has had 4 prior hernia repairs. Denies fevers, chills, chest pain, and SOB. REVIEW OF SYSTEMS: General: No weight loss, malaise or fevers. Neurological: Negative for: headaches, impaired sensorium, seizures, TIA and strokes. Respiratory: Negative for: asthma, COPD, current cough, dyspnea, pneumonia within 6 weeks, tobacco use, URI < 2 weeks and obstructive sleep apnea. Cardiovascular: Positive for: DVT/PE, hyperlipidemia and hypertension Negative for: angina, anticoagulation therapy, arrhythmia, CAD, chest pain, CHF, congenital heart defect, murmur/valvular heart disease and PVD. GI: Negative for: abdominal pain, GERD, liver disease, nausea, vomiting and ETOH >2 drinks/day. : Negative for: dysuria, frequent urination, hematuria, nephrolithiasis and renal failure. GRAVITY MANAGER: Negative for abnormal vaginal bleeding, abnormal vaginal discharge. Endocrine: Positive for: diabetes mellitus. Negative for: hyperthyroidism, hypothyroidism and steroid for chronic problem. Hematology: No history of bleeding or clotting disorder. Patient is not taking anti-coagulation or platelet medications. No history of hematological symptoms or problems. Oncology: Positive for h/o colon cancer Psych: No history of psychiatric symptoms or problems. Musculoskeletal: Negative for joint pain or swelling, back pain or muscle pain. Skin: Negative for lesions, rash and itching. Implanted Devices: No implanted devices. PAST MEDICAL HISTORY Diagnosis Date Colorectal cancer (HCC) History of DVT (deep vein thrombosis) 09/06/2024 Type 2 diabetes mellitus without complication, without long-term current use of insulin (HCC) 09/06/2024 PAST SURGICAL HISTORY Procedure Laterality Date SECTION HX x 3 PAST SURGICAL HISTORY OF colectomy for cancer + appendectomy PAST SURGICAL HISTORY OF abdominal surgery as a child PAST SURGICAL HISTORY OF 4 hernia repairs PAST SURGICAL HISTORY OF hysterectomy PAST SURGICAL HISTORY OF heel tendon lengthening REMOVAL GALLBLADDER FAMILY HISTORY Problem Relation Age of Onset Breast Cancer Mother Social History Tobacco Use Smoking status: Never Smokeless tobacco: Never Substance Use Topics Alcohol use: Yes Comment: may have 1 drink per year Drug use: Never Prior to Admission medications as of 09/06/24 1259 Medication Sig Last Dose Taking fexofenadine/pseudoephedrine (MONICA-D [...] D ORAL) Take by mouth once daily. No medication comments found. ALLERGIES Allergen Reactions Cephalexin Rash Prednisone Rash Percocet [Oxycodone* Vomiting Adhesive Tape-Silic* Rash Objective PHYSICAL EXAM: General: alert and oriented, healthy appearance and obese. Pertinent negatives noted - not distressed. Skin: normal color, no rash or lesions. HEENT: EOM intact and pupils equal round. Pertinent negatives noted - no carotid bruit. Cardiovascular: regular rate and rhythm, normal S1 and S2, no rub, murmurs, or gallop. Respiratory: normal breath sounds, no wheezes or crackles. No chest wall deformity or tenderness. Abdomen: bowel sounds present. Extremities: no deformity, no edema or tenderness, no joint swelling or clubbing. Neurological: normal cognition and motor skills. Gait normal. No weakness or sensory deficit. PAIN ASSESSMENT: VITALS: BP 122/72 Pulse 82 Temp (Src) 97.7 (Temporal) Ht 5' 2.5 (1.59m) Wt 190 lb 7.6 oz (86.4kg) SpO2 97% BMI 34.26 kg/(m2). Diagnostic tests reviewed for today's visit: Lab Value Units Date High Low HB 15.0 g/dL 09/06/2024 15.5 11.5 HCT 44.6 % 09/06/2024 46.0 36.0 WBC 8.79 k/uL 09/06/2024 11.00 3.70 PLT 217 k/uL 09/06/2024 400 150 NA 141 mmol/L 09/06/2024 144 136 K 3.7 mmol/L 09/06/2024 5.1 3.7 GLUC 127 mg/dL 09/06/2024 99 74 BUN 11 mg/dL 09/06/2024 21 7 CREAT 0.38 mg/dL 09/06/2024 0.96 0.58 PTSEC 11.4 sec 09/06/2024 13.0 9.7 INR 1.1 no uni* 09/06/2024 1.3 0.9 APTT 26.6 sec 09/06/2024 32.4 23.0 ALT 56 U/L 09/06/2024 38 7 AST 44 U/L 09/06/2024 35 13 TBILI 0.6 mg/dL 09/06/2024 1.3 0.2 TSH No results within date range. Lab Value Units Date High Low HCGQT No results within date range. UHCG No results within date range. HCG, BODY* No results within date range. Lab Value Units Date High Low ABORHD No results within date range. ABSCREEN No results within date range. No results found for: HBA1C Recent Results (from the past 8760 hours) ECG COMPLETE Collection Time: 09/06/24 11:56 AM Result Value Ventricular Rate 80 Atrial Rate 80 P-R Interval 142 QRS Duration 88 QT Interval 400 QTC Calculation (Bazett) 461 Calculated P Dunreith 49 Calculated R Dunreith -16 Calculated T Dunreith 45 Impression NORMAL SINUS RHYTHM LOW VOLTAGE QRS, CONSIDER PULMONARY DISEASE, PERICARDIAL EFFUSION, OR NORMAL VARIANT BORDERLINE ECG No results found for this or any previous visit (from the past 73589 hours). Instructions Given to Patient: Instructions located in the after visit summary. Patient given verbal and written preop instructions and voices comprehension and compliance. SIGNATURE: Kanchan Burton PA-C PATIENT NAME: Parisa Sanchez DATE: September 06, 2024 TIME: 1:02 PM PAGER/CONTACT #: ECG COMPLETE Observed: 09/06/2024 11:56 AM Status: F Source: [facility] Ventricular Rate : 80 BPM Atrial Rate : 80 BPM P-R Interval : 142 ms QRS Duration : 88 ms Q-T Interval : 400 ms QTC Calculation(Bazett) : 461 ms Calculated P Dunreith : 49 degrees Calculated R Dunreith : -16 degrees Calculated T Dunreith : 45 degrees NORMAL SINUS RHYTHM LOW VOLTAGE QRS, CONSIDER PULMONARY DISEASE, PERICARDIAL EFFUSION, OR NORMAL VARIANT BORDERLINE ECG Confirmed by MD AGUILERA TAMANNA ([id number]) on 09/26/2024 9:23:48 PM NAME : PARISA SANCHEZ PID : [id number] : 1960 Gender : Female Race : ORD : [id number] Procedure Date : Sep 06 2024 11:56:32 Edit Date : Sep 26 2024 21:24:04 Diagnosis: NORMAL SINUS RHYTHM LOW VOLTAGE QRS, CONSIDER PULMONARY DISEASE, PERICARDIAL EFFUSION, OR NORMAL VARIANT BORDERLINE ECG Confirmed by MD AGUILERA TAMANNA ([id number]) on 09/26/2024 9:23:48 PM Test Reason : Location : 119 : A17 A17 Overread By : MD AGUILERA TAMANNA Edited By : MD AGUILERA TAMANNA Referred By : EVE FUENTES Acquired by : YUSUF,DONG CBC W AUTO DIFF BLD Collected: 09/06/2024 11:37 AM S tatus: F Source: [facility] Order Comment: Specimen Type : BLOOD SPECIMEN Ordering Facility: [facility] Address: [place] [address] TYPE CODE TESTS RESULT OUT OF RANGE REFERENCE UNITS LAB 6690-2([facility]) WBC # Bld Auto 8.79 3.70-11.00 k/uL LAB 789-8([facility]) RBC # Bld Auto 5.15 3.90-5.20 m/ uL LAB 718-7([facility]) Hgb Bld-mCnc 15.0 11.5-15.5 g/dL LAB 4544-3([facility]) Hct VFr Bld Auto 44.6 36.0-46.0 % LAB 787-2([facility]) MCV RBC Auto 86.6 80.0-100.0 fL LAB 785-6([facility]) MCH RBC Qn Auto 29.1 26.0-34.0 p g LAB 786-4([facility]) MCHC RBC Auto-mCnc 33.6 30.5-36.0 g/dL LAB 67248-7([facility]) RDW RBC-Rto 12.9 11.5-15.0 % LAB 777-3([facility]) Platelet # Bld Auto 217 150-400 k/uL LAB 14964-5([facility]) PMV Bld Auto 10.2 9.0-12.7 fL LAB 770-8([facility]) Neutrophils/leuk NFr Bld Auto 60.0 % LAB 751-8([facility]) Neutrophils # Bld Auto 5.28 1.45-7.50 k/uL LAB 736-9([facility]) Lymphocytes/leuk NFr Bld Auto 29.7 % LAB 731-0([facility]) Lymphocytes # Bld Auto 2.61 1.00-4.00 k/uL LAB 5905-5([facility]) Monocytes/leuk NFr Bld Auto 8.0 % LAB 742-7([facility]) Monocytes # Bld Auto 0.70 <0.87 k/uL LAB 713-8([facility]) Eosinophil/leuk NFr Bld Auto 1.3 % LAB 711-2([facility]) Eosinophil # Bld Auto 0.11 <0.46 k/uL LAB 706-2([facility]) Basophils/leuk NFr Bld Auto 0.7 % LAB 704-7([facility]) Basophils # Bld Auto 0.06 <0.11 k/uL LAB 28842-3([facility]) Imm Granulocytes/brendan k NFr Bld Auto 0.3 % LAB 48949-8([facility]) Imm Granulocytes # Bld Auto 0.03 <0.10 k/uL LAB 00137-9([facility]) nRBC/100 WBC Bld-Rto 0.0 /100 WBC LAB 771-6([facility]) nRBC # Bld Auto <0.01 <0.01 k/u L LAB 77563-6([facility]) Differential method Bld Auto Performed By: #### 77475-4 # ### [facility] CLIA [id number] [address] [place] [address] OF [facility] PT PNL PPP Collected: 5 11:37 AM Status: F Source: [facility] Order Comment: Specimen Type : BLOOD SPECIMEN Ordering Facility: [facility] Address: [address] [place] [address] TYPE CODE TESTS RESULT OUT OF RANGE REFERENCE UNITS LAB 5902-2([facility]) Prothrombin time 11.4 9.7-13.0 sec LAB 6301-6([facility]) INR PPP 1.1 0.9-1.3 Result Comment: Vitamin K An tagonist (VKA) Therapeutic Range: INR 2 to 3 (Target INR of 2.5) Note: For patients treated with VKA drugs, such as warfarin, the [place] [employer] 2012 Guideline recommends a therapeutic INR range of 2 to 3 (target INR of 2.5). This recommendation includes high-risk patients with antiphospholipid syndrome with previous arterial or venous thromboembolism, current-generation mechanical or bioprosthetic aortic heart valve replacement. Note: Patients with mechanical aortic valve replacement and additional risk factors for thromboembolic events (atrial fibrillation, previous thromboembolism, LV dysfunction, hypercoagulable conditions) or an older generation mechanical AVR (i.e., ball in-Cage) or any mechanical MVR should have a INR therapeutic range of 2.5 to 3.5 (target INR of 3). Benedicto YATES, et al. Chest 2012, 141:7S-47S Manolo RA, et al. JAC 2017, 70: 252-289 Performed By: #### 73566-2, 86927-0 #### [facility] CLIA [id number] [address] [place], [place] [id number] [place] APTT PPP Collected: 11:37 AM Status: F Source: [facility] Order Comment: Specimen Type : BLOOD SPECIMEN Ordering Facility: [facility] Address: [address] [place] [address] TYPE CODE TESTS RESULT OUT OF RANGE REFERENCE UNITS LAB 78160-5([facility]) aPTT PPP 26.6 23.0-32.4 sec Performed By: #### 98163-4, 73295-2 #### [facility] CLIA [id number] [address] [place] [address] [place] COMP METAB 2000 PNL SERPL Collected: 11:37 AM Status: F Source: [facility] Comment: Specimen Type : BLOOD SPECIMEN Ordering Facility: [facility] Address: [address] [place] [address] TYPE CODE TESTS RESULT OUT OF RANGE REFERENCE UNITS LAB 2885-2(INC) Prot SerPl-mCnc 7.7 6.3-8.0 g/dL LAB 1751-7(LO[facility]) Albumin SerPl-mCnc 4.5 3.9-4.9 g/dL LAB 25480-3(LOINC) Calcium SerPl-mCnc 10.1 8.5-10.2 mg/dL LAB 1975-2(LOINC) Bilirub SerPl-mCnc 0.6 0.2-1.3 mg/dL LAB 6768-6(LOINC) ALP SerPl-cCnc 59 34-123 U/L LAB 1920-8(LOINC) AST SerPl-cCnc 44 High 13-35 U/L LAB 1742-6(LOINC) ALT SerPl-cCnc 56 High 7-38 U/L LAB 2345-7(LOINC) Glucose SerPl-mCnc 127 High 74-99 mg/dL Result Comment: The [place] [employer] (ADA) provides guidance for cutoff values for fasting glucose and random glucose. The ADA defines fasting as no caloric intake for at least 8 hours. Fasting plasma glucose results between 100 to 125 mg/dL indicate increased risk for diabetes (prediabetes). Fasting plasma glucose results greater than or equal to 126 mg/dL meet the criteria for diagnosis of diabetes. In the absence of unequivocal hyperglycemia, results should be confirmed by repeat testing. In a patient with classic symptoms of hyperglycemia or hyperglycemic crisis, random plasma glucose results greater than or equal to 200 mg/dL meet the criteria for diagnosis of diabetes. Reference: Standards of Medical Care in Diabetes 2016, [place] [employer] Association. Diabetes Care. 2016.39(Suppl 1). LAB 3094-0(LOINC) BUN SerPl-mCnc 11 7-21 mg/ dL LAB 2160-0(LOINC) Creat SerPl-mCnc 0.38 Low 0.58-0.96 mg/dL LAB 2951-2(LOINC) Sodium SerPl-sCnc 141 136-144 mmol/L LAB 2823-3(LOINC) Potassium SerPl-sCnc 3.7 3.7-5.1 mmol/L LAB 2075-0(LOINC) Chloride SerPl-sCnc 106 98-107 mmol/L LAB 2028-9(LOINC) CO2 SerPl-sCnc 21 Low 22-30 mmo l/L LAB 86731-0(LOINC) Anion Gap SerPl-sCnc 14 8-15 mmol/L LAB 82284-1(LOINC) Creatinine + eGFR Pnl SerPlBld 111 >=60 mL/min/1 .73m??? Result Comment: Estimated Gl omerular Filtration Rate (eGFR) is calculated using the 2020 CKD-EPI creatinine equation. This equation utilizes serum creatinine, sex, and age as parameters. The creatinine assay has traceable calibration to isotope dilution-mass spectrometry. Refer to KDIGO guidelines for clinical interpretation. In patients with unstable renal function, e.g. those with acute kidney injury, the eGFR may not accurately reflect actual GFR. Performed By: #### 72681-3 # ### [facility] CLIA [id number] [address] [place] [address] [place] TYPE AND SCREEN,30 DAY Collected: 09/06 11:37 AM Status: F Source: [facility] Order Comment: Specimen Type : BLOOD SPECIMEN Ordering Facility: [facility] Address: [address] [place] [address] TYPE CODE TESTS RESULT OUT OF RANGE REFERENCE UNITS LAB [id number] ABO A LAB [id number] RH Positive LAB [id number] ANTIBODY SCREEN Negative Performed By: #### [id number] ## ## [facility] CLIA [id number] [address] [place] [address] [id number] [place] [address] CNOV Observed: 09/06/2024 11:00 AM Status: COMPLETED Source: [facility] Office Visit (MANOLO) PARISA SANCHEZ ([id number]) 1960 F Date Time Provider Department 09/06/24 11:00 AM NADEGE ELIZONDO During your visit today, we recorded the following information about you: Nadege Elizondo, PhD 09/06/2024 11:33 AM Signed [facility] [place] Name: Parisa Sanchez MR#: [id number] Date: 09/06/2024 Time: 1 hour Referred by: Dr. Vincent Reason for Referral: address psychological factors as they can affect post-operative recovery. Information relayed back to referral source via electronic medical record Her chart was reviewed, and she gave her own extensive medical, surgical and social history. She was seen with her . Her h/o is notable for hearing deficit, anxiety- not well controlled, and depression- better controlled with Lexapro. She also finds prayer helpful. The basic underlying psychological and physiological mechanisms behind the brain body connection were explained. She was introduced to the concepts and techniques that she can employ to help with pain and healing after surgery. She was given the link to the Behavioral Medicine Program website, instructed on the use of the relaxation recordings, and told of the informational content. She was given the opportunity to ask questions and informed that she could be seen again. Nadege Rodriguez, Ph.D. Referring Provider: EVE FUENTES [[id number]] Allergies As of Date: 09/06/2024 Noted Allergy Reaction CEPHALEXIN 01/05/2024 2 - Rash PREDNISONE 01/05/2024 2 - Rash PERCOCET (OXYCODONE-ACETAMINOPHEN)07/22/2012 11 - Vomiting ADHESIVE TAPE-SILICONES 04/19/2024 2 - Rash Date Reviewed: 04/19/2024 Reviewed by: Kristine Vincent MD - Fully Assessed Visit Diagnoses:Preoperative examination [Z01.818] Incisional hernia, without obstruction or gangrene [K43.2] Order(s):CONSULT TO [facility] [[id number]] Order #: [id number]: 1 Prescriptions as of 09/06/2024 - fexofenadine/pseudoephedrine (MONICA-D 24 HOUR ORAL) - JARDIANCE 10 mg tablet Take 10 mg by mouth every morning. - amLODIPine (NORVASC) 5 mg tablet Take 5 mg by mouth every morning. - escitalopram oxalate (LEXAPRO) 20 mg tablet Take 20 mg by mouth every morning. - metFORMIN 1,000 mg tablet Take 1,000 mg by mouth daily with breakfast. - lisinopril 20 mg tablet Take 20 mg by mouth once daily. - simvastatin 20 mg tablet Take 20 mg by mouth daily at bedtime. - CALCIUM CARBONATE/VITAMIN D3 (CALTRATE 600 + D ORAL) Take by mouth once daily. Problem List As Of Date 09/06/2024 Noted Resolved Colorectal cancer [C19] Encounter Status:Closed by NADEGE ELIZONDO on 09/06/24 PROGRESS Observed: 09/06/2024 10:36 AM Status: COMPLETED Source: [facility] ID: [id number] Author: NADEGE ELIZONDO, PhD Service: ? Author Type: Psychologist Type: Progress Notes Filed: 09/06/2024 11:33 Note Text: [facility] [place] Name: Parisa Sanchez MR#: [id number] Date: 09/06/2024 Time: 1 hour Referred by: Dr. Vincent Reason for Referral: address psychological factors as they can affect post-operative recovery. Information relayed back to referral source via electronic medical record Her chart was reviewed, and she gave her own extensive medical, surgical and social history. She was seen with her . Her h/o is notable for hearing deficit, anxiety- not well controlled, and depression- better controlled with Lexapro. She also finds prayer helpful. The basic underlying psychological and physiological mechanisms behind the brain body connection were explained. She was introduced to the concepts and techniques that she can employ to help with pain and healing after surgery. She was given the link to the Behavioral Medicine Program website, instructed on the use of the relaxation recordings, and told of the informational content. She was given the opportunity to ask questions and informed that she could be seen again. Nadege Rodriguez, Ph.D. PATIENT EDUCATION Observed: 05/26/2024 8:57 AM Status: F Source: [facility] Patient Education Oncology Cancer Screening: Female A cancer screening is a test or exam that checks for cancer. Work with your health care provider to create a cancer screening schedule that protects your health. Who should have screening? All females should be considered for screening of certain cancers, including breast cancer, cervical cancer, colorectal cancer, endometrial cancer, lung cancer, and skin cancer. Your health care provider may recommend screenings for other types of cancer if: ??? You have had cancer before. ??? You have a family member with cancer. ??? You have genes that could increase the risk of cancer. ??? You have risk factors for certain cancers, such as current or past use of tobacco products or being overweight. What are the benefits of screening? Cancer screening is done to look for cancer in the very early stages, before it spreads and becomes harder to treat and before you would start to notice symptoms. Finding cancer early improves the chances of successful treatment. It may save your life. When should I be screened for cancer? When you should be screened for cancer depends on: ??? Your age. ??? Your medical history and your family's medical history. ??? Certain lifestyle factors, such as smoking or other use of tobacco products. ??? Environmental exposure, such as to asbestos. How is screening done? Breast cancer Breast cancer screening is done with a test that takes images of breast tissue (mammogram) using an X-ray machine. Here are some screening guidelines for females at average risk: ??? When you are 40?44 years old, you should be given the choice to start having mammograms. ??? When you are 45?54 years old, you should have a mammogram every year. ??? You may start having mammograms before you are 45 years old if you have risk factors for breast cancer, such as having an immediate family member with breast cancer. ??? At 55 years old or older, you should have a mammogram every 1?2 years for as long as you are in good health and have a life expectancy of 10 years or longer. ??? It is important to know what your breasts look and feel like so you can report any changes to your health care provider. Cervical cancer Cervical cancer screening is done with an HPV (human papillomavirus) test to identify the virus that causes cervical cancer. To perform the test, a health care provider takes a swab of cells from the lowest part of the uterus (cervix) during a pelvic exam. This test may be performed along with a Pap test. This testchecks for abnormalities in the cervix. ??? All females at average risk should consider being screened for cervical cancer starting no later than 25 years old and continuing until 65 years old. Screening should not begin earlier than 21 years old. You will have tests every 3?5 years, depending on your results and the type of screening test. Talk with your health care provider about which screening test is right for you and how often you should be screened. ? If you have had the HPV vaccine, you will still be screened for cervical cancer and follow normal screening recommendations. You do not need to be screened for cervical cancer if any of the following apply to you: ??? You are older than 65 years old and you have had normal screening tests in the past 10 years with no serious cervical precancer or cancer in the last 25 years. ??? Your cervix and uterus have been removed, and you have never had cervical cancer or abnormal cells that could become cancer (precancerous cells). Colorectal cancer Colorectal cancer screening looks for cancer or for growths called polyps that often form before cancer starts. Tests to look for cancer or polyps include: ??? Colonoscopy or flexible sigmoidoscopy. For these procedures, a flexible tube with a small camera is inserted into the rectum. ??? CT colonography. This test uses X-rays and contrast dye to check the colon for polyps. Tests to look for cancer in the stool (feces) include: ??? Guaiac-based fecal occult blood test (FOBT). This test can find blood in stool. It can be done at home with a kit. ??? Fecal immunochemical test (FIT). This test can find blood in stool. For this test, you will need to collect stool samples at home. ??? Stool DNA test. This test looks for blood in stool and any changes in DNA that can lead to colon cancer. For this test, you will need to collect a stool sample at home and send it to a lab. All adults should have screenings starting at 45 years old and continuing through 75 years old. For females 76?85 years old, the decision to be screened should be based on a person's preferences, life expectancy, overall health, and prior screening history. Your health care provider may recommend screening before 45 years old. You will have tests every 1?10 years, depending on your results and the type of screening test. People at increased risk should start screening at an earlier age. Talk with your health care provider about which screening test is right for you and how often you should be screened. Endometrial cancer There is no standard screening test for endometrial cancer, and females at average risk do not routinely need to have this screening. Talk with your health care provider about whether screening is right for you. If it is, this screening is performed through: ??? Endometrial tissue biopsy. This tests a sample of tissue taken from the lining of the uterus. ??? Vaginal ultrasound. If you are at increased risk for endometrial cancer, you may need to have these tests more often than normal. You are at increased risk if: ??? You have a family history of ovarian, uterine, or certain types of colon cancer. ??? You are taking tamoxifen, a medicine used to treat breast cancer. If you have reached menopause, it is especially important to talk with your health care provider about any vaginal bleeding or spotting. Screening for endometrial cancer is not recommended for females who do not have symptoms of the cancer, such as vaginal bleeding. Lung cancer Lung cancer screening is done with a CT scan that looks for abnormal changes in the lungs. Discuss lung cancer screening with your health care provider if you are 50?80 years old and if any of the following apply to you: ??? You currently smoke. ??? You used to smoke heavily. ??? You have a smoking history of 1 pack of cigarettes a day for 20 years or 2 packs a day for 10 years. You may need to be screened every year if you smoke heavily or if you used to smoke. Skin cancer Skin cancer screening is done by checking the skin for unusual moles or spots and any changes in existing moles. Your health care provider should check your skin for signs of skin cancer at every physical exam. You should check your skin every month and tell your health care provider right away if anything looks unusual. Females with a dgvhbj-sbdf-mdvqco risk for skin cancer may want to see a cat skinner (activated sludge operator) for an annual body check. Where to find more information ??? [place] [employer]: cancer.org ??? Centers for Disease Control and Prevention: cdc.gov ??? National Cancer [place]: cancer.gov ??? U.S. Department of Health and Human Services: [place].gov Contact a health care provider if: ??? You have concerns about any signs or symptoms of cancer. These may include: ? Skin problems. You may have: ? Moles of an unusual shape or color. ? Changes in existing moles. ? A sore on your skin that does not heal. ? Tiredness (fatigue) that does not go away. ? Losing weight without trying. ? Blood in your urine or stool. ? Problems with coughing or breathing. These may include: ? Coughing or trouble breathing that does not go away. ? Coughing up blood. ? Lumps or other changes in your breasts. ? Vaginal bleeding, spotting, or changes in your period. ? Frequent pain or cramping in your abdomen. This information is not intended to replace advice given to you by your health care provider. Make sure you discuss any questions you have with your health care provider. Document Revised: 02/18/2023 Document Reviewed: 09/02/2022 [employer] Patient Education ? 2023 [employer] 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 AP wo con 04/19/24 [facility]. History of Present Illness Tests reviewed: external records: labs, CT, MRI, notes I have reviewed the previous health record information and history for this patient. I have reviewed and verified the staff HPI to be accurate for this encounter. Review of Systems PHQ Score Initial Depression Screen Score: 0 SCORE ROS - Provider Constitutional: denies weight loss, denies hot flashes. Eyes: denies eye problems. Gastrointestinal: denies nausea, denies vomiting. Cardiovascular: denies chest pain or angina. Integumentary: no dryness Musculoskeletal: denies musculoskeletal symptoms. ENMT: denies otolaryngeal symptoms. Respiratory: no shortness of breath. Heme/Lymph: denies easy bleeding tendency, denies easy bruising tendency. Psychiatric: no confusion, no anxiety. Genitourinary: See HPI. Physical Exam Vitals & Measurements T: 37 ???C(Oral) HR: 88(Peripheral) RR: 18 BP: 126/86 HT: 63 in HT: 160 cm WT: 191.802 lb WT: 87.0 kg BMI: 33.98 General Appearance: alert, no distress, well nourished, well developed female. Assessment/Plan Parisa is a 64 yo F new pt here to discuss spot on kidney. Was going to follow up with Dr Rojas ([facility], ) but had to changes specialists d/t insurance. Pt here with her , Autumn, who helped with history. Pt unable to provide urine sample today. BBS 13. No urinary issues. Denies gross hematuria, infections. Hx of Right hemicolectomy, hysterectomy, hernia mesh removal 1. Renal lesion (N28.9: Disorder of kidney and ureter, unspecified) MRI Ab w/wo con 02/19/23 [facility] - Abdomen enhancing partially exophytic anterior right upper pole renal lesion measures 1.6 cm. Nephrometry score [address] AP wo con 04/19/24 [facility] - 1.7 x 1.5 cm lateral RUP partially exophytic lesion. Greater in density than expected for a simple renal cyst. This may represent a hemorrhagic/proteinaceous cyst or a solid renal mass. 05/03/24 - Cre 0.51 States she is going to have hernia surgery in August and her surgeon (Dr Kristine Vincent) wanted to ensure renal lesion is being followed. Was told by Dr Rojas that given its location, it was too much of a risk to go through her back and since the lesion is small, may not be beneficial to bx. Cryoblation with IR - states unsure if window for access, risk of lung/bowel injury. Reviewed that imaging reports (unable to view images) show renal lesion stability since 2022. Continued active surveillance is reasonable given complex surgical history and stable small size. Hernia surgery and renal lesion removal typically not recommended at the same time d/t risk of infection - however, can ask [facility] General Surgery/Urology there if a possibility given already in abdomen. Otherwise, would not recommend partial nephrectomy at this time. Discussed cont to monitor with either CT or MRI for annual surveillance. Pt tolerates both scans. Will f/u with MRI in a yr since it is less radiation. Pt agreeable. Follow up 1 yr with MRI Ab w/wo con ([facility]) or sooner if needed. Pt understands and agrees with plan. -Have images pushed through PACS Follow-up With When Contact Information Sean QUICK, Ivory Bernsetin, URL, URO Additional Instructions: 1 yr with MRI Ab w/wo con ([facility]) Patient Education Cancer Screening for Females I, Inga Mcfarland, personally scribed for Dr. Estrada on 05/26/2024 08:57:44. . Documentation recorded by the scribe, Inga Mcfarland, accurately reflects the services(s) I performed and decisions made by me. Authenticated by Dr. Estrada on 05/26/2024 09:08:26. Problem List/Past Medical History Ongoing Renal lesion Historical No qualifying data Medications Monica-D 24 Hour Allergy & Congestion 180 mg-240 mg oral tablet, extended release, 1 tab(s) amLODIPine 5 mg Tab, 5 mg= 1 tab(s) calcium (as carbonate) 500 mg oral tablet escitalopram 20 mg Tab, 20 mg= 1 tab(s) Jardiance 10 mg oral tablet, 10 mg= 1 tab(s) lisinopril 20 mg Tab, 20 mg= 1 tab(s) metformin 500 mg Tab, 500 mg= 1 tab(s) Multi Vitamins oral tablet, 1 tab(s), Oral, Daily mupirocin Top 2% Oint, 1 bird simvastatin 20 mg Tab, 20 mg= 1 tab(s) Allergies Adhesive Bandage (Rash) Keflex (Rash) Percocet (Vomiting) predniSONE (Rash) Social History Tobacco Never (less than 100 in lifetime) Tobacco Use:. Never Smokeless Tobacco Use:. Yes, 05/26/2024 Lab Results Ambulatory Point of Care Results Bilirubin Urine Dipstick: Negative (05/26/24 08:26:00) Blood Urine Dipstick: Negative (05/26/24 08:26:00) Glucose Urine Dipstick: 2+ 500 mg/dl (05/26/24 08:26:00) Ketones Urine Dipstick: Negative (05/26/24 08:26:00) Leukocytes Urine Dipstick: Trace (05/26/24 08:26:00) Nitrite Urine Dipstick: Negative (05/26/24 08:26:00) Protein Urine Dipstick: Negative (05/26/24 08:26:00) Specific [place] Urine Dipstick: 1.010 (05/26/24 08:26:00) Urine Appearance Urine Dipstick: Slightly cloudy (05/26/24 08:26:00) Urine Color Urine Dipstick: Yellow (05/26/24 08:26:00) Urobilinogen Urine Dipstick: Normal 0.2-1 EU/dl (05/26/24 08:26:00) pH Urine Dipstick: 5.5 (05/26/24 08:26:00) Result Comment: Electronical ly Signed By: Ivory Estrada MD\.br\Date and Time Signed: 05/26/24 09:12 EDT\.br\Electronically Co-Signed By: Inga Mcfarland\.br\Date and Time Co-Signed: 05/26/24 08:58 EDT AMBULATORY VISIT SUMMARY Observed: 05/26 8:10 AM Status: F Source: [facility] Ambulatory Visit Summary LAURASHARONPARISA A :1960 Visit Date:05/26/2024 Ambulatory Visit Instructions Your Diagnosis Renal lesion Your Care Team Attending Physician - Ivory Estrada MD Primary Care Physician - YASHIRA CORONADO CNP This Is Your Medications List Contact prescribing physician if questions or concerns amlodipine (amLODIPine 5 mg Tab) calcium carbonate (calcium (as carbonate) 500 mg oral tablet) empagliflozin (Jardiance 10 mg oral tablet) escitalopram (escitalopram 20 mg Tab) fexofenadine-pseudoephedrine (Monica-D 24 Hour Allergy & Congestion 180 mg-240 mg oral tablet, extended release) lisinopril (lisinopril 20 mg Tab) metformin (metformin 500 mg Tab) multivitamin (Multi Vitamins oral tablet) mupirocin topical (mupirocin Top 2% Oint) simvastatin (simvastatin 20 mg Tab) Discharge Vitals Temperature (Oral) 37 ???C Heart Rate (Peripheral) 88 Respiratory Rate 18 Blood Pressure 126/86 Height 160 cm Height 63 in Weight 87.0 kg Weight 191.802 lb BMI 33.98 What to do next Scheduled Follow-Up Appointments Friday2025 8:00 AM EDT With: Sean QUICK, Ivory Bernstein Where: [facility] [address] You Need to Schedule the Following Appointments Follow Up with Sean QUICK, Ivory Bernstein, URL, URO When: Where: Medications What How Much When Instructions Unchanged amlodipine (amLODIPine 5 mg Tab) 1 Tablets Contact prescribing physician if questions or concerns Unchanged calcium carbonate (calcium (as carbonate) 500 mg oral tablet) Contact prescribing physician if questions or concerns Unchanged empagliflozin (Jardiance 10 mg oral tablet) 1 Tablets Contact prescribing physician if questions or concerns Unchanged escitalopram (escitalopram 20 mg Tab) 1 Tablets Contact prescribing physician if questions or concerns Unchanged fexofenadine-pseudoephedrine (Monica-D 24 Hour Allergy & Congestion 180 mg-240 mg oral tablet, extended release) 1 Tablets Contact prescribing physician if questions or concerns Unchanged lisinopril (lisinopril 20 mg Tab) 1 Tablets Contact prescribing physician if questions or concerns Unchanged metformin (metformin 500 mg Tab) 1 Tablets Contact prescribing physician if questions or concerns Unchanged multivitamin (Multi Vitamins oral tablet) 1 Tablets By Mouth Every day Contact prescribing physician if questions or concerns Unchanged mupirocin topical (mupirocin Top 2% Oint) 1 Application Contact prescribing physician if questions or concerns Unchanged simvastatin (simvastatin 20 mg Tab) 1 Tablets Contact prescribing physician if questions or concerns Allergies Adhesive Bandage (Rash) Keflex (Rash) Percocet (Vomiting) predniSONE (Rash) Problems Ongoing - Any problem that you are currently receiving treatment for. Renal lesion Patient Survey You may receive a survey via text or e-mail asking about your office visit. Please share your experience with us by completing your survey. We appreciate your feedback and thank you for choosing us for your care. Education Materials Cancer Screening: Female A cancer screening is a test or exam that checks for cancer. Work with your health care provider to create a cancer screening schedule that protects your health. Who should have screening? All females should be considered for screening of certain cancers, including breast cancer, cervical cancer, colorectal cancer, endometrial cancer, lung cancer, and skin cancer. Your health care provider may recommend screenings for other types of cancer if: ??? You have had cancer before. ??? You have a family member with cancer. ??? You have genes that could increase the risk of cancer. ??? You have risk factors for certain cancers, such as current or past use of tobacco products or being overweight. What are the benefits of screening? Cancer screening is done to look for cancer in the very early stages, before it spreads and becomes harder to treat and before you would start to notice symptoms. Finding cancer early improves the chances of successful treatment. It may save your life. When should I be screened for cancer? When you should be screened for cancer depends on: ??? Your age. ??? Your medical history and your family's medical history. ??? Certain lifestyle factors, such as smoking or other use of tobacco products. ??? Environmental exposure, such as to asbestos. How is screening done? Breast cancer Breast cancer screening is done with a test that takes images of breast tissue (mammogram) using an X-ray machine. Here are some screening guidelines for females at average risk: ??? When you are 40???44 years old, you should be given the choice to start having mammograms. ??? When you are 45???54 years old, you should have a mammogram every year. ??? You may start having mammograms before you are 45 years old if you have risk factors for breast cancer, such as having an immediate family member with breast cancer. ??? At 55 years old or older, you should have a mammogram every 1???2 years for as long as you are in good health and have a life expectancy of 10 years or longer. ??? It is important to know what your breasts look and feel like so you can report any changes to your health care provider. Cervical cancer Cervical cancer screening is done with an HPV (human papillomavirus) test to identify the virus that causes cervical cancer. To perform the test, a health care provider takes a swab of cells from the lowest part of the uterus (cervix) during a pelvic exam. This test may be performed along with a Pap test. This testchecks for abnormalities in the cervix. ??? All females at average risk should consider being screened for cervical cancer starting no later than 25 years old and continuing until 65 years old. Screening should not begin earlier than 21 years old. You will have tests every 3???5 years, depending on your results and the type of screening test. Talk with your health care provider about which screening test is right for you and how often you should be screened. ? If you have had the HPV vaccine, you will still be screened for cervical cancer and follow normal screening recommendations. You do not need to be screened for cervical cancer if any of the following apply to you: ??? You are older than 65 years old and you have had normal screening tests in the past 10 years with no serious cervical precancer or cancer in the last 25 years. ??? Your cervix and uterus have been removed, and you have never had cervical cancer or abnormal cells that could become cancer (precancerous cells). Colorectal cancer Colorectal cancer screening looks for cancer or for growths called polyps that often form before cancer starts. Tests to look for cancer or polyps include: ??? Colonoscopy or flexible sigmoidoscopy. For these procedures, a flexible tube with a small camera is inserted into the rectum. ??? CT colonography. This test uses X-rays and contrast dye to check the colon for polyps. Tests to look for cancer in the stool (feces) include: ??? Guaiac-based fecal occult blood test (FOBT). This test can find blood in stool. It can be done at home with a kit. ??? Fecal immunochemical test (FIT). This test can find blood in stool. For this test, you will need to collect stool samples at home. ??? Stool DNA test. This test looks for blood in stool and any changes in DNA that can lead to colon cancer. For this test, you will need to collect a stool sample at home and send it to a lab. All adults should have screenings starting at 45 years old and continuing through 75 years old. For females 76???85 years old, the decision to be screened should be based on a person's preferences, life expectancy, overall health, and prior screening history. Your health care provider may recommend screening before 45 years old. You will have tests every 1???10 years, depending on your results and the type of screening test. People at increased risk should start screening at an earlier age. Talk with your health care provider about which screening test is right for you and how often you should be screened. Endometrial cancer There is no standard screening test for endometrial cancer, and females at average risk do not routinely need to have this screening. Talk with your health care provider about whether screening is right for you. If it is, this screening is performed through: ??? Endometrial tissue biopsy. This tests a sample of tissue taken from the lining of the uterus. ??? Vaginal ultrasound. If you are at increased risk for endometrial cancer, you may need to have these tests more often than normal. You are at increased risk if: ??? You have a family history of ovarian, uterine, or certain types of colon cancer. ??? You are taking tamoxifen, a medicine used to treat breast cancer. If you have reached menopause, it is especially important to talk with your health care provider about any vaginal bleeding or spotting. Screening for endometrial cancer is not recommended for females who do not have symptoms of the cancer, such as vaginal bleeding. Lung cancer Lung cancer screening is done with a CT scan that looks for abnormal changes in the lungs. Discuss lung cancer screening with your health care provider if you are 50???80 years old and if any of the following apply to you: ??? You currently smoke. ??? You used to smoke heavily. ??? You have a smoking history of 1 pack of cigarettes a day for 20 years or 2 packs a day for 10 years. You may need to be screened every year if you smoke heavily or if you used to smoke. Skin cancer Skin cancer screening is done by checking the skin for unusual moles or spots and any changes in existing moles. Your health care provider should check your skin for signs of skin cancer at every physical exam. You should check your skin every month and tell your health care provider right away if anything looks unusual. Females with a zlezzz-kjwn-fbgvmu risk for skin cancer may want to see a cat skinner (activated sludge operator) for an annual body check. Where to find more information ??? [place] [employer]: cancer.org ??? Centers for Disease Control and Prevention: cdc.gov ??? National Cancer [place]: cancer.gov ??? U.S. Department of Health and Human Services: womenshealth.gov Contact a health care provider if: ??? You have concerns about any signs or symptoms of cancer. These may include: ? Skin problems. You may have: ? Moles of an unusual shape or color. ? Changes in existing moles. ? A sore on your skin that does not heal. ? Tiredness (fatigue) that does not go away. ? Losing weight without trying. ? Blood in your urine or stool. ? Problems with coughing or breathing. These may include: ? Coughing or trouble breathing that does not go away. ? Coughing up blood. ? Lumps or other changes in your breasts. ? Vaginal bleeding, spotting, or changes in your period. ? Frequent pain or cramping in your abdomen. This information is not intended to replace advice given to you by your health care provider. Make sure you discuss any questions you have with your health care provider. Document Revised: 02/18/2023 Document Reviewed: 09/02/2022 [employer] Patient Education ??? 2023 [employer]. PROGRESS Observed: 04/19/2024 3:55 PM Status: COMPLETED Source: [facility] HNO ID: [id number] Author: KRISTINE VINCENT MD Service: ? Author Type: Physician Type: Progress Notes Filed: 04/19/2024 16:02 Note Text: Consultation requested by Dr. Mack Andrade for an opinion regarding multiply recurrent incisional [...] Vincent MD April 19, 2024 3:55 PM HISTORY PHYSICAL Observed: 04/19/2024 2:58 PM Status: COMPLETED Source: [facility] ID: [id number] Author: ASHISH CHILDS MD Service: ? Author Type: Resident Type: H&P Filed: 04/19/2024 16:02 Note Text: [facility] Abdominal [facility] - HISTORY AND PHYSICAL SUBJECTIVE: Chief Complaint: ventral hernia HPI: Parisa Carol Sanchez is a 64 year old female [...] potential RCC. 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 Vincent. Ashish Childs MD PROGRESS Observed: 04/19/2024 2:36 PM Status: COMPLETED Source: [facility] HNO ID: [id number] Author: CARLOS CORRALSE MA Service: ? Author Type: Polisher Implant Type: Progress Notes Filed: 04/19/2024 16:02 Note Text: What is the reason for your visit today? Consult Who is your referring physician? No Are you having poor oral intake? NO Have you had unintentional weight loss of 15 lbs/7 Kg in the last 3-6 months? NO Bowels: regular Wound: None Temperature: No Drains: No CNOV Observed: 04/19/2024 2:30 PM Status: COMPLETED Source: [facility] Office Visit (GENN) PARISA SANCHEZ ([id number]) 1960 F Date Time Provider Department 04/19/24 2:30 PM KRISTINE VINCENT During your visit today, we recorded the following information about you: Temperature Pulse Blood pressure Weight 97.2 degrees 98/minute 114/67 86.2 kg Height 1.588 m Newton, CarlosJERRY 04/19/2024 4:02 PM Signed What is the reason for your visit today? Consult Who is your referring physician? No Are you having poor oral intake? NO Have you had unintentional weight loss of 15 lbs/7 Kg in the last 3-6 months? NO Bowels: regular Wound: None Temperature: No Drains: No Ashish Childs MD 04/19/2024 4:02 PM Signed [facility] Abdominal [facility] - HISTORY AND PHYSICAL SUBJECTIVE: Chief [...] potential RCC. 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 Vincent. MD Carlton Goodman, MD Kristine 04/19/2024 4:02 PM Signed Consultation requested by Dr. Mack Andrade for an opinion regarding multiply recurrent incisional [...] Vincent MD April 19, 2024 3:55 PM Allergies As of Date: 04/19/2024 Noted Allergy Reaction CEPHALEXIN 01/05/2024 2 - Rash PREDNISONE 01/05/2024 2 - Rash PERCOCET (OXYCODONE-ACETAMINOPHEN)07/22/2012 11 - Vomiting ADHESIVE TAPE-SILICONES 04/19/2024 2 - Rash Date Reviewed: 04/19/2024 Reviewed by: Kristine Vincent MD - Fully Assessed Reason for Visit: New Patient Evaluation [154] Primary Visit Diagnosis:Incisional hernia, without obstruction or gangrene [K43.2] Prescriptions as of 04/19/2024 - fexofenadine/pseudoephedrine (MONICA-D 24 HOUR ORAL) - JARDIANCE 10 mg tablet Take 10 mg by mouth every morning. - amLODIPine (NORVASC) 5 mg tablet Take 5 mg by mouth every morning. - escitalopram oxalate (LEXAPRO) 20 mg tablet Take 20 mg by mouth every morning. - metFORMIN 1,000 mg tablet Take 1,000 mg by mouth daily with breakfast. - lisinopril 20 mg tablet Take 20 mg by mouth once daily. - simvastatin 20 mg tablet Take 20 mg by mouth daily at bedtime. - CALCIUM CARBONATE/VITAMIN D3 (CALTRATE 600 + D ORAL) Take by mouth once daily. Problem List As Of Date 04/19/2024 Noted Resolved Colorectal cancer [C19] Encounter Status:Closed by KRISTINE VINCENT on 04/19/24 CT ABD/PEL WO IVCON Observed: 04/19/2024 10:32 AM Status: F Source: [facility] * * *Final Report* * * DATE OF EXAM: Apr 19 2024 10:32AM CAC 0531 - CT ABD/PEL WO IVCON / [...] simple renal cyst. This may represent a hemorrhagic/proteinaceous cyst or a solid renal mass. GI [...] abdominal wall hernias. Lymph Nodes: No lymphadenopathy. Mesentery/peritoneum: No ascites. Pelvis: Hysterectomy. Bones/Soft Tissues: Multilevel [...] simple renal cyst. This may represent a hemorrhagic/proteinaceous cyst or a solid renal mass. Would advise attempt differentiation between a hemorrhagic/proteinaceous cyst and a solid renal mass with renal ultrasound. If this area remains indeterminate on ultrasound, then a renal protocol MRI with and without contrast can be performed. 3. Very minimal nodularity on the contour of the liver. This makes it difficult to exclude mild/early cirrhosis. ACTIONABLE RESULT: FOLLOW-UP Acuity: Actionable Findings: Kidneys/Ureters/Bladder Routing Code: GU_1 Recommendation: US KIDNEY/BLADDER Time Frame: 4-6 weeks COMMUNICATION: Results will be communicated with the ordering provider via [facility] staff message or phone message by [facility] Support Services within 2 business days of report finalization. --END OF FINDING-- Algorithms for management of incidental imaging findings can be found on the [facility] Intranet Sharepoint site at: http://spo.cc.org/documentation/mychartlinks/Managing%20Incidental%20Findi ngs%20at%20Imaging/Forms/AllItems.aspx Water Hauler: EZ Transcribe Date/Time: Apr 19 2024 10:48A Dictated by : LEOPOLDO CARY MD This examination was interpreted and the report reviewed and electronically signed by: LEOPOLDO CARY MD on Apr 19 2024 11:10AM EST [id number] ACTIONABLE PROGRESS Observed: 04/19/2024 10:30 AM Status: COMPLETED Source: [facility] ID: [id number] Author: KARON ELIZALDE RT(R) Service: ? Author [...] PATIENT PRESENTS WITH AN IMPLANTABLE OR ATTACHED SECURITY SYSTEMS ENGINEER: No RADIOLOGY DEPARTMENT: CT; Exam(s) Completed: Abdomen/Pelvis PERIPHERAL IV DATA: Not applicable SIGNED BY: Karon Elizalde, RT(R) April 19, 2024 10:27 AM ALLERGIES DATE TYPE / CODE NAME / CODE REACTION SEVERITY SOURCE 10/11/2024 DRUG/[id number](SNOME D CT) SILVER SULFADIAZ-FOAM BANDAGE RASH [facility] 04/19/2024 DRUG/[id number](SNOME D CT) ADHESIVE TAPE-SILICONES RASH [facility] 01/05/2024 DRUG INGREDI/[id number](SN OMED CT) CEPHALEXIN RASH [facility] 01/05/2024 DRUG INGREDI/[id number](SN OMED CT) PREDNISONE RASH [facility] 07/22/2012 DRUG/[id number](SNOME D CT) OXYCODONE-ACETAMI NOPHEN [facility]omiting [facility] 07/22/2012 DRUG~NON-CBORD/35558 1003(SNOMED CT) OXYCODONE-ACETAMI NOPHEN Vomiting [facility] DR/[id number](SNOMED CT) Percocet [id number] [facility] Miscellaneous Allergy/146392840(SN OMED CT) Adhesive Bandage [id number] [facility] DR/023107159(SNOMED CT) predniSONE [id number] [facility] DR/414033760(SNOMED CT) Keflex [id number] [facility] DRUG INGREDI~NON-CBORD/41 3557597(SNOMED CT) CEPHALEXIN Rash [facility] DRUG INGREDI~NON-CBORD/41 8681175(SNOMED CT) PREDNISONE Rash [facility] DRUG~NON-CBORD/44318 1003(SNOMED CT) ADHESIVE TAPE-SILICONES [facility] ENCOUNTERS ADMIT/DISCHARGE ACCOUNT NUMBER ADMITTING ENCOUNTER CLASS LOCATION SOURCE 10/11/2024[facility]10[facility]12/[id number] 09/22/2024/09/23/19 25 [id number] [facility] ding:DAMARIS15 [facility] 09/22/2024/09/23/19 25 [id number] [facility] ding:JULEE [facility] 09/14/2024/09/18/19 25 [id number] KRISTINE VINCENT Inpatient Encounter [facility] HospitalBuil ding:K772Uxz m: [id number]: [id number] [facility] 09/06/2024/09/07/19 25 [id number] Ambulatory [facility] HospitalBuil ding:LB15 [facility] 09/06/2024/09/07/19 25 [id number] Ambulatory [facility] HospitalBuil ding:JUDY [facility] 09/06/2024/09/07/19 25 [id number] Ambulatory [facility] HospitalBuil ding:EKGA [facility] 09/06/2024/09/07/19 25 [id number] Ambulatory [facility] HospitalBuil ding:LB15 [facility] 09/06/2024/09/07/19 25 [id number] [facility] 05/26/2024/05/27/19 25 [id number] [place] 1 [facility] 05/18/2024/05/19/19 25 [id number] Ambulatory Buildin 31 [facility] 05/17/2024/05/18/19 25 [id number] Ambulatory Buildin 91 [facility] 04/19/2024/04/19/19 25 [id number] [facility] 04/19/2024/04/19/19 25 [id number] Ambulatory [facility] HospitalBuil ding:CTCA [facility] 02/04/2024 [id number] [place]:EU Teresa [facility] 01/05/2024/01/05/20 24 [id number] Ambulatory Building:FHP OD [facility] 01/05/2024/01/05/20 24 [id number] Ambulatory Building:[facility] 12/30/2023 [id number] Ambulatory [place]:EU Teresa [facility] 12/01/2023/12/01/19 [id number] [address] [place] [address] P[facility] PAYERS ENCOUNTER GUARANTOR PAYER SUBSCRIBER SOURCE 10/11/2024 Primary Insurance:CIGNA OAPPolicy Number: [id number] ve Date:4104-86-84Rpb n Name:Flora Medina RAPPDOB: [id number] [place], [place] [address] [place] [address] 09/22/2024 Primary Insurance:CIGNA OAPPolicy Number: [id number] ve Date:7248-49-72Dxi n Name:Flora Medina RAPPDOB: [id number] [place], [place] [address] [place] [address] 09/22/2024 Primary Insurance:CIGNA OAPPolicy Number: [id number] ve Date:8557-44-21Imz n Name:Flora Medina RAPPDOB: [id number] [place] [address] [facility] 09/14/2024 Primary Insurance:CIGNA OAPPolicy Number: [id number] ve Date:7967-11-96Rfc n Name:Flora Medina RAPPDOB: [id number] [place] [address] [facility] 09/14/2024 Secondary Insurance:MEDICARE APolicy Number: [id number] ve Date:4995-22-97Ens n Name:Yee Medina RAPPDOB: [id number] [place] [address] [facility] 09/06/2024 Primary Insurance:CIGNA OAPPolicy Number: [id number] Date:7698-05-60Kkm n Name:Flora Medina RAPPDOB: [id number] [place] [address] [facility] 09/06/2024 Primary Insurance:CIGNA OAPPolicy Number: [id number] ve Date:0631-89-94Bzt n Name:Flora Medina RAPPDOB: 7561-67-05CVQ467 [place] [address] [facility] 09/06/2024 Primary Insurance:GENOVEVA OAPPolicy Number: [id number] ve Date:4151-40-78Lby n Name:Flora Medina RAPPDOB: [id number] [place] [address] [facility] 09/06/2024 Primary Insurance:GENOVEVA OAPPolicy Number: [id number] ve Date:0327-45-86Pwr n Name:Flora Medina RAPPDOB: 4769-27-03BUZ115 [place] [address] [facility] 09/06/2024 Primary Insurance:GENOVEVA OAPPolicy Number: [id number] ve Date:6528-60-23Tmd n Name:Flora Medina RAPPDOB: 4834-88-28CXQ461 [place] [address] [facility] 05/26/2024 PARISA A [facility]APPDOB: [facility] Primary Insurance:Bc icy Number: [id number] Date:9900-72-14[address] [address]HT: [facility]ISA [facility] 05/18[facility]2024 PARISA A RAPPDOB: [place], [place] [address]Zop: (HP) Primary Insurance:GENOVEVA-OP EN ACCESS PLUS (OAP,OA PLUS)Policy Number: [id number] ve Date:2018-01-24 PARISA Medina RAPPDOB: [id number] [place], [place] [address]Hwf: (HP) [facility] 05/17/2024 PARISA A RAPPDOB: [place], [place] [address]Jnk: (HP) Primary Insurance:CIGNA-OP EN ACCESS PLUS (OAP,OA PLUS)Policy Number: [id number] ve Date:2018-01-24 PARISA Medina RAPPDOB: [id number] [place], [place] [address]Pef: (HP) [facility] 04/19/2024 Primary Insurance:GENOVEVA OAPPolicy Number: [id number] ve Date:2487-20-99Yui n Name:Flora Medina RAPPDOB: [id number] [place] [address] [facility] 04/19/2024 Primary Insurance:GENOVEVA OAPPolicy Number: [id number] Date:4730-54-83Gxa n Name:Flora Medina RAPPDOB: [id number] [place] [address] [facility] 01/05/2024 PARISA Medina RAPPDOB: [place] [address]Rgp: () (WP) Primary Insurance:CARLOSNAPol icy Number: [id number] ve Date:0104-80-70[address] [address]HA: PARISA A RAPPDOB: [id number] [place] [address] [facility] 01/05/2024 PARISA A RAPPDOB: [place], [place] [address]Awt: (HP) (WP) Primary Insurance:GENOVEVAPol icy Number: [id number] ve Date:2880-69-31[address] [address]XI: PARISA Medina RAPPDOB: [id number] [place] [address] [facility] 12/01/2023 PARISA Medina RAPPDOB: [place], [place] [address]Ttf: () Primary Insurance:CIGNA-OP EN ACCESS PLUS (OAP,OA PLUS)Policy Number: [id number] ve Date:2018-01-24 PARISA Medina RAPPDOB: [id number] [place], [place] [address]Lws: () [facility]
[2024-11-22 08:13] LABS: Alanine Aminotransferase 46 U/L (14-59); Albumin Globulin Ratio 0.8; Albumin Level 3.6 g/dL (3.4-5.0); Alkaline Phosphatase 57 U/L (46-116); Anion Gap 10.0; Aspartate Amino Transferase 32 U/L (15-37); Blood Urea Nitrogen 15.0 mg/dL (7.0-18.0); Calcium 8.9 mg/dL (8.5-10.1); Carbon Dioxide 25.4 mmol/L (21.0-32.0); Chloride 102 mmol/L (98-107); Cholesterol 114 mg/dL (<=200); Estimated GFR (African America >60 (>=60 mL/min/1.73m^2); Estimated GFR (Non-African Ame >60 (>=60 mL/min/1.73m^2); Globulin 4.4 g/dL; Glucose 161 mg/dL (74-106); HDL Cholesterol 52 mg/dL (40-60); Potassium 3.4 mmol/L (3.5-5.1); Sodium 134 mmol/L (136-145); Total Protein 8.0 g/dL (6.4-8.2); Triglycerides 89 mg/dL (<=150); VLDL CHOLESTEROL 17.8 mg/dL
== END 2024-11-22 07:20 | disposition home or self-care (01) ==
LOC: LAB 07:19
PROVIDERS: PCP Family Medicine; Visit Provider Internal Medicine
DX: E11.9 Type 2 diabetes mellitus without complications (principal)
CPT/HCPCS: 36415; 80053; 80061; 83036

== ENCOUNTER 2024-11-29 10:51 | Outpatient (OUT) | payer OTHER, SELFPAY ==
--- OUTSIDE RECORDS SUMMARY | 2024-11-29 10:53 | XMS_ITS | Encounter Summary ---
Author Organization [employer] Sys tem Address [id number] [address] [place] [address] Care Team Providers Care Parts Finisher Name Role Phone Vel Clancy Jacqueline HONING MACHINE OPERATOR SEMIAUTOMATIC-LAMINATION ASSEMBLER Primary Care Provider + Reason for Visit * Reason Comments Med Refill Encounter Details Date Type Department Care Team (Late st Contact Info) Description 11/06/2021 Refill [facility] Internal Medicine - Family Medicine [address] [place] [address] Caryn Gomez, HONING MACHINE OPERATOR SEMIAUTOMATIC-RECEIVING CHECKER [address] [place] [address] Social History Tobacco Use Types Packs/Day Years Used Date Smoking Tobacco: Never Smokeless Tobacco: Never Alcohol Use Standard Drinks/Week Comments No 0 (1 standard drink = 0.6 oz pur e alcohol) AUDIT-C Answer Date Recorded Frequency of Alcohol Consumption Never 03/24/2018 Average Number of Drinks Not on file 019 Frequency of Binge Drinking Not on file 02/25 Childcare Answer Date Recorded Childcare Unknown 07/30/2018 Employment Answer Date Recorded Employment Unknown 07/30/2018 Purpose - Life Answer Date Recorded Purpose and direction in life Unknown Comments No Sex and Gender Information Value Date Recorded Sex Assigned at Female 11/16/2019 6:39 PM EDT Legal Sex Female 12:02 PM EDT Gender Identity Female 11/16/2019 6:39 PM EDT Sexual Orientation Straight 11/16/2019 6: 39 PM EDT documented as of this encounter Plan of Treatment Upcoming Encounters Date Type Department Care Team (Late st Contact Info) Description 11/30/2024 10:40 AM EDT Office Visit [facility] - Family Medicine [address] [place] [address] Vel Clancy, HONING MACHINE OPERATOR SEMIAUTOMATIC-LAMINATION ASSEMBLER [address], [facility] [address] [place] [address] documented as of this encounter Goals Goal Patient Goal Type Associated Problems Recent Progress Patient-Stated? Author home General Yes Richa You RN Note: Evaluation of progress towards goal: Pt plans to discharge home with self care and family assistance. documented as of this encounter Visit Diagnoses Not on filedocumented in this encounter Additional Health Concerns Assessment Noted Time A Body Mass Index follow-up plan has been documented for the patient 03/08/2019 2:48 PM EST documented as of this encounter Care Teams Parts Finisher Relationship Specialty Start Date End Date Vel Clancy, HONING MACHINE OPERATOR SEMIAUTOMATIC-LAMINATION ASSEMBLER [address] [place] [address] PCP - General Internal Medicine 10/21/24 documented as of this encounter
--- OUTSIDE RECORDS SUMMARY | 2024-11-29 10:53 | XMS_ITS | Encounter Summary ---
Author Organization [facility] Sys tem Address [id number] [address] [place] [address] Care Team Providers Care Pole Shaver Name Role Phone Vel Clancy Jacqueline PRESIDING STEWARD-SUPPORT SERVICES TECH Primary Care Provider + Encounter Details Date Type Department Care Team (Late st Contact Info) Description 06/24/2023 Orders Only [facility] Internal Medicine - Family Medicine [address] [place] [address] Briana Kaye CMA Type 2 diabetes mellitus with hyperglycemia, without long-term current use of insulin ([facility]); Hyperthyroidism Social History Tobacco Use Types Packs/Day Years Used Date Smoking Tobacco: Never Smokeless Tobacco: Never Alcohol Use Standard Drinks/Week Comments No 0 (1 standard drink = 0.6 oz pur e alcohol) Social Connection and Isolat ion Panel [NHANES] Answer Date Recorded In a typical week, how many times do you talk on the phone with family, friends, or neighbors? Three times a week 11/25/2021 How often do you get togethe r with friends or relatives? Once a week 11/25/2021 How often do you attend chur ch or latter-day services? More than 4 times per year 11/25/2021 Do you belong to any clubs o r organizations such as latter day groups, unions, fraternal or athletic groups, or school groups? Yes 11/25/2021 How often do you attend meet ings of the clubs or organizations you belong to? More than 4 times per year 11/25/2021 Are you , , di vorced, , never , or living with a partner? 11/25/2021 AUDIT-C Answer Date Recorded Q1: How often do you have a drink containing alcohol? Never 11/25/2021 Q2: How many drinks containi ng alcohol do you have on a typical day when you are drinking? Patient does not drink Q3: How often do you have si x or more drinks on one occasion? Never 11/25/2021 Overall Financial Resource Strain (CARDIA) Answe r Date Recorded How hard is it for you to pa y for the very basics like food, housing, medical care, and heating? Not very hard 12/03/2022 PHQ-2 Answer Date Recorded Total Score 0 12/10/2022 [facility] of Occupat ional Health - Occupational Stress Questionnaire Answer Date Recorded Do you feel stress - tense, restless, nervous, or anxious, or unable to sleep at night because your mind is troubled all the time - these days? Only a little 11/25/2021 Exercise Vital Sign Answer Date Recorde d On average, how many days pe r week do you engage in moderate to strenuous exercise (like a brisk walk)? 0 days 11/25/2021 On average, how many minutes do you engage in exercise at this level? 0 min 11/25/2021 PRAPARE - Transportation Answer Date Re corded In the past 12 months, has l ack of transportation kept you from medical appointments or from getting medications? No 11/24 In the past 12 months, has l ack of transportation kept you from meetings, work, or from getting things needed for daily living? No 12/03/2022 Housing Instability Answer Date Recorde d Are you worried or concerned that in the next two months you may not have stable housing that you own, rent or stay in as a part of a household? No 12/03/2022 Childcare Answer Date Recorded Do problems getting child ca re make it difficult for you to work or study? No 11/25/2021 Employment Answer Date Recorded Do you need help finding a [facility] and/or a training program? No 11/25/2021 Hunger Screening Answer Date Recorded Within the past 12 months we worried whether our food would run out before we got money to buy more. Never True 03/10/2023 Within the past 12 months th e food we bought just didn't last and we didn't have money to get more. Never True 03/10/2023 Purpose - Life Answer Date Recorded I have a purpose and direction in my life. Agree 11/25/2021 Education Answer Date Recorded What is the highest level of school you have completed or the highest degree you have received? Bachelor's degree (e.g., BA, AB, BS) 11/25/2021 Comments No Sex and Gender Information Value [...] Medicine - Family Medicine [address] [place] [address] Vel Clancy, PRESIDING STEWARD-SUPPORT SERVICES TECH [address], [address] [place] [address] documented as of this encounter Goals Goal Patient Goal Type Associated Problems Recent Progress Patient-Stated? Author home General Yes Richa You, RN Note: Evaluation of progress towards goal: Pt plans to discharge home with self care and family assistance. documented as of this encounter Procedures Procedure Name Priority Date/Time Associated Diagnosis Comments TSH Routine 06/23/2023 Hyperthyroidism T4, FREE Routine 06/23/2023 Hyperthyroidism HEMOGLOBIN A1C Routine 06/23/2023 Type 2 diabetes mellitus with hyperglycemia, without long-term current use of insulin ([facility]) COMPREHENSIVE METABOLIC PANEL Routine 06/23/2023 Type 2 diabetes mellitus with hyperglycemia, without long-term current use of insulin ([facility]) documented in this encounter Results * T4, free (06/23/2023) External T4 Free 1.07 [facility] Blood 06/23/2023 [facility] [employer] [employer]ARD[employer] LAB BLOOD ORDERABLES Fin al Result Performing Organization Address [facility] de Phone Number SUNQUEST * TSH (06/23/2023) External Tsh 0.015 [facility]QUEST 06/23/2023 [facility] PRESIDING STEWARD-[employer] LAB BLOOD ORDERABLES Fin al Result Performing Organization Address [facility] de Phone Number SUNQUEST * Hemoglobin A1c (06/23/2023) External Hemoglobin A1C 6.4 % [facility] Blood 06/23/2023 [facility] [employer] LAB BLOOD ORDERABLES Fin al Result Performing Organization Address [facility] de Phone Number SUNQUEST * Comprehensive metabolic panel (06/23/2023) External Albumin 3.7 [facility] External Alt Sgpt 47 [facility] External Anion Gap 13.7 [facility] External Ast 32 [facility]QUEST External Blood Urea Nitrogen Bun 13.0 [facility] External Calcium Ca 9.5 [facility] External Chloride 104 [facility] External Co2 / Carbon Dioxide 26.7 [facility] External Creatinine 0.51 [facility] External Gfr Amer >60 [facility] External Gfr Non Amer >60 [facility] External Alkaline Phosphatase 62 [facility] External Glucose Fasting Or Random (Fbs) 125 [facility] External Potassium K 3.4 [facility] External Sodium Na 141 [facility] Total Bilirubin 0.7 [facility]QUEST External Total Protein 7.9 [facility]QUEST Blood 06/23/2023 [facility] [facility] LAB BLOOD ORDERABLES Fin al Result SUNQUEST documented in this encounter Visit Diagnoses Diagnosis Type 2 diabetes mellitus with hyperglycemia, without long-term current use of insulin ([facility]) Hyperthyroidism 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
--- OUTSIDE RECORDS SUMMARY | 2024-11-29 10:53 | XMS_ITS | Encounter Summary ---
Author Organization [employer] Sys tem Address [id number] [address] [place] [address] Care Team Providers Care Cobol Application Developer Name Role Phone Vel Clancy Jacqueline SAFETY SPECIALIST-CONVEYOR OPERATOR Primary Care Provider + Reason for Visit * Reason Comments Med Refill Encounter Details Date Type Department Care Team (Late st Contact Info) Description 12/13/2021 Refill [facility] Internal Medicine - Family Medicine [address] [place] [address] Caryn Gomez, SAFETY SPECIALIST-PROGRAM PLANNER [address] [place] [address] Social History Tobacco Use Types Packs/Day Years [...] often do you attend chur ch or restoration services? More than 4 times per year 11/25/2021 Do you belong to any clubs o r organizations such as mandaen groups, unions, fraternal or athletic groups, or [...] like food, housing, medical care, and heating? Somewhat hard 11/25/2021 PHQ-2 Answer Date Recorded Total Score 0 11/25/2021 [facility] [place] of Occupat ional Health - Occupational Stress [...] medical appointments or from getting medications? No 03/2021 In the past 12 months, has l ack of transportation kept you from meetings, work, or from getting things needed for daily living? No 11/25/2021 Childcare Answer Date Recorded Do problems getting child ca re make it difficult for you to work or study? No 11/25/2021 Employment Answer Date Recorded Do you need help finding a [place] career center and/or a training program? No 11/25/2021 Purpose - Life Answer Date Recorded I [...] 6:39 PM EDT Sexual Orientation Straight 11/16/2019 6 :39 PM EDT COVID-19 Exposure Response Date Recorded In the last month, have you been in contact with someone who was confirmed or suspected to have Coronavirus / COVID-19? No / Unsure 11/26/2021 10:22 AM EDT documented as of this encounter Plan of Treatment Upcoming Encounters Date Type Department Care Team (Late st Contact Info) Description 11/30/2024 10:40 AM EDT Office Visit [facility] Internal Medicine - Family Medicine [address] [place] [address] Vel Clancy, SAFETY SPECIALIST-CONVEYOR OPERATOR [address], [address] [address] documented as of this encounter Goals Goal Patient Goal Type Associated Problems Recent Progress Patient-Stated? Author home General Yes Richa You RN Note: Evaluation of progress towards goal: Pt plans to discharge home with self care and family assistance. documented as of this encounter Visit Diagnoses Not on filedocumented in this encounter Additional Health Concerns Assessment Noted Time PHQ-9 Depression Total Score: 0 11/26/19 22 4:24 PM EDT A Body Mass Index follow-up plan has been documented for the patient 03/08/2019 2:48 PM EST documented as of this encounter Care Teams Cobol Application Developer Relationship Specialty Start Date End Date Vel Clancy, SAFETY SPECIALIST-CONVEYOR OPERATOR [address] [place] [address] PCP - General Internal Medicine 10/21/24 documented as of this encounter
--- OUTSIDE RECORDS SUMMARY | 2024-11-29 10:53 | XMS_ITS | Encounter Summary ---
Author Organization [employer] Sys tem Address [facility] [id number] [address] [place] [address] Care Team Providers Care Curling Machine Operator Name Role Phone Vel Clancy WEB SITE SPECIALIST-ARC CUTTER Primary Care Provider + Reason for Visit * Reason Comments Med Refill Encounter Details Date Type Department Care Team (Late st Contact Info) Description 04/29/2024 Refill [facility] Gynecology Oncology [address] [place] [address] Mendy Plascencia, PACharlesC [address] [place] [address] Vaginal atrophy; Dyspareunia in female; Vaginal dryness, menopausal Social History Tobacco Use Types Packs/Day Years [...] 11/25/2021 How often do you attend chur or muslim services? More than 4 times per year 11/25/2021 Do you belong to any clubs o r organizations such as synagogue groups, unions, fraternal or athletic groups, or [...] PHQ-2 Answer Date Recorded Total Score 0 06/30/2023 [facility] of Occupat ional Health - Occupational Stress [...] Recorded Do you need help finding a [facility] and/or a training program? No 11/25/2021 Hunger Screening Answer Date Recorded Within the past 12 months we worried whether our food would run out before we got money to buy more. Never True 06/30/2023 Within the past 12 months th e food we bought just didn't last and we didn't have money to get more. Never True 06/30/2023 Purpose - Life Answer Date Recorded I [...] PM EDT documented as of this encounter Miscellaneous Notes * Telephone Encounter - ERIKA Caceres - 04/29/2024 5:42 AM EST Pt needs an appt. documented in this encounter Plan of Treatment Upcoming Encounters Date Type Department Care Team (Late st Contact Info) Description 11/30/2024 10:40 AM EDT Office Visit [facility] Internal Medicine - Family Medicine [address] [place] [phone] Vel lCancy, WEB SITE SPECIALIST-ARC CUTTER [address] [facility] [address] [place] [address] documented as of this encounter Goals Goal Patient Goal Type Associated Problems Recent Progress Patient-Stated? Author home General Yes Richa You, RN Note: Evaluation of progress towards goal: Pt plans to discharge home with self care and family assistance. documented as of this encounter Visit Diagnoses Diagnosis Vaginal atrophy Postmenopausal atrophic vaginitis Dyspareunia in female Vaginal dryness, menopausal documented in this encounter Additional Health Concerns Assessment Noted Time PHQ-9 Depression Total Score: 0 06/30/19 1:31 PM EDT A Body Mass Index follow-up plan has been documented for the patient 12/01/2023 3:39 PM EDT documented as of this encounter Care Teams Curling Machine Operator Relationship Specialty Start Date End Date Vel Clancy, WEB SITE SPECIALIST-ARC CUTTER [address] [place] [address] PCP - General Internal Medicine 10/21/24 documented as of this encounter
--- OUTSIDE RECORDS SUMMARY | 2024-11-29 10:53 | XMS_ITS | Encounter Summary ---
Author Organization [employer] Sys tem Address [facility] [id number] [address] [place] [address] Care Team Providers Care Roll Up Guider Operator Name Role Phone GlynnvikkiVel orozco AUCTIONEER TOBACCO-BANDOLEER STRAIGHTENER STAMPER Primary Care Provider + Encounter Details Date Type Department Care Team (Late st Contact Info) Description 05/22/2022 [facility] [address] [place] [phone] Sun Kim CMA Social History Tobacco Use Types Packs/Day Years [...] often do you attend chur ch or church services? More than 4 times per year [...] PHQ-2 Answer Date Recorded Total Score 0 04/23/2022 [facility] of Occupat ional Health - Occupational Stress [...] Orientation Straight 11/16/2019 6: 39 PM EDT COVID-19 Exposure Response Date Recorded In the last month, have you been in contact with someone who was confirmed or suspected to have Coronavirus / COVID-19? No / Unsure 05/23/2022 8:44 AM EDT documented as of this encounter Miscellaneous Notes * Telephone Encounter - Sun Kim CMA - 05/22/2022 10:15 AM EDT Pt coming in for follow up and wanted blood work sent to [facility] * Telephone Encounter - Betsey Soto CMA - 05/22/2022 10:15 AM EDT Pt calling and said she usually gets labs every 6 months. I let her know that you are seeing pts, she wants call back today. She stated that she told someone a month ago that she needed labs ordered for prior to her appt. I let her know we do labs in office, and she is very persistant that you do her labs prior to every 6 mo appt she has. * Telephone Encounter - Mack Jarrett DO - 05/22/2022 10:15 AM EDT She will be seeing jaylon documented in this encounter Plan of Treatment Upcoming Encounters Date Type Department Care Team (Late st Contact Info) Description 11/30/2024 10:40 AM EDT [facility] [address] [place] [address] Vel Clancy, AUCTIONEER TOBACCO-BANDOLEER STRAIGHTENER STAMPER [address], [facility] [address] [place] [address] documented as of this encounter Goals Goal Patient Goal Type Associated Problems Recent Progress Patient-Stated? Author home General Yes Richa You, RN Note: Evaluation of progress towards goal: Pt plans to discharge home with self care and family assistance. documented as of this encounter Visit Diagnoses Not on filedocumented in this encounter Additional Health Concerns Assessment Noted Time PHQ-9 Depression Total Score: 0 04/23/19 9:29 AM EST A Body Mass Index follow-up plan has been documented for the patient 04/23/2022 6:10 PM EST documented as of this encounter Care Teams Roll Up Guider Operator Relationship Specialty Start Date End Date Vel Clancy, AUCTIONEER TOBACCO-BANDOLEER STRAIGHTENER STAMPER [address] [place] [address] PCP - General Internal Medicine 10/21/24 documented as of this encounter
--- OUTSIDE RECORDS SUMMARY | 2024-11-29 10:53 | XMS_ITS | Encounter Summary ---
Author Organization [employer] Sys tem Address [facility] [place]-[id number] [address] [place] [address] Care Team Providers Care Vocational School Teacher Name Role Phone Vel Clancy MACHINIST SUPERVISOR OUTSIDE-GAS REGULATOR REPAIRER HELPER Primary Care Provider + Reason for Visit * Reason Comments Med Refill Encounter Details Date Type Department Care Team (Late st Contact Info) Description 08/14/2021 Refill [facility] Gynecology Oncology [address] [place] [address] Mendy Plascencia, PACharlesC [address] [place] [address] Menopause Social History Tobacco Use Types Packs/Day Years [...] Medicine - Family Medicine [address] [place] [address] Vel Clancy, MACHINIST SUPERVISOR OUTSIDE-GAS REGULATOR REPAIRER HELPER [address], [address] [address] documented as of this encounter Goals Goal Patient Goal Type Associated Problems Recent Progress Patient-Stated? Author home General Yes Richa You RN Note: Evaluation of progress towards goal: Pt plans to discharge home with self care and family assistance. documented as of this encounter Visit Diagnoses Diagnosis Menopause Symptomatic menopausal or female climacteric states documented in this encounter Additional Health Concerns Assessment Noted Time A Body Mass Index follow-up plan has been documented for the patient 03/08/2019 2:48 PM EST documented as of this encounter Care Teams Vocational School Teacher Relationship Specialty Start Date End Date Vel Clancy, MACHINIST SUPERVISOR OUTSIDE-GAS REGULATOR REPAIRER HELPER [address] [place] [address] PCP - General Internal Medicine 10/21/24 documented as of this encounter
--- OUTSIDE RECORDS SUMMARY | 2024-11-29 10:53 | XMS_ITS | Encounter Summary ---
Author Organization [employer] Sys tem Address [facility] [place]-[id number] [address] [place] [address] Care Team Providers Care Orthodontic Treatment Coordinator Name Role Phone Vel Clancy VACUUM CONDITIONER OPERATOR-YARD ASSISTANT Primary Care Provider + Reason for Visit * Reason Onset Date Comments Med Refill 05/22/2022 Encounter Details Date Type Department Care Team (Late st Contact Info) Description 05/22/2022 Refill [facility] Gynecology Oncology [address] [place] [address] Mendy Plascencia PA-C [address] [place] [address] Vaginal atrophy; Dyspareunia in female; [...] How often do you attend chur or baptism services? More than 4 times per year 11/25/2021 Do you belong to any clubs o r organizations such as presybeterian groups, unions, fraternal or athletic groups, or [...] Answer Date Recorded Total Score 0 04/23/2022 [facility] of Occupat ional Health - Occupational [...] Medicine - Family Medicine [address] [place] [address] Vel Clancy, VACUUM CONDITIONER OPERATOR-YARD ASSISTANT [address], [address] [address] documented as of this encounter Goals Goal [...] Time PHQ-9 Depression Total Score: 0 04/23/19 23 9:29 AM EST A Body Mass Index follow-up plan has been documented for the patient 04/23/2022 6:10 PM EST documented as of this encounter Care Teams Orthodontic Treatment Coordinator Relationship Specialty Start Date End Date Vel Clancy, VACUUM CONDITIONER OPERATOR-YARD ASSISTANT [address] [place] [address] PCP - General Internal Medicine 10/21/24 documented as of this encounter
--- OUTSIDE RECORDS SUMMARY | 2024-11-29 10:53 | XMS_ITS | Encounter Summary ---
Author Organization [facility] [email or web address] Sys tem Address [facility] [place]-[id number] [address] [place] [address] Care Team Providers Care Signal Supervisor Name Role Phone Vel Clancy Jacqueline GAS ENGINE REPAIRER-DOCK CLERK Primary Care Provider + Encounter Details Date Type Department Care Team (Late st Contact Info) Description 11/22/2024 Orders Only [facility] Internal Medicine - Family Medicine [address] [place] [phone] Briana Kaye CMA Type 2 diabetes mellitus without complication, without long-term current use of insulin ([facility]) Social History Tobacco Use Types Packs/Day Years [...] often do you attend chur ch or cheondoism services? More than 4 times per year 11/25/2021 Do you belong to any clubs o r organizations such as methodist groups, unions, fraternal or athletic groups, or [...] medical care, and heating? Not very hard 05/17/2024 PHQ-2 Answer Date Recorded Total Score 0 05/18/2024 [facility] [employer] of Occupat ional Health - Occupational Stress [...] medical appointments or from getting medications? No 04/25 In the past 12 months, has l ack of transportation kept you from meetings, work, or from getting things needed for daily living? No 05/17/2024 Housing Instability Answer Date Recorde d Are you worried or concerned that in the next two months you may not have stable housing that you own, rent or stay in as a part of a household? No 05/17/2024 Childcare Answer Date Recorded Do problems getting child ca re make it difficult for you to work or study? No 11/25/2021 Employment Answer Date Recorded Do you need help finding a [facility] and/or a training program? No 11/25/2021 Hunger Screening Answer Date Recorded Within the past 12 months we worried whether our food would run out before we got money to buy more. Never True 05/18/2024 Within the past 12 months th e food we bought just didn't last and we didn't have money to get more. Never True 05/18/2024 Purpose - Life Answer Date Recorded I [...] Medicine - Family Medicine [address] [place] [address] Vel Clancy, GAS ENGINE REPAIRER-DOCK CLERK [address] [place] [address] documented as of this encounter Goals Goal Patient Goal Type Associated Problems Recent Progress Patient-Stated? Author home General Yes Richa You, RN Note: Evaluation of progress towards goal: Pt plans to discharge home with self care and family assistance. documented as of this encounter Procedures Procedure Name Priority Date/Time Associated Diagnosis Comments HEMOGLOBIN A1C Routine 11/22/2024 Type 2 diabetes mellitus without complication, without long-term current use of insulin ([facility]) LIPID PROFILE Routine 11/22/2024 Type 2 diabetes mellitus without complication, without long-term current use of insulin ([facility]) COMPREHENSIVE METABOLIC PANEL Routine 11/22/2024 Type 2 diabetes mellitus without complication, without long-term current use of insulin ([facility]) documented in this encounter Results * Comprehensive metabolic panel (11/22/2024) External Albumin 3.6 MAN UALLY TRANSCRIBED RESULTS External Alt Sgpt 46 MANUALLY TRANSCRIBED RESULTS External Anion Gap 10.0 MANUALLY TRANSCRIBED RESULTS External Ast 32 MANUALL Y TRANSCRIBED RESULTS External Blood Urea Nitrogen Bun 15.0 MANUALLY TRANSCRIBED RESULTS External Calcium Ca 8.9 MANUALLY TRANSCRIBED RESULTS External Chloride 102 MANUALLY TRANSCRIBED RESULTS External Co2 / Carbon Dioxide 25.4 MANUALLY TRANSCRIBED RESULTS External Creatinine 0.48 MANUALLY TRANSCRIBED RESULTS External Gfr Amer >60 MANUALLY TRANSCRIBED RESULTS External Gfr Non Amer >60 MANUALLY TRANSCRIBED RESULTS External Alkaline Phosphatase 57 MANUALLY TRANSCRIBED RESULTS External Glucose Fasting Or Random (Fbs) 161 MANUALLY TRANSCRIBED RESULTS External Potassium K 3.4 MANUALLY TRANSCRIBED RESULTS External Sodium Na 134 MANUALLY TRANSCRIBED RESULTS Total Bilirubin 0.4 MANU ALLY TRANSCRIBED RESULTS External Total Protein 8.0 MANUALLY TRANSCRIBED RESULTS Blood Venous blood / Unknown 11/22/2024 Jose Chambers DO LAB BLOOD ORDERABLES Final Resul t Performing Organization Address [facility] de Phone Number MANUALLY TRANSCRIBED RESULTS * Lipid profile (11/22/2024) External Cholesterol 114 MANUALLY TRANSCRIBED RESULTS External Cholesterol:Hdl 52 MANUALLY TRANSCRIBED RESULTS External Ldl (Calc) 44.2 MANUALLY TRANSCRIBED RESULTS External Triglycerides 89 MANUALLY TRANSCRIBED RESULTS Blood Venous blood / Unknown 11/22/2024 Jose Chambers DO LAB BLOOD ORDERABLES Final Resul t Performing Organization Address [facility] de Phone Number MANUALLY TRANSCRIBED RESULTS * Hemoglobin A1c (11/22/2024) External Hemoglobin A1C 6.7 % MANUALLY TRANSCRIBED RESULTS Blood Venous blood / Unknown 11/22/2024 Jose Chambers DO LAB BLOOD ORDERABLES Final Resul t Performing Organization Address [facility] de Phone Number MANUALLY TRANSCRIBED RESULTS documented in this encounter Visit Diagnoses Diagnosis Type 2 diabetes mellitus without complication, without long-term current use of insulin ([facility]) documented in this encounter Additional Health Concerns Assessment Noted Time PHQ-9 Depression Total Score: 0 05/19/19 11:45 AM EDT A Body Mass Index follow-up plan has been documented for the patient 05/18/2024 1:44 PM EDT documented as of this encounter Care Teams Signal Supervisor Relationship Specialty Start Date End Date Vel Clancy, GAS ENGINE REPAIRER-DOCK CLERK [address] [place] [address] PCP - General Internal Medicine 10/21/24 documented as of this encounter
--- OUTSIDE RECORDS SUMMARY | 2024-11-29 10:53 | XMS_ITS | Encounter Summary ---
Author Organization [employer] Sys tem Address [facility] [id number] [address] [place] [address] Care Team Providers Care Bag Making Machine Tender Name Role Phone Damon Clancyderian Phillips WAFER CLEANER-PATIENT MANAGER Primary Care Provider + Encounter Details Date Type Department Care Team (Late st Contact Info) Description 05/04/2024 [facility] [address] [place] [phone] Dylan Pedersen CMA Social History Tobacco Use Types Packs/Day [...] often do you attend chur ch or druze services? More than 4 times per year 11/25/2021 Do you belong to any clubs o r organizations such as congregational groups, unions, fraternal or athletic groups, or [...] Answer Date Recorded Total Score 0 06/30/2023 [facility] of Occupat ional Health - Occupational [...] Do you need help finding a l al career center and/or a training program? No [...] encounter Miscellaneous Notes * Telephone Encounter - Dylan Pedersen CMA - 05/04/2024 1:14 PM EDT ----- Message from GERSON Gonzalez sent at 05/04/2024 12:19 PM EDT ----- Reviewed. A1c is 6.3%, remains stable. documented in this encounter Plan of Treatment Upcoming Encounters Date Type Department Care Team (Late st Contact Info) Description 11/30/2024 10:40 AM EDT Office Visit [facility] Internal Medicine - Family Medicine [address] [place] [address] Vel Clancy, WES-PATIENT MANAGER [address], [address] [place] [address] documented as of this encounter Goals Goal Patient Goal Type Associated Problems Recent Progress Patient-Stated? Author home General Yes Richa You, LAURY Note: Evaluation of progress towards goal: Pt plans to discharge home with self care and family assistance. documented as of this encounter Visit Diagnoses Not on filedocumented in this encounter Additional Health Concerns Assessment Noted Time PHQ-9 Depression Total Score: 0 06/30/19 24 1:31 PM EDT A Body Mass Index follow-up plan has been documented for the patient 12/01/2023 3:39 PM EDT documented as of this encounter Care Teams Bag Making Machine Tender Relationship Specialty Start Date End Date Vel Clancy APRN-PATIENT MANAGER [address] [place] [address] PCP - General Internal Medicine 10/21/24 documented as of this encounter
--- OUTSIDE RECORDS SUMMARY | 2024-11-29 10:53 | XMS_ITS | Encounter Summary ---
Author Organization [facility] [employer] Sys tem Address [facility] [place]-[id number] [address] [place] [address] Care Team Providers Care Senior Accountant Cpa Name Role Phone GlynnDamon mariederian Phillips GRINDING MILL OPERATOR-WELLNESS EDUCATOR Primary Care Provider + Encounter Details Date Type Department Care Team (Late st Contact Info) Description 05/26/2024 Orders Only [facility] Obstetrics/Gynecology [address] [place] [address] Felicitas Browne CMA Smear, vaginal, as part of routine gynecological examination Social History Tobacco Use Types Packs/Day Years [...] often do you attend chur ch or congregational services? More than 4 times per year 11/25/2021 Do you belong to any clubs o r organizations such as sabianist groups, unions, fraternal or athletic groups, or [...] Answer Date Recorded Total Score 0 05/18/2024 [facility] of Occupat ional Health - Occupational Stress [...] Internal Medicine - Family Medicine [address] [place] [address] Vel Clancy, GRINDING MILL OPERATOR-WELLNESS EDUCATOR [address], [address] [place] [address] documented as of this encounter Goals Goal Patient Goal Type Associated Problems Recent Progress Patient-Stated? Author home General Yes Richa You, RN Note: Evaluation of progress towards goal: Pt plans to discharge home with self care and family assistance. documented as of this encounter Procedures Procedure Name Priority Date/Time Associated Diagnosis Comments PAP SMEAR Routine 05/18/2024 Smear, vaginal, as part of routine gynecological examination HIGH RISK HPV W/JJ Routine 05/18/2024 Smear, vaginal, as part of routine gynecological examination documented in this encounter Results * Pap Smear (05/18/2024) Pap Negative for intraephithelial lesion or malignancy Negative for intraephithelial lesion or malignancy, Other MANUALLY TRANSCRIBED RESULTS 05/18/2024 Shantel Clancy APRN-WELLNESS EDUCATOR PATHOLOGY/CYTOLOGY ORDER CHANI Final Result Performing Organization Address [facility] Co de Phone Number MANUALLY TRANSCRIBED RESULTS * High risk HPV w/jj (05/18/2024) Hpv 16 NEG MANUALLY TRANSCRIBED RESULTS Hpv 18 NEG MANUALLY TRANSCRIBED RESULTS Other high risk hpv NEG MANUALLY TRANSCRIBED RESULTS 05/18/2024 Shantel Clancy APRN-WELLNESS EDUCATOR LAB BLOOD ORDERABLES Fin al Result Performing Organization Address [facility] Co de Phone Number MANUALLY TRANSCRIBED RESULTS documented in this encounter Visit Diagnoses Diagnosis Smear, vaginal, as part of routine gynecological examination Special screening for malignant neoplasms, vagina documented in this encounter Additional Health Concerns Assessment Noted Time PHQ-9 Depression Total Score: 0 05/19/19 11:45 AM EDT A Body Mass Index follow-up plan has been documented for the patient 05/18/2024 1:44 PM EDT documented as of this encounter Care Teams Senior Accountant Cpa Relationship Specialty Start Date End Date Vel Clancy, WES-AARON [address] [place] [address] PCP - General Internal Medicine 10/21/24 documented as of this encounter
--- OUTSIDE RECORDS SUMMARY | 2024-11-29 10:53 | XMS_ITS | Encounter Summary ---
Author Organization [employer] Sys tem Address [facility] [place]-[id number] [address] [place] [address] Care Team Providers Care Practice Billing Associate Name Role Phone GlynnDamon mariederian Phillips RESIDENTIAL DOOR INSTALLER-MECHANICAL MAINTENANCE WORKER Primary Care Provider + Encounter Details Date Type Department Care Team (Late st Contact Info) Description 05/11/2024 [facility] [address] [place] [phone] Dylan Pedersen CMA Social History Tobacco Use [...] often do you attend chur ch or sabianist services? More than 4 times per year 11/25/2021 Do you belong to any clubs o r organizations such as voodoo groups, unions, fraternal or athletic groups, or [...] Answer Date Recorded Total Score 0 06/30/2023 [facility] of Occupat ional Health - Occupational [...] Telephone Encounter - Dylan Pedersen CMA - 05/11/2024 4:09 PM EDT Message from GERSON Gonzalez sent at 05/04/2024 12:19 PM EDT ----- Reviewed. A1c is 6.3%, remains stable. documented in this encounter Plan of Treatment Upcoming Encounters Date Type Department Care Team (Late st Contact Info) Description 11/30/2024 10:40 AM EDT Office Visit [facility] Internal Medicine - Family Medicine [address] [place] [phone] Vel Clancy, WES-MECHANICAL MAINTENANCE WORKER [address], [address] [address] documented as of this encounter Goals Goal [...] documented as of this encounter Care Teams Practice Billing Associate Relationship Specialty Start Date End Date Vel Clancy, WES-AARON [address] [place] [address] PCP - General Internal Medicine 10/21/24 documented as of this encounter
--- OUTSIDE RECORDS SUMMARY | 2024-11-29 10:53 | XMS_ITS | Encounter Summary ---
Author Organization [employer] Sys tem Address [id number] [address] [place] [address] Care Team Providers Care Performance Test Engineer Name Role Phone Vel Clancy Jacqueline DESIGN SPECIALIST-NUTRITIONAL ASSISTANT Primary Care Provider + Reason for Visit * Reason Onset Date Comments Med Refill 01/11/2022 Encounter Details Date Type Department Care Team (Late st Contact Info) Description 01/11/2022 Refill [facility] Internal Medicine - Family Medicine [address] [place] [phone] Caryn Gomez, DESIGN SPECIALIST-SHOVEL MECHANIC [address] [address] Mixed hyperlipidemia Social History Tobacco Use Types Packs/Day Years [...] often do you attend chur ch or mormonism services? More than 4 times per year 11/25/2021 Do you belong to any clubs o r organizations such as muslim groups, unions, fraternal or athletic groups, or [...] Answer Date Recorded Total Score 0 11/25/2021 [facility] of Occupat ional Health - [...] have Coronavirus / COVID-19? No / Unsure 01/04/2022 10:51 AM EST documented as of this encounter Plan of Treatment Upcoming Encounters Date Type Department Care Team (Late st Contact Info) Description 11/30/2024 10:40 AM EDT Office Visit [facility] Internal Medicine - Family Medicine [address] [place] [address] Vel Clancy, DESIGN SPECIALIST-NUTRITIONAL ASSISTANT [address], [address] [address] documented as of this encounter Goals Goal Patient Goal Type Associated Problems Recent Progress Patient-Stated? Author home General Yes Richa You, RN Note: Evaluation of progress towards goal: Pt plans to discharge home with self care and family assistance. documented as of this encounter Visit Diagnoses Diagnosis Mixed hyperlipidemia documented in this encounter Additional Health Concerns Assessment Noted Time PHQ-9 Depression Total Score: 0 11/26/19 22 4:24 PM EDT A Body Mass Index follow-up plan has been documented for the patient 03/08/2019 2:48 PM EST documented as of this encounter Care Teams Performance Test Engineer Relationship Specialty Start Date End Date Vel Clancy, DESIGN SPECIALIST-NUTRITIONAL ASSISTANT [address] [place] [address] PCP - General Internal Medicine 10/21/24 documented as of this encounter
--- OUTSIDE RECORDS SUMMARY | 2024-11-29 10:53 | XMS_ITS | Encounter Summary ---
Author Organization [facility] Sys tem Address [id number] [address] [place] [address] Care Team Providers Care Maintenance Service Technician Name Role Phone Vel Clancy Jacqueline MEDIA PRODUCER-LOAN SUPERVISOR Primary Care Provider + Encounter Details Date Type Department Care Team (Late st Contact Info) Description 07/02/2024 [facility] [address] [place] [address] Ref Prov, [place] [address] Social History Tobacco Use Types Packs/Day Years [...] often do you attend chur ch or sikhism services? More than 4 times per year 11/25/2021 Do you belong to any clubs o r organizations such as religious groups, unions, fraternal or athletic groups, or [...] Answer Date Recorded Total Score 0 05/18/2024 [facility] [place] of Occupat ional Health - Occupational Stress [...] Internal Medicine - Family Medicine [address] [place] [phone] Vel Clancy, MEDIA PRODUCER-LOAN SUPERVISOR [address], [address] [place] [address] documented as of this encounter Goals Goal Patient Goal Type Associated Problems Recent Progress Patient-Stated? Author home General Yes Richa You, RN Note: Evaluation of progress towards goal: Pt plans to discharge home with self care and family assistance. documented as of this encounter Procedures Procedure Name Priority Date/Time Associated Diagnosis Comments CT ABDOMEN AND PELVIS WO CONT Routine 04/19/2024 9:19 AM EST documented in this encounter Results * CT abdomen and pelvis without contrast (04/19/2024 9:19 AM EST) Anatomical Region Laterality Modality Body, Abdomen, Body Covera N/A Compu priscilla Tomography us Not In System Ref Prov IMG CT ORDERABLES Final R esult documented in this encounter Visit Diagnoses Not on filedocumented in this encounter Additional Health Concerns Assessment Noted Time PHQ-9 Depression Total Score: 0 05/19/19 11:45 AM EDT A Body Mass Index follow-up plan has been documented for the patient 05/18/2024 1:44 PM EDT documented as of this encounter Care Teams Maintenance Service Technician Relationship Specialty Start Date End Date Vel Clancy, WES-LOAN SUPERVISOR [address] [place] [address] PCP - General Internal Medicine 10/21/24 documented as of this encounter
--- OUTSIDE RECORDS SUMMARY | 2024-11-29 10:53 | XMS_ITS | Encounter Summary ---
Author Organization [employer] Sys tem Address [id number] [address] [place] [address] Care Team Providers Care Marketing Communications Manager Name Role Phone Vel Clancy LABORATORY SECRETARY-MAINTENANCE HELPER UTILITY ENGINEER Primary Care Provider + Reason for Visit * Reason Onset Date Comments Med Refill 08/14/2021 Encounter Details Date Type Department Care Team (Late st Contact Info) Description 08/14/2021 Refill [facility] Gynecology Oncology [address] [place] [address] Mendy Plascencia PA-C [address] [place] [address] Menopause Social History Tobacco Use [...] Medicine - Family Medicine [address] [place] [address] Vel Clancy, LABORATORY SECRETARY-MAINTENANCE HELPER UTILITY ENGINEER [address], [facility] [address] [place] [address] documented as of this encounter Goals Goal [...] documented as of this encounter Care Teams Marketing Communications Manager Relationship Specialty Start Date End Date Vel Clancy, LABORATORY SECRETARY-MAINTENANCE HELPER UTILITY ENGINEER [address] [place] [address] PCP - General Internal Medicine 10/21/24 documented as of this encounter
--- OUTSIDE RECORDS SUMMARY | 2024-11-29 10:53 | XMS_ITS | Encounter Summary ---
Author Organization [employer] Sys tem Address [id number] [address] [place] [address] Care Team Providers Care Employee Relations Director Name Role Phone Vel Clancy COMMAND CENTER ANALYST-MANAGER GALLERY Primary Care Provider + Reason for Visit * Reason Comments Med Refill Encounter Details Date Type Department Care Team (Late st Contact Info) Description 12/13/2021 Refill [facility] Internal Medicine - Family Medicine [address] [place] [phone] Mack Jarrett, DO [address] [facility] [place] [address] Social History Tobacco Use Types Packs/Day Years [...] often do you attend chur ch or protestant services? More than 4 times per year [...] Answer Date Recorded Total Score 0 11/25/2021 [facility] of Occupat ional Health - Occupational Stress [...] Medicine - Family Medicine [address] [place] [address] Vel Clancy, COMMAND CENTER ANALYST-MANAGER GALLERY [address], [address] [address] documented as of this encounter Goals Goal [...] Time PHQ-9 Depression Total Score: 0 11/26/19 4:24 PM EDT A Body Mass Index follow-up plan has been documented for the patient 03/08/2019 2:48 PM EST documented as of this encounter Care Teams Employee Relations Director Relationship Specialty Start Date End Date Vel Clancy, COMMAND CENTER ANALYST-MANAGER GALLERY [address] [place] [address] PCP - General Internal Medicine 10/21/24 documented as of this encounter
--- OUTSIDE RECORDS SUMMARY | 2024-11-29 10:53 | XMS_ITS | Encounter Summary ---
Author Organization [employer] Sys tem Address [id number] [address] [place] [address] Care Team Providers Care Administrative Specialist Name Role Phone Vel Clancy BLASTER HELPER-DELIVERER FOOD Primary Care Provider + Reason for Visit * Reason Comments Med Refill Encounter Details Date Type Department Care Team (Late st Contact Info) Description 11/06/2021 Refill [facility] Internal Medicine - Family Medicine [address] [place] [phone] Mack Jarrett, DO [address] [facility], [place] [address] Social History Tobacco Use Types Packs/Day Years [...] Medicine - Family Medicine [address] [place] [address] Vel Clancy, BLASTER HELPER-DELIVERER FOOD [address], [address] [place] [address] documented as of this encounter Goals Goal [...] documented as of this encounter Care Teams Administrative Specialist Relationship Specialty Start Date End Date Vel Clancy, BLASTER HELPER-DELIVERER FOOD [address] [place] [address] PCP - General Internal Medicine 10/21/24 documented as of this encounter
--- OUTSIDE RECORDS SUMMARY | 2024-11-29 10:53 | XMS_ITS | Encounter Summary ---
Author Organization [employer] Sys tem Address [facility] [id number] [address] [place] [address] Care Team Providers Care Forest Pathology Associate Professor Name Role Phone Vel Clancy RESTAURANT HOURLY TEAM MEMBER-MACHINE CASTINGS PLASTERER Primary Care Provider + Reason for Visit * Reason Comments Med Refill Encounter Details Date Type Department Care Team (Late st Contact Info) Description 12/29/2023 Refill [facility] Gynecology Oncology [address] [place] [address] Mendy Plascencia, PACharlesC [address] [place] [address] Vaginal atrophy; Dyspareunia in female; [...] How often do you attend chur or synagogue services? More than 4 times per year 11/25/2021 Do you belong to any clubs o r organizations such as gnosticism groups, unions, fraternal or athletic groups, or [...] Answer Date Recorded Total Score 0 06/30/2023 [facility] of Occupat ional Health - Occupational [...] Recorded Do you need help finding a [facility] and/or a training program? [...] Internal Medicine - Family Medicine [address] [place] [address] Vel Clancy, RESTAURANT HOURLY TEAM MEMBER-MACHINE CASTINGS PLASTERER [address], [facility] [address] [place] [address] documented as of this encounter Goals Goal [...] documented as of this encounter Care Teams Forest Pathology Associate Professor Relationship Specialty Start Date End Date Vel Clancy, RESTAURANT HOURLY TEAM MEMBER-MACHINE CASTINGS PLASTERER [address] [place] [address] PCP - General Internal Medicine 10/21/24 documented as of this encounter
--- OUTSIDE RECORDS SUMMARY | 2024-11-29 10:53 | XMS_ITS | Encounter Summary ---
Author Organization [facility] [employer] Sys tem Address [id number] [address] [place] [address] Care Team Providers Care Radiologic Technologist Mammogram Name Role Phone Vel Clancy Jacqueline NURSE OBGYN-COLOR ADVISER Primary Care Provider + Encounter Details Date Type Department Care Team (Late st Contact Info) Description 12/03/2023 Orders Only [facility] Internal Medicine - Family Medicine [address] [place] [phone] Briana Kaye CMA Encounter for screening for osteoporosis; Asymptomatic menopausal state Social History Tobacco Use Types Packs/Day Years [...] often do you attend chur ch or bahai services? More than 4 times per year 11/25/2021 Do you belong to any clubs o r organizations such as pentecostalism groups, unions, fraternal or athletic groups, or [...] Answer Date Recorded Total Score 0 06/30/2023 [facility] of Occupat ional Health - Occupational Stress [...] Internal Medicine - Family Medicine [address] [place] [address] Vel Clancy, NURSE OBGYN-COLOR ADVISER [address], [facility] [address] [place] [address] documented as of this encounter Goals Goal Patient Goal Type Associated Problems Recent Progress Patient-Stated? Author home General Yes Richa You, RN Note: Evaluation of progress towards goal: Pt plans to discharge home with self care and family assistance. documented as of this encounter Procedures Procedure Name Priority Date/Time Associated Diagnosis Comments DEXA SCAN CENTRAL SKELETAL Routine 12/03/2023 1:11 PM EDT Encounter for screening for osteoporosis Asymptomatic menopausal state DEXA SCAN CENTRAL SKELETAL Routine 12/01/2023 1:25 PM EDT documented in this encounter Results * Dexa scan central skeletal (12/03/2023 1:11 PM EDT) Anatomical Region Laterality Modality N/A Radiographic Sera ging us Kelly Roman NURSE OBGYN-COLOR ADVISER IMG DXA ORDERABLES F inal Result * Dexa scan central skeletal (12/01/2023 1:25 PM EDT) Anatomical Region Laterality Modality N/A Radiographic Sera ging us Not In System Ref Prov IMG DXA ORDERABLES Final Result documented in this encounter Visit Diagnoses Diagnosis Encounter for screening for osteoporosis Asymptomatic menopausal state documented in this encounter Additional Health Concerns Assessment Noted Time PHQ-9 Depression Total Score: 0 06/30/19 24 1:31 PM EDT A Body Mass Index follow-up plan has been documented for the patient 12/01/2023 3:39 PM EDT documented as of this encounter Care Teams Radiologic Technologist Mammogram Relationship Specialty Start Date End Date Vel Clnacy, WES-COLOR ADVISER [address] [place] [address] PCP - General Internal Medicine 10/21/24 documented as of this encounter
--- OUTSIDE RECORDS SUMMARY | 2024-11-29 10:53 | XMS_ITS | Encounter Summary ---
Author Organization [employer] Sys [employer] Address [id number] [address] [place] [address] Care Team Providers Care Womens Volleyball Coach Name Role Phone GlynnDamon mariederian Phillips CORPORATE LEGAL ASSISTANT-BRIM MOLDER Primary Care Provider + Encounter Details Date Type Department Care Team (Late st Contact Info) Description 11/19/2023 [facility] [address] [place] [phone] Dylan Pederesn CMA Social History Tobacco Use Types Packs/Day [...] often do you attend chur ch or muslim services? More than 4 times per year 11/25/2021 Do you belong to any clubs o r organizations such as congregation groups, unions, fraternal or athletic groups, or [...] Answer Date Recorded Total Score 0 06/30/2023 [facility] of Occupat ional Health - [...] Telephone Encounter - Dylan Pedersen CMA - 11/19/2023 10:30 AM EDT Pt called and would like her Blood work and Mammogram ordered placed and sent to [facility]. * Telephone Encounter - GERSON Schmidt - 11/19/2023 10:30 AM EDT Addressed documented in this encounter Plan of Treatment Upcoming Encounters Date Type Department Care Team (Late st Contact Info) Description 11/30/2024 10:40 AM EDT Office Visit [facility] Internal Medicine - Family Medicine [address] [place] [address] Vel Clancy, WES-BRIM MOLDER [address], [address] [place] [address] Scheduled Orders Name Type Priority Associated Diagnoses Orde r Schedule Mammography screening bilateral with CAD Imaging Routine Encounter for screening mammogram for malignant neoplasm of breast Expected: 11/19/2023, Expires: 02/23/2025 documented as of this encounter Goals Goal Patient Goal Type Associated Problems Recent Progress Patient-Stated? Author home General Yes Yebekenny, Richa, RN Note: Evaluation of progress towards goal: Pt plans to discharge home with self care and family assistance. documented as of this encounter Results * Dexa scan central skeletal (12/03/2023 1:11 PM EDT) Anatomical Region Laterality Modality N/A Radiographic Sera ging us Kelly Roman APRN-BRIM MOLDER IMG DXA ORDERABLES F inal Result documented in this encounter Visit Diagnoses Diagnosis Encounter for screening mammogram for malignant neoplasm of breast- Primary Encounter for screening for osteoporosis Asymptomatic menopausal state documented in this encounter Additional Health Concerns Assessment Noted Time PHQ-9 Depression Total Score: 0 06/30/19 24 1:31 PM EDT A Body Mass Index follow-up plan has been documented for the patient 06/30/2023 4:55 PM EDT documented as of this encounter Care Teams Womens Volleyball Coach Relationship Specialty Start Date End Date Vel Clancy, WES-BRIM MOLDER [address] [place] [address] PCP - General Internal Medicine 10/21/24 documented as of this encounter
--- OUTSIDE RECORDS SUMMARY | 2024-11-29 10:53 | XMS_ITS | Encounter Summary ---
Author Organization [facility] [employer] Sys tem Address [facility] [id number] [address] [place] [address] Care Team Providers Care Battery Charger Conveyor Line Name Role Phone Vel Clancy Jacqueline ROLL HANDLER-RESISTOR INSPECTOR Primary Care Provider + Encounter Details Date Type Department Care Team (Late st Contact Info) Description 11/28/2023 Orders Only [facility] Internal Medicine - Family Medicine [address] [place] [phone] Briana Kaye CMA Blood tests for routine general physical examination Social History Tobacco Use Types Packs/Day [...] often do you attend chur ch or pentecostalism services? More than 4 times per year [...] Answer Date Recorded Total Score 0 06/30/2023 [facility] [place] of Occupat ional Health - Occupational Stress [...] Medicine - Family Medicine [address] [place] [address] Vel Clancy, ROLL HANDLER-RESISTOR INSPECTOR [address], [address] [place] [address] documented as of this encounter Goals Goal Patient Goal Type Associated Problems Recent Progress Patient-Stated? Author home General Yes Richa You, RN Note: Evaluation of progress towards goal: Pt plans to discharge home with self care and family assistance. documented as of this encounter Procedures Procedure Name Priority Date/Time Associated Diagnosis Comments CBC WITH AUTO DIFFERENTIAL Routine 11/28/2023 Blood tests for routine general physical examination TSH Routine 11/28/2023 Blood tests for routine general physical examination HEMOGLOBIN A1C Routine 11/28/2023 Blood tests for routine general physical examination LIPID PROFILE Routine 11/28/2023 Blood tests for routine general physical examination documented in this encounter Results * TSH (11/28/2023) External Tsh 0.008 [facility] 11/28/2023 Result [facility] Kelly Roman [facility] BLOOD ORDERABLES Final Result Performing Organization Address [facility]/ZIP Co de Phone Number SUNQUEST * Lipid panel (11/28/2023) External Cholesterol 115 [facility]QUEST External Cholesterol:Hdl 54 [facility]QUEST External Ldl (Calc) 40.8 [facility]QUEST External Triglycerides 101 [facility]QUEST Blood 11/28/2023 Result [facility] Kelly Roman [facility] Final Result Performing Organization Address [facility] Co de Phone Number SUNQUEST * CBC auto differential (11/28/2023) External Wbc Count 9.6 [facility]QUEST External Rbc Count 5.23 [facility]QUEST External Hemoglobin 14.8 [facility] External Hematocrit Hct 45.8 [facility]QUEST External Mcv 87.6 [facility]QUEST External MCH 28.3 [facility]QUEST External Mchc 32.3 SUNQUEST External [address]w 13.1 SUNQUEST External Platelet Count 249 SUNQUEST External Mpv 10.0 SUNQUEST External Seg Neutrophil 60.4 [facility]QUEST External Lymphocyte, Atypical 29.2 [facility]QUEST External Absolute Lymphocyte 2.8 [facility]QUEST External Monocytes 0.8 SUNQUEST External % Basophils 0.1 [facility]QUEST External Absolute Neutrophils 5.8 [facility]QUEST External Absolute Lymphocyte 2.8 SUNQUEST External Absolute Monocytes 0.8 SUNQUEST External Absolute Basophil 0.1 [facility]QUEST 11/28/2023 Result [facility] Kelly Roman [facility] BLOOD ORDERABLES Final Result SUNQUEST * Hemoglobin A1c (11/28/2023) External Hemoglobin A1C 6.3 % [facility]QUEST 11/28/2023 Result [facility] Kelly NIETO LAB BLOOD ORDERABLES Final Result SUNQUEST documented in this encounter Visit Diagnoses Diagnosis Blood tests for routine general physical examination Laboratory examination ordered as part of a routine general medical examination documented in this encounter Additional Health Concerns Assessment Noted Time PHQ-9 Depression Total Score: 0 06/30/19 24 1:31 PM EDT A Body Mass Index follow-up plan has been documented for the patient 06/30/2023 4:55 PM EDT documented as of this encounter Care Teams Battery Charger Conveyor Line Relationship Specialty Start Date End Date Vel Clancy, GERSON [address] [place] [address] PCP - General Internal Medicine 10/21/24 documented as of this encounter
--- OUTSIDE RECORDS SUMMARY | 2024-11-29 10:53 | XMS_ITS | Encounter Summary ---
Author Organization [facility] Sys tem Address [facility] [id number] [address] [place] [address] Care Team Providers Care Plant Safety Leader Name Role Phone Vel Clancy SUPERVISOR VENEER-LEASE PURCHASE TRUCK DRIVER Primary Care Provider + Encounter Details Date Type Department Care Team (Late Contact Info) Description 11/05/2021 Orders Only [facility] Internal Medicine - Family Medicine [address] [place] [address] External, Scanning Provider Social History Tobacco Use Types Packs/Day Years [...] Encounters Date Type Department Care Team (Late Contact Info) Description 11/30/2024 10:40 AM EDT Office Visit [facility] Internal Medicine - Family Medicine [address] [place] [address] Vel Clancy, SUPERVISOR VENEER-LEASE PURCHASE TRUCK DRIVER [address], [facility] [address] [place] [address] documented as of this encounter Goals Goal Patient Goal Type Associated Problems Recent Progress Patient-Stated? Author home General Yes Richa You, RN Note: Evaluation of progress towards goal: Pt plans to discharge home with self care and family assistance. documented as of this encounter Procedures Procedure Name Priority Date/Time Associated Diagnosis Comments MAMMOGRAPHY Routine 11/02/2021 documented in this encounter Results * HM MAMMOGRAPHY (11/02/2021) Anatomical Region Laterality Modality Other us Scanning Provider External HEALTH MAINTENANCE nal Result documented in this encounter Visit Diagnoses Not on filedocumented in this encounter Additional Health Concerns Assessment Noted Time A Body Mass Index follow-up plan has been documented for the patient 03/08/2019 2:48 PM EST documented as of this encounter Care Teams Plant Safety Leader Relationship Specialty Start Date End Date Vel Clancy, SUPERVISOR VENEER-LEASE PURCHASE TRUCK DRIVER [address] [place] [address] PCP - General Internal Medicine 10/21/24 documented as of this encounter
--- OUTSIDE RECORDS SUMMARY | 2024-11-29 10:53 | XMS_ITS | Clinical Summary ---
Author Organization [facility] Address [address] [place] [address] Care Team Providers Care Lock Expert Name Role Phone Unavailable Primary Care Provider Unavailabl e Social History Tobacco Use Types Packs/Day Years Used Date Smoking Tobacco: Never Assessed Comments Unknown Sex and Gender Information Value Date Recorded Sex Assigned at Not on file Legal Sex Female 12:12 AM EDT Gender Identity Not on file Sexual Orientation Not on file Plan of Treatment Not on file
--- OUTSIDE RECORDS SUMMARY | 2024-11-29 10:53 | XMS_ITS | Encounter Summary ---
Author Organization [facility] Sys tem Address [facility] [place]-[id number] [address] [place] [address] Care Team Providers Care Nutrition And Dietetics Instructor Name Role Phone Vel Clancy Jacqueline NUTRITION WORKER-VERIFICATION SPECIALIST Primary Care Provider + Encounter Details Date Type Department Care Team (Late st Contact Info) Description 08/12/2023 Orders Only [facility] Internal Medicine - Family Medicine [address] [place] [phone] Kelly Roman, NUTRITION WORKER-VERIFICATION SPECIALIST [address] [place] [address] Social History Tobacco Use Types Packs/Day Years [...] any clubs o r organizations such as episcopalian groups, unions, fraternal or athletic groups, or [...] Answer Date Recorded Total Score 0 06/30/2023 [facility] of Occupat ional Health - Occupational [...] Recorded Do you need help finding a [facility] career center and/or a training program? No [...] Medicine - Family Medicine [address] [place] [address] Vel Clancy, NUTRITION WORKER-VERIFICATION SPECIALIST [address], [place] [phone] documented as of this encounter Goals Goal [...] documented as of this encounter Care Teams Nutrition And Dietetics Instructor Relationship Specialty Start Date End Date Vel Clancy, NUTRITION WORKER-VERIFICATION SPECIALIST [address] [place] [address] PCP - General Internal Medicine 10/21/24 documented as of this encounter
--- OUTSIDE RECORDS SUMMARY | 2024-11-29 10:53 | XMS_ITS | Encounter Summary ---
Author Organization [facility] [employer] Sys tem Address [facility] [id number] [address] [place] [address] Care Team Providers Care Bankruptcy Judge Name Role Phone Vel Clancy Jacqueline SUPERVISOR QUILTING-CASE MAKER Primary Care Provider + Encounter Details Date Type Department Care Team (Late st Contact Info) Description 05/04/2024 Orders Only [facility] Internal Medicine - Family Medicine [address] [place] [phone] Briana Kaye CMA Type 2 diabetes mellitus with hyperglycemia, without long-term current use of insulin ([facility]) Social History Tobacco Use Types Packs/Day Years [...] often do you attend chur ch or catholic services? More than 4 times per year [...] Answer Date Recorded Total Score 0 06/30/2023 [facility] [place] of Occupat ional Health - Occupational Stress [...] - Family Medicine [address] [place] [address] Vel Clancy, SUPERVISOR QUILTING-CASE MAKER [address] [place] [address] documented as of this encounter Goals Goal Patient Goal Type Associated Problems Recent Progress Patient-Stated? Author home General Yes Richa You, RN Note: Evaluation of progress towards goal: Pt plans to discharge home with self care and family assistance. documented as of this encounter Procedures Procedure Name Priority Date/Time Associated Diagnosis Comments MICROALBUMIN / CREATININE URINE RATIO Routine 05/03/2024 Type 2 diabetes mellitus with hyperglycemia, without long-term current use of insulin ([facility]) HEMOGLOBIN A1C Routine 05/03/2024 Type 2 diabetes mellitus with hyperglycemia, without long-term current use of insulin ([facility]) COMPREHENSIVE METABOLIC PANEL Routine 05/03/2024 Type 2 diabetes mellitus with hyperglycemia, without long-term current use of insulin ([facility]) documented in this encounter Results * Microalbumin - Albumin: Creatinine Urine Ratio (05/03/2024) External Microalbumin, Urine 3.3 [facility]QUEST External Urine Creat 110.12 [facility]QUEST External Alb/Creat Ratio 29.9 [facility]QUEST 05/03/2024 Kelly Roman [facility] UR[facility] Fin al Result Performing Organization Address [facility] de Phone Number SUNQUEST * Hemoglobin A1c (05/03/2024) External Hemoglobin A1C 6.3 % SUNQUEST 05/03/2024 Kelly Roman [facility] LAB BLOOD ORDERABLES Final Result Performing Organization Address [facility] de Phone Number SUNQUEST * Comprehensive metabolic panel (05/03/2024) External Albumin 3.8 [facility]QUEST External Alt Sgpt 25 [facility]QUEST External Anion Gap 16.7 [facility]QUEST External Ast 25 [facility]QUEST External Blood Urea Nitrogen Bun 18.0 [facility] External Calcium Ca 9.2 [facility] External Chloride 105 [facility] External Co2 / Carbon Dioxide 25.6 [facility] External Creatinine 0.51 [facility] External Gfr Amer >60 [facility] External Gfr Non Amer >60 [facility] External Alkaline Phosphatase 54 [facility] External Glucose Fasting Or Random (Fbs) 132 [facility]QUEST External Potassium K 3.3 [facility]QUEST External Sodium Na 144 [facility]QUEST Total Bilirubin 0.5 [facility]QUEST External Total Protein 7.6 [facility]QUEST Blood 05/03/2024 Kelly Roman [facility] LAB BLOOD ORDERABLES Final Result Performing Organization Address [facility] de Phone Number SUNQUEST documented in this encounter Visit Diagnoses Diagnosis Type 2 diabetes mellitus with hyperglycemia, without long-term current use of insulin ([facility]) documented in this encounter Additional Health Concerns Assessment Noted Time PHQ-9 Depression Total Score: 0 06/30/19 1:31 PM EDT A Body Mass Index follow-up plan has been documented for the patient 12/01/2023 3:39 PM EDT documented as of this encounter Care Teams Bankruptcy Judge Relationship Specialty Start Date End Date Vel Clancy, SUPERVISOR QUILTING-CASE MAKER [address] [place] [address] PCP - General Internal Medicine 10/21/24 documented as of this encounter
--- OUTSIDE RECORDS SUMMARY | 2024-11-29 10:53 | XMS_ITS | Encounter Summary ---
Author Organization [employer] Sys tem Address [facility] [place]-[id number] [address] [place] [address] Care Team Providers Care Clerk Supervisor Name Role Phone Vel Clancy Jacqueline HEAD CHAR FILTER TANK TENDER-NIB ADJUSTER Primary Care Provider + Reason for Visit * Reason Comments Med Refill Encounter Details Date Type Department Care Team (Late st Contact Info) Description 04/08/2022 Refill [facility] Internal Medicine - Family Medicine [address] [place] [phone] Caryn Gomez, HEAD CHAR FILTER TANK TENDER-IMAGERY ANALYST [address] [address] Social History Tobacco Use Types Packs/Day Years [...] any clubs o r organizations such as jehovah's witness groups, unions, fraternal or athletic groups, or [...] Answer Date Recorded Total Score 0 11/25/2021 [facility] of Occupat ional Health - Occupational [...] Orientation Straight 11/16/2019 6 :39 PM EDT documented as of this encounter Plan of Treatment Upcoming Encounters Date Type Department Care Team (Late st Contact Info) Description 11/30/2024 10:40 AM EDT Office Visit [facility] Internal Medicine - Family Medicine [address] [place] [address] Vel Clancy, HEAD CHAR FILTER TANK TENDER-NIB ADJUSTER [address], [address] [address] documented as of this encounter Goals Goal [...] documented as of this encounter Care Teams Clerk Supervisor Relationship Specialty Start Date End Date Vel Clancy, HEAD CHAR FILTER TANK TENDER-NIB ADJUSTER [address] [place] [address] PCP - General Internal Medicine 10/21/24 documented as of this encounter
--- OUTSIDE RECORDS SUMMARY | 2024-11-29 10:53 | XMS_ITS | Encounter Summary ---
Author Organization [facility] Sys tem Address [facility] [id number] [address] [place] [address] Care Team Providers Care Home Health Scheduler Name Role Phone Vel Clancy Jacqueline PIPE FITTER SUPERVISOR-WHITE SOURER Primary Care Provider + Encounter Details Date Type Department Care Team (Late st Contact Info) Description 11/04/2024 Orders Only [facility] Internal Medicine - Family Medicine [address] [place] [phone] Jose Chambers, DO [address] [place] [address] Type 2 diabetes mellitus without complication, without long-term current use of insulin ([facility]) (Primary Dx) Social History Tobacco Use Types Packs/Day Years [...] often do you attend chur ch or mosque services? More than 4 times per year [...] Answer Date Recorded Total Score 0 05/18/2024 [facility] of Occupat ional [...] Recorded Do you need help finding a [facility] career center and/or a training program? No [...] Internal Medicine - Family Medicine [address] [place] [address] Vel Clancy, PIPE FITTER SUPERVISOR-WHITE SOURER [address] [facility] [address] [place], [place] [phone] documented as of this encounter Goals Goal Patient Goal Type Associated Problems Recent Progress Patient-Stated? Author home General Yes Richa You, RN Note: Evaluation of progress towards goal: Pt plans to discharge home with self care and family assistance. documented as of this encounter Results * Hemoglobin A1c (11/22/2024) External Hemoglobin A1C 6.7 % MANUALLY TRANSCRIBED RESULTS Blood Venous blood / Unknown 11/22/2024 Jose Chambers DO LAB BLOOD ORDERABLES Final Resul t Performing Organization Address [facility] de Phone Number MANUALLY TRANSCRIBED RESULTS * Lipid profile (11/22/2024) External Cholesterol 114 MANUALLY TRANSCRIBED RESULTS External Cholesterol:Hdl 52 MANUALLY TRANSCRIBED RESULTS External Ldl (Calc) 44.2 MANUALLY TRANSCRIBED RESULTS External Triglycerides 89 MANUALLY TRANSCRIBED RESULTS Blood Venous blood / Unknown 11/22/2024 Jose Chambers LAB BLOOD ORDERABLES Final Resul t Performing Organization Address [facility] Co de Phone Number MANUALLY TRANSCRIBED RESULTS * Comprehensive metabolic panel (11/22/2024) External Albumin [...] ORDERABLES Final Resul t Performing Organization Address [facility] Co de Phone Number MANUALLY TRANSCRIBED RESULTS documented in this encounter Visit Diagnoses Diagnosis Type 2 diabetes mellitus without complication, without long-term current use of insulin ([facility])- Primary documented in this encounter Additional Health Concerns Assessment Noted Time PHQ-9 Depression Total Score: 0 05/19/19 11:45 AM EDT A Body Mass Index follow-up plan has been documented for the patient 05/18/2024 1:44 PM EDT documented as of this encounter Care Teams Home Health Scheduler Relationship Specialty Start Date End Date Vel Clancy, PIPE FITTER SUPERVISOR-WHITE SOURER [address] [place] [address] PCP - General Internal Medicine 10/21/24 documented as of this encounter
--- OUTSIDE RECORDS SUMMARY | 2024-11-29 10:54 | XMS_ITS | Encounter Summary ---
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 Social History Tobacco Use Types Packs/Day Years Used Date Smoking Tobacco: Never Alcohol Use Standard Drinks/Week Comments Never 0 (1 standard drink = 0.6 oz pur e alcohol) Comments Unknown Sex and Gender Information Value Date Recorded Sex Assigned at Not on file Legal Sex Female 7:13 PM EDT Gender Identity Not on file Sexual Orientation Not on file documented as of this encounter Plan of Treatment Not on file documented as of this encounter Procedures Procedure Name Priority Date/Time Associated Diagnosis Comments AMB REFERRAL TO GENERAL SURGERY Routine 05/10/2024 4:27 PM EDT Recurrent abdominal hernia without obstruction or gangrene, unspecified hernia type 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 documented in this encounter Results * Ambulatory referral to General Surgery (05/10/2024 4:27 PM EDT) Vel Montero DO OUTPATIENT REFERRAL ORDERABLES F inal Result documented in this encounter Visit Diagnoses Diagnosis Recurrent abdominal hernia without obstruction or gangrene, unspecified hernia type 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
--- OUTSIDE RECORDS SUMMARY | 2024-11-29 10:54 | XMS_ITS | Encounter Summary ---
Author Organization [employer] Sys tem Address [facility] [id number] [address] [place] [address] Care Team Providers Care Fire Equipment Inspector Helper Name Role Phone Vel Clancy Jacqueline ADMISSION SPECIALIST-MOTOR CHECKER Primary Care Provider + Reason for Visit * Reason Comments Med Refill Encounter Details Date Type Department Care Team (Late st Contact Info) Description 05/07/2022 Refill [facility] Internal Medicine - Family Medicine [address] [place] [phone] Caryn Gomez, ADMISSION SPECIALIST-GROUP WORK PROGRAM AIDE [address] [place] [address] Social History Tobacco Use Types Packs/Day Years [...] any clubs o r organizations such as anabaptism groups, unions, fraternal or athletic groups, or [...] Answer Date Recorded Total Score 0 04/23/2022 [facility] of Occupat ional Health - Occupational Stress [...] have Coronavirus / COVID-19? No / Unsure 04/23/2022 9:15 AM EST documented as of this encounter Plan of Treatment Upcoming Encounters Date Type Department Care Team (Late st Contact Info) Description 11/30/2024 10:40 AM EDT Office Visit [facility] Internal Medicine - Family Medicine [address] [place] [address] Vel Clancy, ADMISSION SPECIALIST-MOTOR CHECKER [address], [address] [address] documented as of this encounter Goals Goal [...] documented as of this encounter Care Teams Fire Equipment Inspector Helper Relationship Specialty Start Date End Date Vel Clancy, ADMISSION SPECIALIST-MOTOR CHECKER [address] [place] [address] PCP - General Internal Medicine 10/21/24 documented as of this encounter
--- OUTSIDE RECORDS SUMMARY | 2024-11-29 10:54 | XMS_ITS | Encounter Summary ---
Author Organization [employer] Sys tem Address [facility] [place][id number] [address] [place] [address] Care Team Providers Care Education Professional Name Role Phone Vel Clancy Jacqueline ENGINEERING OFFICER-TAPPER BALANCE WHEEL SCREW HOLE Primary Care Provider + Reason for Visit * Reason Comments Med Refill Encounter Details Date Type Department Care Team (Late st Contact Info) Description 09/01/2022 Refill [facility] Internal Medicine - Family Medicine [address] [place] [phone] Caryn Gomez, ENGINEERING OFFICER-METER SUPERVISOR [address] [address] Social History Tobacco Use Types Packs/Day Years [...] any clubs o r organizations such as judaism groups, unions, fraternal or athletic groups, or [...] PHQ-2 Answer Date Recorded Total Score 0 05/29/2022 [facility] of Occupat ional Health - Occupational Stress [...] Medicine - Family Medicine [address] [place] [address] Vel Clancy, ENGINEERING OFFICER-TAPPER BALANCE WHEEL SCREW HOLE [address], [address] [address] documented as of this encounter Goals Goal Patient Goal Type Associated Problems Recent Progress Patient-Stated? Author home General Yes Richa You, RN Note: Evaluation of progress towards goal: Pt plans to discharge home with self care and family assistance. documented as of this encounter Visit Diagnoses Not on filedocumented in this encounter Additional Health Concerns Assessment Noted Time PHQ-9 Depression Total Score: 0 05/30/19 23 9:51 AM EDT A Body Mass Index follow-up plan has been documented for the patient 04/23/2022 6:10 PM EST documented as of this encounter Care Teams Education Professional Relationship Specialty Start Date End Date Vel Clancy, ENGINEERING OFFICER-TAPPER BALANCE WHEEL SCREW HOLE [address] [place] [address] PCP - General Internal Medicine 10/21/24 documented as of this encounter
--- OUTSIDE RECORDS SUMMARY | 2024-11-29 10:54 | XMS_ITS | Encounter Summary ---
Author Organization [facility] Sys tem Address [facility] [place]-[id number] [address] [place] [address] Care Team Providers Care Binder Roller Name Role Phone Vel Clancy Jacqueline MANAGER OF CREATIVE SERVICES-CLUB MANAGER Primary Care Provider + Encounter Details Date Type Department Care Team (Late st Contact Info) Description 06/24/2022 Orders Only [facility] Internal Medicine - Family Medicine [address] [place] [phone] External, Scanning Provider Social History Tobacco Use [...] often do you attend chur ch or rastafari services? More than 4 times per year [...] Answer Date Recorded Total Score 0 05/29/2022 [facility] of Occupat ional Health - [...] have Coronavirus / COVID-19? No / Unsure 05/29/2022 9:43 AM EDT documented as of this encounter Plan of Treatment Upcoming Encounters Date Type Department Care Team (Late st Contact Info) Description 11/30/2024 10:40 AM EDT Office Visit [facility] Internal Medicine - Family Medicine [address] [place] [address] Vel Clancy, MANAGER OF CREATIVE SERVICES-CLUB MANAGER [address], [address] [address] documented as of this encounter Goals Goal Patient Goal Type Associated Problems Recent Progress Patient-Stated? Author home General Yes Richa You, RN Note: Evaluation of progress towards goal: Pt plans to discharge home with self care and family assistance. documented as of this encounter Procedures Procedure Name Priority Date/Time Associated Diagnosis Comments DIABETES EYE EXAM Routine 06/20/2022 documented in this encounter Results * DIABETES EYE EXAM (06/20/2022) us Scanning Provider External HEALTH MAINTENANCE nal Result MANUALLY TRANSCRIBED RESULTS documented in this encounter Visit Diagnoses Not on filedocumented in this encounter Additional Health Concerns Assessment Noted Time PHQ-9 Depression Total Score: 0 05/30/19 23 9:51 AM EDT A Body Mass Index follow-up plan has been documented for the patient 04/23/2022 6:10 PM EST documented as of this encounter Care Teams Binder Roller Relationship Specialty Start Date End Date Vel Clancy, MANAGER OF CREATIVE SERVICES-CLUB MANAGER [address] [place] [address] PCP - General Internal Medicine 10/21/24 documented as of this encounter
--- OUTSIDE RECORDS SUMMARY | 2024-11-29 10:54 | XMS_ITS | Encounter Summary ---
Author Organization [facility] Address [address] [place] [address] Care Team Providers Care General Cleaner Name Role Phone Vel Montero DO Unavailable [phone] JenniferMack dwyer DO Primary Care Provider Source Comments In the event this information is protected by the Federal Confidentiality of Alcohol and Drug AbusePatient Records regulations: The Federal rules restrict any use of the information to criminally investigate or prosecute any alcohol or drug abuse patient.[facility] Encounter Details Date Type Department Care Team (Late st Contact Info) Description 04/20/2024 Get Medical Advice General Surgery [address] [phone] Steven Vincent MD [address] [place] [address] Thank you Social History Tobacco Use Types Packs/Day Years Used Date Smoking Tobacco: Never Smokeless Tobacco: Never Alcohol Use Standard Drinks/Week Comments Not Asked 0 (1 standard drink = 0.6 oz pur e alcohol) Area Deprivation Index Answer Date Markos rded National Score (1-100), lower number is lower [facility] 93 04/19/2024 State Score (1-10), lower number is lower risk 9 04/19/2024 Data from: https://www.neighborhoodatlas.[facility].edu/. Last address used for calculation [address] [place] [address] 04/19/2024 Comments Unknown Sex and Gender Information Value Date Recorded Sex Assigned at Female 04/16/2024 5:35 PM EST Legal Sex Female 10:12 AM EST Gender Identity Female 04/16/2024 5:35 PM EST Sexual Orientation Not on file documented as of this encounter Plan of Treatment Not on file documented as of this encounter Visit Diagnoses Not on filedocumented in this encounter Care Teams General Cleaner Relationship Specialty Start Date End Date Mack Jarrett DO [address] [place] [address] PCP - General Family Medicine 01/07/24 Vel Montero DO [address] [place] [address] Referring General Surgery 01/07/24 documented as of this encounter
--- OUTSIDE RECORDS SUMMARY | 2024-11-29 10:54 | XMS_ITS | Encounter Summary ---
Author Organization [employer] Sys tem Address [facility] [id number] [address] [place] [address] Care Team Providers Care Guzzler Builder Name Role Phone Vel Clancy Jaqcueline SALE PROFESSIONAL DIGITAL MARKETING-PHYSICIAN INDUSTRIAL Primary Care Provider + Encounter Details Date Type Department Care Team (Late st Contact Info) Description 10/21/2024 [facility] [address] [place] [phone] Briana Kaye CMA Social History Tobacco Use Types Packs/Day [...] often do you attend chur ch or shinto services? More than 4 times per year 11/25/2021 Do you belong to any clubs o r organizations such as amish groups, unions, fraternal or athletic groups, or [...] Answer Date Recorded Total Score 0 05/18/2024 [facility] of Occupat ional Health - Occupational [...] encounter Miscellaneous Notes * Telephone Encounter - Briana Kaye CMA - 10/21/2024 3:09 PM EDT Patient has an appointment early Oct with you. Can you send her orders for Blood work to [facility]. She has [employer] insurance and can not have it done here. * Telephone Encounter - Briana Kaye CMA - 10/21/2024 3:09 PM EDT Patient has an appointment early Oct with you. Can you send her orders for Blood work to [facility]. She has [employer] insurance and can not have it done here. * Telephone Encounter - Jose Chambers DO - 10/21/2024 3:09 PM EDT Message noted. Orders are in the chart. Please fax to Teresa documented in this encounter Plan of Treatment Upcoming Encounters Date Type Department Care Team (Late st Contact Info) Description 11/30/2024 10:40 AM EDT Office Visit [facility] Internal Medicine - Family Medicine [address] [place] [address] Vel Clancy, SALE PROFESSIONAL DIGITAL MARKETING-PHYSICIAN INDUSTRIAL [address], [address] [place] [address] documented as of this encounter Goals Goal [...] documented as of this encounter Care Teams Guzzler Builder Relationship Specialty Start Date End Date Vel Clancy, SALE PROFESSIONAL DIGITAL MARKETING-PHYSICIAN INDUSTRIAL [address] [place] [address] PCP - General Internal Medicine 10/21/24 documented as of this encounter
--- OUTSIDE RECORDS SUMMARY | 2024-11-29 10:54 | XMS_ITS | Encounter Summary ---
Author Organization Owned it Sys tem Address [facility] [place] [facility]-[id number] [address] [place] [address] Care Team Providers Care Tile Inspector Name Role Phone Vel Clancy Jacqueline COINING PRESS OPERATOR-SCHOOL LEADER Primary Care Provider + Encounter Details Date Type Department Care Team (Late st Contact Info) Description 11/21/2022 [facility]phone [facility] [address] [place] [phone] Caryn Gomez, COINING PRESS OPERATOR-HUNTING SALES LEADER [address] [place] [address] Social History Tobacco Use Types Packs/Day Years [...] often do you attend chur ch or taoism services? More than 4 times per year 11/25/2021 Do you belong to any clubs o r organizations such as jewish groups, unions, fraternal or athletic groups, or [...] Answer Date Recorded Total Score 0 05/29/2022 [facility] Occup[facility] ional [facility] - Occupational Stress [...] Recorded Do you need help finding a [employer] career center and/or a training program? [...] encounter Miscellaneous Notes * Telephone Encounter - Lashondacamron Carmonamat - 11/21/2022 4:17 PM EDT Patient is coming in for a wellness and would like labs sent to the [facility]. Thanks documented in this encounter Plan of Treatment Upcoming Encounters Date Type Department Care Team (Late st Contact Info) Description 11/30/2024 10:40 AM EDT Office Visit [facility] Internal Medicine - Family Medicine [address] [place] [address] Vel Clancy, COINING PRESS OPERATOR-SCHOOL LEADER [address], [facility] [address] [place] [address] documented as of this encounter Goals Goal [...] documented as of this encounter Care Teams Tile Inspector Relationship Specialty Start Date End Date Vel Clancy, COINING PRESS OPERATOR-SCHOOL LEADER [address] [place] [address] PCP - General Internal Medicine 10/21/24 documented as of this encounter
--- OUTSIDE RECORDS SUMMARY | 2024-11-29 10:54 | XMS_ITS | Encounter Summary ---
Author Organization [facility] Address [address] [place] [address] Care Team Providers Care Radiological Metallurgist Name Role Phone Vel Montero DO Unavailable [phone] JenniferMack dwyer DO Primary Care Provider Source Comments In the event this information is protected by the Federal Confidentiality of Alcohol and Drug AbusePatient Records regulations: The Federal rules restrict any use of the information to criminally investigate or prosecute any alcohol or drug abuse patient.[facility] Encounter Details Date Type Department Care Team ([facility] st Contact Info) Description 04/20/2024 [place] [address] Provider, [facility] Actionable Imaging Result Notification Patient Outreach Social History Tobacco Use Types Packs/Day Years Used Date Smoking Tobacco: Never Smokeless Tobacco: Never Alcohol Use Standard Drinks/Week Comments Not Asked 0 (1 standard drink = 0.6 oz pur e alcohol) Area Deprivation Index Answer Date Markos rded National Score (1-100), lower number is lower ri sk 93 04/19/2024 State Score (1-10), lower number is lower risk 9 04/19/2024 Data from: https://www.neighborhoodatlas.medicine.[facility].edu/. Last address used for calculation [address] [place] [address] 04/19/2024 Comments Unknown Sex and Gender Information Value Date Recorded Sex Assigned at Female 04/16/2024 5:35 PM EST Legal Sex Female 10:12 AM EST Gender Identity Female 04/16/2024 5:35 PM EST Sexual Orientation Not on file documented as of this encounter Plan of Treatment Not on file documented as of this encounter Visit Diagnoses Not on filedocumented in this encounter Care Teams Radiological Metallurgist Relationship Specialty Start Date End Date Mack Jarrett DO [address] [place] [address] PCP - General Family Medicine 01/07/24 Vel Montero DO [address] [place] [address] Referring General Surgery 01/07/24 documented as of this encounter
--- OUTSIDE RECORDS SUMMARY | 2024-11-29 10:54 | XMS_ITS | Encounter Summary ---
Author Organization [facility] tem Address [id number] [address] [place] [address] Care Team Providers Care Research Electrician Name Role Phone Vel Clancy APPLICATION ASSISTANT-INDUSTRIAL ECOLOGIST Primary Care Provider + Encounter Details Date Type Department Care Team (Latest Contact Info) Description 11/24/2024 Results Follow-Up [facility] Internal Medicine - Family Medicine [address] [place] [phone] Vel Clancy, APPLICATION ASSISTANT-INDUSTRIAL ECOLOGIST [address], [address] [address] Hemoglobin A1c, Lipid profile, Comprehensive metabolic panel Social History Tobacco Use Types Packs/Day Years [...] How often do you attend chur or christian services? More than 4 times per year 11/25/2021 Do you belong to any clubs o r organizations such as yarsanism groups, unions, fraternal or athletic groups, or [...] Answer Date Recorded Total Score 0 05/18/2024 [facility] Questionnaire Answer Date Recorded [...] Recorded Do you need help finding a [facility] career center and/or a training program? No [...] Internal Medicine - Family Medicine [address] [place] [address] Vel Clancy, APPLICATION ASSISTANT-INDUSTRIAL ECOLOGIST [address], [address] [address] documented as of this encounter Goals Goal [...] documented as of this encounter Care Teams Research Electrician Relationship Specialty Start Date End Date Vel Clancy, APPLICATION ASSISTANT-INDUSTRIAL ECOLOGIST [address] [place] [address] PCP - General Internal Medicine 10/21/24 documented as of this encounter
--- OUTSIDE RECORDS SUMMARY | 2024-11-29 10:54 | XMS_ITS | Encounter Summary ---
Author Organization [facility] Sys tem Address [facility]-[id number] [address] [place] [address] Care Team Providers Care Movie Theater Manager Name Role Phone Vel Clancy LABORER/KEY MAN-CLERK RATING Primary Care Provider + Encounter Details Date Type Department Care Team (Late st Contact Info) Description 08/25/2024 Orders Only [facility] Internal Medicine - Family Medicine [address] [place] [phone] Jose Chambers, DO [address] [place] [address] Type 2 diabetes mellitus without complication, without long-term current use of insulin ([facility]) Social History Tobacco Use Types [...] How often do you attend chur or advent services? More than 4 times per year 11/25/2021 Do you belong to any clubs o r organizations such as rastafari groups, unions, fraternal or athletic groups, or [...] Answer Date Recorded Total Score 0 05/18/2024 [facility] ional Health - [...] Recorded Do you need help finding a [facility] career [facility] and/or a training [...] Internal Medicine - Family Medicine [address] [place] [address] Vel Clancy, LABORER/KEY MAN-CLERK RATING [address], [address] [place] [address] documented as of this encounter Goals Goal Patient Goal Type Associated Problems Recent Progress Patient-Stated? Author home General Yes Richa You, RN Note: Evaluation of progress towards goal: Pt plans to discharge home with self care and family assistance. documented as of this encounter Visit Diagnoses Diagnosis Type 2 diabetes mellitus without complication, without long-term current use of insulin ([facility]) documented in this encounter Additional Health Concerns Assessment Noted Time PHQ-9 Depression Total Score: 0 05/19/19 11:45 AM EDT A Body Mass Index follow-up plan has been documented for the patient 05/18/2024 1:44 PM EDT documented as of this encounter Care Teams Movie Theater Manager Relationship Specialty Start Date End Date Vel Clancy, LABORER/KEY MAN-CLERK RATING [address] [place] [address] PCP - General Internal Medicine 10/21/24 documented as of this encounter
--- OUTSIDE RECORDS SUMMARY | 2024-11-29 10:54 | XMS_ITS | Clinical Summary ---
Author Organization [employer] Address [id number] [address] [place] [address] Care Team Providers Care Gold Marker Name Role Phone GlynnVel marie Jacqueline PLASTIC DESIGN APPLIER-VICE PRESIDENT DIVERSITY Primary Care Provider + Allergies Active Allergy Reactions Criticality Noted Date Comments Adhesive Tape-Silicones Low Cephalexin Rash Medium Oxycodone-Acetaminophen Vomiting Low 07/22/2012 Prednisone Rash Medium Medications intkuoxv-jckx-CC-c alcium &mins (THERAGRAN-M) 9 mg iron-400 mcg tablet Take 1 tablet by mouth in the morning. Active triamcinolone (NASACORT) 55 mcg nasal inhaler Administer 2 sprays into each nostril in the morning. Active calcium carbonate (OS-HARRISON) 600 mg (1,500 mg) tablet Take 1 tablet (600 mg total) by mouth in the morning and 1 tablet (600 mg total) in the evening. Take with meals. Active acetaminophen (TYLENOL) 500 mg tabletIndications: headache disorder Take 1 tablet (500 mg total) by mouth every 6 (six) hours as needed for pain Indications: headache. Active nystatin (MYCOSTATIN) creamIndications:C andidiasis of genitalia Apply topically 3 (three) times a day. 60 g 1 12/11/19 23 Active lisinopriL (PRINIVIL,ZESTRIL) 20 mg tablet Take 1 tablet (20 mg total) by mouth in the morning. 90 tablet 1 04/28/19 25 Active empagliflozin (JARDIANCE) 10 mg tablet tabletIndications: Type 2 diabetes mellitus with hyperglycemia, without long-term current use of insulin [place] Take 1 tablet (10 mg total) by mouth in the morning. 90 tablet 1 05/18/19 25 Active escitalopram (LEXAPRO) 20 mg tabletIndications: Situational mixed anxiety and depressive disorder Take 1 tablet (20 mg total) by mouth in the morning. 90 tablet 1 05/18/19 25 Active metFORMIN (GLUCOPHAGE) 500 mg tabletIndications: Type 2 diabetes mellitus with hyperglycemia, without long-term current use of insulin ([facility] Take 2 tablets (1,000 mg total) by mouth in the morning and 2 tablets (1,000 mg total) in the evening. Take with meals. 360 tablet 1 05/18/19 25 Active prasterone, dhea, (INTRAROSA) 6.5 mg insertIndications: Vaginal atrophy,Dyspareuni a in female,Vaginal dryness, menopausal INSERT 1 SUPPOSITORY VAGINALLY ONCE DAILY IN THE MORNING 84 each 3 05/19/19 25 Active mupirocin (BACTROBAN) 2 % ointmentIndication s:Burn APPLY 1 APPLICATION TOPICALLY TWICE DAILY ( MORNING AND BEFORE BEDTIME) 22 g 05/25/19 25 Active lancets (OmahaTOUCH DELICA PLUS LANCET) 33 gauge miscIndications:Ty pe 2 diabetes mellitus without complication, without long-term current use of insulin [place] USE 1 TO CHECK GLUCOSE IN THE MORNING 100 each 1 09/08/19 25 Active blood sugar diagnostic (ONETOUCH ULTRA TEST) stripIndications:T ype 2 diabetes mellitus without complication, without long-term current use of insulin ([facility] 1 strip by other route every morning before breakfast. 100 strip 1 08/26/19 25 Active MADHAV-D 24 HOUR 180-240 mg per 24 hr tabletIndications: Seasonal allergic rhinitis due to pollen TAKE 1 TABLET BY MOUTH IN THE MORNING 30 tablet 10/23/19 25 Active amLODIPine (NORVASC) 5 mg tabletIndications: Primary hypertension TAKE 1 TABLET BY MOUTH IN THE MORNING 90 tablet 10/23/19 25 Active simvastatin (ZOCOR) 20 mg tabletIndications: Mixed hyperlipidemia Take 1 tablet by mouth nightly 90 tablet 10/23/19 25 Active MADHAV-D 24 HOUR 180-240 mg per 24 hr tabletIndications: Seasonal allergic rhinitis due to pollen Take 1 tablet by mouth in the morning. 30 tablet 1 10/22/19 Active amLODIPine (NORVASC) 5 mg tabletIndications: Primary hypertension Take 1 tablet (5 mg total) by mouth in the morning. 90 tablet 1 10/22/19 25 Active simvastatin (ZOCOR) 20 mg tabletIndications: Mixed hyperlipidemia Take 1 tablet (20 mg total) by mouth Daily before evening meal. 90 tablet 1 10/22/19 25 Active Active Problems Problem Noted Date Diagnosed Date Renal mass 03/10/2023 Overview (03/10/2023): ==== 03/10/2023 ==== incidentally found right renal [...] future that it could be treated percutaneously. Assessment & Plan (03/10/2023 2:39 PM EST): Liver looks good on MRI. Complete metastatic evaluation. PA and lateral chest x- ray. Conductive hearing loss, bilateral 11/26/2021 Anemia 11/18/2018 Candidiasis of vagina 11/18/2018 Otitis externa 11/18/2018 Colorectal cancer 11/18/2018 Deep venous thrombosis 11/18/2018 Hyperlipidemia 11/18/2018 Hypertension 11/18/2018 Hyperthyroidism 11/18/2018 Malignant neoplastic disease 11/18/2018 Obesity 11/18/2018 Type 2 diabetes mellitus 11/18/2018 Open abdominal wall wound, initial encounter Open wound of abdominal wall 08/17/2018 Incisional hernia 03/02/2018 Endometrial carcinoma 01/19/2018 History of malignant neoplasm of colon 8 Resolved Problems Problem Noted Date Diagnosed Date Resolved Date Malignant tumor of large intestine 11/18/2018 12/10/2022 Encounters Date Type Department Care Team Description 11/24/2024 Results Follow-Up [facility] [address] [address] Vel Clancy, PLASTIC DESIGN APPLIER-VICE PRESIDENT DIVERSITY Hemoglobin A1c, Lipid profile, Comprehensive metabolic panel 11/22/2024 Orders Only [facility] [address] [place] [address] Briana Kaye, TIGRE Type 2 diabetes mellitus without complication, without long-term current use of insulin [place] 11/04/2024 Orders Only [facility] [address] [place] [address] Jose Chambers, Type 2 diabetes mellitus without complication, without long-term current use of insulin ([facility] (Primary Dx) 10/21/2024 Telephone [facility] [address] [place] [address] Briana Kaye CMA 10/21/2024 Refill [facility] [address] [place] [address] Briana Kaye, [facility] Seasonal allergic rhinitis due to pollen; Primary hypertension; Mixed hyperlipidemia 10/19/2024 Refill [facility] [address] [place] [place] [address] Kelly Roman, PLASTIC DESIGN APPLIER-VICE PRESIDENT DIVERSITY Seasonal allergic rhinitis due to pollen; Primary hypertension; Mixed hyperlipidemia 10/06/2024 Telephone [facility] [address] [place] [address] Sterling Rogers, JENS from Last 3 Months Immunizations Immunization Administration Dates Next Due H1N1 Inj Preservative Free 03/06/2009 Influenza, Injectable, Quadrivalent 12/24/2017 Influenza, Injectable, quadrivalent (PF) 023,12/01/2021,12/17/2019 Influenza, Recombinant, Quad rivalent, Injectable, Preserv 02/04/2019 Influenza, Unspecified 12/01/2021,12/25/2016,12/ Pneumococcal Conjugate 13-Valent 02/07/2013 Tdap 12/17/2019,07/06/2010 Zoster Live 01/08/2022 Zoster Vaccine Recombinant 05/16/2022,01/15/2022 ,01/08/2022 Family History Medical History Relation Name Comments Diabetes Brother 1 Jagdish COPD Brother 2 Maurice Diabetes Brother 2 Maurice Asthma Daughter 1 Ivon Asthma Daughter 2 Mary Arthritis Father Dad COPD Father Dad Diabetes Father Dad Hypertension Father Dad Stroke Father Dad Breast cancer Mother Mom Cancer Mother Mom Diabetes Mother Mom Diabetes Sister Deana Anesthesia problems Neg Hx Relation Name Status Comments Brother 1 Jagdish Brother 2 Maurice Daughter 1 Ivon Daughter 2 Mary Father Dad Mother Mom Sister Deana Social History Tobacco Use Types Packs/Day Years Used Date Smoking Tobacco: Never Smokeless Tobacco: Never Tobacco Cessation:Counseling Given: Not Answered Alcohol Use Standard Drinks/Week Comments No 0 [...] How often do you attend chur or faith services? More than 4 times per year 11/25/2021 Do you belong to any clubs o r organizations such as quaker groups, unions, fraternal or athletic groups, or [...] Answer Date Recorded Total Score 0 05/18/2024 [facility] of Occupat ional Health - Occupational [...] Recorded Do you need help finding a [facility] career center and/or a training program? [...] Orientation Straight 11/16/2019 6: 39 PM EDT Last Filed Vital Signs Vital Sign Reading Time Taken Comments Blood Pressure 100/72 05/18/2024 11:27 AM EDT Pulse 83 05/17/2024 8:56 AM EDT Temperature 36.4 C (97.5 F) 05/17/2024 8:56 AM EDT Respiratory Rate 20 05/17/2024 8:56 AM EDT Oxygen Saturation 97% 05/17/2024 8:56 AM EDT Inhaled Oxygen Concentration - - Weight 86.3 kg (190 lb 3.2 oz) 05/18/2024 11:27 AM EDT Height 158.8 cm (5' 2.5 ) 05/18/2024 11:27 AM ED T Body Mass Index 34.23 05/18/2024 11:27 AM EDT Plan of Treatment Upcoming Encounters Date Type Department Care Team (Late st Contact Info) Description 11/30/2024 10:40 AM EDT Office Visit [facility] Medicine [address] [place] [address] Vel Clancy, PLASTIC DESIGN APPLIER-VICE PRESIDENT DIVERSITY [address], [address] [address] Health Maintenance Due Date Last Done Comments Diabetic Ophthalmology Exam 06/21/2023 06/20/2022 Mammogram 11/26/2023 11/25/2022, 11/02/2021 Fall Risk Screening 2024 04/23/2022 Diabetic Foot Exam 06/29/2024 06/30/2023, 0 06/30/2023, 05/29/2022 Influenza Vaccine 10/25/2024 12/27/2023, , 12/01/2021, Additional history exists Adult BMI Follow Up Plan 05/18/2025 05/18/2024 Adult BMI Screening 05/18/2025 05/18/2024 Depression Screening 05/18/2025 05/18/2024 Tobacco Screening 05/18/2025 05/18/2024 Statin Use: Diabetic 10/22/2025 10/22/2024 Colonoscopy 05/02/2026 05/02/2021, 05/02/2021 DTaP,Tdap and Td Vaccines (3 - Td or Tdap) 12/16/2029 12/17/2019, 07/06/2010 Zoster (Shingles) Vaccine Completed 2022, 01/15/2022, 01/08/2022, Additional history exists COVID-19 Vaccine Discontinued 12/27/2023, 09/2022, 12/20/2021, Additional history exists Pap Smear Discontinued 05/18/2024, 04/25, 11/17/2019, Additional history exists Goals Goal Patient Goal Type Associated Problems Recent Progress Patient-Stated? Author home General Yes Richa You, RN Note: Evaluation of progress towards goal: Pt plans to discharge home with self care and family assistance. Medical Devices Not on file Procedures Procedure Name Priority Date/Time Associated Diagnosis Comments COMPREHENSIVE METABOLIC PANEL Routine 11/22/2024 Type 2 diabetes mellitus without complication, without long-term current use of insulin [place] LIPID PROFILE Routine 11/22/2024 Type 2 diabetes mellitus without complication, without long-term current use of insulin [place] HEMOGLOBIN A1C Routine 11/22/2024 Type 2 diabetes mellitus without complication, without long-term current use of insulin ([facility] PAP SMEAR Routine 05/18/2024 Smear, vaginal, as part of routine gynecological examination MAMM SCREENING BILATERAL W CAD Routine 11/25/2022 5:21 PM EDT Encounter for screening mammogram for malignant neoplasm of breast HM DIABETES EYE EXAM Routine 06/20/2022 COLONOSCOPY 05/02/2021 9:35 AM EST from Last 3 Months or Most Recently Relevant to Health Maintenance Results * Hemoglobin A1c (11/22/2024) External Hemoglobin A1C 6.7 % MANUALLY TRANSCRIBED RESULTS Blood Venous blood / Unknown 11/22/2024 Jose Chandsamir LAB BLOOD ORDERABLES Final Resul t Performing Organization Address [facility] de Phone Number MANUALLY TRANSCRIBED RESULTS * Lipid profile (11/22/2024) Pathologist [facility] External Cholesterol 114 MANUALLY TRANSCRIBED RESULTS External Cholesterol:Hdl 52 MANUALLY TRANSCRIBED RESULTS External Ldl (Calc) 44.2 MANUALLY TRANSCRIBED RESULTS External Triglycerides 89 MANUALLY TRANSCRIBED RESULTS Blood Venous blood / Unknown 11/22/2024 Jose Chandsamir LAB BLOOD ORDERABLES Final Resul t Performing Organization Address [facility] de Phone Number MANUALLY TRANSCRIBED RESULTS * Comprehensive metabolic panel (11/22/2024) Pathologist [facility] External Albumin 3.6 MAN UALLY TRANSCRIBED RESULTS [...] Blood Venous blood / Unknown 11/22/2024 Jose Linaresacacia LAB BLOOD ORDERABLES Final Resul t Performing Organization Address [facility] Co de Phone Number MANUALLY TRANSCRIBED RESULTS * Pap Smear (05/18/2024) Pathologist [facility] Pap Negative for intraephithelial lesion or malignancy Negative for intraephithelial lesion or malignancy, Other MANUALLY TRANSCRIBED RESULTS 05/18/2024 us Shantel Clancy PLASTIC DESIGN APPLIER-VICE PRESIDENT DIVERSITY PATHOLOGY/CYTOLOGY ORDER CHANI Final Result Performing Organization Address City/[facility] Co de Phone Number MANUALLY TRANSCRIBED RESULTS * Mammography screening bilateral with CAD (11/25/2022 5:21 PM EDT) Anatomical Region Laterality Modality Breast Bilateral Mammography us Caryn Gomez PLASTIC DESIGN APPLIER-PUBLIC DEFENDER IMG MAMMOGRAPHY ORDERABLES Final Result * HM DIABETES EYE EXAM (06/20/2022) us Scanning Provider External HEALTH MAINTENANCE Fi nal Result Performing Organization Address City/[facility] Co de Phone Number MANUALLY TRANSCRIBED RESULTS * Colonoscopy (05/02/2021 9:35 AM EST) 05/02/2021 9:35 AM EST Narrative PM CARDIOVASCULAR - 05/09/2021 9:[address] [facility] Patient Name: Sandy Lamb Procedure Date No Time: 05/02/2021 CSN : [id number] Date of : 1960 Admit Type: Outpatient Age: 61 Room: [place] [address] Gender: Female Note Status: White Kid Buffer Override Attending MD: Jose Chambers DO Procedure: Colonoscopy Providers: Jose Chambers DO Referring MD: Jose Chambers DO Procedure: After I obtained informed consent, the scope was passed under direct vision. Throughout the procedure, the patient's blood pressure, pulse, and oxygen saturations were monitored continuously. The [facility] PCF-H190DL # [id number] PEDIATRIC COLONOSCOPE was introduced through the anus and advanced to. Estimated Blood Loss: White Kid Buffer Override Jose Chambers DO Number of Addenda: 0 Note Initiated On: 05/02/2021 9:35 AM Procedure Note Jose Chambers DO - 05/09/2021 [facility] Patient Name: Sandy Lamb Procedure Date No Time: 05/02/2021 CSN : [id number] Date of : 1960 Admit Type: Outpatient Age: 61 Room: [place] [address] Gender: Female Note Status: White Kid Buffer Override Attending MD: Jose Chambers DO Procedure: Colonoscopy Providers: Jose Chambers DO Referring MD: Jose Chambers DO Procedure: After I obtained informed consent, the scope was passed under direct vision. Throughout theprocedure, the patient's blood pressure, pulse, and oxygen saturations were monitored continuously. [id number] [id number] PEDIATRIC COLONOSCOPE was introduced through the anus and advanced to. Estimated Blood Loss: White Kid Buffer Override Jose Chambers DO Number of Addenda: 0 Note Initiated On: 05/02/2021 9:35 AM Jose Chambers DO GI PROCEDURE ORDERABLES Edited R esult - Final PM CARDIOVASCULAR from Last 3 Months or Most Recently Relevant to Health Maintenance Insurance CIG Advance Directives * Full Code (Latest Code Status on File) Date Activated Date Inactivated Comments 04/03/2018 11:19 AM 04/08/2018 3:38 PM Care Teams Gold Marker Relationship Specialty Start Date End Date Vel Clancy, PLASTIC DESIGN APPLIER-VICE PRESIDENT DIVERSITY [address] [place] [address] PCP - General Internal Medicine 10/21/24
--- OUTSIDE RECORDS SUMMARY | 2024-11-29 10:54 | XMS_ITS | Encounter Summary ---
Author Organization [employer] Address [id number] [address] [place] [address] Care Team Providers Care Ship Scraper Name Role Phone Vel Clancy Jacqueline INSTITUTE SCIENTIST-WORKERS COMPENSATION ADJUSTER Primary Care Provider + Reason for Visit * Reason Comments Med Refill Encounter Details Date Type Department Care Team (Late st Contact Info) Description 06/04/2022 Refill [facility] - Family Medicine [address] [place] [phone] Caryn Gomez, INSTITUTE SCIENTIST-LAB ANALYST [address] [address] Social History Tobacco Use Types Packs/Day Years [...] often do you attend chur ch or pentecostal services? More than 4 times per year 11/25/2021 Do you belong to any clubs o r organizations such as caodaism groups, unions, fraternal or athletic groups, or [...] Answer Date Recorded Total Score 0 05/29/2022 [facility] of Occupat ional Health - Occupational Stress [...] Medicine - Family Medicine [address] [place] [address] Vel Clancy, INSTITUTE SCIENTIST-WORKERS COMPENSATION ADJUSTER [address], [address] [address] documented as of this encounter Goals Goal [...] documented as of this encounter Care Teams Ship Scraper Relationship Specialty Start Date End Date Vel Clancy, INSTITUTE SCIENTIST-WORKERS COMPENSATION ADJUSTER [address] [place] [address] PCP - General Internal Medicine 10/21/24 documented as of this encounter
--- OUTSIDE RECORDS SUMMARY | 2024-11-29 10:54 | XMS_ITS | Encounter Summary ---
Author Organization [employer] Address [id number] [address] [place] [address] Care Team Providers Care Miner Operator Name Role Phone Vel Clancy Jacqueline WATER SANDER-HEARING AID REPAIR TECHNICIAN Primary Care Provider + Encounter Details Date Type Department Care Team (Late st Contact Info) Description 02/05/2023 Orders Only Liz Wilson [facility] - Medical Oncology [address] [place] [phone] Mary Angela CMA Social History Tobacco Use Types Packs/Day [...] often do you attend chur ch or jainism services? More than 4 times per year 11/25/2021 Do you belong to any clubs o r organizations such as uatsdin groups, unions, fraternal or athletic groups, or [...] Answer Date Recorded Total Score 0 12/10/2022 [facility] [place] of Occupat ional Health - Occupational Stress [...] got money to buy more. Never True 01/07/2023 Within the past 12 months th e food we bought just didn't last and we didn't have money to get more. Never True 01/07/2023 Purpose - Life Answer Date Recorded I [...] Medicine - Family Medicine [address] [place] [address] Vel Clancy, WATER SANDER-HEARING AID REPAIR TECHNICIAN [address] [place] [address] documented as of this encounter Goals Goal [...] Time PHQ-9 Depression Total Score: 0 12/11/19 23 1:08 PM EDT A Body Mass Index follow-up plan has been documented for the patient 12/10/2022 3:42 PM EDT documented as of this encounter Care Teams Miner Operator Relationship Specialty Start Date End Date Vel Clancy, WATER SANDER-HEARING AID REPAIR TECHNICIAN [address] [place] [address] PCP - General Internal Medicine 10/21/24 documented as of this encounter
--- OUTSIDE RECORDS SUMMARY | 2024-11-29 10:54 | XMS_ITS | Encounter Summary ---
Author Organization [facility] Address [address] [place] [address] Care Team Providers Care Proposal Manager Writer Name Role Phone Vel Montero DO Unavailable [phone] JenniferMack dwyer DO Primary Care Provider Source Comments In the event this information is protected by the Federal Confidentiality of Alcohol and Drug AbusePatient Records regulations: The Federal rules restrict any use of the information to criminally investigate or prosecute any alcohol or drug abuse patient.[facility] Encounter Details Date Type Department Care Team (Late st Contact Info) Description 09/09/2024 Get Medical Advice General Surgery [address] [address] Steven Vincent MD [address] [place] [address] 09/14/2024 Hernia Surgery Social History Tobacco Use Types Packs/Day Years Used Date Smoking Tobacco: Never Smokeless Tobacco: Never Alcohol Use Standard Drinks/Week Comments Yes 0 (1 standard drink = 0.6 oz pur e alcohol) may have 1 drink per year Area Deprivation Index Answer Date Markos rded National Score (1-100), lower number is lower ri 93 04/19/2024 State Score (1-10), lower number is lower risk 9 04/19/2024 Data from: https://www.neighborhoodatlas.medicine.[facility].edu/. Last address used for calculation [address] [place] [address] 04/19/2024 Comments No Sex and Gender Information Value Date Recorded Sex Assigned at Female 04/16/2024 5:35 PM EST Legal Sex Female 10:12 AM EST Gender Identity Female 04/16/2024 5:35 PM EST Sexual Orientation Not on file documented as of this encounter Plan of Treatment Not on file documented as of this encounter Visit Diagnoses Not on filedocumented in this encounter Care Teams Proposal Manager Writer Relationship Specialty Start Date End Date Mack Jarrett DO [address] [place] [address] PCP - General Family Medicine 01/07/24 Vel Montero DO [address] [place] [address] [place] [address] Referring General Surgery 01/07/24 documented as of this encounter
--- OUTSIDE RECORDS SUMMARY | 2024-11-29 10:54 | XMS_ITS | Encounter Summary ---
Author Organization [facility] Address [address] [place] [address] Care Team Providers Care Circulator Name Role Phone Vel Montero DO Unavailable [phone] JenniferMack dwyer DO Primary Care Provider Source Comments In the event this information is protected by the Federal Confidentiality of Alcohol and Drug AbusePatient Records regulations: The Federal rules restrict any use of the information to criminally investigate or prosecute any alcohol or drug abuse patient.[facility] Encounter Details Date Type Department Care Team (Late st Contact Info) Description 09/10/2024 Get Medical Advice General Surgery [address] [address] Steven Vincent MD [address] [place] [address] 09/14/2024 Social History Tobacco Use Types Packs/Day Years [...] is lower risk 9 04/19/2024 Data from: https://www.neighborhoodatlas.medicine.[facility].edu/. Last address used for calculation [address] [place] [address] 04/19/2024 Comments No Sex and Gender Information Value Date Recorded Sex Assigned at Female 04/16/2024 5:35 PM EST Legal Sex Female 10:12 AM EST Gender Identity Female 04/16/2024 5:35 PM EST Sexual Orientation Not on file documented as of this encounter Plan of Treatment Not on file documented as of this encounter Visit Diagnoses Not on filedocumented in this encounter Care Teams Circulator Relationship Specialty Start Date End Date Mack Jarrett DO [address] [place] [address] PCP - General Family Medicine 01/07/24 Vel Montero DO [address] [facility] [place] [address] Referring General Surgery 01/07/24 documented as of this encounter
--- OUTSIDE RECORDS SUMMARY | 2024-11-29 10:54 | XMS_ITS | Encounter Summary ---
Author Organization [facility] [employer] Sys tem Address [facility] [place]-[id number] [address] [place] [address] Care Team Providers Care Labor Trainer Name Role Phone Vel Clancy Jacqueline ELECTRICAL ACCESSORIES II ASSEMBLER-OFFSET PRINTER Primary Care Provider + Encounter Details Date Type Department Care Team (Late st Contact Info) Description 11/25/2022 Orders Only [facility] Internal Medicine - Family Medicine [address] [place] [id number] Betsey Soto CMA Encounter for screening mammogram for malignant neoplasm of breast Social History Tobacco Use Types Packs/Day Years [...] often do you attend chur ch or adventist services? More than 4 times per year 11/25/2021 Do you belong to any clubs o r organizations such as buddhist groups, unions, fraternal or athletic groups, or [...] Answer Date Recorded Total Score 0 05/29/2022 [facility] [place] of Occupat ional Health - Occupational Stress [...] Medicine - Family Medicine [address] [place] [place] [address] Vel Clancy, ELECTRICAL ACCESSORIES II ASSEMBLER-OFFSET PRINTER [address] [place] [address] documented as of this encounter Goals Goal Patient Goal Type Associated Problems Recent Progress Patient-Stated? Author home General Yes Richa You RN Note: Evaluation of progress towards goal: Pt plans to discharge home with self care and family assistance. documented as of this encounter Procedures Procedure Name Priority Date/Time Associated Diagnosis Comments MAMM SCREENING BILATERAL W CAD Routine 11/25/2022 5:21 PM EDT Encounter for screening mammogram for malignant neoplasm of breast documented in this encounter Results * Mammography screening bilateral with CAD (11/25/2022 5:21 PM EDT) Anatomical Region Laterality Modality Breast Bilateral Mammography Caryn Gomez ELECTRICAL ACCESSORIES II ASSEMBLER-DECALER IM MAMMOGRAPHY ORDERABLES Final Result documented in this encounter Visit Diagnoses Diagnosis Encounter for screening mammogram for malignant neoplasm of breast documented in this encounter Additional Health Concerns Assessment Noted Time PHQ-9 Depression Total Score: 0 05/30/19 23 9:51 AM EDT A Body Mass Index follow-up plan has been documented for the patient 04/23/2022 6:10 PM EST documented as of this encounter Care Teams Labor Trainer Relationship Specialty Start Date End Date Vel Clancy, ELECTRICAL ACCESSORIES II ASSEMBLER-OFFSET PRINTER [address] [place] [address] PCP - General Internal Medicine 10/21/24 documented as of this encounter
--- OUTSIDE RECORDS SUMMARY | 2024-11-29 10:54 | XMS_ITS | Encounter Summary ---
Author Organization [facility] tem Address [facility] [id number] [address] [place] [address] Care Team Providers Care Crusher Operator Name Role Phone GlynnvikkiVel orozco OBSERVATION NURSE-PRE K TEACHER Primary Care Provider + Encounter Details Date Type Department Care Team (Late st Contact Info) Description 04/01/2023 Telephone [facility] - Interventional Radiology [address] [place] [address] Flavia Chang Social History Tobacco Use Types Packs/Day Years [...] often do you attend chur ch or gnosticism services? More than 4 times per year 11/25/2021 Do you belong to any clubs o r organizations such as yazidi groups, unions, fraternal or athletic groups, or [...] Answer Date Recorded Total Score 0 12/10/2022 [facility] [place] of Occupat ional Health - Occupational Stress [...] encounter Miscellaneous Notes * Telephone Encounter - Flavia Chang - 04/01/2023 10:48 AM EST 04/01/2023 Pre call made for appt at [facility] 04/02. Instructions and call back number left on voicemail documented in this encounter Plan of Treatment Upcoming Encounters Date Type Department Care Team (Late st Contact Info) Description 11/30/2024 10:40 AM EDT Office Visit [facility] Internal Medicine - Family Medicine [address] [place] [address] Vel Clancy, OBSERVATION NURSE-PRE K TEACHER [address] [place] [address] documented as of this encounter Goals Goal [...] documented as of this encounter Care Teams Crusher Operator Relationship Specialty Start Date End Date Vel Clancy, OBSERVATION NURSE-PRE K TEACHER [address] [place] [address] PCP - General Internal Medicine 10/21/24 documented as of this encounter
--- OUTSIDE RECORDS SUMMARY | 2024-11-29 10:54 | XMS_ITS | Encounter Summary ---
Author Organization [employer] Sys tem Address [id number] [address] [place] [address] Care Team Providers Care Upstairs Maid Name Role Phone Vel Clancy Jacqueline NCR OPERATOR-SUPERVISOR MAILS Primary Care Provider + Reason for Visit * Reason Comments Med Refill Encounter Details Date Type Department Care Team (Late st Contact Info) Description 08/06/2022 Refill [facility] Internal Medicine - Family Medicine [address] [place] [phone] Caryn Gomez, NCR OPERATOR-LOCATION WORKER [address] [place] [address] Social History Tobacco Use Types Packs/Day Years [...] often do you attend chur ch or yarsani services? More than 4 times per year 11/25/2021 Do you belong to any clubs o r organizations such as confucianist groups, unions, fraternal or athletic groups, or [...] Answer Date Recorded Total Score 0 05/29/2022 [facility] [place] of Occupat ional Health - Occupational Stress [...] Medicine - Family Medicine [address] [place] [address] Vel Clancy, NCR OPERATOR-SUPERVISOR MAILS [address], [address] [address] documented as of this encounter Goals Goal Patient Goal Type Associated Problems Recent Progress Patient-Stated? Author home General Yes Ricah You, RN Note: Evaluation of progress towards [...] documented as of this encounter Care Teams Upstairs Maid Relationship Specialty Start Date End Date Vel Clancy, NCR OPERATOR-SUPERVISOR MAILS [address] [place] [address] PCP - General Internal Medicine 10/21/24 documented as of this encounter
--- OUTSIDE RECORDS SUMMARY | 2024-11-29 10:54 | XMS_ITS | Clinical Summary ---
Author Organization [facility] Address [address] [place] [address] Care Team Providers Care Watermelon Harvesting Supervisor Name Role Phone Kelly Roman Unavailable [phone] Mack Jarrett MD Primary Care Provider Allergies Active Allergy Reactions Criticality Noted Date Comments Cephalexin Rash Medium 01/05/2024 Latex Rash Low 01/05/2024 Oxycodone Hcl Unknown 01/05/2024 Prednisone Rash Medium 01/05/2024 Wound Dressing Adhesive Rash Low 01/05/2024 Medications metFORMIN (Glucophage) 1000 MG tablet Take 1,000 mg by mouth in the morning. Take with meals. Active Monica-D Allergy & Congestion 180-240 MG 24 hr tablet Take 1 tablet by mouth in the morning. Active triamcinolone (Nasacort) 55 MCG/ACT nasal inhaler Administer 2 sprays into affected nostril(s) in the morning. Active lisinopril 20 MG tablet Take 20 mg by mouth in the morning. 4 Active empagliflozin (Jardiance) 10 MG Take 10 mg by mouth in the morning. 4 Active Ferrous Sulfate (IRON PO) Take 1 tablet by mouth in the morning. Active Intrarosa 6.5 MG insert Insert 6.5 mg into the vagina 1 time 4 Active Calcium-Choleca lciferol-Zinc (VIACTIV CALCIUM IMMUNE PO) Take by mouth Active escitalopram (Lexapro) 20 MG tablet Take 20 mg by mouth in the morning. 4 Active simvastatin (Zocor) 20 MG tablet Take 20 mg by mouth at bedtime 4 Active Family History Relation Name Status Comments Father Mother Social History Tobacco Use Types Packs/Day Years Used Date Smoking Tobacco: Never Tobacco Cessation:Counseling Given: Not Answered Alcohol Use Standard Drinks/Week Comments Never 0 (1 standard drink = 0.6 oz pur e alcohol) Comments Unknown Sex and Gender Information Value Date Recorded Sex Assigned at Not on file Legal Sex Female 7:13 PM EDT Gender Identity Not on file Sexual Orientation Not on file Last Filed Vital Signs Vital Sign Reading Time Taken Comments Blood Pressure 126/78 01/05/2024 8:19 AM EST Pulse 96 01/05/2024 8:19 AM EST Temperature - - Respiratory Rate 14 01/05/2024 8:19 AM EST Oxygen Saturation 98% 01/05/2024 8:19 AM EST Inhaled Oxygen Concentration - - Weight 87.5 kg (193 lb) 01/05/2024 1:49 PM EST Height 158.8 cm (5' 2.5 ) 01/05/2024 1:49 PM EST Body Mass Index 34.74 01/05/2024 1:49 PM EST Plan of Treatment Health Maintenance Due Date Last Done Comments CT Colonography 1959 Colonoscopy 1959 Colorectal Cancer Screening 1959 FIT-DNA 1959 FIT 1959 FOBT 1959 Sigmoidoscopy 1959 Pap Smear 1980 Cervical Cancer Screening 1989 HPV/Cotest 1989 Pneumococcal Vaccine: 65+ Ye ars (3 of 3 - PCV20 or PCV21) 02/07/2018 02/07/2013, 02/07/2013 Mammogram 11/26/2023 11/25/2022 Influenza Vaccine (#1) 2024 4, 12/08/2022, 12/01/2021, Additional history exists Insurance Care Teams Watermelon Harvesting Supervisor Relationship Specialty Start Date End Date Mack Jarrett MD PCP - General Family Medicine 12/11/23 Kelly Roman CRNP Primary Care Provider Nurse Practitioner 12/11/23
--- OUTSIDE RECORDS SUMMARY | 2024-11-29 10:54 | XMS_ITS | Encounter Summary ---
Author Organization [employer] [facility] [employer] Address [facility] [place]-[id number] [address] [place] [address] Care Team Providers Care Lead Generation Representative Name Role Phone Vel Clancy Jacqueline HEAD IRRIGATOR-TANK TRUCK MILK RECEIVER Primary Care Provider + Reason for Visit * Reason Comments Med Refill Encounter Details Date Type Department Care Team (Late st Contact Info) Description 04/08/2022 Refill [facility] Internal Medicine - Family Medicine [address] [place] [phone] Caryn Gomez, HEAD IRRIGATOR-DIRECTOR RIVER RESTORATION [address] [address] Social History Tobacco Use Types Packs/Day Years [...] often do you attend chur ch or voodoo services? More than 4 times per year [...] Answer Date Recorded Total Score 0 11/25/2021 [facility] [place] of Occupat ional Health - Occupational Stress [...] Medicine - Family Medicine [address] [place] [address] Vel Clancy, HEAD IRRIGATOR-TANK TRUCK MILK RECEIVER [address], [address] [address] documented as of this encounter Goals Goal [...] documented as of this encounter Care Teams Lead Generation Representative Relationship Specialty Start Date End Date eVl Clancy, HEAD IRRIGATOR-TANK TRUCK MILK RECEIVER [address] [place] [address] PCP - General Internal Medicine 10/21/24 documented as of this encounter
--- NOTE | 2024-11-29 10:56 | MM_ITS ---
Patient Name: PARISA SANCHEZ MR#: [id number] : 1960 Exam Date: 11/29/2024 Ordering Doctor: KEREN JENKINS RADIOLOGY REPORT PROCEDURE: MM TOMOSYNTHESIS SCREENING BI COMPARISON: MM TOMOSYNTHESIS SCREENING BI, 11/28/2023. MM TOMOSYNTHESIS SCREENING BI, 11/22/2022. MG MAMM SCREEN 3D CJ CAD, 11/02/2021. MG MAMM CJ SCRN W CAD DIG, 05/10/2009. INDICATIONS: Screening Calculator Name NCI Breast Cancer Risk Assessment Tool 5 Year Breast Cancer Risk 3.20% Lifetime Breast Cancer Risk 11.70% Personal Breast Cancer No Personal Ovarian Cancer No Treatments chemotherapy, bowel resection- hysterectomy Family Cancers Mother with breast cancer at age 42. LOCATION: [facility] BREAST COMPOSITION: There are scattered areas of fibroglandular density. FINDINGS: RIGHT BREAST: No significant suspicious finding. Bilateral appearing calcifications are present. Benign-appearing lymph nodes are noted along the chest wall. LEFT BREAST: No significant suspicious finding. Bilateral appearing calcifications are present. Benign-appearing lymph nodes are noted along the chest wall. DIAGNOSTIC CATEGORY 2--BENIGN FINDING. NO CHANGE FROM COMPARISON. RECOMMENDATIONS: ROUTINE MAMMOGRAM AND CLINICAL EVALUATION IN 12 MONTHS. Dictated by: Shaka Luis MD on 11/29/2024 at 17:28 Approved by: Shaka Luis MD on 11/29/2024 at 17:31
--- OUTSIDE RECORDS SUMMARY | 2024-11-29 10:58 | XMS_ITS | CCD ---
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 Result Comment: The [place] [employer] (ADA) provides guidance for cutoff [...] Standards of Medical Care in Diabetes 2016, [place] [employer]. Diabetes Care. 2016.39(Suppl 1). Performed By: #### 2 4323-8 ####[facility] LABIA [id number] [place] [address] [place] Potassium [Moles/Vol] 3.7 mmol/L Normal 3.7-5.1 [facility] Comment on above: Order Comment: Speci men Type: BLOOD SPECIMENOrdering Facility: [facility] Address: [address] [place] [address] Performed By: #### 2 4323-8 ####[facility] LABIA [id number] [place] [id number] [place] Protein [Mass/Vol] 7.1 g/dL Normal 6.3-8.0 [facility] Comment on above: Order Comment: Speci men Type: BLOOD SPECIMENOrdering Facility: [facility] Address: [address] [place] [address] Performed By: #### 2 4323-8 ####[facility] LABCLIA [id number] [facility] [address] [place] [address] [place] Sodium [Moles/Vol] 142 mmol/L Normal 136-144 [facility] Comment on above: Order Comment: Speci men Type: BLOOD SPECIMENOrdering Facility: [facility] Address: [address] [place] [address] Performed By: #### 2 4323-8 ####[facility] LABCLIA [id number] [facility] [address] [place] [address] [place] Urea nitrogen [Mass/Vol] 12 mg/dL Normal 7-[address] [facility] Comment on above: Order Comment: Speci men Type: BLOOD SPECIMENOrdering Facility: [facility] Address: [address] [place] [address] Performed By: #### 2 4323-8 ####[facility] LABCLIA [id number] [facility] [address], [facility] [place] Basic metabolic 2000 panelon 09-17-2024 Anion gap [Moles/Vol] 15 mmol/L Normal 8-15 [facility] Comment on above: Order Comment: Speci men Type: BLOOD SPECIMENOrdering Facility: [facility] Address: [address] [place] [address] Performed By: #### 1 9123-9, 2777-1, 45777-9 ####[facility] LABCLIA [id number] [facility] [address] [address] [place] Calcium [Mass/Vol] 8.7 mg/dL Normal 8.5-10.2 [facility] Comment on above: Order Comment: Speci men Type: BLOOD SPECIMENOrdering Facility: [facility] Address: [address] [place] [address] Performed By: #### 1 9123-9, 2777-1, 10068-4 ####[facility] LABCLIA [id number] [facility] [id number] [address] [place] Chloride [Moles/Vol] 103 mmol/L Normal 98-107 [facility] Comment on above: Order Comment: Speci men Type: BLOOD SPECIMENOrdering Facility: [facility] Address: [address] [place] [address] Performed By: #### 1 9123-9, 2777-1, 11005-3 ####[facility] LABCLIA [id number] [place] [address] [place] CO2 [Moles/Vol] 21 mmol/L Low 22-[address] [facility] Comment on above: Order Comment: Speci men Type: BLOOD SPECIMENOrdering Facility: [facility] Address: [address] [place] [address] Performed By: #### 1 9123-9, 2777-1, 09482-9 ####[facility] LABCLIA [id number] [place] [address] [place] Creatinine [Mass/Vol] 0.26 mg/dL Low 0.58-0.96 [facility] Comment on above: Order Comment: Speci men Type: BLOOD SPECIMENOrdering Facility: [facility] Address: [address] [place] [address] Performed By: #### 1 9123-9, 2777-1, 22460-4 ####[facility] LABCLIA [id number] [place] [id number] [place] eGFRcr SerPlBld CKD-EPI 2020 122 mL/min/1.73m??? Normal >=[address] [facility] Comment on above: Order Comment: Speci men Type: BLOOD SPECIMENOrdering Facility: [facility] Address: [address] [place] [address] Result Comment: Kya mated Glomerular Filtration Rate (eGFR) is calculated using the 2020 CKD-EPI creatinine equation. This equation utilizes serum creatinine, sex, and age as parameters. The creatinine assay has traceable calibration to isotope dilution-mass spectrometry. Refer to KDIGO guidelines for clinical interpretation. In patients with unstable renal function, e.g. those with acute kidney injury, the eGFR may not accurately reflect actual GFR. Performed By: #### 1 9123-9, 2777, 56290-3 ####[facility] LABCLIA [id number] [address] [address] [place] Glucose [Mass/Vol] 155 mg/dL High 74-99 [facility] Comment on above: Order Comment: Speci men Type: BLOOD SPECIMENOrdering Facility: [facility] Address: [address] [place] [address] Result Comment: The [place] Diabetes [employer] (ADA) provides guidance for cutoff [...] Standards of Medical Care in Diabetes 2016, [place] [employer]. Diabetes Care. 2016.39(Suppl 1). Performed By: #### 1 9123-9, 2776-02, ####[facility] LABCLIA [id number] [address] [address] [place] Potassium [Moles/Vol] 3.1 mmol/L Low 3.7-5.1 [facility] Comment on above: Order Comment: Speci men Type: BLOOD SPECIMENOrdering Facility: [facility] Address: [address] [place] [address] Performed By: #### 1 9123-9, 27708-24, ####[facility] LABIA [id number] [facility] [address] [address] [place] Sodium [Moles/Vol] 139 mmol/L Normal 136-144 [facility] Comment on above: Order Comment: Speci men Type: BLOOD SPECIMENOrdering Facility: [facility] Address: [address] [place] [address] Performed By: #### 1 9123-9, 2777-1, 54912-2 ####[facility] LABCLIA [id number] [place] [address] [place] Urea nitrogen [Mass/Vol] 7 mg/dL Normal 7-[address] [facility] Comment on above: Order Comment: Speci men Type: BLOOD SPECIMENOrdering Facility: [facility] Address: [address] [place] [address] Performed By: #### 1 9123-9, 2777-, 90072-2 ####[facility] LABCLIA [id number] [place] [address] [place] CBC W Auto Differential pane l (Bld)on 09-17-2024 Basophils (Bld) [#/Vol] 0.04 10*3/uL Normal <0.[address] [facility] Comment on above: Order Comment: Speci men Type: BLOOD SPECIMENOrdering Facility: [facility] Address: [address] [place] [address] Performed By: #### 5 7021-8 ####[facility] LABIA [id number] [place] [address] [place] Basophils/100 WBC (Bld) 0.3 % Normal [facility] Comment on above: Order Comment: Speci men Type: BLOOD SPECIMENOrdering Facility: [facility] Address: [address] [place] [address] Performed By: #### 5 7021-8 ####[facility] LABIA [id number] [place] [address] [place] Differential cell count method Nom (Bld) Auto Normal [facility] Comment on above: Order Comment: Speci men Type: BLOOD SPECIMENOrdering Facility: [facility] Address: [address] [place] [address] Performed By: #### 5 7021-8 ####[facility] LABCLIA [id number] [address], [place] [address] [place] Eosinophils (Bld) [#/Vol] 0.26 10*3/uL Normal <0.[address] [facility] Comment on above: Order Comment: Speci men Type: BLOOD SPECIMENOrdering Facility: [facility] Address: [address] [place] [address] Performed By: #### 5 7021-8 ####[facility] LABCLIA [id number] [address], [place] [address] [place] Eosinophils/100 WBC (Bld) 2.2 % Normal [facility] Comment on above: Order Comment: Speci men Type: BLOOD SPECIMENOrdering Facility: [facility] Address: [address] [place] [address] Performed By: #### 5 7021-8 ####[facility] LABCLIA [id number] [address], [place] [address] [place] Erythrocyte distribution width (RBC) [Ratio] 13.4 % Normal 11.5-15.[address] [facility] Comment on above: Order Comment: Speci men Type: BLOOD SPECIMENOrdering Facility: [facility] Address: [address] [place] [address] Performed By: #### 5 7021-8 ####[facility] LABCLIA [id number] [address], [place] [address] [place] Hematocrit (Bld) [Volume fraction] 31.9 % Low 36.0-46.[address] [facility] Comment on above: Order Comment: Speci men Type: BLOOD SPECIMENOrdering Facility: [facility] Address: [address] [place] [address] Performed By: #### 5 7021-8 ####[facility] LABCLIA [id number] [address], [facility] [place] Hemoglobin (Bld) [Mass/Vol] 10.6 g/dL Low 11.5-15.[address] [facility] Comment on above: Order Comment: Speci men Type: BLOOD SPECIMENOrdering Facility: [facility] Address: [address] [place] [address] Performed By: #### 5 7021-8 ####[facility] LABCLIA [id number] [facility] [place] [address] [place] Immature granulocytes (Bld) [#/Vol] 0.05 10*3/uL Normal <0.[address] [facility] Comment on above: Order Comment: Speci men Type: BLOOD SPECIMENOrdering Facility: [facility] Address: [address] [place] [address] Performed By: #### 5 7021-8 ####[facility] LABCLIA [id number] [place] [address] [place] Immature granulocytes/100 WBC (Bld) 0.4 % Normal [facility] Comment on above: Order Comment: Speci men Type: BLOOD SPECIMENOrdering Facility: [facility] Address: [address] [place] [address] Performed By: #### 5 7021-8 ####[facility] LABCLIA [id number] [place] [address] [place] Lymphocytes (Bld) [#/Vol] 2.15 10*3/uL Normal 1.00-4.[address] [facility] Comment on above: Order Comment: Speci men Type: BLOOD SPECIMENOrdering Facility: [facility] Address: [address] [place] [address] Performed By: #### 5 7021-8 ####[facility] LABCLIA [id number] [place] [address] [place] Lymphocytes/100 WBC (Bld) 18.2 % Normal [facility] Comment on above: Order Comment: Speci men Type: BLOOD SPECIMENOrdering Facility: [facility] Address: [address] [place] [address] Performed By: #### 5 7021-8 ####[facility] LABIA [id number] [place] [address] [place] [facility] MCH (RBC) [Entitic mass] 29.0 pg Normal 26.0-34.[address] [facility] Comment on above: Order Comment: Speci men Type: BLOOD SPECIMENOrdering Facility: [facility] Address: [address] [place] [address] Performed By: #### 5 7021-8 ####[facility] [id number] [place] [address] [place] MCHC (RBC) [Mass/Vol] 33.2 g/dL Normal 30.5-36.0 [facility] Comment on above: Order Comment: Speci men Type: BLOOD SPECIMENOrdering Facility: [facility] Address: [address] [place] [address] Performed By: #### 5 7021-8 ####[facility] [id number] [place] [address] [place] MCV (RBC) [Entitic vol] 87.4 fL Normal 80.0-100.[address] [facility] Comment on above: Order Comment: Speci men Type: BLOOD SPECIMENOrdering Facility: [facility] Address: [address] [place] [address] Performed By: #### 5 7021-8 ####[facility] LABIA [id number] [place] [address] [place] Monocytes (Bld) [#/Vol] 0.86 10*3/uL Normal <0.[address] [facility] Comment on above: Order Comment: Speci men Type: BLOOD SPECIMENOrdering Facility: [facility] Address: [address] [place] [address] Performed By: #### 5 7021-8 ####[facility] LABIA [id number] [place] [address] [place] Monocytes/100 WBC (Bld) 7.3 % Normal [facility] Comment on above: Order Comment: Speci men Type: BLOOD SPECIMENOrdering Facility: [facility] Address: [address] [place] [address] Performed By: #### 5 7021-8 ####[facility] LABCLIA [id number] [place] [address] [place] Neutrophils (Bld) [#/Vol] 8.47 10*3/uL High 1.45-7.[address] [facility] Comment on above: Order Comment: Speci men Type: BLOOD SPECIMENOrdering Facility: [facility] Address: [address] [place] [address] Performed By: #### 5 7021-8 ####[facility] LABCLIA [id number] [place] [address] [place] Neutrophils/100 WBC (Bld) 71.6 % Normal [facility] Comment on above: Order Comment: Speci men Type: BLOOD SPECIMENOrdering Facility: [facility] Address: [address] [place] [address] Performed By: #### 5 7021-8 ####[facility] LABCLIA [id number] [place] [address] [place] Nucleated RBC (Bld) [#/Vol] 10*3/uL Normal <0.[address] [facility] Comment on above: Order Comment: Speci men Type: BLOOD SPECIMENOrdering Facility: [facility] Address: [address] [place] [address] Performed By: #### 5 7021-8 ####[facility] LABCLIA [id number] [place] [id number] [place] Nucleated RBC/100 WBC (Bld) [Ratio] 0.0 /100 WBC Normal [facility] Comment on above: Order Comment: Speci men Type: BLOOD SPECIMENOrdering Facility: [facility] Address: [address] [place] [address] Performed By: #### 5 7021-8 ####[facility] LABIA [id number] [place] [id number] [place] Platelet mean volume (Bld) [Entitic vol] 10.8 fL Normal 9.0-12.[address] [facility] Comment on above: Order Comment: Speci men Type: BLOOD SPECIMENOrdering Facility: [facility] Address: [address] [place] [address] Performed By: #### 5 7021-8 ####[facility] LABIA [id number] [place] [address] [place] Platelets (Bld) [#/Vol] 151 10*3/uL Normal 150-[address] [facility] Comment on above: Order Comment: Speci men Type: BLOOD SPECIMENOrdering Facility: [facility] Address: [address] [place] [address] Performed By: #### 5 7021-8 ####[facility] LABIA [id number] [place] [address] [place] RBC (Bld) [#/Vol] 3.65 10*6/uL Low 3.90-5.20 [facility] Comment on above: Order Comment: Speci men Type: BLOOD SPECIMENOrdering Facility: [facility] Address: [address] [place] [address] Performed By: #### 5 7021-8 ####[facility] LABIA [id number] [place] [id number] [place] WBC (Bld) [#/Vol] 11.83 10*3/uL High 3.70-11.00 [facility] Comment on above: Order Comment: Speci men Type: BLOOD SPECIMENOrdering Facility: [facility] Address: [address] [place] [address] Performed By: #### 5 7021-8 ####[facility] MAURICIO [id number] [address] OF [facility] DEVANGon 09-17-2024 [facility] HNO ID: [id number] Author: KRISTINE VINCENT MD Service: General Surgery [...] PACU, and then was transferred to a [facility]. Hospital course as follows: 09/15- POD 1. [...] Your Medications These medications were sent to [facility] [address] [place] [address] [address] [place] [address] - [phone] Critical access hospital [address] [address] potassium chloride ER 20 mEq tablet traMADol 50 mg tablet You can get these medications from any pharmacy You don't need a prescription for these medications acetaminophen 500 mg tablet PLAN OF CARE: Plan of care discussed with Provider, RN, Patient and Care Management FUTURE APPOINTMENTS: Future Appointments Date Time Provider Department Center 09/22/2024 3:30 PM Eve Fuentes APRN.CNP [facility] Main - A Bld 10/11/2024 11:30 AM [place] (more content not included)... [facility] HNO ID: [id number] Author: RADHA MAURO APRN.CNP Service: Sepsis Emergency Response Team Author Type: [...] Hours Sepsis SERT Notifications Date Triggers 09/16/24 4587 Open Patient Encounter Flowsheet Row - ADDY: Pulse [8] (Value: 113) Flowsheet Row - ADDY: Pulse [8] (Value: 109) Flowsheet Row - ADDY: SpO2 [10] (Value: 92 %) Flowsheet Row - ADDY: SpO2 [10] (Value: 88 %) Rule - CER: [facility] NO DISCHARGE DATE [419342] Lab Component - LRR: WBC [[id number]] (Result 1: 12.38, Extension - LPP: GREATER THAN (USE MOST RECENT RESULT) [36804], Result 1 Unit: k/uL, Result 1 Order: COMPLETE BLOOD COUNT AND DIFFERENTIAL [[id number]]) SIGNATURE: Radha Mauro APRN.CNP PATIENT NAME: Parisa Sanchez DATE: September 17, 2024 TIME: 12:02 PM Normal [facility] Magnesium [facility]-ncon 09-17 Magnesium [Mass/Vol] 1.8 mg/dL Normal 1.7-2.3 [facility] Comment on above: Order Comment: Speci nevaeh Type: BLOOD SPECIMENOrdering Facility: [facility] Address: [address] [place] [address] Performed By: #### 1 9123-9, 2777-1, 62510-1 ####[facility] LABCLIA [id number] [place] [address] [place] Phosphate SerPl-mCncon 09-17 Phosphate [Mass/Vol] 2.3 mg/dL Low 2.7-4.8 [facility] Comment on above: Order Comment: Moo herring Type: BLOOD SPECIMENOrdering Facility: [facility] Address: [address] [place] [address] Performed By: #### 1 9123-9, 2777-1, 72185-2 ####[facility] LABCLIA [id number] [place] [address] [place] THERAPY NTon 09-17-2024 THERAPY NT HNO ID: [id number] Author: ALEJANDRA TOLLIVER PT Service: Physical Therapy Author Type: Physical Therapist Type: Therapy (PT/OT/Speech/Resp) Filed: 09/17/2024 13:48 Note Text: Physical Therapy Evaluation Summary SERVICE DATE: 09/17/2024 SERVICE TIME: 1229 to 1253 ROOM: [place] [address] PT 6 Clicks Score: 21 DISCHARGE RECOMMENDATIONS [...] on feet TREATMENT INTERVENTIONS Evaluation, Gait Training (95867) Timed Code Treatment (minutes): 9 Skilled Treatment Time (minutes): 24 TRAINING AND EDUCATION PROVIDED Anatomy and Impact on Deficits, Assistive Device Use, Bed Mobility, Benefits of In-Hospital Mobility, Discharge Planning, Energy Conservation, Expected Functional Level, Exercise Program, Falls Prevention, Gait Pattern, Reduction of Deviations, Home Safety, Precautions/Restrict ions, Role of Physical Therapy, Transfers, Standing Balance [...] Guard Assistance Gait Device: IV Pole General Deviations/Observati ons: Citlalli decreased, Flexed trunk posture, Non-functional gait [...] DATE: September 17, 2024 TIME: 1:[address] [facility] THERAPY NT HNO ID: [id number] Author: SELVIN SPARKS OT/L Service: Occupational Therapy Author Type: Occupational Therapist Type: Therapy (PT/OT/Speech/Resp) Filed: 09/17/2024 09:51 Note Text: Occupational Therapy Treatment Summary SERVICE DATE: 09/17/2024 SERVICE TIME: 807 to 907 ROOM: [place] [address] OT 6 Clicks Score: 22 DISCHARGE RECOMMENDATIONS [...] symptoms and signs-other TREATMENT INTERVENTIONS Therapeutic Activity (17774) Timed Code Treatment (minutes): 60 Skilled Treatment Time (minutes): 60 TRAINING AND EDUCATION PROVIDED Activity Adaptation/Compensat ory Strategies, Adaptive Equipment/DME, Assistive Device Use, Bed Mobility, Benefits of In-Hospital Mobility, Command Following, Discharge Planning, Energy Conservation, Environmental Modification, Executive Functions/Problem Solving, Expected Functional Level, Functional Mobility Involving ADLs, Grooming Tasks, Home Set-up/Modifications , IADLs/Home Management, Identification of Systems of Support, Insight into Deficits, Lower Extremity Bathing, Lower Extremity Dressing, Memory/Attention, Orientation, Positioning, Precautions/Restrict ions, Role of Occupational Therapy, Safety/Judgment, Self-Efficacy, Sitting Balance to Improve [place] with ADLs/Self-Care, Standing Balance to Improve [place] with ADLs/Self-Care, Toileting , Transfer - Sit [...] importance of mobility during hospital stay and re (more content not included)... Normal [facility] Basic metabolic 2000 panelon 09-16-2024 Anion gap [Moles/Vol] 13 mmol/L Normal 8-15 [facility] Comment on above: Order Comment: Speci men Type: BLOOD SPECIMENOrdering Facility: [facility] Address: [address] [place] [address] Performed By: #### 2 4321-2, 27708-24, ####[facility] LABCLIA [id number] [address] [address] [place] Calcium [Mass/Vol] 9.1 mg/dL Normal 8.5-10.2 [facility] Comment on above: Order Comment: Speci men Type: BLOOD SPECIMENOrdering Facility: [facility] Address: [address] [place] [address] Performed By: #### 2 4321-2, 2777-, ####[facility] LABCLIA [id number] [address] [address] [place] Chloride [Moles/Vol] 100 mmol/L Normal 98-107 [facility] Comment on above: Order Comment: Speci men Type: BLOOD SPECIMENOrdering Facility: [facility] Address: [address] [place] [address] Performed By: #### 2 4321-2, 27708-24, ####[facility] LABIA [id number] [address] [address] [place] CO2 [Moles/Vol] 24 mmol/L Normal 22-[address] [facility] Comment on above: Order Comment: Speci men Type: BLOOD SPECIMENOrdering Facility: [facility] Address: [address] [place] [address] Performed By: #### 2 4321-2, 27708-24, ####[facility] [id number] [place] [id number] [place] Creatinine [Mass/Vol] 0.31 mg/dL Low 0.58-0.96 [facility] Comment on above: Order Comment: Speci men Type: BLOOD SPECIMENOrdering Facility: [facility] Address: [address] [place] [address] Performed By: #### 2 4321-2, 27708-24, ####[facility] [id number] [address] [address] [place] eGFRcr SerPlBld CKD-EPI 2020 117 mL/min/1.73m??? Normal >=[address] [facility] Comment on above: Order Comment: Speci men Type: BLOOD SPECIMENOrdering Facility: [facility] Address: [address] [place], [place] [id number] Result Comment: Kya mated Glomerular Filtration Rate (eGFR) is calculated using the 2020 CKD-EPI creatinine equation. This equation utilizes serum creatinine, sex, and age as parameters. The creatinine assay has traceable calibration to isotope dilution-mass spectrometry. Refer to KDIGO guidelines for clinical interpretation. In patients with unstable renal function, e.g. those with acute kidney injury, the eGFR may not accurately reflect actual GFR. Performed By: #### 2 4321-2, 2776-02, ####[facility] LABCLIA [id number] [facility] [address] [address] [place] Glucose [Mass/Vol] 165 mg/dL High 74-99 [facility] Comment on above: Order Comment: Moo herring Type: BLOOD SPECIMENOrdering Facility: [facility] Address: [address] [place] [address] Result Comment: The [place] [employer] (ADA) provides guidance for cutoff [...] Standards of Medical Care in Diabetes 2016, [place] [employer]. Diabetes Care. 2016.39(Suppl 1). Performed By: #### 2 4321-2, 2776-02, ####[facility] LABCLIA [id number] [facility] [address] [address] [place] Potassium [Moles/Vol] 3.8 mmol/L Normal 3.7-5.1 [facility] Comment on above: Order Comment: Moo herring Type: BLOOD SPECIMENOrdering Facility: [facility] Address: [address] [place] [address] Performed By: #### 2 4321-2, 2776-02, ####[facility] LABCLIA [id number] [facility] [address] [address] [place] Sodium [Moles/Vol] 137 mmol/L Normal 136-144 [facility] Comment on above: Order Comment: Speci men Type: BLOOD SPECIMENOrdering Facility: [facility] Address: [address] [place] [address] Performed By: #### 2 4321-2, 2777-, ####[facility] LABCLIA [id number] [place] [id number] [place] Urea nitrogen [Mass/Vol] 5 mg/dL Low 7-[address] [facility] Comment on above: Order Comment: Speci men Type: BLOOD SPECIMENOrdering Facility: [facility] Address: [address] [place] [address] Performed By: #### 2 4321-2, 277-, ####[facility] LABCLIA [id number] [place] [id number] [place] CBC W Auto Differential pane l (Bld)on 09-16-2024 Basophils (Bld) [#/Vol] 0.05 10*3/uL Normal <0.[address] [facility] Comment on above: Order Comment: Speci men Type: BLOOD SPECIMENOrdering Facility: [facility] Address: [address] [place] [address] Performed By: #### 5 7021-8 ####[facility] LABCLIA [id number] [place] [id number] [place] Basophils/100 WBC (Bld) 0.4 % Normal [facility] Comment on above: Order Comment: Speci men Type: BLOOD SPECIMENOrdering Facility: [facility] Address: [address] [place] [address] Performed By: #### 5 7021-8 ####[facility] LABCLIA [id number] [place] [id number] [place] Differential cell count method Nom (Bld) Auto Normal [facility] Comment on above: Order Comment: Speci men Type: BLOOD SPECIMENOrdering Facility: [facility] Address: [address] [place] [address] Performed By: #### 5 7021-8 ####[facility] LABCLIA [id number] [place] [id number] [place] Eosinophils (Bld) [#/Vol] 0.08 10*3/uL Normal <0.[address] [facility] Comment on above: Order Comment: Speci men Type: BLOOD SPECIMENOrdering Facility: [facility] Address: [address] [place] [address] Performed By: #### 5 7021-8 ####[facility] LABCLIA [id number] [place] [id number] [place] Eosinophils/100 WBC (Bld) 0.6 % Normal [facility] Comment on above: Order Comment: Speci men Type: BLOOD SPECIMENOrdering Facility: [facility] Address: [address] [place] [address] Performed By: #### 5 7021-8 ####[facility] LABCLIA [id number] [place] [id number] [place] Erythrocyte distribution width (RBC) [Ratio] 13.4 % Normal 11.5-15.[address] [facility] Comment on above: Order Comment: Speci men Type: BLOOD SPECIMENOrdering Facility: [facility] Address: [address] [place] [address] Performed By: #### 5 7021-8 ####[facility] LABCLIA [id number] [place] [id number] [place] Hematocrit (Bld) [Volume fraction] 35.2 % Low 36.0-46.[address] [facility] Comment on above: Order Comment: Speci men Type: BLOOD SPECIMENOrdering Facility: [facility] Address: [address] [place] [address] Performed By: #### 5 7021-8 ####[facility] LABCLIA [id number] [place] [id number] [place] Hemoglobin (Bld) [Mass/Vol] 12.0 g/dL Normal 11.5-15.[address] [facility] Comment on above: Order Comment: Speci men Type: BLOOD SPECIMENOrdering Facility: [facility] Address: [address] [place] [address] Performed By: #### 5 7021-8 ####[facility] LABCLIA [id number] [place] [id number] [place] Immature granulocytes (Bld) [#/Vol] 0.04 10*3/uL Normal <0.[address] [facility] Comment on above: Order Comment: Speci men Type: BLOOD SPECIMENOrdering Facility: [facility] Address: [address] [place] [address] Performed By: #### 5 7021-8 ####[facility] LABCLIA [id number] [place] [id number] [place] Immature granulocytes/100 WBC (Bld) 0.3 % Normal [facility] Comment on above: Order Comment: Speci men Type: BLOOD SPECIMENOrdering Facility: [facility] Address: [address] [place] [address] Performed By: #### 5 7021-8 ####[facility] LABIA [id number] [place] [id number] [place] Lymphocytes (Bld) [#/Vol] 1.94 10*3/uL Normal 1.00-4.[address] [facility] Comment on above: Order Comment: Speci men Type: BLOOD SPECIMENOrdering Facility: [facility] Address: [address] [place] [address] Performed By: #### 5 7021-8 ####[facility] LABCLIA [id number] [place] [id number] [place] Lymphocytes/100 WBC (Bld) 15.7 % Normal [facility] Comment on above: Order Comment: Speci men Type: BLOOD SPECIMENOrdering Facility: [facility] Address: [address] [place] [address] Performed By: #### 5 7021-8 ####[facility] LABIA [id number] [place] [id number] [place] MCH (RBC) [Entitic mass] 29.4 pg Normal 26.0-34.[address] [facility] Comment on above: Order Comment: Speci men Type: BLOOD SPECIMENOrdering Facility: [facility] Address: [address] [place] [address] Performed By: #### 5 7021-8 ####[facility] LABIA [id number] [place] [id number] [place] MCHC (RBC) [Mass/Vol] 34.1 g/dL Normal 30.5-36.0 [facility] Comment on above: Order Comment: Speci men Type: BLOOD SPECIMENOrdering Facility: [facility] Address: [address] [place] [address] Performed By: #### 5 7021-8 ####[facility] [id number] [place] [id number] [place] MCV (RBC) [Entitic vol] 86.3 fL Normal 80.0-100.[address] [facility] Comment on above: Order Comment: Speci men Type: BLOOD SPECIMENOrdering Facility: [facility] Address: [address] [place] [address] Performed By: #### 5 7021-8 ####[facility] LABIA [id number] [place] [id number] [place] Monocytes (Bld) [#/Vol] 1.25 10*3/uL High <0.[address] [facility] Comment on above: Order Comment: Speci men Type: BLOOD SPECIMENOrdering Facility: [facility] Address: [address] [place] [address] Performed By: #### 5 7021-8 ####[facility] LABCLIA [id number] [address] [place] [address] [place] Monocytes/100 WBC (Bld) 10.1 % Normal [facility] Comment on above: Order Comment: Speci men Type: BLOOD SPECIMENOrdering Facility: [facility] Address: [address] [place] [address] Performed By: #### 5 7021-8 ####[facility] LABCLIA [id number] [address], [facility] [place] Neutrophils (Bld) [#/Vol] 9.02 10*3/uL High 1.45-7.[address] [facility] Comment on above: Order Comment: Speci men Type: BLOOD SPECIMENOrdering Facility: [facility] Address: [address] [place] [address] Performed By: #### 5 7021-8 ####[facility] LABCLIA [id number] [place] [id number] [place] Neutrophils/100 WBC (Bld) 72.9 % Normal [facility] Comment on above: Order Comment: Speci men Type: BLOOD SPECIMENOrdering Facility: [facility] Address: [address] [place] [address] Performed By: #### 5 7021-8 ####[facility] LABCLIA [id number] [place] [id number] [place] Nucleated RBC (Bld) [#/Vol] 10*3/uL Normal <0.[address] [facility] Comment on above: Order Comment: Speci men Type: BLOOD SPECIMENOrdering Facility: [facility] Address: [address] [place] [address] Performed By: #### 5 7021-8 ####[facility] LABCLIA [id number] [address] [place] [address] [place] Nucleated RBC/100 WBC (Bld) [Ratio] 0.0 /100 WBC Normal [facility] Comment on above: Order Comment: Speci men Type: BLOOD SPECIMENOrdering Facility: [facility] Address: [address] [place] [address] Performed By: #### 5 7021-8 ####[facility] LABIA [id number] [place] [id number] [place] Platelet mean volume (Bld) [Entitic vol] 10.4 fL Normal 9.0-12.[address] [facility] Comment on above: Order Comment: Speci men Type: BLOOD SPECIMENOrdering Facility: [facility] Address: [address] [place] [address] Performed By: #### 5 7021-8 ####[facility] LABIA [id number] [place] [id number] [place] Platelets (Bld) [#/Vol] 161 10*3/uL Normal 150-[address] [facility] Comment on above: Order Comment: Speci men Type: BLOOD SPECIMENOrdering Facility: [facility] Address: [address] [place] [address] Performed By: #### 5 7021-8 ####[facility] LABIA [id number] [place] [id number] [place] RBC (Bld) [#/Vol] 4.08 10*6/uL Normal 3.90-5.20 [facility] Comment on above: Order Comment: Speci men Type: BLOOD SPECIMENOrdering Facility: [facility] Address: [address] [place] [address] Performed By: #### 5 7021-8 ####[facility] LABIA [id number] [place] [id number] [place] WBC (Bld) [#/Vol] 12.38 10*3/uL High 3.70-11.00 [facility] Comment on above: Order Comment: Speci men Type: BLOOD SPECIMENOrdering Facility: [facility] Address: [address] [place] [address] Performed By: #### 5 7021-8 ####[facility] LABCLIA [id number] [facility] [address] [facility] MEDICAL Lucinda 09-16-2024 MEDICAL STEPHANIA HNO ID: [id number] Author: KARON AMATO APRN.RETAIL ASSOCIATE Service: Sepsis Emergency Response Team Author Type: [...] - CER: [facility] NO DISCHARGE DATE [235191] Lab Component - LRR: WBC [[id number]] (Result 1: 12.38, Extension - LPP: GREATER THAN (USE MOST RECENT RESULT) [60117], Result 1 Unit: k/uL, Result 1 Order: COMPLETE BLOOD COUNT AND DIFFERENTIAL [[id number]]) Trending of last 3 clinical abnormalities associated [...] DATE: September 16, 2024 TIME: 3:51 PM Normal [facility] Magnesium [facility]-ncon 09-16 Magnesium [Mass/Vol] 1.9 mg/dL Normal 1.7-2.3 [facility] Comment on above: Order Comment: Speci men Type: BLOOD SPECIMENOrdering Facility: [facility] Address: [address] [place] [address] Performed By: #### 2 4321-2, 2777-1, ####[facility] [id number] [address] Phosphate [facility] Phosphate [Mass/Vol] 1.4 mg/dL Low 2.7-4.8 [facility] Comment on above: Order Comment: Speci men Type: BLOOD SPECIMENOrdering Facility: [facility] Address: [address] [place] [address] Performed By: #### 2 4321-2, 2777-1, ####[facility] LABIA [id number] [place] [id number] [facility] [place] THERAPY NTon 09-16-2024 THERAPY NT HNO ID: [id number] Author: ALEJANDRA TOLLIVER PT Service: Physical Therapy Author Type: Physical Therapist Type: Therapy (PT/OT/Speech/Resp) Filed: 09/16/2024 15:41 Note Text: PHYSICAL THERAPY MISSED VISIT SERVICE DATE: 09/16/2024 SERVICE TIME: 1520 ROOM: [place] [address] Patient not seen due to Patient Not Available. Pt sleeping and politely requests that she be allowed to rest. Also attempted at 1:28 pm, but pt was eating lunch. SIGNATURE: Alejandra Tolliver PT PATIENT NAME: Parisa Sanchez DATE: September 16, 2024 TIME: 3:40 PM Normal [facility] THERAPY NT HNO ID: [id number] Author: SELVIN SPARKS OT/L Service: Occupational Therapy Author Type: Occupational Therapist Type: Therapy (PT/OT/Speech/Resp) Filed: 09/16/2024 11:08 Note Text: Occupational Therapy Evaluation Summary SERVICE DATE: 09/16/2024 SERVICE TIME: 953 to 1056 ROOM: [place] [address] OT 6 Clicks Score: 19 DISCHARGE RECOMMENDATIONS [...] and signs-other TREATMENT INTERVENTIONS Evaluation, Therapeutic Activity (25877) Timed Code Treatment (minutes): 48 Skilled Treatment Time (minutes): 63 TRAINING AND EDUCATION PROVIDED Activity Adaptation/Compensat ory Strategies, Adaptive Equipment/DME, Assistive Device Use, Bed Mobility, Benefits of In-Hospital Mobility, Command Following, Discharge Planning, Energy Conservation, Environmental Modification, Executive Functions/Problem Solving, Expected Functional Level, Functional Mobility Involving ADLs, Grooming Tasks, Home Set-up/Modifications , IADLs/Home Management, Identification of Systems of Support, Insight into Deficits, Lower Extremity Bathing, Lower Extremity Dressing, Memory/Attention, Orientation, Positioning, Precautions/Restrict ions, Role of Occupational Therapy, Safety/Judgment, Self-Efficacy, Sitting Balance to Improve [place] with ADLs/Self-Care, Standing Balance to Improve [place] with ADLs/Self-Care, Toileting , Transfer - Sit [...] Information Bed Mobility Supine To Sit: Contact (more content not included)... Normal [facility] Basic metabolic 2000 panelon 09-15-2024 Anion gap [Moles/Vol] 14 mmol/L Normal 8-15 [facility] Comment on above: Order Comment: Speci men Type: BLOOD SPECIMENOrdering Facility: [facility] Address: [address] [place] [address] Performed By: #### 2 4321-2, 2776-02, ####[facility] LABCLIA [id number] [place] [address] [place] Calcium [Mass/Vol] 8.5 mg/dL Normal 8.5-10.2 [facility] Comment on above: Order Comment: Speci men Type: BLOOD SPECIMENOrdering Facility: [facility] Address: [address] [place] [address] Performed By: #### 2 4321-2, 2776-02, ####[facility] LABCLIA [id number] [place] [id number] [place] Chloride [Moles/Vol] 101 mmol/L Normal 98-107 [facility] Comment on above: Order Comment: Speci men Type: BLOOD SPECIMENOrdering Facility: [facility] Address: [address] [place] [address] Performed By: #### 2 4321-2, 2776-02, ####[facility] LABIA [id number] [address] [address] [place] CO2 [Moles/Vol] 23 mmol/L Normal 22-[address] [facility] Comment on above: Order Comment: Speci men Type: BLOOD SPECIMENOrdering Facility: [facility] Address: [address] [place], [place] [address] Performed By: #### 2 4321-2, 2776-02, ####[facility] LABIA [id number] [address] [address] [place] Creatinine [Mass/Vol] 0.32 mg/dL Low 0.58-0.96 [facility] Comment on above: Order Comment: Speci nevaeh Type: BLOOD SPECIMENOrdering Facility: [facility] Address: [address] [place] [id number] Performed By: #### 2 4321-2, 2776-02, ####[facility] LABIA [id number] [address] [address] [place] eGFRcr SerPlBld CKD-EPI 2020 116 mL/min/1.73m??? Normal >=[address] [facility] Comment on above: Order Comment: [facility] Type: BLOOD SPECIMENOrdering Facility: [facility] Address: [address] [place] [address] Result Comment: Kya mated Glomerular Filtration Rate (eGFR) is calculated using the 2020 CKD-EPI creatinine equation. This equation utilizes serum creatinine, sex, and age as parameters. The creatinine assay has traceable calibration to isotope dilution-mass spectrometry. Refer to KDIGO guidelines for clinical interpretation. In patients with unstable renal function, e.g. those with acute kidney injury, the eGFR may not accurately reflect actual GFR. Performed By: #### 2 4321-2, 2776-02, ####[facility] LABIA [id number] [address] [address] [place] Glucose [Mass/Vol] 201 mg/dL High 74-99 [facility] Comment on above: Order Comment: Speci men Type: BLOOD SPECIMENOrdering Facility: [facility] Address: [address] [place] [id number] Result Comment: The [place] [employer] (ADA) provides guidance for cutoff [...] Standards of Medical Care in Diabetes 2016, [place] [employer]. Diabetes Care. 2016.39(Suppl 1). Performed By: #### 2 4321-2, 2776-02, ####[facility] LABCLIA [id number] [address] [address] [place] Potassium [Moles/Vol] 3.1 mmol/L Low 3.7-5.1 [facility] Comment on above: Order Comment: Speci men Type: BLOOD SPECIMENOrdering Facility: [facility] Address: [address] [place] [address] Performed By: #### 2 432-2, 2776-02, ####[facility] LABCLIA [id number] [address] [address] [place] Sodium [Moles/Vol] 138 mmol/L Normal 136-144 [facility] Comment on above: Order Comment: Charlettei nevaeh Type: BLOOD SPECIMENOrdering Facility: [facility] Address: [address] [place] [address] Performed By: #### 2 432-2, 2776-02, ####[facility] LABCLIA [id number] [address] [address] [place] Urea nitrogen [Mass/Vol] 8 mg/dL Normal 7-[address] [facility] Comment on above: Order Comment: Charlettei men Type: BLOOD SPECIMENOrdering Facility: [facility] Address: [address] [place] [address] Performed By: #### 2 4321-2, 2776-02, ####[facility] LABCLIA [id number] [address] [place] [address] [place] CBC W Auto Differential pane l (Bld)on 09-15-2024 Basophils (Bld) [#/Vol] 0.03 10*3/uL Normal <0.[address] [facility] Comment on above: Order Comment: Speci men Type: BLOOD SPECIMENOrdering Facility: [facility] [facility] Address: [address] [place] [address] Performed By: #### 5 7021-8 ####[facility] LABCLIA [id number] [place] [id number] [place] Basophils/100 WBC (Bld) 0.3 % Normal [facility] Comment on above: Order Comment: Speci men Type: BLOOD SPECIMENOrdering Facility: [facility] Address: [address] [place] [address] Performed By: #### 5 7021-8 ####[facility] LABCLIA [id number] [place] [id number] [place] Differential cell count method Nom (Bld) Auto Normal [facility] Comment on above: Order Comment: Speci men Type: BLOOD SPECIMENOrdering Facility: [facility] Address: [address] [place] [address] Performed By: #### 5 7021-8 ####[facility] LABCLIA [id number] [place] [id number] [place] Eosinophils (Bld) [#/Vol] 10*3/uL Normal <0.[address] [facility] Comment on above: Order Comment: Speci men Type: BLOOD SPECIMENOrdering Facility: [facility] Address: [address] [place] [address] Performed By: #### 5 7021-8 ####[facility] LABCLIA [id number] [address] [place] Eosinophils/100 WBC (Bld) 0.1 % Normal [facility] Comment on above: Order Comment: Speci men Type: BLOOD SPECIMENOrdering Facility: [facility] Address: [address] [place] [address] Performed By: #### 5 7021-8 ####[facility] LABCLIA [id number] [place] [id number] [place] Erythrocyte distribution width (RBC) [Ratio] 13.3 % Normal 11.5-15.[address] [facility] Comment on above: Order Comment: Speci men Type: BLOOD SPECIMENOrdering Facility: [facility] Address: [address] [place] [address] Performed By: #### 5 7021-8 ####[facility] LABIA [id number] [place] [id number] [place] Hematocrit (Bld) [Volume fraction] 36.7 % Normal 36.0-46.[address] [facility] Comment on above: Order Comment: Speci men Type: BLOOD SPECIMENOrdering Facility: [facility] Address: [address] [place] [address] Performed By: #### 5 7021-8 ####[facility] LABIA [id number] [place] [id number] [place] Hemoglobin (Bld) [Mass/Vol] 12.3 g/dL Normal 11.5-15.[address] [facility] Comment on above: Order Comment: Speci men Type: BLOOD SPECIMENOrdering Facility: [facility] Address: [address] [place] [address] Performed By: #### 5 7021-8 ####[facility] LABCLIA [id number] [place] [id number] [place] Immature granulocytes (Bld) [#/Vol] 0.06 10*3/uL Normal <0.[address] [facility] Comment on above: Order Comment: Speci men Type: BLOOD SPECIMENOrdering Facility: [facility] Address: [address] [place] [address] Performed By: #### 5 7021-8 ####[facility] LABCLIA [id number] [place] [id number] [place] Immature granulocytes/100 WBC (Bld) 0.5 % Normal [facility] Comment on above: Order Comment: Speci men Type: BLOOD SPECIMENOrdering Facility: [facility] Address: [address] [place] [address] Performed By: #### 5 7021-8 ####[facility] LABCLIA [id number] [place] [id number] [place] Lymphocytes (Bld) [#/Vol] 1.88 10*3/uL Normal 1.00-4.[address] [facility] Comment on above: Order Comment: Speci men Type: BLOOD SPECIMENOrdering Facility: [facility] Address: [address] [place] [address] Performed By: #### 5 7021-8 ####[facility] LABCLIA [id number] [place] [id number] [place] Lymphocytes/100 WBC (Bld) 16.6 % Normal [facility] Comment on above: Order Comment: Speci men Type: BLOOD SPECIMENOrdering Facility: [facility] Address: [address] [place] [address] Performed By: #### 5 7021-8 ####[facility] LABCLIA [id number] [place] [id number] [place] MCH (RBC) [Entitic mass] 29.2 pg Normal 26.0-34.[address] [facility] Comment on above: Order Comment: Speci men Type: BLOOD SPECIMENOrdering Facility: [facility] Address: [address] [place] [address] Performed By: #### 5 7021-8 ####[facility] LABCLIA [id number] [place] [id number] [place] MCHC (RBC) [Mass/Vol] 33.5 g/dL Normal 30.5-36.0 [facility] Comment on above: Order Comment: Speci men Type: BLOOD SPECIMENOrdering Facility: [facility] Address: [address] [place] [address] Performed By: #### 5 7021-8 ####[facility] LABCLIA [id number] [address] [address] [place] MCV (RBC) [Entitic vol] 87.2 fL Normal 80.0-100.[address] [facility] Comment on above: Order Comment: Speci men Type: BLOOD SPECIMENOrdering Facility: [facility] Address: [address] [place] [address] Performed By: #### 5 7021-8 ####[facility] LABCLIA [id number] [place] [id number] [place] Monocytes (Bld) [#/Vol] 0.93 10*3/uL High <0.[address] [facility] Comment on above: Order Comment: Speci men Type: BLOOD SPECIMENOrdering Facility: [facility] Address: [address] [place] [address] Performed By: #### 5 7021-8 ####[facility] LABCLIA [id number] [place] [id number] [place] Monocytes/100 WBC (Bld) 8.2 % Normal [facility] Comment on above: Order Comment: Speci men Type: BLOOD SPECIMENOrdering Facility: [facility] Address: [address] [place] [address] Performed By: #### 5 7021-8 ####[facility] LABCLIA [id number] [address] [address] [place] Neutrophils (Bld) [#/Vol] 8.39 10*3/uL High 1.45-7.[address] [facility] Comment on above: Order Comment: Speci men Type: BLOOD SPECIMENOrdering Facility: [facility] Address: [address] [place] [address] Performed By: #### 5 7021-8 ####[facility] LABCLIA [id number] [place] [id number] [place] Neutrophils/100 WBC (Bld) 74.3 % Normal [facility] Comment on above: Order Comment: Speci men Type: BLOOD SPECIMENOrdering Facility: [facility] Address: [address] [place] [address] Performed By: #### 5 7021-8 ####[facility] LABCLIA [id number] [place] [id number] [place] Nucleated RBC (Bld) [#/Vol] 10*3/uL Normal <0.[address] [facility] Comment on above: Order Comment: Speci men Type: BLOOD SPECIMENOrdering Facility: [facility] Address: [address] [place] [address] Performed By: #### 5 7021-8 ####[facility] LABCLIA [id number] [place] [id number] [place] Nucleated RBC/100 WBC (Bld) [Ratio] 0.0 /100 WBC Normal [facility] Comment on above: Order Comment: Speci men Type: BLOOD SPECIMENOrdering Facility: [facility] Address: [address] [place] [address] Performed By: #### 5 7021-8 ####[facility] LABCLIA [id number] [place] [id number] [place] Platelet mean volume (Bld) [Entitic vol] 10.3 fL Normal 9.0-12.[address] [facility] Comment on above: Order Comment: Speci men Type: BLOOD SPECIMENOrdering Facility: [facility] Address: [address] [place] [address] Performed By: #### 5 7021-8 ####[facility] LABCLIA [id number] [place] [id number] [place] Platelets (Bld) [#/Vol] 175 10*3/uL Normal 150-[address] [facility] Comment on above: Order Comment: Speci men Type: BLOOD SPECIMENOrdering Facility: [facility] Address: [address] [place] [address] Performed By: #### 5 7021-8 ####[facility] LABCLIA [id number] [address] [address] [place] RBC (Bld) [#/Vol] 4.21 10*6/uL Normal 3.90-5.20 [facility] Comment on above: Order Comment: Speci men Type: BLOOD SPECIMENOrdering Facility: [facility] Address: [address] [place] [address] Performed By: #### 5 7021-8 ####[facility] LABIA [id number] [place] [id number] [place] WBC (Bld) [#/Vol] 11.30 10*3/uL High 3.70-11.00 [facility] Comment on above: Order Comment: Speci men Type: BLOOD SPECIMENOrdering Facility: [facility] Address: [address] [place] [address] Performed By: #### 5 7021-8 ####[facility] LABIA [id number] [place] [id number] [place] CBC panel Auto (Bld)on 09-15 Erythrocyte distribution width (RBC) [Ratio] 13.3 % Normal 11.5-15.[address] [facility] Comment on above: Order Comment: Speci men Type: BLOOD SPECIMENOrdering Facility: [facility] Address: [address] [place] [address] Performed By: #### 5 8410-2 ####[facility] LABIA [id number] [place] [id number] [place] Hematocrit (Bld) [Volume fraction] 37.8 % Normal 36.0-46.[address] [facility] Comment on above: Order Comment: Speci men Type: BLOOD SPECIMENOrdering Facility: [facility] Address: [address] [place] [address] Performed By: #### 5 8410-2 ####[facility] LABCLIA [id number] [place] [id number] [place] Hemoglobin (Bld) [Mass/Vol] 12.6 g/dL Normal 11.5-15.[address] [facility] Comment on above: Order Comment: Speci men Type: BLOOD SPECIMENOrdering Facility: [facility] Address: [address] [place] [address] Performed By: #### 5 8410-2 ####[facility] LABIA [id number] [place] [id number] [place] MCH (RBC) [Entitic mass] 29.2 pg Normal 26.0-34.[address] [facility] Comment on above: Order Comment: Speci men Type: BLOOD SPECIMENOrdering Facility: [facility] Address: [address] [place] [address] Performed By: #### 5 8410-2 ####[facility] LABIA [id number] [place] [id number] [place] MCHC (RBC) [Mass/Vol] 33.3 g/dL Normal 30.5-36.0 [facility] Comment on above: Order Comment: Speci men Type: BLOOD SPECIMENOrdering Facility: [facility] Address: [address] [place] [address] Performed By: #### 5 8410-2 ####[facility] LABCLIA [id number] [place] [id number] [place] MCV (RBC) [Entitic vol] 87.5 fL Normal 80.0-100.[address] [facility] Comment on above: Order Comment: Speci men Type: BLOOD SPECIMENOrdering Facility: [facility] Address: [address] [place] [address] Performed By: #### 5 8410-2 ####[facility] LABCLIA [id number] [place] [id number] [place] Nucleated RBC (Bld) [#/Vol] 10*3/uL Normal <0.[address] [facility] Comment on above: Order Comment: Speci men Type: BLOOD SPECIMENOrdering Facility: [facility] Address: [address] [place] [address] Performed By: #### 5 8410-2 ####[facility] LABIA [id number] [place] [id number] [place] Platelet mean volume (Bld) [Entitic vol] 10.6 fL Normal 9.0-12.[address] [facility] Comment on above: Order Comment: Speci men Type: BLOOD SPECIMENOrdering Facility: [facility] Address: [address] [place] [address] Performed By: #### 5 8410-2 ####[facility] LABIA [id number] [place] [id number] [place] Platelets (Bld) [#/Vol] 195 10*3/uL Normal 150-[address] [facility] Comment on above: Order Comment: Speci men Type: BLOOD SPECIMENOrdering Facility: [facility] Address: [address] [place] [address] Performed By: #### 5 8410-2 ####[facility] LABIA [id number] [place] [id number] [place] RBC (Bld) [#/Vol] 4.32 10*6/uL Normal 3.90-5.20 [facility] Comment on above: Order Comment: Speci men Type: BLOOD SPECIMENOrdering Facility: [facility] Address: [address] [place] [address] Performed By: #### 5 8410-2 ####[facility] LABIA [id number] [place] [id number] [place] WBC (Bld) [#/Vol] 12.38 10*3/uL High 3.70-11.00 [facility] Comment on above: Order Comment: Moo herring Type: BLOOD SPECIMENOrdering Facility: [facility] Address: [address] [place] [address] Performed By: #### 5 8410-2 ####[facility] LABCLIA [id number] [place] [id number] [place] HbA1c (Bld)on 09-15-2024 Average glucose Estimated from glycated hemoglobin (Bld) [Mass/Vol] 137 mg/dL Normal [facility] Comment on above: Order Comment: Moo herring Type: BLOOD SPECIMENOrdering Facility: [facility] Address: [address] [place] [address] Result Comment: eAG: (Estimated average glucose) is a calculated value from HgbA1c and is compliance representative dealer of the average blood glucose level in the last 2-3 month period. Performed By: #### 5 5454-3 ####[facility] LABIA [id number] [place] [id number] [place] [facility] HbA1c (Bld) [Mass fraction] 6.4 % High 4.3-5.[address] [facility] Comment on above: Order Comment: Moo herring Type: BLOOD SPECIMENOrdering Facility: [facility] Address: [address] [place] [address] Result Comment: [place] Diabetes [employer] guidelines indicate that patients with HgbA1c in the range 5.7-6.4% are at increased risk for development of diabetes, and intervention by lifestyle modification may be beneficial. HgbA1c greater or equal to 6.5% is considered diagnostic of diabetes. Performed By: #### 5 5454-3 ####[facility] LABIA [id number] [place] [id number] [place] Magnesium SerPl-mCncon 09-15 Magnesium [Mass/Vol] 1.3 mg/dL Low 1.7-2.3 [facility] Comment on above: Order Comment: Moo herring Type: BLOOD SPECIMENOrdering Facility: [facility] Address: [address] [place] [id number] Performed By: #### 2 4321-2, 2777-1, 15663-9 ####[facility] [id number] [place] [id number] [place] Phosphate SerPl-mCncon 09-15 Phosphate [Mass/Vol] 2.6 mg/dL Low 2.7-4.8 [facility] Comment on above: Order Comment: Speci men Type: BLOOD SPECIMENOrdering Facility: [facility] Address: [address] [place] [id number] Performed By: #### 2 4321-2, 2777-1, 61275-5 ####[facility] LABIA [id number] [place] [id number] [place] ANES POSTPROC EVALon 025 ANES POSTPROC EVAL HNO ID: [id number] Author: ERIC FAIRCHILD MD Service: ? Author Type: Anesthesiologist Type: Anesthesia Postprocedure Evaluation Filed: 09/14/2024 16:47 Note Text: POST ANESTHESIA EVALUATION NOTE : 1960 Procedure Summary Date: 09/14/24 Room / Location: [address] [facility] Anesthesia Start: 1036 Anesthesia Stop: 1533 Procedure: HERNIORRHAPHY INCISIONAL ABDOMINAL RECURRENT REDUCIBLE GREATER THAN 10cm (Abdomen) Diagnosis: Preoperative examination Incisional hernia, without obstruction or gangrene (Preoperative examination [Z01.818]) (Incisional hernia, without obstruction or gangrene [K43.2]) Surgeons: Krsitine Vincent MD Responsible Provider: Eric Fairchild MD [...] Parisa Sanchez DATE: September 14, 2024 TIME: 4:47 PM CSN: [id number] Normal [facility] ANES PRE-OPon 09-14-2024 ANES PRE-OP HNO ID: [id number] Author: ERIC FAIRCHILD MD Service: ? Author Type: Anesthesiologist Type: Anesthesia Preprocedure Evaluation Filed: 09/14/2024 10:07 Note Text: ANESTHESIOLOGY DAY OF SURGERY NOTE : 1960 Procedure Information Date/Time: 09/14/24 1015 Procedure: HERNIORRHAPHY INCISIONAL ABDOMINAL RECURRENT REDUCIBLE GREATER THAN 10cm (Abdomen) Location: [facility] Surgeons: Kristine Vincent MD [...] adequate. Short neck: no. Thick neck: no Microretrognathia/Mi cronagthia/Recessed Chin: No DENTAL Dental findings: missing tooth/teeth. II - ANESTHESIA PLAN ASA Score: 3 Anesthetic Plan: general Airway type: ETT The patient is not a current smoker. NPO Status: adequate Beta Osiel Monitoring Plan Monitoring plan: standard ASA. Post [...] Pulse 96 09/14/24 0940 Resp 18 09/14/24 08 Temp 36.3 ?C (97.3 ?F) 09/14/24 08 SpO2 96 % 09/14/2440 Vitals shown include unfiled device data. Facility-Administere d Medications as of 09/14/2024 Medication Dose Route [...] Outpatient Medications as of 09/14/2024 Medication Sig fexofenadine/pseudoe phedrine (MONICA-D 24 HOUR ORAL) amLODIPine (NORVASC) 5 [...] Eric Fairchild MD PATIENT NAME: Parisa Medina [facility] DATE: September 14, 2024 TIME: 10:06 AM CSN: [id number] Normal [facility] BRIEF OP NOTon 09-14-2024 BRIEF OP NOT HNO ID: [id number] Author: KIMBERLY GARCES MD Service: General Surgery Author Type: Fellow Type: Brief Op Note Filed: 09/14/2024 15:11 Note Text: BRIEF OPERATIVE / PROCEDURE NOTE LOG ID: [id number] SURGERY/PROCEDURE DATE: 09/14/2024 INCISION/PROCEDURE START TIME: 11:19 AM INCISION CLOSE/PROCEDURE END TIME: 3:05 PM SURGEON(S)/PROCEDURA LIST(S) AND SLOT MACHINE DEPARTMENT FLOORPERSON(S): Surgeons and Role: * Kristine Vincent MD - Primary * Timbo Paniagua MD - Resident - Assisting * Kimberly Garces MD - Fellow No Additional Staff SURGERY/PROCEDURE(S) : open bilateral TAR ANESTHESIA: General FINDINGS: - 72f86qt defect - 93o09xs prolene mesh - 2 RM drains ESTIMATED BLOOD LOSS: 125cc SPECIMENS: * No specimens in log * COMPLICATIONS: None PRE-OP/PRE-PROCEDURE DIAGNOSIS: ventral incisional hernia POST-OP/POST-PROCEDU RE DIAGNOSIS: * No post-op diagnosis entered * same SIGNATURE: Kimberly Garces MD PATIENT NAME: Parisa Medina [facility] DATE: September 14, 2024 TIME: 3:08 PM PAGER/CONTACT #: [phone] Normal [facility] Gas and Carbon monoxide pane l (BldV)on 09-14-2024 BASE DEFICIT, VENOUS -3 mmol/L Low -2-0 [facility] Comment on above: Order Comment: Speci men Type: VENOUS BLOOD SPECIMENOrdering Facility: [facility] Address: [address] [place] [address] Performed By: #### 2 4344-4 ####[facility] LABIA [id number] [place] [id number] [place] Body temperature 97.7 [degF] Normal [facility] Comment on above: Order Comment: Speci men Type: VENOUS BLOOD SPECIMENOrdering Facility: [facility] Address: [address] [place] [address] Performed By: #### 2 4344-4 ####[facility] LABIA [id number] [place] [id number] [place] Calcium.ionized (Bld) [Mass/Vol] 1.16 mmol/L Normal 1.08-1.[address] [facility] Comment on above: Order Comment: Speci men Type: VENOUS BLOOD SPECIMENOrdering Facility: [facility] Address: [address] [place] [address] Performed By: #### 2 4344-4 ####[facility] [id number] [place] [id number] [place] Calcium.ionized adjusted to pH 7.4 (BldA) [Moles/Vol] 1.11 mmol/L Normal 1.08-1.[address] [facility] Comment on above: Order Comment: Speci men Type: VENOUS BLOOD SPECIMENOrdering Facility: [facility] Address: [address] [place] [address] Performed By: #### 2 4344-4 ####[facility] [id number] [place] [address] [place] Carboxyhemoglobin (BldV) [Mass fraction] 1.1 % Normal 0.0-2.[address] [facility] Comment on above: Order Comment: Speci men Type: VENOUS BLOOD SPECIMENOrdering Facility: [facility] Address: [address] [place] [address] Result Comment: Carb oxyhemoglobin Reference Range for Smokers: 2.0-8.0% Performed By: #### 2 4344-4 ####[facility] LABCLIA [id number] [address] [address] [place] CO2 (BldV) [Partial pressure] 46 mm[Hg] Normal 42-[address] [facility] Comment on above: Order Comment: Speci men Type: VENOUS BLOOD SPECIMENOrdering Facility: [facility] Address: [address] [place] [address] Performed By: #### 2 4344-4 ####[facility] LABCLIA [id number] [place] [id number] [place] CO2 adjusted to patient's actual temperature (BldV) [Partial pressure] 45 mmHg Normal 42-[address] [facility] Comment on above: Order Comment: Speci men Type: VENOUS BLOOD SPECIMENOrdering Facility: [facility] Address: [address] [place] [address] Performed By: #### 2 4344-4 ####[facility] LABCLIA [id number] [place] [address] [place] Glucose [Mass/Vol] 218 mg/dL High 60-105 [facility] Comment on above: Order Comment: Speci men Type: VENOUS BLOOD SPECIMENOrdering Facility: [facility] Address: [address] [place] [address] Performed By: #### 2 4344-4 ####[facility] LABCLIA [id number] [place] [id number] [place] HCO3 (Bld) [Moles/Vol] 23 mmol/L Low 24-[address] [facility] Comment on above: Order Comment: Speci men Type: VENOUS BLOOD SPECIMENOrdering Facility: [facility] Address: [address] [place] [address] Performed By: #### 2 4344-4 ####[facility] LABCLIA [id number] [place] [id number] [place] Hematocrit (Bld) [Volume fraction] 40.8 % Normal 36.0-46.[address] [facility] Comment on above: Order Comment: Speci men Type: VENOUS BLOOD SPECIMENOrdering Facility: [facility] Address: [address] [place] [address] Performed By: #### 2 4344-4 ####[facility] LABCLIA [id number] [facility] [place] [address] [place] Hemoglobin (Bld) [Mass/Vol] 13.3 g/dL Normal 11.5-15.[address] [facility] Comment on above: Order Comment: Speci men Type: VENOUS BLOOD SPECIMENOrdering Facility: [facility] Address: [address] [place] [address] Performed By: #### 2 4344-4 ####[facility] LABCLIA [id number] [place] [id number] [place] Lactate [Moles/Vol] 2.8 mmol/L High 0.5-2.2 [facility] Comment on above: Order Comment: Speci men Type: VENOUS BLOOD SPECIMENOrdering Facility: [facility] Address: [address] [place] [address] Performed By: #### 2 4344-4 ####[facility] LABCLIA [id number] [place] [id number] [place] LITERS 4 Liters/min Normal [facility] Comment on above: Order Comment: Speci men Type: VENOUS BLOOD SPECIMENOrdering Facility: [facility] Address: [address] [place] [address] Performed By: #### 2 4344-4 ####[facility] LABCLIA [id number] [place] [id number] [place] Methemoglobin (Bld) [Mass fraction] 1.1 % Normal 0.0-1.[address] [facility] Comment on above: Order Comment: Speci men Type: VENOUS BLOOD SPECIMENOrdering Facility: [facility] Address: [address] [place] [address], [place] [address] Performed By: #### 2 4344-4 ####[facility] LABCLIA [id number] [address] [place] [address] [place] O2 THERAPY NC = Nasal Cannula Normal [facility] Comment on above: Order Comment: Speci men Type: VENOUS BLOOD SPECIMENOrdering Facility: [facility] Address: [address] [place], [place] [address] Performed By: #### 2 4344-4 ####[facility] LABCLIA [id number] [address] [place] [address] [place] Oxygen (BldV) [Partial pressure] 70 mm[Hg] High 35-[address] [facility] Comment on above: Order Comment: Speci men Type: VENOUS BLOOD SPECIMENOrdering Facility: [facility] Address: [address] [place], [place] [address] Performed By: #### 2 4344-4 ####[facility] LABCLIA [id number] [address] [place] [address] [place] Oxygen adjusted to patient's actual temperature (BldV) [Partial pressure] 68 mmHg High 35-[address] [facility] Comment on above: Order Comment: Speci men Type: VENOUS BLOOD SPECIMENOrdering Facility: [facility] Address: [address] [place] [address] Performed By: #### 2 4344-4 ####[facility] LABCLIA [id number] [address] [place] [address] [place] Oxygen saturation in Venous blood 93 % High 60-[address] [facility] Comment on above: Order Comment: Speci men Type: VENOUS BLOOD SPECIMENOrdering Facility: [facility] Address: [address] [place] [address] Performed By: #### 2 4344-4 ####[facility] LABCLIA [id number] [address] [place] [address] [place] Oxyhemoglobin (BldV) [Mass fraction] 91 % High 60-[address] [facility] Comment on above: Order Comment: Speci men Type: VENOUS BLOOD SPECIMENOrdering Facility: [facility] Address: [address] [place] [address] Performed By: #### 2 4344-4 ####[facility] LABCLIA [id number] [address] [address] [place] pH (BldV) 7.32 [pH] Normal 7.32-7.[address] [facility] Comment on above: Order Comment: Speci men Type: VENOUS BLOOD SPECIMENOrdering Facility: [facility] Address: [address] [place] [address] Performed By: #### 2 4344-4 ####[facility] LABCLIA [id number] [place] [id number] [place] pH adjusted to patient's actual temperature (BldV) 7.32 Normal 7.32-7.[address] [facility] Comment on above: Order Comment: Speci men Type: VENOUS BLOOD SPECIMENOrdering Facility: [facility] Address: [address] [place] [address] Performed By: #### 2 4344-4 ####[facility] LABIA [id number] [address] [address] [place] Potassium [Moles/Vol] 3.4 mmol/L Low 3.5-5.0 [facility] Comment on above: Order Comment: Speci men Type: VENOUS BLOOD SPECIMENOrdering Facility: [facility] Address: [address] [place], [place] [address] Performed By: #### 2 4344-4 ####[facility] LABIA [id number] [place] [id number] [place] Sodium [Moles/Vol] 141 mmol/L Normal 136-144 [facility] Comment on above: Order Comment: Speci men Type: VENOUS BLOOD SPECIMENOrdering Facility: [facility] Address: [address] [place], [place] [address] Performed By: #### 2 4344-4 ####[facility] LABCLIA [id number] [place] [id number] [place] NURSING PROGon 09-14-2024 NURSING PROG HNO ID: [id number] Author: CASH MO RN Service: Nursing Author [...] and then went back down to [address] [facility] OPERATIVE NOon 09-14-2024 OPERATIVE NO HNO ID: [id number] Author: KRISTINE VINCENT MD Service: General Surgery Author Type: Physician Type: Operative Report Filed: 09/15/2024 10:07 Note Text: [facility] - Operative Report [address] [place] [id number] [place] PARISA SANCHEZ : 1960 AGE: 64. SEX: F PATIENT TYPE: I [facility]: [facility] LOCATION: [place] [address] ATTENDING PHYSICIAN: Kristine Vincent M.D. CSN NUMBER: [id number] DATE OF SURGERY/PROCEDURE: 09/14/2024 INCISION/PROCEDURE START TIME: 11:19 AM INCISION CLOSE/PROCEDURE END TIME: 3:05 PM PREOPERATIVE DIAGNOSIS: Recurrent incisional hernia. POSTOPERATIVE DIAGNOSIS: Recurrent incisional hernia. SURGEON: Kristine Vincent M.D. SLOT MACHINE DEPARTMENT FLOORPERSON: Fellow, Dr. Kimberly Garces. Please note that no other qualified office clerk assistant was available to help with the [...] undue tension. The skin was closed in absorb (more content not included)... Normal [facility] CBC W Auto Differential pane l (Bld)on 09-06-2024 Basophils (Bld) [#/Vol] 0.06 10*3/uL Normal <0.[address] [facility] Comment on above: Order Comment: Speci men Type: BLOOD SPECIMENOrdering Facility: [facility] Address: [address] [place] [address] Performed By: #### 5 7021-8 ####[facility] LABIA [id number] [place] [id number] [place] Basophils/100 WBC (Bld) 0.7 % Normal [facility] Comment on above: Order Comment: Speci men Type: BLOOD SPECIMENOrdering Facility: [facility] Address: [address] [place] [address] Performed By: #### 5 7021-8 ####[facility] LABCLIA [id number] [place] [id number] [place] Differential cell count method Nom (Bld) Auto Normal [facility] Comment on above: Order Comment: Speci men Type: BLOOD SPECIMENOrdering Facility: [facility] Address: [address] [place] [address] Performed By: #### 5 7021-8 ####[facility] LABCLIA [id number] [address], [facility]95 [place] Eosinophils (Bld) [#/Vol] 0.11 10*3/uL Normal <0.[address] [facility] Comment on above: Order Comment: Speci men Type: BLOOD SPECIMENOrdering Facility: [facility] Address: [address] [place] [address] Performed By: #### 5 7021-8 ####[facility] LABCLIA [id number] [address], [place] [address] [place] Eosinophils/100 WBC (Bld) 1.3 % Normal [facility] Comment on above: Order Comment: Speci men Type: BLOOD SPECIMENOrdering Facility: [facility] Address: [address] [place] [address] Performed By: #### 5 7021-8 ####[facility] LABCLIA [id number] [address], [facility]95 [place] Erythrocyte distribution width (RBC) [Ratio] 12.9 % Normal 11.5-15.[address] [facility] Comment on above: Order Comment: Speci men Type: BLOOD SPECIMENOrdering Facility: [facility] Address: [address] [place] [address] Performed By: #### 5 7021-8 ####[facility] LABCLIA [id number] [address], [facility]95 [place] Hematocrit (Bld) [Volume fraction] 44.6 % Normal 36.0-46.[address] [facility] Comment on above: Order Comment: Speci men Type: BLOOD SPECIMENOrdering Facility: [facility] Address: [address] [place] [address] Performed By: #### 5 7021-8 ####[facility] LABCLIA [id number] [address] [place] [address] [place] Hemoglobin (Bld) [Mass/Vol] 15.0 g/dL Normal 11.5-15.[address] [facility] Comment on above: Order Comment: Speci men Type: BLOOD SPECIMENOrdering Facility: [facility] Address: [address] [place] [address] Performed By: #### 5 7021-8 ####[facility] LABCLIA [id number] [place] [id number] [place] Immature granulocytes (Bld) [#/Vol] 0.03 10*3/uL Normal <0.[address] [facility] Comment on above: Order Comment: Speci men Type: BLOOD SPECIMENOrdering Facility: [facility] Address: [address] [place] [address] Performed By: #### 5 7021-8 ####[facility] LABCLIA [id number] [address] [place] Immature granulocytes/100 WBC (Bld) 0.3 % Normal [facility] Comment on above: Order Comment: Speci men Type: BLOOD SPECIMENOrdering Facility: [facility] Address: [address] [place] [address] Performed By: #### 5 7021-8 ####[facility] LABIA [id number] [place] [id number] [place] Lymphocytes (Bld) [#/Vol] 2.61 10*3/uL Normal 1.00-4.[address] [facility] Comment on above: Order Comment: Speci men Type: BLOOD SPECIMENOrdering Facility: [facility] Address: [address] [place] [address] Performed By: #### 5 7021-8 ####[facility] LABCLIA [id number] [place] [id number] [place] Lymphocytes/100 WBC (Bld) 29.7 % Normal [facility] Comment on above: Order Comment: Speci men Type: BLOOD SPECIMENOrdering Facility: [facility] Address: [address] [place] [address] Performed By: #### 5 7021-8 ####[facility] LABIA [id number] [place] [id number] [place] MCH (RBC) [Entitic mass] 29.1 pg Normal 26.0-34.[address] [facility] Comment on above: Order Comment: Speci men Type: BLOOD SPECIMENOrdering Facility: [facility] Address: [address] [place] [address] Performed By: #### 5 7021-8 ####[facility] LABIA [id number] [place] [id number] [place] MCHC (RBC) [Mass/Vol] 33.6 g/dL Normal 30.5-36.0 [facility] Comment on above: Order Comment: Speci men Type: BLOOD SPECIMENOrdering Facility: [facility] Address: [address] [place] [address] Performed By: #### 5 7021-8 ####[facility] LABIA [id number] [place] [id number] [place] MCV (RBC) [Entitic vol] 86.6 fL Normal 80.0-100.[address] [facility] Comment on above: Order Comment: Speci men Type: BLOOD SPECIMENOrdering Facility: [facility] Address: [address] [place] [address] Performed By: #### 5 7021-8 ####[facility] LABIA [id number] [place] [id number] [place] Monocytes (Bld) [#/Vol] 0.70 10*3/uL Normal <0.[address] [facility] Comment on above: Order Comment: Speci men Type: BLOOD SPECIMENOrdering Facility: [facility] Address: [address] [place] [address] Performed By: #### 5 7021-8 ####[facility] LABCLIA [id number] [address], [facility]95 [place] Monocytes/100 WBC (Bld) 8.0 % Normal [facility] Comment on above: Order Comment: Speci men Type: BLOOD SPECIMENOrdering Facility: [facility] Address: [address] [place] [address] Performed By: #### 5 7021-8 ####[facility] LABCLIA [id number] [place] [id number] [place] Neutrophils (Bld) [#/Vol] 5.28 10*3/uL Normal 1.45-7.[address] [facility] Comment on above: Order Comment: Speci men Type: BLOOD SPECIMENOrdering Facility: [facility] Address: [address] [place] [address] Performed By: #### 5 7021-8 ####[facility] LABCLIA [id number] [place] [id number] [place] Neutrophils/100 WBC (Bld) 60.0 % Normal [facility] Comment on above: Order Comment: Speci men Type: BLOOD SPECIMENOrdering Facility: [facility] Address: [address] [place] [address] Performed By: #### 5 7021-8 ####[facility] LABCLIA [id number] [place] [id number] [place] Nucleated RBC (Bld) [#/Vol] 10*3/uL Normal <0.[address] [facility] Comment on above: Order Comment: Speci men Type: BLOOD SPECIMENOrdering Facility: [facility] Address: [address] [place] [address] Performed By: #### 5 7021-8 ####[facility] LABCLIA [id number] [place] [id number] [place] Nucleated RBC/100 WBC (Bld) [Ratio] 0.0 /100 WBC Normal [facility] Comment on above: Order Comment: Speci men Type: BLOOD SPECIMENOrdering Facility: [facility] Address: [address] [place] [address] Performed By: #### 5 7021-8 ####[facility] LABIA [id number] [place] [id number] [place] Platelet mean volume (Bld) [Entitic vol] 10.2 fL Normal 9.0-12.[address] [facility] Comment on above: Order Comment: Speci men Type: BLOOD SPECIMENOrdering Facility: [facility] Address: [address] [place] [address] Performed By: #### 5 7021-8 ####[facility] LABIA [id number] [place] [id number] [place] Platelets (Bld) [#/Vol] 217 10*3/uL Normal 150-[address] [facility] Comment on above: Order Comment: Speci men Type: BLOOD SPECIMENOrdering Facility: [facility] Address: [address] [place] [address] Performed By: #### 5 7021-8 ####[facility] LABIA [id number] [place] [id number] [place] RBC (Bld) [#/Vol] 5.15 10*6/uL Normal 3.90-5.20 [facility] Comment on above: Order Comment: Speci men Type: BLOOD SPECIMENOrdering Facility: [facility] Address: [address] [place] [address] Performed By: #### 5 7021-8 ####[facility] LABIA [id number] [place] [id number] [place] WBC (Bld) [#/Vol] 8.79 10*3/uL Normal 3.70-11.00 [facility] Comment on above: Order Comment: Speci men Type: BLOOD SPECIMENOrdering Facility: [facility] Address: [address] [place] [address] Performed By: #### 5 7021-8 ####[facility] MAURICIO [id number] [facility]Jacqu[facility] SPR[place]SAUGUST[place] [address] [place] OF [facility] CNOVon 09-06-2024 CNOV Office Visit (GENSM[facility]) PARISA SANCHEZ ([id number]) 1960 F Date Time Provider Department 09/06/24 11:00 AM NADEGE ELIZONDO During your visit today, we recorded the following information about you: Nadege Elizondo, PhD 09/06/2024 11:33 AM Signed [facility] [place] Name: Parisa Sanchez MR#: [id number] Date: 09/06/2024 Time: 1 hour Referred by: [...] Nadege Rodriguez, Ph.D. Referring Provider: EVE FUENTES [[id number]] Allergies As of Date: 09/06/2024 Noted Allergy Reaction CEPHALEXIN 01/05/2024 2 - Rash PREDNISONE 01/05/2024 2 - Rash PERCOCET (OXYCODONE-ACETAMINO PHEN)07/22/2012 11 - Vomiting ADHESIVE TAPE-SILICONES 04/19/2024 2 - Rash Date Reviewed: 04/19/2024 Reviewed by: Kristine Vincent MD - Fully Assessed Visit Diagnoses:Preoperati ve examination [Z01.818] Incisional hernia, without obstruction or gangrene [K43.2] Order(s):CONSULT TO [facility] [[id number]] Order #: [id number]: 1 Prescriptions as of 09/06/2024 - fexofenadine/pseudoe phedrine (MONICA-D 24 HOUR ORAL) - JARDIANCE 10 [...] Encounter Status:Closed by NADEGE ELIZONDO on 09/06/[address] [facility] CONFIRM BLOOD TYPEon 025 ABO group Nom (Bld) A [facility] Rh Nom (Bld) Positive [facility] ABO A Normal [facility] Comment on above: Order Comment: Speci men Type: BLOOD SPECIMENOrdering Facility: [facility] Address: [address] [place] [address] Performed By: #### C ONABO ####CC MAIN BLOOD BANKCLIA [id number] [place] [address] [place] Rh Nom (Bld) Positive Normal [facility] Comment on above: Order Comment: Speci men Type: BLOOD SPECIMENOrdering Facility: [facility] Address: [address] [place] [address] Performed By: #### C ONABO ####CC MAIN BLOOD BANKCLIA [id number] [address] [address] [place] Comprehensive metabolic 2000 panelon 09-06-2024 Albumin [Mass/Vol] 4.5 g/dL Normal 3.9-4.9 [facility] Comment on above: Order Comment: Speci men Type: BLOOD SPECIMENOrdering Facility: [facility] Address: [address] [place] [address] Performed By: #### 2 4323-8 ####[facility] LABCLIA [id number] [place] [id number] [place] ALP [Catalytic activity/Vol] 59 U/L Normal 34-[address] [facility] Comment on above: Order Comment: Speci men Type: BLOOD SPECIMENOrdering Facility: [facility] Address: [address] [place] [address] Performed By: #### 2 4323-8 ####[facility] LABCLIA [id number] [place] [id number] [place] ALT [Catalytic activity/Vol] 56 U/L High 7-[address] [facility] Comment on above: Order Comment: Speci men Type: BLOOD SPECIMENOrdering Facility: [facility] Address: [address] [place] [address] Performed By: #### 2 4323-8 ####[facility] LABCLIA [id number] [place] [id number] [place] Anion gap [Moles/Vol] 14 mmol/L Normal 8-15 [facility] Comment on above: Order Comment: Speci men Type: BLOOD SPECIMENOrdering Facility: [facility] Address: [address] [place] [address] Performed By: #### 2 4323-8 ####[facility] LABCLIA [id number] [place] [id number] [place] AST [Catalytic activity/Vol] 44 U/L High 13-[address] [facility] Comment on above: Order Comment: Speci men Type: BLOOD SPECIMENOrdering Facility: [facility] Address: [address] [place], [place] [id number] Performed By: #### 2 4323-8 ####[facility] LABCLIA [id number] [place] [id number] [place] Bilirubin [Mass/Vol] 0.6 mg/dL Normal 0.2-1.3 [facility] Comment on above: Order Comment: Speci men Type: BLOOD SPECIMENOrdering Facility: [facility] Address: [address] [place] [address] Performed By: #### 2 4323-8 ####[facility] LABCLIA [id number] [place] [address] [place] Calcium [Mass/Vol] 10.1 mg/dL Normal 8.5-10.2 [facility] Comment on above: Order Comment: Speci men Type: BLOOD SPECIMENOrdering Facility: [facility] Address: [address] [place], [place] [address] Performed By: #### 2 4323-8 ####[facility] LABCLIA [id number] [place] [address] [place] Chloride [Moles/Vol] 106 mmol/L Normal 98-107 [facility] Comment on above: Order Comment: Speci men Type: BLOOD SPECIMENOrdering Facility: [facility] Address: [address] [place], [place] [address] Performed By: #### 2 4323-8 ####[facility] LABCLIA [id number] [place] [id number] [place] CO2 [Moles/Vol] 21 mmol/L Low 22-[address] [facility] Comment on above: Order Comment: Speci men Type: BLOOD SPECIMENOrdering Facility: [facility] Address: [address] [place], [place] [address] Performed By: #### 2 4323-8 ####[facility] LABCLIA [id number] [address] [address] [place] Creatinine [Mass/Vol] 0.38 mg/dL Low 0.58-0.96 [facility] Comment on above: Order Comment: Moo herring Type: BLOOD SPECIMENOrdering Facility: [facility] Address: [address] [place] [address] Performed By: #### 2 4323-8 ####[facility] LABIA [id number] [address] [place] Creatinine and Glomerular filtration rate.predicted panel (S/P/Bld) 111 mL/min/1.73m??? Normal >=[address] [facility] Comment on above: Order Comment: Moo herring Type: BLOOD SPECIMENOrdering Facility: [facility] Address: [address] [place] [address] Result Comment: Kya mated Glomerular Filtration Rate (eGFR) is calculated using the 2020 CKD-EPI creatinine equation. This equation utilizes serum creatinine, sex, and age as parameters. The creatinine assay has traceable calibration to isotope dilution-mass spectrometry. Refer to KDIGO guidelines for clinical interpretation. In patients with unstable renal function, e.g. those with acute kidney injury, the eGFR may not accurately reflect actual GFR. Performed By: #### 2 4323-8 ####[facility] LABCLIA [id number] [place] [id number] [place] Glucose [Mass/Vol] 127 mg/dL High 74-99 [facility] Comment on above: Order Comment: Moo herring Type: BLOOD SPECIMENOrdering Facility: [facility] Address: [address] [place] [address] Result Comment: The [place] Diabetes Association (ADA) provides guidance for cutoff [...] Standards of Medical Care in Diabetes 2016, [place] [employer] Association. Diabetes Care. 2016.39(Suppl 1). Performed By: #### 2 4323-8 ####[facility] LABCLIA [id number] [address] [place] [address] [place] Potassium [Moles/Vol] 3.7 mmol/L Normal 3.7-5.1 [facility] Comment on above: Order Comment: Speci men Type: BLOOD SPECIMENOrdering Facility: [facility] Address: [address] [place] [address] Performed By: #### 2 4323-8 ####[facility] LABIA [id number] [address] [address] [place] Protein [Mass/Vol] 7.7 g/dL Normal 6.3-8.0 [facility] Comment on above: Order Comment: Speci men Type: BLOOD SPECIMENOrdering Facility: [facility] Address: [address] [place], [place] [id number] Performed By: #### 2 4323-8 ####[facility] LABIA [id number] [address] [address] [place] Sodium [Moles/Vol] 141 mmol/L Normal 136-144 [facility] Comment on above: Order Comment: Speci men Type: BLOOD SPECIMENOrdering Facility: [facility] Address: [address] [place] [address] Performed By: #### 2 4323-8 ####[facility] LABIA [id number] [address] [address] [place] Urea nitrogen [Mass/Vol] 11 mg/dL Normal 7-[address] [facility] Comment on above: Order Comment: Speci men Type: BLOOD SPECIMENOrdering Facility: [facility] Address: [address] [place] [address] Performed By: #### 2 4323-8 ####[facility] LABCLIA [id number] [address] [address] [place] [facility] ECG COMPLETEon 09-06-2024 ECG COMPLETE Ventricular Rate : 80 BPM Atrial Rate : 80 BPM P-R Interval : 142 ms QRS Duration : 88 ms Q-T Interval : 400 ms QTC Calculation(Bazett) : 461 ms Calculated P [place] : 49 degrees Calculated R [place] : -16 degrees Calculated T [place] : 45 degrees NORMAL SINUS RHYTHM LOW VOLTAGE QRS, CONSIDER PULMONARY DISEASE, PERICARDIAL EFFUSION, OR NORMAL VARIANT BORDERLINE ECG Confirmed by MD AGUILERA TAMANNA ([id number]) on 09/26/2024 9:23:48 PM NAME : PARISA SANCHEZ PID : [id number] : 1960 Gender : Female Race : ORD : [id number] Procedure Date : Sep 06 2024 11:56:32 Edit Date : Sep 26 2024 21:24:04 Diagnosis: NORMAL SINUS RHYTHM LOW VOLTAGE QRS, CONSIDER PULMONARY DISEASE, PERICARDIAL EFFUSION, OR NORMAL VARIANT BORDERLINE ECG Confirmed by MD AGUILERA TAMANNA ([id number]) on 09/26/2024 9:23:48 PM Test Reason : Location : 119 : A17 A17 Overread By : MD AGUILERA TAMANNA Edited By : MD AGUILERA TAMANNA Referred By : EVE FUENTES Acquired by : DONG YUSUF [facility] HISTORY PHYSICALon HISTORY PHYSICAL HNO ID: [id number] Author: KANCHAN BURTON PA-C Service: ? Author Type: Physician Instrument Setter Type: H&P Filed: 09/07/2024 14:53 Note Text: [facility] HISTORY AND PHYSICAL EXAMINATION SERVICE DATE: 09/06/2024 SERVICE TIME: 1:00 PM PRIMARY CARE PHYSICIAN: Mack Jarrett MD, DO Assessment Patient has the following [...] Thick neck: no Lip Bite Test: II Microretrognathia/Mi cronagthia/Recessed Chin: No DENTAL Dental findings: teeth intact. II - ANESTHESIA PLAN Anesthetic plan additional comments: *PACC/TCI - anesthesia choice. Beta Osiel Monitoring Plan Post Procedure Analgesic Plan PLAN [...] Immunization Status Current Care Gaps Covid-19 Vaccine ( season) Overdue since 06/25/2024 12/27/2023 Imm Admin: COVID-19 [...] liver disease, nausea, vomiting and ETOH >2 d (more content not included)... Normal [facility] PT panel Coag (PPP)on 2024 INR Coag (PPP) [Relative time] 1.1 {INR} Normal 0.9-1.[address] [facility] Comment on above: Order Comment: Moo herring Type: BLOOD SPECIMENOrdering Facility: [facility] Address: [address] [place] [address] Result Comment: Nora min K Antagonist (VKA) Therapeutic Range: INR 2 to 3 (Target INR of 2.5) Note: For patients treated with VKA drugs, such as warfarin, the [place] [employer] 2012 Guideline recommends [...] to 3.5 (target INR of 3). Benedicto GH, et al. Chest 2012, 141:7S-47S Manolo RA, et al. [facility] 2017, 70: 252-289 Performed By: #### 3 4528-0, 12965-1 ####[facility] LABIA [id number] [place] [address] [place] PT Coag (PPP) [Time] 11.4 s Normal 9.7-13.0 [facility] Comment on above: Order Comment: Moo herring Type: BLOOD SPECIMENOrdering Facility: [facility] Address: [address] [place] [address] Performed By: #### 3 4528-0, 49426-6 ####[facility] LABIA [id number] [place] [address] [place] TYPE AND SCREEN,30 DAYon ABO A Normal [facility] Comment on above: Order Comment: Moo herring Type: BLOOD SPECIMENOrdering Facility: [facility] Address: [address] [place] [address] Performed By: #### T SCR30 ####[facility] BLOOD BANKCLIA [id number] [address] Rh Nom (Bld) Positive Normal [facility] Comment on above: Order Comment: Speci men Type: BLOOD SPECIMENOrdering Facility: [facility] Address: [address] [place] [address] Performed By: #### T SCR30 ####[facility] BLOOD BANKCLIA [id number] [address] [place] aPTT PPPon 09-06-2024 aPTT Coag (PPP) [Time] 26.6 s Normal 23.0-32.[address] [facility] Comment on above: Order Comment: Speci men Type: BLOOD SPECIMENOrdering Facility: [facility] Address: [address] [place] [address] Performed By: #### 3 4528-0, 43815-6 ####[facility] LABCLIA [id number] [address] OF [facility] Ambulatory Visit Summaryon 0 - Ambulatory Visit Summary Ambulatory Visit Summary PARISA SANCHEZ :1960 Visit Date:05/26/2024 Ambulatory Visit Instructions Your Diagnosis Renal lesion Your Care Team Attending Physician - Ivory Estrada MD Primary Care Physician - YASHIRA ROMAN CNP This Is Your Medications List Contact prescribing physician if questions or concerns amlodipine (amLODIPine 5 mg Tab) calcium carbonate (calcium (as carbonate) 500 mg oral tablet) empagliflozin (Jardiance 10 mg oral tablet) escitalopram (escitalopram 20 mg Tab) fexofenadine-pseudoe phedrine (Monica-D 24 Hour Allergy & Congestion 180 [...] Follow-Up Appointments Friday2025 8:00 AM EDT With: Ivory Estrada MD Where: [facility] [address] [place] [id number]- You Need to Schedule the Following Appointments Follow Up with Ivory Estrada MD, URL, URO When: Where: Medications What How [...] prescribing physician if questions or concerns Unchanged fexofenadine-pseudoe phedrine (Monica-D 24 Hour Allergy & Congestion 180 [...] a mammogram every year. ??? You may s (more content not included)... 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 This may represent a hemorrhagic/proteina ceous cyst or a solid renal mass. 05/03/24 - Cre 0.51 States she is going to have hernia surgery in August and her surgeon (Dr Kristine Vincent) wanted to ensure renal lesion is being followed. Was told by Dr Chiu that given its location, it was too [...] 1 yr with MRI Ab w/wo con ([facility]) or sooner if needed. Pt understands and agrees with plan. -Have images pushed through PACS Follow-up With When Contact Information Sean QUICK, Ivory Bernstein, URL, URO Additional Instructions: 1 yr with MRI Ab w/wo con ([facility]) Patient Education Cancer Screening for Females I, [...] Negative (05/26/24 08:26:00) Protein Urine Dipstick: Negative ( (more content not included)... [facility] Comment on above: Result Comment: Elec tronically Signed By: Sean QUICK, Ivory Bernstein\.br\Date and Time Signed: 05/26/24 09:12 EDT\.br\Electronically Co-Signed By: Inga Mcfarland\.br\Date and Time Co-Signed: 05/26/24 08:58 EDT Microalbumin - Albumin: Crea tinine Urine RatioOrdered By: Briana Kaye on 05-04-2024 External Alb/Creat Ratio 29.9 [facility] External Microalbumin, Urine 3.3 [facility] External Urine Creat 110.12 [facility] CNOVon 04-19-2024 CNOV Office Visit (MANOLO) PARISA SANCHEZ ([id number]) 1960 F Date Time Provider Department 04/19/24 [...] Ashish Childs MD 04/19/2024 4:02 PM Signed [facility] - HISTORY AND [...] potential RCC. 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 Normal [facility] CT ABD/PEL WO IVCONon 2024 CT ABD/PEL WO IVCON * * *Final Report* * * DATE OF EXAM: Apr 19 2024 10:32AM [facility] 0531 - CT ABD/PEL WO IVCON [...] simple renal cyst. This may represent a hemorrhagic/proteina ceous cyst or a solid renal mass. GI [...] abdominal wall hernias. Lymph Nodes: No lymphadenopathy. Mesentery/peritoneum : No ascites. Pelvis: Hysterectomy. Bones/Soft Tissues: Multilevel [...] simple renal cyst. This may represent a hemorrhagic/proteina ceous cyst or a solid renal mass. Would advise attempt differentiation between a hemorrhagic/proteina ceous cyst and a solid renal mass with renal ultrasound. If this area remains indeterminate on ultrasound, then a renal protocol MRI with and without contrast can be performed. 3. Very minimal nodularity on the contour of the liver. This makes it difficult to exclude mild/early cirrhosis. ACTIONABLE RESULT: FOLLOW-UP Acuity: Actionable Findings: Kidneys/Ureters/Blad trinh Routing Code: GU_1 Recommendation: US KIDNEY/BLADDER Time Frame: 4-6 weeks COMMUNICATION: Results will be communicated with the ordering provider via [employer] staff message or phone message by Imaging Support Services within 2 business days of report finalization. --END OF FINDING-- Algorithms for management of incidental imaging findings can be found on the [facility] Intranet Sharepoint site at: [email or web address] [email or web address]/mychart links/Managing%20Inc idental%20Findi ngs%20at%20Imaging/F orms/AllItems.aspx Sciences Dean: EZ Transcribe Date/Time: Apr 19 2024 10:48A Dictated by : LEOPOLDO CARY MD This examination was interpreted and the report reviewed and electronically signed by: LEOPOLDO ACRY MD on Apr 19 2024 11:10AM EST [id number] CN ACTIONABLE Invalid Interpretation Code [facility] CT Abdomen and Pelvis WO con trastOrdered By: [facility] Provider on 04-19-2024 Interpretation and review of laboratory results Abnormal [facility] Radiology Result ACTIONABLE Abnormal [facility] Comment on above: This report contains an [...] contact your provider for the next steps. [facility] CT Abdomen and Pelvis WO con traston [...] simple renal cyst. This may represent a hemorrhagic/proteina ceous cyst or a solid renal mass. Would advise attempt differentiation between a hemorrhagic/proteina ceous cyst and a solid renal mass with renal ultrasound. If this area remains indeterminate on ultrasound, then a renal protocol MRI with and without contrast can be performed. 3. Very minimal nodularity on the contour of the liver. This makes it difficult to exclude mild/early cirrhosis. ACTIONABLE RESULT: FOLLOW-UP Acuity: Actionable Findings: Kidneys/Ureters/Blad trinh Routing Code: GU_1 Recommendation: US KIDNEY/BLADDER Time Frame: 4-6 weeks COMMUNICATION: Results will be communicated with the ordering provider via [employer] staff message or phone message by Imaging Support Services within 2 business days of report finalization. --END OF FINDING-- Algorithms for management of incidental imaging findings can be found on the [facility] Intranet Sharepoint site at: [email or web address] [email or web address]/mychart links/Managing%20Inc idental%20Findi ngs%20at%20Imaging/F orms/AllItems.aspx Sciences Dean: EZ Transcribe Date/Time: Apr 19 2024 10:48A Dictated by : LEOPOLDO CARY MD This examination was interpreted and the report reviewed and electronically signed by: LEOPOLDO CARY MD on Apr 19 2024 11:10AM [facility] DIVISION OF RADIOLOGY * * *Final [...] simple renal cyst. This may represent a hemorrhagic/proteina ceous cyst or a solid renal mass. GI [...] abdominal wall hernias. Lymph Nodes: No lymphadenopathy. Mesentery/peritoneum : No ascites. Pelvis: Hysterectomy. Bones/Soft Tissues: Multilevel spondylosis and degenerative disc disease of the lumbar spine. Lower thorax: Unremarkable. Localizer images: No additional findings. DIVISION OF RADIOLOGY Provider, [facility] [place] - 04/19/2024 * * *Final Report* * * DATE OF EXAM: Apr 19 2024 10:32AM [facility] 0531 - CT ABD/PEL WO IVCON [...] simple renal cyst. This may represent a hemorrhagic/proteina ceous cyst or a solid renal mass. GI [...] abdominal wall hernias. Lymph Nodes: No lymphadenopathy. Mesentery/peritoneum : No ascites. Pelvis: Hysterectomy. Bones/Soft Tissues: Multilevel [...] simple renal cyst. This may represent a hemorrhagic/proteina ceous cyst or a solid renal mass. Would advise attempt differentiation between a hemorrhagic/proteina ceous cyst and a solid renal mass with renal ultrasound. If this area remains indeterminate on ultrasound, then a renal protocol MRI with and without contrast can be performed. 3. Very minimal nodularity on the contour of the liver. This makes it difficult to exclude mild/early cirrhosis. ACTIONABLE RESULT: FOLLOW-UP Acuity: Actionable Findings: Kidneys/Ureters/Blad trinh Routing Code: GU_1 Recommendation: US KIDNEY/BLADDER Time Frame: 4-6 weeks COMMUNICATION: Results will be communicated with the ordering provider via [employer] staff message or phone message by [facility] Support [facility] within 2 business days of report finalization. --END OF FINDING-- Algorithms for management of incidental imaging findings can be found on the [facility] Intranet Sharepoint site at: [email or web address] [email or web address]/[email or web address] links/Managing%20Inc idental%20Findi ngs%20at%20Imaging/F orms/AllItems.aspx Sciences Dean: EZ Transcribe Date/Time: Apr 19 2024 10:48A Dictated by : LEOPOLDO CARY MD This examination was interpreted and the report reviewed and electronically signed by: LEOPOLDO CARY MD on Apr 19 2024 11:10AM EST [facility] Radiology Study observation (narrative) [facility] HISTORY PHYSICALon HISTORY PHYSICAL HNO ID: [id number] Author: ASHISH CHILDS MD Service: ? Author Type: Resident Type: H&P Filed: 04/19/2024 16:02 Note Text: [facility] - HISTORY AND PHYSICAL SUBJECTIVE: Chief Complaint: ventral hernia HPI: Parisa Casillasp is a 64 year old female with [...] potential RCC. 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 Normal [facility] COVID + FLU Quick Testingon 02-20-2023 SARS-CoV-2 (COVID-19) RNA [place]+probe Ql (Unsp spec) Negative [facility] Other COVID + FLU Quick Testing Negative [facility] Other MG MAMM SCREEN 3D CJ CADon 11-02-2021 MG MAMM SCREEN 3D CJ CAD Patient: PARISA SANCHEZ Exam Date: 11/02/2021 : 1960 Gender:F Ordering : DR CARYN MAHMOOD Admission #: [id number] Family : Order #: [id number] CLICK HERE TO VIEW EXAM RADIOLOGY REPORT [...] at age 41. LOCATION: [facility] BREAST COMPOSITION: Scattered areas fibroglandular density. FINDINGS: [...] 11/02/2021 at 12:38 Normal [facility] ALBUMIN, RANDOM URINE W/CREA TININEon 04-05-2021 ALBUMIN, URINE 2.0 mg/dL Normal See Note: [facility] Comment on above: Result Comment: Refe arely Range: Reference Range Not established Performed By: #### 6 517, 74434, 496, 23366, 7600 #### [facility] [place] [address] Cardiac Nurse: Judd Warren MD ALBUMIN/CREATININE RATIO, RANDOM URINE [...] diagnostic category. Performed By: #### 6 517, 33469, 496, 88200, 7600 #### [facility] [place] [address] Cardiac Nurse: Judd Warren MD Creatinine (U) [Mass/Vol] 115 mg/dL Normal 20-275 [facility] Comment on above: Performed By: #### 6 517, 98535, 496, 39951, 7600 #### [facility] [place] [address] Cardiac Nurse: Judd Warren MD [facility] 04-05-2021 Albumin [Mass/Vol] 4.5 g/dL Normal 3.6-5.1 [facility] Comment on above: Performed By: #### 6 517, 60520, 496, 93040, 7600 #### [facility] of [place] [address] Cardiac Nurse: Judd Warren MD Albumin/Globulin [Mass ratio] 1.4 {ratio} Normal 1.0-2.5 [facility] Comment on above: Performed By: #### 6 517, 09862, 496, 34984, 7600 #### [facility] [place] [address] Cardiac Nurse: Judd Warren MD ALP [Catalytic activity/Vol] 65 U/L Normal 37-153 [facility] Comment on above: Performed By: #### 6 517, 04004, 496, 31254, 7600 #### [facility] of [place] [address] Cardiac Nurse: Judd Warren MD ALT [Catalytic activity/Vol] 44 U/L High 6-29 [facility] Comment on above: Performed By: #### 6 517, 55619, 496, 15666, 7600 #### [facility] of [place] [address] Cardiac Nurse: Judd Warren MD AST [Catalytic activity/Vol] 31 U/L Normal 10-35 [facility] Comment on above: Performed By: #### 6 517, 34883, 496, 55572, 7600 #### [facility] of [place] [address] Cardiac Nurse: Judd Warren MD Bilirubin [Mass/Vol] 0.7 mg/dL Normal 0.2-1.2 [facility] Comment on above: Performed By: #### 6 517, 50572, 496, 18368, 7600 #### [facility] of [place] [address] Cardiac Nurse: Judd Warren MD BUN/CREATININE RATIO NOT APPLICABLE Normal 6-22 [facility] Comment on above: Performed By: #### 6 517, 61962, 496, 95266, 7600 #### [facility] of [place] [address] Cardiac Nurse: Judd Warren MD Calcium [Mass/Vol] 9.5 mg/dL Normal 8.6-10.4 [facility] Comment on above: Performed By: #### 6 517, 82947, 496, 32006, 7600 #### [facility] of [place] [address] Cardiac Nurse: Judd Warren MD Chloride [Moles/Vol] 106 mmol/L Normal 98-110 [facility] Comment on above: Performed By: #### 6 517, 87911, 496, 72215, 7600 #### [facility] [place] [address] Cardiac Nurse: Judd Warren MD CO2 [Moles/Vol] 23 mmol/L Normal 20-32 [facility] Comment on above: Performed By: #### 6 517, 44044, 496, 56693, 7600 #### [facility] [place] [address] Cardiac Nurse: Judd Warren MD Creatinine [Mass/Vol] 0.55 mg/dL Normal 0.50-0.[address] [facility] Comment on above: Result Comment: For patients >49 years of age, the reference limit for Creatinine is approximately 13% higher for people identified as -[place]. Performed By: #### 6 517, 97669, 496, 35796, 7600 #### [facility] [place] [address] Cardiac Nurse: Judd Warren MD eGFR NON-AFR. MAURITANIAN 101 mL/min/1.73m2 Normal > OR = 60 [facility] Comment on above: Performed By: #### 6 517, 59578, 496, 27900, 7600 #### [facility] [place] [address] Cardiac Nurse: Judd Warren MD GFR/1.73 sq M.predicted among blacks MDRD (S/P/Bld) [Vol rate/Area] 117 mL/min/{1.73_m2} Normal > OR = 60 [facility] Comment on above: Performed By: #### 6 517, 87388, 496, 51471, 7600 #### [facility] [place] [address] Cardiac Nurse: Judd Warren MD Globulin (S) [Mass/Vol] 3.3 g/dL Normal 1.9-3.7 [facility] Comment on above: Performed By: #### 6 517, 27022, 496, 90629, 7600 #### [facility] [place] [address] Cardiac Nurse: Judd Warren MD Glucose [Mass/Vol] 131 mg/dL High 65-99 [facility] Comment on above: Result Comment: Fasting reference interval For someone without known diabetes, a glucose value >125 mg/dL indicates that they may have diabetes and this should be confirmed with a follow-up test. Performed By: #### 6 517, 38740, 496, 06793, 7600 #### [facility] [address], [address] [place] [address] Cardiac Nurse: Judd Warren MD Potassium [Moles/Vol] 3.9 mmol/L Normal 3.5-5.[address] [facility] Comment on above: Performed By: #### 6 517, 66641, 496, 46917, 7600 #### [facility] [place] [address] Cardiac Nurse: Judd Warren MD Protein [Mass/Vol] 7.8 g/dL Normal 6.1-8.1 [facility] Comment on above: Performed By: #### 6 517, 64267, 496, 56344, 7600 #### [facility] [place] [address] Cardiac Nurse: Judd Warren MD Sodium [Moles/Vol] 139 mmol/L Normal 135-146 [facility] Comment on above: Performed By: #### 6 517, 76161, 496, 68172, 7600 #### [facility] [place] [address] Cardiac Nurse: Judd Warren MD Urea nitrogen [Mass/Vol] 16 mg/dL Normal 7-25 [facility] Comment on above: Performed By: #### 6 517, 28106, 496, 15043, 7600 #### [facility] [place] [address] Cardiac Nurse: Judd Warren MD HEMOGLOBIN A1con 04-05-2021 HEMOGLOBIN [...] for children. Performed By: #### 6 517, 00486, 496, 10904, 7600 #### [facility] [address], [address] [place] [address] Cardiac Nurse: Judd Warren MD LIPID PANEL, [facility] 03-27 Cholesterol [Mass/Vol] 119 mg/dL Normal <200 [facility] Comment on above: Order Comment: FASTI NG:YES FASTING: YES Performed By: #### 6 517, 56197, 496, 44906, 7600 #### [facility] [address], [address] [place] [address] Cardiac Nurse: Judd Warren MD Cholesterol in HDL [Mass/Vol] 49 mg/dL Low > OR = 50 [facility] Comment on above: Order Comment: FASTI NG:YES FASTING: YES Performed By: #### 6 517, 94772, 496, 33537, 7600 #### [facility] [address], [address] [place] [address] Cardiac Nurse: Judd Warren MD Cholesterol in LDL [Mass/Vol] 52 mg/dL Normal [facility] Comment on above: Order Comment: FASTI NG:YES FASTING: YES Result Comment: Refe rence range: <100 Desirable range <100 mg/dL for primary prevention; <70 mg/dL for patients with CHD or diabetic patients with > or = 2 CHD risk factors. LDL-C is now calculated using the Horacio-Calle calculation, which is a validated novel method providing better accuracy than the Friedewald equation in the estimation of LDL-C. Horacio DE LA CRUZ et al. ISHMAEL. 2013;310(19): 8786-0167 ([email or web address]) Performed By: #### 6 517, [id number], 496, 77010, 7600 #### [facility] [address], [address] [place] [address] Cardiac Nurse: Judd Warren MD Cholesterol.total/Cho lesterol in HDL [Mass ratio] 2.4 {ratio} Normal <5.0 [facility] Comment on above: Order Comment: FASTI NG:YES FASTING: YES Performed By: #### 6 517, [id number], 496, 67166, 7600 #### [facility] [address], [address] [place] [address] Cardiac Nurse: Judd Warren MD NON HDL CHOLESTEROL 70 mg/dL (calc) Normal <130 [facility] Comment on above: Order Comment: FASTI NG:YES FASTING: YES Result Comment: For patients with diabetes plus 1 major ASCVD risk factor, treating to a non-HDL-C goal of <100 mg/dL (LDL-C of <70 mg/dL) is considered a therapeutic option. Performed By: #### 6 517, 11682, 496, 75487, 7600 #### [facility] [address], [address] [place] [address] Cardiac Nurse: Judd Warren MD Triglyceride [Mass/Vol] 96 mg/dL Normal <150 [facility] Comment on above: Order Comment: FASTI NG:YES FASTING: YES Performed By: #### 6 517, 72688, 496, 03666, 7600 #### [facility] [address], [address] [place] [address] Cardiac Nurse: Judd Warren MD TSH+FREE T4on 04-05-2021 Free T4 [Mass/Vol] 1.1 ng/dL Normal 0.8-1.8 [facility] Comment on above: Performed By: #### 6 517, 26111, 496, 47117, 7600 #### [facility] [place] [address], [address] [place] [address] Cardiac Nurse: Judd Warren MD TSH Qn 0.05 m[IU]/L Low 0.40-4.50 [facility] Comment on above: Performed By: #### 6 517, 93632, 496, 84558, 7600 #### [facility] [address] [place] [address], [address] [place] [address] Cardiac Nurse: Judd Warren MD Vital Signs Date Time Vital Sign Value Performing Clinician Facility 10-11-2024 11:37-0400 Body height 157.5 cm Kristine Vincent MD Work Phone: [facility] 10-11-2024 11:37-0400 Body mass index (BMI) [Ratio] 34.75 kg/m2 Kristine Vincent MD Work Phone: [facility] 10-11-2024 11:37-0400 Body temperature 96.8 [degF] Kristine Vincent MD Work Phone: [facility] 10-11-2024 11:37-0400 Body weight 86.18 kg Kristine Vincent MD Work Phone: [facility] 10-11-2024 11:37-0400 Diastolic blood pressure 75 mm[Hg] Kristine Vincent MD Work Phone: [facility] 10-11-2024 11:37-0400 Heart rate 80 /min Kristine Vincent MD Work Phone: [facility] 10-11-2024 11:37-0400 Systolic blood pressure 125 mm[Hg] Kristine Vincent MD Work Phone: [facility] 09-22-2024 15:00-0400 Body height 158.8 cm [employer] HEEL TOP LIFT SPLITTER.RETAIL ASSOCIATE Work Phone: [facility] 09-22-2024 15:00-0400 Body mass index (BMI) [Ratio] 34.12 kg/m2 [employer] HEEL TOP LIFT SPLITTER.RETAIL ASSOCIATE Work Phone: [facility] 09-22-2024 15:00-0400 Body temperature 97.5 [degF] Eve Miles HEEL TOP LIFT SPLITTER.RETAIL ASSOCIATE Work Phone: [facility] 09-22-2024 15:00-0400 Body weight 86 kg Eve Perez HEEL TOP LIFT SPLITTER.RETAIL ASSOCIATE Work Phone: [facility] 09-22-2024 15:00-0400 Diastolic blood pressure 79 mm[Hg] Eve Miles HEEL TOP LIFT SPLITTER.RETAIL ASSOCIATE Work Phone: [facility] 09-22-2024 15:00-0400 Heart rate 98 /min Eve Miles HEEL TOP LIFT SPLITTER.RETAIL ASSOCIATE Work Phone: [facility] 09-22-2024 15:00-0400 Systolic blood pressure 108 mm[Hg] Eve Miles HEEL TOP LIFT SPLITTER.RETAIL ASSOCIATE Work Phone: [facility] 09-06-2024 12:38-0400 Body height 158.8 cm Pacc 1 Work Phone: [facility] 09-06-2024 12:38-0400 Body mass index (BMI) [Ratio] 34.28 kg/m2 Pacc 1 Work Phone: [facility] 09-06-2024 12:38-0400 Body temperature 97.7 [degF] Pacc 1 Work Phone: [facility] 09-06-2024 12:38-0400 Body weight 86.4 kg Pacc 1 Work Phone: [facility] 09-06-2024 12:38-0400 Diastolic blood pressure 72 mm[Hg] Pacc 1 Work Phone: [facility] 09-06-2024 12:38-0400 Heart rate 82 /min Pacc 1 Work Phone: [facility] 09-06-2024 12:38-0400 SaO2% (BldA) [Mass fraction] 97 % Pacc 1 Work Phone: [facility] 09-06-2024 12:38-0400 Systolic blood pressure 122 mm[Hg] [facility] 1 Work Phone: [facility] 05-18-2024 11:27-0400 Body height 158.8 cm [facility] Product Lister [facility] 05-18-2024 11:27-0400 Body mass index (BMI) [Ratio] 34.23 kg/m2 [facility] Product Lister [facility] 05-18-2024 11:27-0400 Body weight 86.27 kg [facility] Product Lister [facility] 05-18-2024 11:27-0400 Diastolic blood pressure 72 mm[Hg] [facility] Product Lister [facility] 05-18-2024 11:27-0400 Systolic blood pressure 100 mm[Hg] [facility] Product Lister [facility] 05-17-2024 08:56-0400 Body height 157.5 cm Yashira Roman APRN-RETAIL ASSOCIATE Work Phone: [facility] 05-17-2024 08:56-0400 Body mass index (BMI) [Ratio] 34.93 kg/m2 Yashira Roman APRN-RETAIL ASSOCIATE Work Phone: [facility] 05-17-2024 08:56-0400 Body temperature 97.5 [degF] Yashira Roman APRN-RETAIL ASSOCIATE Work Phone: [facility] 05-17-2024 08:56-0400 Body weight 86.64 kg Yashira Roman APRN-RETAIL ASSOCIATE Work Phone: [facility] 05-17-2024 08:56-0400 Diastolic blood pressure 70 mm[Hg] Yashira Roman APRN-RETAIL ASSOCIATE Work Phone: [facility] 05-17-2024 08:56-0400 Heart rate 83 /min Yashira Roman APRN-RETAIL ASSOCIATE Work Phone: [facility] 05-17-2024 08:56-0400 Respiratory rate 20 /min Yashira Roman APRN-RETAIL ASSOCIATE Work Phone: [facility] 05-17-2024 08:56-0400 SaO2% (BldA) [Mass fraction] 97 % Yashira Roman APRN-RETAIL ASSOCIATE Work Phone: [facility] 05-17-2024 08:56-0400 Systolic blood pressure 110 mm[Hg] Yashira Roman APRN-RETAIL ASSOCIATE Work Phone: [facility] 04-19-2024 14:37-0500 Body height 158.8 cm Kristine Vincent MD Work Phone: [facility] 04-19-2024 14:37-0500 Body mass index (BMI) [Ratio] 34.2 kg/m2 Kristine Vincent MD Work Phone: [facility] 04-19-2024 14:37-0500 Body temperature 97.2 [degF] Kristine Vincent MD Work Phone: [facility] 04-19-2024 14:37-0500 Body weight 86.18 kg Kristine Vincent MD Work Phone: [facility] 04-19-2024 14:37-0500 Diastolic blood pressure 67 mm[Hg] Kristine Vincent MD Work Phone: [facility] 04-19-2024 14:37-0500 Heart rate 98 /min Kristine Vincent MD Work Phone: [facility] 04-19-2024 14:37-0500 Systolic blood pressure 114 mm[Hg] Kristine Vincent MD Work Phone: [facility] 01-05-2024 13:49-0500 Body height 158.8 cm Michael GOMEZM Work Phone: [facility] 01-05-2024 13:49-0500 Body mass index (BMI) [Ratio] 34.74 kg/m2 Michael GOMEZM Work Phone: [facility] 01-05-2024 13:49-0500 Body weight 87.54 kg Michael Curran DPM Work Phone: [facility] 01-05-2024 08:19-0500 Body mass index (BMI) [Ratio] 34.77 kg/m2 Luzmaria Booker DO Work Phone: [facility] 01-05-2024 08:19-0500 Body weight 87.64 kg Luzmaria Booker DO Work Phone: [facility] 01-05-2024 08:19-0500 Diastolic blood pressure 78 mm[Hg] Luzmaria Booker DO Work Phone: [facility] 01-05-2024 08:19-0500 Heart rate 96 /min Luzmariaderian Booker [employer] Work Phone: [facility] 01-05-2024 08:19-0500 Respiratory rate 14 /min Luzmariaderian Booker DO Work Phone: [facility] 01-05-2024 08:19-0500 SaO2% (BldA) [Mass fraction] 98 % Luzmaria Booker DO Work Phone: [facility] 01-05-2024 08:19-0500 Systolic blood pressure 126 mm[Hg] Luzmaria Booker DO Work Phone: [facility] 12-01-2023 10:22-0400 Body height 157.5 cm Yashira Roman APRN-RETAIL ASSOCIATE Work Phone: [facility] 12-01-2023 10:22-0400 Body mass index (BMI) [Ratio] 35.01 kg/m2 Yashira Roman HEEL TOP LIFT SPLITTER-RETAIL ASSOCIATE Work Phone: [facility] 12-01-2023 10:22-0400 Body temperature 97.7 [degF] Yashira Roman HEEL TOP LIFT SPLITTER-RETAIL ASSOCIATE Work Phone: [facility] 12-01-2023 10:22-0400 Body weight 86.82 kg Yashira Roman HEEL TOP LIFT SPLITTER-RETAIL ASSOCIATE Work Phone: [facility] 12-01-2023 10:22-0400 Diastolic blood pressure 60 mm[Hg] Yashira Roman HEEL TOP LIFT SPLITTER-RETAIL ASSOCIATE Work Phone: [facility] 12-01-2023 10:22-0400 Heart rate 88 /min Yashira Roman APRN-AARON Work Phone: [facility] 12-01-2023 10:22-0400 Respiratory rate 18 /min Yashira Roman APRN-RETAIL ASSOCIATE Work Phone: [facility] 12-01-2023 10:22-0400 SaO2% (BldA) [Mass fraction] 98 % Yashira Roman APRN-RETAIL ASSOCIATE Work Phone: [facility] 12-01-2023 10:22-0400 Systolic blood pressure 110 mm[Hg] Yashira Roman APRN-RETAIL ASSOCIATE Work Phone: [facility] 03-10-2023 13:58-0500 Body height 157.5 cm Leopoldo Chiu MD Work Phone: [facility] 03-10-2023 13:58-0500 Body mass index (BMI) [Ratio] 40.24 kg/m2 Leopoldo Chiu MD Work Phone: [facility] 03-10-2023 13:58-0500 Body weight 99.79 kg Leopoldo Chiu MD Work Phone: [facility] 03-10-2023 13:58-0500 Diastolic blood pressure 80 mm[Hg] Leopoldo Chiu MD Work Phone: [facility] 03-10-2023 13:58-0500 Heart rate 92 /min Leopoldo Chiu MD Work Phone: [facility] 03-10-2023 13:58-0500 Systolic blood pressure 125 mm[Hg] Leopoldo Chiu MD Work Phone: [facility] 02-25-2023 09:36-0500 Body height 157.5 cm Giuseppe Cotto MD Work Phone: [facility] [employer] [facility] 02-25-2023 09:36-0500 Body mass index (BMI) [Ratio] 40.24 kg/m2 Giuseppe Cotto MD Work Phone: [employer] 02-25-2023 09:36-0500 Body weight 99.79 kg Giuseppe Cotto MD Work Phone: [employer] 02-20-2023 13:20-0500 Body height 160.02 cm Yina Avila Other [facility] Other 02-20-2023 13:20-0500 Body mass index (BMI) [Ratio] 34.89 kg/m2 Yina Avila Other [facility] Other 02-20-2023 13:20-0500 Body temperature 98.5 [degF] Yina Avila Other [facility] Other 02-20-2023 13:20-0500 Body weight 89.36 kg Yina Avila Other [facility] Other 02-20-2023 13:20-0500 Respiratory rate 18 /min Yina Avila Other [facility] Other 02-20-2023 13:20-0500 SaO2% (BldA) [Mass fraction] 98 % Yina Avila Other [facility] Other Encounters Encounter Date Encounter Type Care Provider Facility Start: 05-25-2025 ambulatory Ivory Estrada [facility]: [facility] Start: 10-21-2024 End: 10-21-2024 Refill Briana Kaye CMA [facility] Comment on above: Seasonal allergic rh initis due to pollen; Primary hypertension; Mixed hyperlipidemia Start: 10-19-2024 End: 10-22-2024 Refill Yashira NIETO Work Phone: [facility] Comment on above: Seasonal allergic rh initis due to pollen; Primary hypertension; Mixed hyperlipidemia Start: 10-11-2024 End: 10-11-2024 Patient encounter procedure Kristine Vincent MD Work Phone: General Surgery Comment on above: Paresthesia and pain of right extremity (Primary Dx) Start: 10-11-2024 End: 10-11-2024 ambulatory KRISTINE VINCENT Facility:[facility] Start: 10-06-2024 End: 10-06-2024 Telephone encounter Sterling Rogers [facility] Start: 09-27-2024 End: 09-27-2024 Admission to same day surgery center Eve Perez JUDD Work Phone: General Surgery Comment on above: Potassium Start: 09-27-2024 End: 09-27-2024 E-mail encounter from caregiver Eve Fuentes BINTA Work Phone: General Surgery Start: 09-22-2024 End: 09-22-2024 ambulatory EVE MILES Facility:[facility] Start: 09-22-2024 End: 09-22-2024 Patient encounter procedure Eve Fuentes BINTA Work Phone: General Surgery Comment on above: Postoperative visit (Primary Dx) Start: 09-22-2024 End: 09-22-2024 [facility] Facility:[facility] Start: 09-14-2024 End: 09-17-2024 Evaluation and management of inpatient KRISTINE VINCENT Facility:[facility] Start: 09-06-2024 End: 09-06-2024 ambulatory KANCHAN BURTON Facility:[facility] Start: 09-06-2024 End: 09-06-2024 Admission to establishment [facility] 1 Work Phone: Pre Anesthesia Start: 09-06-2024 End: 09-06-2024 Anesthesia consultation [facility] 1 Work Phone: Pre Anesthesia Comment on above: Colorectal cancer (H CC) (Primary Dx); Preoperative examination; Incisional hernia, without obstruction or gangrene; Primary hypertension; PONV (postoperative nausea and vomiting); Type 2 diabetes mellitus without complication, without long-term current use of insulin ([facility]); History of DVT (deep vein thrombosis); Class 1 obesity due to excess calories without serious comorbidity with body mass index (BMI) of 34.0 to 34.9 in adult Start: 09-06-2024 End: 09-06-2024 ambulatory EVE FUENTES Facility:[facility] Start: 09-06-2024 End: 09-06-2024 Patient encounter procedure Nadege Castellon PhD Work Phone: General Surgery Comment on above: Preoperative examina tion; Incisional hernia, without obstruction or gangrene Start: 09-06-2024 End: 09-06-2024 Preprocedural examination done Nadege Castellon PhD Work Phone: [facility] Start: 09-06-2024 End: 09-06-2024 ambulatory NADEGE CASTELLON Facility:[facility] Start: 09-06-2024 Encounter for other preprocedural examination NADEGE CASTELLON [facility] Start: 08-25-2024 End: 09-07-2024 Refill Yashira Roman HEEL TOP LIFT SPLITTER-RETAIL ASSOCIATE Work Phone: [facility] Comment on above: Type 2 diabetes alexander itus without complication, without long- term current use of insulin [place] Start: 08-13-2024 End: 08-16-2024 Refill Yashira Ortega Roman HEEL TOP LIFT SPLITTER-RETAIL ASSOCIATE Work Phone: [facility] Comment on above: Seasonal allergic rh initis due to pollen Type 2 diabetes alexander itus without complication, without long-term current use of insulin ([facility] Start: 07-19-2024 End: 07-20-2024 Refill Yashira Ortega Roman HEEL TOP LIFT SPLITTER-RETAIL ASSOCIATE Work Phone: [facility] Comment on above: Seasonal allergic rh initis due to pollen Start: 05-26-2024 End: 05-26-2024 Telephone encounter Felicitas Browne CMA [facility] Start: 05-26-2024 End: 05-26-2024 ambulatory Ivory Estrada Facility:[facility] Start: 05-24-2024 End: 05-24-2024 Refill Yashira Roman APRN-AARON Work Phone: [facility] Comment on above: Burn Start: 05-18-2024 End: 05-18-2024 Initial preventive medicine new patient 40-64yrs [facility] Ob Product Lister [facility] [place] Comment on above: Well woman exam with routine gynecological exam (Primary Dx); Smear, vaginal, as part of routine gynecological examination; Encounter for screening mammogram for malignant neoplasm of breast; Standardized adult depression screening tool completed; Vaginal atrophy; Dyspareunia in female; Vaginal dryness, menopausal Start: 05-18-2024 End: 05-18-2024 Patient encounter procedure [facility] Product Lister [facility] [employer] Start: 05-18-2024 End: 05-18-2024 Patient encounter status [facility] Product Lister [facility] [employer] Work Phone: Start: 05-18-2024 End: 05-18-[address] [facility] Start: 05-18-2024 Encounter for gynecological examination (general) (routine) without abnormal findings [facility] Start: 05-17-2024 End: 05-17-2024 Office outpatient visit 25 minutes Yashira Roman APRN-AARON Work Phone: [facility] Comment on above: Type 2 diabetes alexander itus with hyperglycemia, without long-term current use of insulin ([facility]) (Primary Dx); Burn; Primary hypertension; Mixed hyperlipidemia; Situational mixed anxiety and depressive disorder Start: 05-17-2024 End: 05-17-[address] [facility] Start: 05-04-2024 End: 05-04-2024 Orders Only Yashira Roman APRN-RETAIL ASSOCIATE Work Phone: [facility] Comment on above: Type 2 diabetes alexander itus with hyperglycemia, without long-term current use of insulin ([facility]) (Primary Dx) Start: 04-27-2024 End: 04-27-2024 Refill Briana Kaye CMA [facility] Start: 04-23-2024 End: 04-26-2024 Refill Yashira Roman HEEL TOP LIFT SPLITTER-RETAIL ASSOCIATE Work Phone: [facility] Comment on above: Mixed hyperlipidemia ; Primary hypertension Start: 04-21-2024 End: 04-22-2024 ambulatory Kritsine Vincent MD Work Phone: [facility] Comment on above: 09.14.24 Cure (Open Complex AWR 6 hours los 5) Start: 04-21-2024 End: 04-22-2024 Preprocedural examination done Kristine Vincent MD Work Phone: [facility] Start: 04-19-2024 End: 04-19-2024 Patient encounter procedure Kristine Vincent MD Work Phone: General Surgery Comment on above: Incisional hernia, w ithout obstruction or gangrene (Primary Dx) Start: 04-19-2024 End: 04-19-2024 ambulatory KRISTINE VINCENT Facility:[facility] Start: 04-19-2024 End: 04-19-2024 ambulatory EVE FUENTES Facility:[facility] Start: 04-19-2024 End: 04-19-2024 Subsequent hospital visit by physician Mary Chacon Work Phone: Radiology Comment on above: Ventral hernia witho ut obstruction or gangrene [K43.9] Start: 04-16-2024 End: 04-19-2024 Orders Only Eve Fuentes HEEL TOP LIFT SPLITTER.RETAIL ASSOCIATE Work Phone: General Surgery Comment on above: Ventral hernia witho ut obstruction or gangrene (Primary Dx) Start: 02-04-2024 ambulatory Ivory Estrada Facility:[facility] Start: 01-27-2024 End: 01-27-2024 Telephone encounter Leopoldo Chiu MD Work Phone: [facility] Start: 01-05-2024 End: 01-05-2024 Bamboo flowsheet Luzmaria Booker DO Work Phone: [facility] Start: 01-05-2024 End: 01-05-2024 Bamboo flowsheet Luzmaria Booker DO Work Phone: [facility] Start: 01-05-2024 End: 01-05-2024 ambulatory MICHAEL CURRAN Not Available Start: 01-05-2024 End: 01-05-2024 Office outpatient new 30 minutes Michael Curran DPM Work Phone: [facility] Comment on above: Acquired keratoderma (Primary Dx); Onychocryptosis; Pain of right great toe; Difficulty walking Start: 01-05-2024 End: 01-05-2024 ambulatory LUZMARIA BOOKER Not Available Start: 01-05-2024 End: 01-05-2024 Office outpatient new 45 minutes Luzmaria Booker DO Work Phone: [facility] Comment on above: Recurrent abdominal hernia without obstruction or gangrene, unspecified hernia type (Primary Dx); 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 Start: 12-30-2023 End: 01-27-2024 Telephone encounter Taina Mcgrath CMA [facility] Start: 12-30-2023 ambulatory Ivory Estrada Facility:[facility] Start: 12-01-2023 End: 12-01-2023 Office outpatient visit 25 minutes Yashira Roman APRN-RETAIL ASSOCIATE Work Phone: [facility] Comment on above: Primary hypertension (Primary Dx); Seasonal allergic rhinitis due to pollen; Referral of patient; Type 2 diabetes mellitus with hyperglycemia, without long-term current use of insulin ([facility]); Situational mixed anxiety and depressive disorder Start: 12-01-2023 End: 12-01-2023 ambulatory [facility]penser [facility] Start: 10-28-2023 End: 10-28-2023 Refill Yashira Roman APRN-RETAIL ASSOCIATE Work Phone: [facility] Comment on above: Primary hypertension (Primary Dx); Mixed hyperlipidemia Start: 09-29-2023 End: 09-29-2023 Refill Mendy Plascencia PA-C Work Phone[facility] Comment on above: Vaginal atrophy; Dyspareunia in female; Vaginal dryness, menopausal Start: 08-12-2023 End: 08-12-2023 Refill Caryn Mahmood HEEL TOP LIFT SPLITTER-HARDWARE INSTALLER Work Phone: [facility] Comment on above: Type 2 diabetes alexander itus without complication, without long- term current use of insulin ([facility] Start: 07-27-2023 End: 07-27-2023 Refill Mendy Plascencia PA-C [facility] Comment on above: Vaginal atrophy; Dyspareunia in female; Vaginal dryness, menopausal Start: 06-30-2023 End: 06-30-2023 Refill Caryn Mahmood HEEL TOP LIFT SPLITTER-HARDWARE INSTALLER [facility] Comment on above: Seasonal allergic rh initis due to pollen; Mixed hyperlipidemia Start: 06-30-2023 End: 06-30-2023 ambulatory [facility] Start: 06-06-2023 End: 06-06-2023 Orders Only Alisha Hawley HEEL TOP LIFT SPLITTER-RETAIL ASSOCIATE Work [facility]: [facility] Comment on above: Type 2 diabetes alexander itus with hyperglycemia, without long-term current use of insulin ([facility]) (Primary Dx); Hyperthyroidism Start: 05-11-2023 Refill Caryn Mahmood HEEL TOP LIFT SPLITTER-HARDWARE INSTALLER Work Phone: [facility] Start: 04-19-2023 Telephone encounter Leopoldo Chiu MD Work Phone: [facility] Start: 04-02-2023 End: 04-02-2023 ambulatory LEOPOLDO CHIU [facility] Start: 03-10-2023 End: 03-10-2023 ambulatory LEOPOLDO CHIU [facility] Start: 03-10-2023 End: 03-10-2023 Office consultation new/estab patient 60 min Leopoldo Chiu MD Work Phone: [facility] Comment on above: Renal mass (Primary Dx); Right renal mass Start: 03-04-2023 Refill Caryn Mahmood HEEL TOP LIFT SPLITTER-HARDWARE INSTALLER Work Phone: [facility] Start: 02-25-2023 End: 02-25-2023 ambulatory GIUSEPPE COTTO [facility] Start: 02-25-2023 End: 02-25-2023 Office outpatient new 45 minutes Giuseppe Cotto MD Work Phone: [facility] General Surgery Comment on above: Right renal mass (Pr imary Dx); Ventral hernia without obstruction or gangrene Start: 02-20-2023 End: 02-20-2023 ambulatory Yina Avila Other [facility] Other Start: 02-20-2023 Office outpatient ne w 30 minutes Yina Avila [facility] Start: 11-02-2021 End: 11-03-[address] CARYN MAHMOOD Facility:H1 Procedures Date Procedure Procedure Detail Performing Clinician Start: 09-06-2024 Antibody screen KRISTINE BISHOP Comment on above: Order Comment: Speci men Type: BLOOD SPECIMENOrdering Facility: [facility] Address: [address] [place] [address] Performed By: #### T [id number] ####CC MAIN BLOOD BANKCLIA [id number] [place] [address] [place] Start: 05-18-2024 Adult depression scr eening assessment [facility] Product Lister Start: 05-17-2024 Adult depression scr eening assessment Yashira Roman HEEL TOP LIFT SPLITTER-RETAIL ASSOCIATE Work Phone: Start: 05-03-2024 Microalbumin [Mass/v olume] in Urine by Test strip Yashira Roman HEEL TOP LIFT SPLITTER-RETAIL ASSOCIATE Work Phone: Start: 04-19-2024 Ct abdomen & pelvis w/o contrast material Eve Fuentes HEEL TOP LIFT SPLITTER.RETAIL ASSOCIATE Work Phone: Start: 06-30-2023 Adult depression scr eening assessment Caryn Mahmood HEEL TOP LIFT SPLITTER-HARDWARE INSTALLER Work Phone: Start: 12-10-2022 Adult depression scr eening assessment Giuseppe Cotto MD Work Phone: Start: 12-03-2022 Lipid 1996 panel - S george or Plasma Eve Fuentes HEEL TOP LIFT SPLITTER.RETAIL ASSOCIATE Work Phone: Start: 11-25-2022 Mammography Giuseppe dwyer MD Work Phone: Start: 06-20-2022 Diabetic retinal eye exam Giuseppe Cotto MD Work Phone: Start: 05-23-2022 Microalbumin [Mass/v olume] in Urine by Test strip Giuseppe Cotto MD Work Phone: Start: 05-02-2021 Colonoscopy Giuseppe dwyer MD Work Phone: Plan of Treatment Date Care Activity Detail Author Start: 2034 RSV Vaccine (1 - 1-d ose 75+ series) RSV Vaccine (1 - 1-dose 75+ series) [facility] Start: 12-16-2029 DTaP,Tdap and Td Vaccines (3 - Td or Tdap) DTaP,Tdap and Td Vaccines (3 - Td or Tdap) [facility] Start: 12-16-2029 Urine microalbumin profile DTaP,Tdap,Td Vaccine (3 - Td or Tdap) [facility] Start: 12-04-2027 Lipid panel Lipid Screening [facility] Start: 11-27-2026 Diabetes Screening Diabetes Screenin g [facility] Start: 05-02-2026 Screening for malign ant neoplasm of colon Colonoscopy [facility] Start: 10-21-2025 Statin Use: Diabetic Statin Use: Patricia shaan [facility] Start: 05-18-2025 Adult BMI Follow Up Plan Adult BMI Follow Up Plan [facility] Start: 05-18-2025 Adult BMI Screening Adult BMI Screen ing [facility] [employer] [facility] Start: 05-18-2025 Depression Screening Depression Scre ening [facility] Start: 05-18-2025 Tobacco Screening Tobacco Screening [facility] Start: 05-17-2025 Adult BMI Follow Up Plan Adult BMI Follow Up Plan [facility] Start: 05-17-2025 Adult BMI Screening Adult BMI Screen ing [facility] Start: 05-17-2025 Depression Screening Depression Scre ening [facility] Start: 05-17-2025 Tobacco Screening Tobacco Screening [facility] Start: 05-03-2025 Urine screening for protein Urine Microalbumin [facility] Start: 04-26-2025 Statin Use: Diabetic Statin Use: Patricia betic [facility] Start: 03-18-2025 Hemoglobin A1c measurement HbA1C [facility] Start: 11-30-2024 Adult BMI Follow Up Plan Adult BMI Follow Up Plan [facility] Start: 11-30-2024 Adult BMI Screening Adult BMI Screen ing [facility] Start: 11-30-2024 Tobacco Screening Tobacco Screening [facility] Start: 11-30-2024 End: 11-30-2024 Patient encounter procedure 11/30/2024 10:40 AM EDT Office Visit [facility] [address] [place] [address] Luzmaria Clancy, HEEL TOP LIFT SPLITTER-RETAIL ASSOCIATE [address] [place] [address] [facility] Start: 11-23-2024 End: 11-23-2024 Patient encounter procedure [facility] Start: 11-03-2024 Hemoglobin A1c measurement HbA1C [facility] Start: 10-25-2024 Influenza vaccination P [facility] Start: 10-11-2024 End: 10-11-2024 Patient encounter procedure 10/11/2024 11:30 AM EDT Office Visit General Surgery [address] [place] [address] Kristine Vincent MD [address] [place] [address] post op with Yue Fuentes or Dr Vincent General Surgery Comment on above: post op with Yue do or Dr Vincent Start: 09-22-2024 End: 12-22-2024 Comprehensive metabolic 2000 panel - Serum or Plasma [facility] Work Phone: Comment on above: Expected: 09/22/2024 , Expires: 12/22/2024 Start: 09-14-2024 End: 09-14-2024 Admission to same day surgery center 09/14/2024 10:15 AM EDT - 09/14/2024 5:15 PM EDT Surgery Admitting [address] [place] [address] Kristine Vincent MD [address] [place] [address] HERNIORRHAPHY INCISIONAL ABDOMINAL RECURRENT REDUCIBLE GREATER THAN 10cm Admitting Comment on above: HERNIORRHAPHY INCISI ONAL ABDOMINAL RECURRENT REDUCIBLE GREATER THAN 10cm Start: 09-14-2024 End: 09-14-2024 HERNIORRHAPHY INCISIONAL ABDOMINAL RECURRENT REDUCIBLE GREATER THAN 10cm HERNIORRHAPHY INCISIONAL ABDOMINAL RECURRENT REDUCIBLE GREATER THAN 10cm Preoperative examination Incisional hernia, without obstruction or gangrene 09/14/2024 10:15 AM EDT [facility] Start: 09-14-2024 Subsequent hospital visit by physician 09/14/2024 10:15 AM EDT Hospital Encounter Admitting [address] [place] [address] Kristine Vincent MD [address] [place] [address] Preoperative examination [Z01.818], Incisional hernia, without obstruction or gangrene [K43.2] Admitting Comment on above: Preoperative examina tion [Z01.818], Incisional hernia, without obstruction or gangrene [K43.2] Start: 09-14-2024 End: 09-14-2024 Admission to same day surgery center 09/14/2024 7:30 AM EDT - 09/14/2024 3:14 PM EDT Surgery Admitting [address] [place] [address] Kristine Vincent MD [address] [place] [address] HERNIORRHAPHY INCISIONAL ABDOMINAL RECURRENT REDUCIBLE GREATER THAN [...] 09/14/2024 7:30 AM EDT Hospital Encounter [place] [address] Kristine Vincent MD [address] [place] [address] Preoperative examination [Z01.818], Incisional hernia, without obstruction or gangrene [K43.2] Admitting Comment on above: Preoperative examina tion [Z01.818], Incisional hernia, without obstruction or gangrene [K43.2] Start: 08-25-2024 End: 11-25-2024 aPTT in Platelet poor plasma by Coagulation assay ACTIVATED PARTIAL THROMBOPLASTIN TIME Lab Routine Preoperative examination Incisional hernia, without obstruction or gangrene Expected: 08/25/2024, Expires: 11/25/2024 [facility] Comment on above: Expected: 08/25/2024 , Expires: 11/25/2024 Start: 08-25-2024 End: 11-25-2024 CBC W Auto Differential panel - Blood COMPLETE BLOOD COUNT AND DIFFERENTIAL Lab Routine Preoperative examination Incisional hernia, without obstruction or gangrene Expected: 08/25/2024, Expires: 11/25/2024 [facility] Comment on above: Expected: 08/25/2024 , Expires: 11/25/2024 Start: 08-25-2024 End: 11-25-2024 Comprehensive metabolic 2000 panel - Serum or Plasma COMPREHENSIVE METABOLIC PANEL Lab Routine Preoperative examination Incisional hernia, without obstruction or gangrene Expected: 08/25/2024, Expires: 11/25/2024 [facility] Comment on above: Expected: 08/25/2024 , Expires: 11/25/2024 Start: 08-25-2024 End: 11-25-2024 PT panel - Platelet poor plasma by Coagulation assay PROTHROMBIN TIME Lab Routine Preoperative examination Incisional hernia, without obstruction or gangrene Expected: 08/25/2024, Expires: 11/25/2024 [facility] Comment on above: Expected: 08/25/2024 , Expires: 11/25/2024 Start: 08-25-2024 End: 11-25-2024 TYPE AND SCREEN,30 DAY TYPE AND SCREEN,30 DAY Blood Bank Routine Preoperative examination Incisional hernia, without obstruction or gangrene Expected: 08/25/2024, Expires: 11/25/2024 [facility] Comment on above: Expected: 08/25/2024 , Expires: 11/25/2024 Start: 06-29-2024 Adult BMI Follow Up Plan Adult BMI Follow Up Plan [facility] Start: 06-29-2024 Adult BMI Screening Adult BMI Screen ing [facility] Start: 06-29-2024 Depression Screening Depression Scre ening [facility] Start: 06-29-2024 Diabetic foot examination Diabetic Foot Exam [facility] Start: 06-29-2024 Tobacco Screening Tobacco Screening [facility] Start: 06-25-2024 Covid-19 Vaccine ( season) Covid-19 Vaccine () [facility] Start: 05-18-2024 End: 05-18-2025 DBT Breast - bilateral screening Mammography screening bilateral with CAD Imaging Routine Encounter for screening mammogram for malignant neoplasm of breast Expected: 05/18/2024, Expires: 05/18/2025 [facility] Comment on above: Expected: 05/18/2024 , Expires: 05/18/2025 Start: 05-18-2024 End: 05-18-2024 Patient encounter procedure 05/18/2024 11:30 AM EDT Office Visit [facility] [place] [address] [place] [address] [facility] Start: 05-17-2024 End: 05-17-2024 Patient encounter procedure 05/17/2024 9:00 AM EDT Office Visit [facility] [address] [place] [address] Yashira Roman, HEEL TOP LIFT SPLITTER-RETAIL ASSOCIATE [address] [place] [address] [facility] Start: 04-28-2024 End: 04-28-2024 Patient encounter procedure 04/28/2024 11:00 AM EST Office Visit [facility] [place] [address] [place] [address] [facility] Start: 04-19-2024 End: 04-19-2024 Patient encounter procedure 04/19/2024 2:30 PM EST Office Visit General Surgery [address] [address] Kristine Vincent MD [address] [place] [address] K46.9 (ICD-10-CM) - Non-recurrent abdominal hernia without obstruction or gangrene, unspecified hernia type General Surgery Comment on above: K46.9 (ICD-10-CM) - Non-recurrent abdominal hernia without obstruction or gangrene, unspecified hernia type Start: 04-19-2024 End: 04-19-2024 Patient encounter procedure 04/19/2024 10:30 AM EST Appointment Radiology [address] [place] [address] Ventral hernia without obstruction or gangrene [K43.9] Radiology Comment on above: Ventral hernia witho ut obstruction or gangrene [K43.9] Start: 2024 Advance Directive Discussion Advance Directive Discussion [facility] Start: 2024 Fall Risk Screening Fall Risk Screen ing [facility] Start: 03-10-2024 Adult BMI Screening Adult BMI Screen ing [facility] Start: 03-10-2024 Tobacco Screening Tobacco Screening [facility] Start: 03-09-2024 End: 03-09-2024 Patient encounter procedure 03/09/2024 10:30 AM EST [facility] [address] [place] [phone] Yashira Roman, HEEL TOP LIFT SPLITTER-RETAIL ASSOCIATE [address] [place] [phone] [facility] Start: 02-26-2024 Adult BMI Screening Adult BMI Screen ing [facility] Start: 02-26-2024 Tobacco Screening Tobacco Screening [facility] Start: 02-25-2024 Medicare Annual Wellness Visit Medicare Annual Wellness Visit [facility] Start: 01-19-2024 End: 01-19-2024 Patient encounter procedure 01/19/2024 1:45 PM EST Office Visit [facility] [address] [place] [address] Leopoldo Chiu MD [address] [place] [address] [facility] Start: 01-09-2024 End: 01-09-2024 Patient encounter procedure 01/09/2024 11:00 AM EST Office Visit [facility] [address] [place] [phone] Mendy Plascencia PA-C [address] [place] [address] [facility] Start: 01-05-2024 End: 01-05-2024 Patient encounter procedure 01/05/2024 1:45 PM EST Office Visit [facility] [address] [place] [address] Michael Curran DPM [address] [place], [place] [phone] [facility] Start: 12-30-2023 End: 04-18-2024 MR Abdomen WO and W contrast IV MR abdomen with and without contrast Imaging Routine Renal mass Expected: 12/30/2023 (Approximate), Expires: 04/18/2024 [facility] Work Phone: Comment on above: Expected: 12/30/2023 (Approximate), Expires: 04/18/2024 Start: 12-11-2023 Adult BMI Follow Up Plan Adult BMI Follow Up Plan [facility] Start: 12-11-2023 Depression Screening Depression [facility] Start: 12-01-2023 End: 12-01-2023 Patient encounter procedure 12/01/2023 10:20 AM EDT [facility] [address] [place] [phone] Yashira Roman, HEEL TOP LIFT SPLITTER-[facility] [address] [place] [address] [facility] Start: 11-26-2023 Screening for malign ant neoplasm of breast [facility] Start: 10-26-2023 Covid-19 Vaccine ( season) Covid-19 Vaccine ( season) [facility] Start: 10-26-2023 Influenza vaccination [facility] Start: 08-26-2023 End: 08-26-2023 Patient encounter procedure 08/26/2023 10:00 AM EDT Office Visit [facility] [address] [address] Giuseppe Cotto MD [address] [address] [facility] Start: 06-30-2023 End: 06-30-2023 Patient encounter procedure 06/30/2023 1:40 PM EDT Office Visit [facility] [address] [place] [address] Caryn Mahmood, HEEL TOP LIFT SPLITTER-HARDWARE INSTALLER [address] [place] [address] [facility] Start: 06-21-2023 Glaucoma screening Diabetic Op hthalmology Exam [facility] Start: 06-06-2023 End: 06-05-2024 Thyrotropin [Units/volume] in Serum or Plasma TSH Lab Routine Hyperthyroidism Expected: 06/06/2023 (Approximate), Expires: 06/05/2024 [facility] Comment on above: Expected: 06/06/2023 (Approximate), Expires: 06/05/2024 Start: 05-30-2023 Diabetic foot examination Diabetic Foot Exam [facility] Start: 05-24-2023 Hepatitis B screening Urine Al bumin:Creatinine Ratio [facility] Start: 05-24-2023 Urine screening for protein Urine Microalbumin [facility] Start: 05-14-2023 End: 05-14-2023 Patient encounter procedure 05/14/2023 11:45 AM EDT Office Visit [facility] [address] [place] [address] [address] [facility] [place] [address] Leopoldo Chiu MD [address] [place] [address] [facility] Start: 03-10-2023 End: 03-10-2024 Guidance for cryoablation of Kidney IR cryoablation renal right Imaging Routine Right renal mass Expected: 03/10/2023, Expires: 03/10/2024 [facility] Work Phone: Comment on above: Expected: 03/10/2023 , Expires: 03/10/2024 Start: 03-10-2023 End: 03-10-2023 Patient encounter procedure 03/10/2023 2:00 PM EST Office Visit [facility] [address] [place] [address] [address] [place] [address] Leopoldo Chiu MD [address] [place] [address] [facility] Start: 03-10-2023 End: 03-09-2024 XR Chest PA and Lateral X-ray chest 2 views Imaging Routine Right renal mass Expected: 03/10/2023, Expires: 03/09/2024 [facility] Comment on above: Expected: 03/10/2023 , Expires: 03/09/2024 Start: 02-07-2014 Pneumococcal Vaccine : 50+ (2 of 2 - PPSV23) Pneumococcal Vaccine: 50+ (2 of 2 - PPSV23) [facility] Start: 04-04-2013 Pneumococcal Vaccine : 50+ (2 of 2 - PPSV23) Pneumococcal Vaccine: 50+ (2 of 2 - PPSV23) [facility] Start: 04-04-2013 Pneumococcal Vaccine : 50+ (2 of 2 - PPSV23, PCV20, or PCV21) Pneumococcal Vaccine: 50+ (2 of 2 - PPSV23, PCV20, or PCV21) [facility] Start: 2004 Screening for malign ant neoplasm of colon [facility] Start: 1989 Screening for malign ant neoplasm of cervix [facility] Start: 1980 Screening for malign ant neoplasm of cervix Pap Smear [facility] Start: 1977 Annual PCP Team C++ Quant Developer tino Disease Visit Annual PCP Team Chronic Disease Visit [facility] Start: 1977 Anxiety Screening Anxiety Screening [facility] Start: 1977 Depression Screening Depression Scre ening [facility] Start: 1977 Hepatitis B surface antibody level LDL Cholesterol [facility] Start: 1977 Hepatitis C screening Hepatitis C Sc tabitha [facility] Start: 1977 HIV screening HIV Screening [facility] Start: 1969 Diabetic foot examination Diabetic Foot Exam [facility] Start: 1969 Glaucoma screening Dilated Retinal E xam [facility] Start: 1959 Screening for malign ant neoplasm of colon [facility] End: 06-05-2024 Comprehensive metabolic 2000 panel - Serum or Plasma Comprehensive metabolic panel Lab Routine Type 2 diabetes mellitus with hyperglycemia, without long-term current use of insulin ([facility] 1 Occurrences starting 06/06/2023 until 06/05/2024 [employer] Work Phone: Comment on above: 1 Occurrences starti ng 06/06/2023 until 06/05/2024 End: 04-19-2025 Comprehensive metabolic 2000 panel - Serum or Plasma Comprehensive metabolic panel Lab Routine Type 2 diabetes mellitus with hyperglycemia, without long-term current use of insulin ([facility] 1 Occurrences starting 04/19/2024 until 04/19/2025 [employer] Comment on above: 1 Occurrences starti ng 04/19/2024 until 04/19/2025 End: 05-16-2025 CT Abdomen and Pelvis WO contrast CT ABD/PEL WO IVCON Radiology Routine Ventral hernia without obstruction or gangrene 1 Occurrences starting 04/16/2024 until 05/16/2025 [facility] Work Phone: Comment on above: 1 Occurrences starti ng 04/16/2024 until 05/16/2025 End: 05-18-2025 Cytology report of Cervical or vaginal smear or scraping Cyto stain.thin prep Pap Smear Pathology and Cytology Routine Smear, vaginal, as part of routine gynecological examination 1 Occurrences starting 05/18/2024 until 05/18/2025 [employer] Work Phone: Comment on above: 1 Occurrences starti ng 05/18/2024 until 05/18/2025 End: 04-21-2025 ECG COMPLETE ECG COMPLETE ECG Routine Preoperative examination Incisional hernia, without obstruction or gangrene 1 Occurrences starting 04/22/2024 until 04/21/2025 [facility] Comment on above: 1 Occurrences starti ng 04/22/2024 until 04/21/2025 End: 06-05-2024 Hemoglobin A1c/Hemoglobin.total in Blood Hemoglobin A1c Lab Routine Type 2 diabetes mellitus with hyperglycemia, without long-term current use of insulin ([facility] 1 Occurrences starting 06/06/2023 until 06/05/2024 [facility] Comment on [facility]: 1 Occurrences starti ng 06/06/2023 until 06/05/2024 End: 04-20-2025 Hemoglobin A1c/Hemoglobin.total in Blood Hemoglobin A1c Lab Routine Type 2 diabetes mellitus with hyperglycemia, without long-term current use of insulin ([facility] 1 Occurrences starting 04/19/2024 until 04/20/2025 [facility] Comment on above: 1 Occurrences starti ng 04/19/2024 until 04/20/2025 End: 05-18-2025 High risk HPV w/jj High risk HPV w/jj Lab Routine Smear, vaginal, as part of routine gynecological examination 1 Occurrences starting 05/18/2024 until 05/18/2025 [facility] Comment on above: 1 Occurrences starti ng 05/18/2024 until 05/18/2025 End: 04-19-2025 Microalbumin - Albumin: Creatinine Urine Ratio Microalbumin - Albumin: Creatinine Urine Ratio Lab Routine Type 2 diabetes mellitus with hyperglycemia, without long-term current use of insulin ([facility] 1 Occurrences starting 04/19/2024 until 04/19/2025 [employer] Work Phone: Comment on above: 1 Occurrences starti ng 04/19/2024 until 04/19/2025 REFER FOR ADMIT INTERVIEW REFER FOR ADMIT INTERVIEW Procedures Routine Preoperative examination Incisional hernia, without obstruction or gangrene Ordered: 04/22/2024 [facility] Work Phone: Comment on above: Ordered: 04/22/2024 End: 06-05-2024 Thyroxine (T4) free [Mass/volume] in Serum or Plasma T4, free Lab Routine Hyperthyroidism 1 Occurrences starting 06/06/2023 until 06/05/2024 [facility] Comment on above: 1 Occurrences starti ng 06/06/2023 until 06/05/2024 Immunizations Immunization Date Immunization Notes Care Provider Kelli campos 12-27-2023 influenza virus vaccine, unspecified formulation [employer] [facility] [employer] [facility] 12-08-2022 influenza, injectabl e, quadrivalent, preservative free Giuseppe Cotto MD Work Phone: [facility] 12-08-2022 influenza virus vaccine, unspecified formulation Alisha Hawley APRN-RETAIL ASSOCIATE Work Phone: [facility] 05-16-2022 zoster vaccine recombinant Giuseppe Cotto MD Work Phone: [facility] 01-15-2022 zoster vaccine recombinant Giuseppe Cotto MD Work Phone: [facility] 01-08-2022 zoster vaccine recombinant Giuseppe Cotto MD Work Phone: [facility] 01-08-2022 zoster vaccine, live Giuseppe Cotto MD Work Phone: [facility] 12-01-2021 influenza virus vaccine, unspecified formulation Giuseppe Cotto MD Work Phone: [facility] 12-01-2021 influenza, injectabl e, quadrivalent, preservative free Giuseppe Cotto MD Work Phone: [facility] 12-17-2019 influenza, injectabl e, quadrivalent, preservative free Giuseppe Cotto MD Work Phone: [facility] 12-17-2019 tetanus toxoid, redu felix diphtheria toxoid, and acellular pertussis vaccine, adsorbed Giuseppe Cotto MD Work Phone: [facility] 02-04-2019 Seasonal, quadrivale nt, recombinant, injectable influenza vaccine, preservative free Giuseppe Cotto MD Work Phone: [facility] 12-24-2017 influenza, injectabl e, quadrivalent, contains preservative Giuseppe Cotto MD Work Phone: [facility] 12-25-2016 influenza virus vaccine, unspecified formulation Giuseppe Cotto MD Work Phone: [facility] 02-07-2014 influenza virus vaccine, unspecified formulation Giuseppe Cotto MD Work Phone: [facility] 02-07-2013 pneumococcal conjuga te vaccine, 13 valent Giuseppe Cotto MD Work Phone: [facility] 07-06-2010 tetanus toxoid, redu felix diphtheria toxoid, and acellular pertussis vaccine, adsorbed Giuseppe Cotto MD Work Phone: [facility] 03-06-2009 novel [id number], preservative-free, injectable Giuseppe Cotto MD Work Phone: [facility] Payers Date Payer Category Payer Medicare [id number] 2024 Private Health Insurance [id number] 2018 Private Health Insurance [id number] 1959 Unknown [id number] 2.16.84 [id number] 1959 Unknown [id number] 2.16.84 [id number] 1959 Unknown [id number] 2.16.8 [id number] 1959 Unknown [id number] 2.16.84 [id number] 1959 Unknown [id number] 2.16.84 [id number] 1959 Unknown [id number] 2.16.84 [id number] 1959 Unknown [id number] 2.16. [id number] 1959 Unknown [id number] 2.16. [id number] 1959 Unknown [id number] 2.16.8 [id number] 1959 Unknown [id number] 2.16.8 [id number] 1959 Unknown [id number] 2.16.8 [id number] 1959 Unknown [id number] 2.16.8 [id number] 1959 Private Health Insurance [id number] Social History Date Type Detail Facility Start: 11-25-2021 End: 01-05-2024 Sex Assigned At [facility] Tobacco smoking stat [facility] Tobacco smoking consumption unknown [facility] Start: 1960 Sex assigned at Not on file [facility] Start: 04-23-2022 End: 01-05-2024 Tobacco smoking status SDIS Never smoked tobacco [facility] Start: 01-05-2024 Alcoholic beverage intake Lifetime non-drinker (finding) [facility] Start: 11-25-2021 End: 01-05-2024 History of Social function [facility] Start: 07-22-2012 End: 04-23-2022 Tobacco use and exposure Smokeless tobacco non-user [facility] Start: 02-25-2023 End: 05-18-2024 Alcohol intake Current non-drinker of alcohol (finding) [facility] Do you belong to any clubs or organizations such as gnosticism groups, unions, fraternal or athletic groups, or school groups? Yes [facility] Are you now , , , , never or living with a partner? [facility] How often to you hav e a drink containing alcohol? Never [facility] Start: 01-26-2012 How many standard drinks containing alcohol do you have on a typical day? Patient does not drink [facility] How hard is it for y ou to pay for the very basics like food, housing, medical care, and heating Not very hard [facility] Do you feel stress - tense, restless, nervous, or anxious, or unable to sleep at night because your mind is troubled all the time - these days [OSQ] Only a little [facility] Start: 11-25-2021 Education 17 [facility] Start: 1960 Sex Assigned At Female [facility] Start: 11-16-2019 Gender identity Identifies as female gender (finding) [facility] Start: 11-16-2019 Sexual orientation Heterosexual (finding) [facility] Start: 09-29-2014 Sex Female (finding) [facility] Start: 07-22-2012 End: 04-19-2024 Alcoholic beverage intake Not Asked [facility] Start: 09-06-2024 End: 10-11-2024 Alcoholic beverage intake Current drinker of alcohol (finding) [facility] Start: 09-06-2024 Alcohol Comment may have 1 drink per year [facility] Medical Equipment Procedure Code Equipment Code Equipment Origin al Text Equipment Identifier Dates [id number] Start: 04-08-2022 End: 08-12-2023 Inject 1 Lancet. under the skin in the morning. [id number] Start: 04-08-2022 End: 08-12-2023 1 strip by other route in the morning. [id number] Start: 08-12-2023 End: 08-16-2024 Inject 1 Lancet. under the skin in the morning. [id number] Start: 08-12-2023 End: 08-16-2024 USE 1 STRIP TO C HECK GLUCOSE IN THE MORNING [id number] Start: 08-16-2024 USE 1 TO CHECK G LUCOSE IN THE MORNING [id number] Start: 08-16-2024 End: 09-07-2024 1 strip by other route every morning before breakfast. [id number] Start: 08-25-2024 USE 1 TO CHECK G LUCOSE IN THE MORNING [id number] Start: 09-07-2024 Mesh Prolene Squ are Flat 74o81ht Surgical Knit Nonabsorbable Nonreactive - [id number] Start: 09-14-2024 Goals Date Patient Goal Desired Activity /State Personal health goal Comment on above: Formatting of this n ote might be different from the original. Evaluation of progress towards goal: Pt plans to discharge home with self care and family assistance. Functional Status Date Assessment Result Facility 09-17-2024 Are you deaf, or do you have serious difficulty hearing Yes 09/17/2024 2:25 PM EDT Salome Miranda RN Yes [facility] 09-17-2024 Are you blind, or do you have serious difficulty seeing, even when wearing glasses No 09/17/2024 2:25 PM EDT Salome Miranda RN No [facility] 09-17-2024 Do you have serious difficulty walking or climbing stairs No 09/17/2024 2:25 PM EDT Salome Miranda RN No [facility] 09-17-2024 Do you have difficul ty dressing or bathing No 09/17/2024 2:25 PM EDT Salome Miranda RN No [facility] 09-17-2024 Because of a physica l, mental, or emotional condition, do you have difficulty doing errands alone such as visiting a physician's office or shopping No 09/17/2024 2:25 PM EDT Salome Miranda RN No [facility] Mental Status Date Assessment Result Facility 09-17-2024 Because of a physica l, mental, or emotional condition, do you have serious difficulty concentrating, remembering, or making decisions No 09/17/2024 2:25 PM EDT Salome Miranda RN No [facility] Clinical Notes 02-20-2023 to 10-11-2024 Kristine Vincent MD - 10/11/2024 11:37 AM EDKian Lopez - 10/11/2024 11:34 AM Mayela Zhang MA - 10/11/2024 11:31 AM EDTTelephone Encounter - Sterling Rogers CNA - 10/06/2024 1:01 PM EDT Note Date & Type Note Facility 10-11-2024 Note HNO ID: [id number] Author: KRISTINE VINCENT MD Service: ? Author [...] Vincent MD October 18, 2024 11:[address] [facility] 10-11-2024 History of Present illness Narrative TEACHING PHYSICIAN NOTE OF PERSONAL INVOLVEMENT IN [...] Vincent MD October 18, 2024 11:28 AM GENERAL SURGERY FOLLOW UP EXAMINATION SERVICE DATE: [...] 2.3* 1.4* -- 2.6* Liver Function, Amylase, & Lipase Recent Labs 09/22/24 1606 09/14/24 1704 [...] and discussed with staff, Dr. Vincent. Kian Edwards, MS-4 [facility] General Surgery A.I. [1] Social History Tobacco Use Smoking status: Never Smokeless tobacco: Never Substance Use Topics Alcohol use: Yes Comment: may have 1 drink per year Drug use: Never [2] (Not in a hospital admission) What is the reason for your visit today? Post Op Who is your referring physician? Are you having poor oral intake? NO Have you had unintentional weight loss of 15 lbs/7 Kg in the last 3-6 months? NO Bowels: constipation and diarrhea (irregularly typical) Wound: clean & dry Temperature: No Drains: No documented in this encounter [facility] 10-11-2024 Note HNO ID: [id number] Author: ?, ?, ? Service: ? Author [...] and discussed with staff, Dr. Vincent. Kian Edwards, MS-4 [facility] General Surgery A.I. [1] Social History Tobacco Use Smoking status: Never Smokeless tobacco: Never Substance Use Topics Alcohol use: Yes Comment: may have 1 drink per year Drug use: Never [2] (Not in a hospital admission) [facility] 10-11-2024 Note HNO ID: [id number] Author: MAYELA MEEKS MA Service: ? Author Type: Blade Worker Type: Progress Notes Filed: 10/18/2024 16:24 Note Text: What is the reason for your visit today? Post Op Who is your referring physician? Are you having poor oral intake? NO Have you had unintentional weight loss of 15 lbs/7 Kg in the last 3-6 months? NO Bowels: constipation and diarrhea (irregularly typical) Wound: clean AND dry Temperature: No Drains: No [facility] 10-06-2024 Miscellaneous Notes Attempted to contact patient regarding rescheduling her 11/23 appointment. Patient did not answer. Left a voicemail for patient to call back documented in this encounter [facility] 10-06-2024 Telephone encounter Note Attempted to contact patient regarding rescheduling her 11/23 appointment. Patient did not answer. Left a voicemail for patient to call back [facility] 09-22-2024 Note HNO ID: [id number] Author: EVE FUENTES APRN.RETAIL ASSOCIATE Service: ? Author Type: Nurse Practitioner Type: Progress Notes Filed: 09/22/2024 15:59 Note Text: [facility] Clinic Date: September [...] results to be reviewed tomorrow. - If pota (more content not included)... [facility] 09-22-2024 History of Present illness Narrative [facility] Clinic Date: September 22, [...] EXAM: BP 108/79 Pulse 98 Temp 36.4 C (97.5 F) (Temporal) Ht 158.8 cm (5' 2.5 ) Wt 86 kg (189 lb 9.5 oz) BMI 34.12 kg/m General: No acute distress. Skin: Allergic rashes [...] Vincent on the . Eve Fuentes, MSN, RETAIL ASSOCIATE September 22, 2024 What is the reason for your visit today? Post op Who is your referring physician? Dr. Fuentes Are you having poor oral intake? NO Have you had unintentional weight loss of 15 lbs/7 Kg in the last 3-6 months? NO Bowels: diarrhea Wound: clean & dry Temperature: No Drains: Yes 2 josé miguel documented in this encounter [facility] 09-22-2024 Note HNO ID: [id number] Author: ANTON JOSHI MA Service: ? Author Type: Blade Worker Type: Progress Notes Filed: 09/22/2024 15:59 Note Text: What is the reason for your visit today? Post op Who is your referring physician? Dr. Fuentes Are you having poor oral intake? NO Have you had unintentional weight loss of 15 lbs/7 Kg in the last 3-6 months? NO Bowels: diarrhea Wound: clean AND dry Temperature: No Drains: Yes 2 josé miguel [facility] 09-17-2024 Note HNO ID: [id number] Author: MERE DOBBINS MD Service: General Surgery [...] Date 09/16/24 07 - 09/17/24 0659 09/17/24 0700 - 09/18/24 0659 Shift 8997-0333 0870-4640 4159-6984 24 Hour Total 2665-8584 4405-9964 3705-9222 24 Hour Total INTAKE PO 540 160 059 4505 PO 540 802 934 3874 IV 2300 600 2900 Volume (mL) (lactated ringers iv infusion) 2300 600 2900 Shift Total 2840 5734 998 1248 OUTPUT Urine 650 552 556 6774 Void (ml) 650 274 272 4091 Urine Not Saved. 1 x 1 x Tubes 120 85 30 235 Drain/Tube Output (Drain/Tube 09/14/24 1417 [facility] Sam Right Upper Quadrant Abdomen) 60 40 20 120 Drain/Tube Output (Drain/Tube 09/14/24 1400 [facility] Jhonathan Maciel Left) 60 45 10 115 # of BMs Number of BMs 0 x 2 x 1 x 3 x Shift Total 770 641 371 4678 Weight (kg) 86.2 86.2 86.2 86.2 86.2 86.2 86.2 86.2 Lines, Drains, and Airways Line Duration Peripheral 09/15/24 1602 [facility] Short Right Forearm 20 Gauge 1 day Drain Duration Drain/Tube 09/14/24 1400 [facility] Jhonathan Maciel Left 2 days Drain/Tube 09/14/24 1417 [facility] Sam Right Upper Quadrant Abdomen 2 days [...] this afternoon. 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 09-16-2024 Note HNO ID: [id number] Author: MARAG ADEN MD Service: General Surgery Author Type: Resident Type: Progress Notes Filed: 09/16/2024 08:57 Note Text: Documentation Query Please clarify the diagnosis associated with the clinical indicators for this patient Provider Response: Hypokalemia supported by: Continued Lab Monitoring, Oral Supplement of, and IV Infusion of Potassium This document will become part of the patient's medical record. [facility] 09-16-2024 Note HNO ID: [id number] Author: MARGA ADEN MD Service: General Surgery Author Type: Resident Type: Progress Notes Filed: 09/16/2024 08:57 Note Text: Documentation Query Please clarify the diagnosis associated with the clinical indicators for this patient Provider Response: Hypomagnesemia supported by: Continued Lab Monitoring and IV Infusion of Magnesium This document will become part of the patient's medical record. [facility] 09-16-2024 Note HNO ID: [id number] Author: MARGA ADEN MD Service: General Surgery Author Type: Resident Type: Progress Notes Filed: 09/16/2024 08:57 Note Text: Documentation Query Please clarify the diagnosis associated with the clinical indicators for this patient Provider Response: Hypophosphatemia supported by: Continued Lab Monitoring and IV Infusion of NaPhos This document will become part of the patient's medical record. [facility] 09-16-2024 Note HNO ID: [id number] Author: MERE DOBBINS MD Service: General Surgery [...] Liters (Numeric Only): 1 Date 09/15/24699 - 09/16/2459 09/16/24699 - 09/17/24 0659 Shift 1307-8131 6701-2806 6981-1931 24 Hour Total 3358-1946 4745-4190 1144-2688 24 Hour Total INTAKE PO 240 370 100 710 PO 240 370 100 710 Supplements (mL) 0 0 IV 1100 1100 Volume (mL) (magnesium sulfate 1 g in D5W 100 mL) 100 100 Volume (mL) (potassium chloride iv piggyback 20 mEq/100 mL) 200 200 Volume (mL) (lactated ringers iv infusion) 800 800 Shift Total 1340 327 222 3160 OUTPUT Urine 1625 8688 997 5484 Void (ml) 1225 1356 214 1570 Output ([REMOVED] Indwelling Urinary Catheter 09/14/24 1055 [facility] Keller 16 Fr 09/15/24 0912) 400 400 Tubes 65 145 60 270 Drain/Tube Output (Drain/Tube 09/14/24 1417 [facility] Sam Right Upper Quadrant Abdomen) 30 75 20 125 Drain/Tube Output (Drain/Tube 09/14/24 1400 [facility] Jhonathan Maciel Left) 35 70 40 145 # of BMs Number of BMs 0 x 0 x 0 x 0 x Shift Total 1690 1589 388 2325 Weight (kg) 86.2 86.2 86.2 86.2 86.2 86.2 86.2 86.2 Lines, Drains, and Airways Line Duration Peripheral 09/15/24 1602 [facility] Short Right Forearm 20 Gauge <1 day Drain Duration Drain/Tube 09/14/24 1400 [facility] Jhonathan Maciel Left 1 day Drain/Tube 09/14/24 1417 [facility] Sam Right Upper Quadrant Abdomen 1 day [...] GI soft. 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 09-15-2024 Note HNO ID: [id number] Author: GREGOR KASPER LSW Service: Care Management Author Type: Car Sales Representative Type: Care Mgt Initial Assessment Filed: 09/15/2024 15:22 Note Text: CARE MANAGEMENT: ASSESSMENT AND DISCHARGE PLAN SERVICE DATE: September 15, 2024 SERVICE TIME: 3:18 PM PCP: Mack Jarrett MD, DO Primary Contact: Extended Emergency Contact Information Primary Emergency Contact: AUTUMN SANCHEZ Address: [address] [place] [address] Mobile Relation: Spouse Admission Status: Inpatient Insurance Provider: GENOVEVA PICKETT Discharge Planning requested by: Per Department Practice Potential Transition Plans Home Advance Directives Current Advance Directive: None Engineering Manager Attempted to Assist with AD Completion: Yes [...] General wellness, Be able to go home [place] of Choice Explained: [place] of [place] Given: No Reason Not Given: [...] Spouse was also present. Pt is very [place], she deferred to spouse for most of [...] DATE: September 15, 2024 TIME: 3:[address] [facility] 09-15-2024 Note HNO ID: [id number] Author: MARGA ADEN MD Service: General Surgery [...] Cannula, Liters (Numeric Only): 2.00 Date 09/14/24 07 - 09/15/24 0659 09/15/24 07 - 09/16/24 0659 Shift 4810-2823 8754-0180 8710-1795 24 Hour Total 4484-6096 5587-3814 8691-6785 24 Hour Total INTAKE PO 100 100 [...] 641 Volume (mL) (lactated ringers iv infusion) 6678 209 0370 Volume (mL) (lactated ringers iv infusion) 200 200 Volume (mL) (lactated ringers iv infusion) 500 500 Shift Total 1050 2050 1291 4391 120 120 OUTPUT Urine 580 5670 526 2020 475 475 Void (ml) 75 75 OR Urine Output 580 580 Output ([REMOVED] Indwelling Urinary Catheter 09/14/24 1055 [facility] Keller 16 Fr 09/15/24 09) 7506 545 8358 400 400 Tubes 300 120 420 Drain/Tube Output ([REMOVED] Drain/Tube 09/14/24 141 [facility] Sam Left Upper Quadrant Abdomen 09/15/24 0912) 110 60 170 Drain/Tube Output (Drain/Tube 09/14/24 [facility] Sam Right Upper Quadrant Abdomen) 190 60 250 # of BMs Number of BMs 0 x 0 x 0 x 0 x Shift Total 580 1135 353 2490 475 475 Weight (kg) 86.2 86.2 86.2 86.2 86.2 86.2 86.2 86.2 Lines, Drains, and Airways Line Duration Peripheral 09/14/24 0830 [facility] Short Right Forearm 20 Gauge 1 day Peripheral 09/14/24 1055 Left Hand 16 Gauge 1 day Drain Duration Drain/Tube 09/14/24 141 [facility] Sam Right Upper Quadrant Abdomen <1 day [...] fluid resuscitation. 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 09-14-2024 Note HNO ID: [id number] Author: GABE BYRNES RN Service: Nursing Author Type: Registered Nurse Type: Progress Notes Filed: 09/14/2024 19:01 Note Text: Admission/Transfer Note PATIENT NAME: Parisa Sanchez Patient Location: [place] [address] Room: [place] [address] Patient admitted from PACU via bed in stable condition. Actions taken: Patient oriented to room. This note was completed by: Gabe Byrnes [facility] 09-14-2024 Note HNO ID: [id number] Author: LUISANA KENNEDY APRN.IRRIGATION FOREMAN Service: ? Author Type: Nurse Vocational Ed Instructor Type: Anesthesia Procedure Notes Filed: 09/14/2024 11:08 Note Text: ANESTHESIOLOGY PROCEDURE NOTE Airway General Information Procedure Start Time/Medication Administration: 09/14/2024 10:51 AM Procedure End Time: 09/14/2024 11:51 AM Patient location during procedure: OR Timeout Performed Pre-procedure: timeout performed Consent Obtained: Yes Patient identity confirmed: arm band Staffing Performed by: IRRIGATION FOREMAN Indications and Patient Condition Indications for airway [...] September 14, 2024 TIME: 11:07 AM CSN: [id number] [facility] 09-14-2024 Note HNO ID: [id number] Author: GIANA SEGURA MD Service: ? Author Type: Resident Type: Anesthesia Procedure Notes Filed: 09/14/2024 11:46 Note Text: Attestation signed by Giana Segura MD at 09/14/2024 11:46 AM APS STAFF NOTE; I HAVE SUPERVISED RESIDENT DOING PROCEDURE US WAS USED TIMEOUT DONE AGREE WITH RESIDENT KELVIN Li MD APS STAFF ANESTHESIOLOGY PROCEDURE NOTE [...] September 14, 2024 TIME: 9:35 AM CSN: [id number] [facility] 09-06-2024 Instructions Kanchan Burton PA-C - 09/06/2024 1:08 PM EDT Images from the original note were not included. [facility] Pre[facility]Anest[facility] Consultation [facility] PATIENT PREOPERATIVE INSTRUCTIONS [facility] [place] Scheduling Office: [phone] --If no call by 4pm the day before surgery, please call this number. [phone] [place] [address]. Please read below carefully for your personalized instructions. Dietary Restrictions: - No solid food after midnight. - You may have 12 ounces of clear liquids (water, clear juices such as apple juice or gatorade, carbonated beverages, clear tea, black coffee, jello) until 2 hours before scheduled arrival at facility. Medications: Unless instructed differently below, stay on all of your medications until your surgery. If you start any new medications after today's visit, please contact your surgeon. Pre-Surgery Med Instructions Medication Instructions fexofenadine/pseudoephedrine (MONICA-D 24 HOUR ORAL) Continue as needed, but avoid morning of surgery. JARDIANCE 10 mg tablet Hold 3 days before surgery. Last dose 09/10/24. amLODIPine (NORVASC) 5 mg tablet Take the night before as usual. escitalopram oxalate (LEXAPRO) 20 mg tablet Take the night before as usual. metFORMIN 1,000 mg tablet Do not take the day of surgery lisinopril 20 mg tablet If you normally take this medication in the morning, take the morning of surgery. simvastatin 20 mg tablet Take the night before as usual. If you start any new medications after today's visit, please contact the surgeon's office. If you are currently using a vjsv-wsl-lbzj injectable or oral medication for diabetes or weight loss such as Dulaglutide (Trulicity), Exenatide (Byetta, Bydureon), Liraglutide (Victoza, Saxenda), Semaglutide (Ozempic, Wegovy, Rybelsus), or Tirzepatide (Mounjaro), the medicine should be stopped at least 7 days before surgery. These medicines can cause food to remain in your stomach for a very long time and increase the risks from surgery and anesthesia. Not stopping the medication for a long enough time may result in your surgery being rescheduled. Blood Thinning Medications: - Stop NSAIDS (Ibuprofen, Advil, Aleve, Motrin, Celebrex, Mobic, etc.) 7 days before surgery, as directed by your surgeon. - Stop Aspirin 7 days before surgery, as directed by your surgeon. - Stop ALL herbal and dietary supplements 7 days before surgery. - You may take Tylenol (Acetaminophen) or any of your pain medications that do not contain aspirin or NSAIDS as needed. Important Reminders: - Candy, mints, and tobacco products are NOT permitted the morning of surgery. - Hearing aids, dentures and glasses may be worn the morning of surgery. - NO jewelry, body piercings, makeup, hairpins or contacts are to be worn the day of surgery. If you develop symptoms such as a fever, cold, or flu, or have other changes to your health within TWO DAYS of scheduled surgery or the morning of surgery, please contact the surgery center above. Personal Belongings: -Please have photo ID and insurance cards. -If you do not have a copy of advance directives on file with us, please bring a copy with you on the day of surgery. - Leave ALL valuables and money at home or with family members. - Please bring high-quality footwear, such as sneakers, to the hospital for ambulating post-surgery. For Outpatient Procedures: - YOU MUST HAVE A RESPONSIBLE MANAGER OF TRAINING AND DEVELOPMENT TAKE YOU HOME. A FIRST OFFICER AND FLIGHT INSTRUCTOR OR [employer] SYSTEMS ADMINISTRATOR CANNOT BE MADE A RESPONSIBLE MANAGER OF TRAINING AND DEVELOPMENT. - We recommend that a responsible person stays with you overnight to take care of you. - You cannot stay in a hotel alone after outpatient surgery. You will not be permitted to have your surgery, if you do not have someone to take care of you. Arrival Time for Surgery: - To obtain your arrival time for surgery, call your physician's office the day before your surgery. - If you have received different instructions about finding out your arrival time from your surgeon, please follow those instructions. - If your surgery is scheduled for Friday, call the Friday before. Your surgeon s patient services assistant will tell you what time to call the office. - If you have not reached the departmental patient services assistant by 5 P.M., call [phone] after 5 P.M. the day before your surgery. Please be aware that emergency situations arise, which may delay or change your surgical time. If this happens, we will notify you as soon as possible and regret any inconvenience. If you already have an Advance Directive, please fax a copy to [phone] or email to for it to be added to your chart. If you do not have an Advance Directive, you can find the appropriate form and more information at [email or web address]. We recommend that you complete the Advance Directive form found on the website and bring it with you the day of your surgery. It can be witnessed and scanned into your chart that day. Kanchan Burton PA-C documented in this encounter [facility] [facility] History and physical note Images from the original note were not included. [facility] HISTORY AND PHYSICAL EXAMINATION SERVICE DATE: 09/06/2024 SERVICE TIME: 1:00 PM PRIMARY CARE PHYSICIAN: Mack Jarrett MD, DO Assessment Patient has the following [...] BMI less than or equal to 35 kg/m^2 Does not have a large neck Non-male patient STOP-Bang Score: 2 I - PHYSICAL EVALUATION AIRWAY Patient intubated: No. Mallampati: II. TM distance: >3 FB. Neck ROM: full ROM without neurological symptoms. Mouth opening: adequate. Short neck: no. Thick neck: no Lip Bite Test: II Microretrognathia/Micronagthia/Re cessed Chin: No DENTAL Dental findings: teeth intact. II - ANESTHESIA PLAN Anesthetic plan additional comments: *PACC/TCI - anesthesia choice. Beta Osiel Monitoring Plan Post Procedure Analgesic Plan PLAN This patient is optimally prepared for surgery pending LABS. CONSULTS: Patient does not require consults for optimization at this time. The Following Tests/Procedures Have Been Initiated: EKG, CBC, CMP, PT, PTT, T&S and conabo ordered by surgical service Planned [...] Immunization Status Current Care Gaps Covid-19 Vaccine ( season) Overdue since 06/25/2024 12/27/2023 Imm Admin: COVID-19 vaccine, age 12+ yr (MODERNA) 01/31/2023 Imm Admin: COVID-19 vaccine, age 12+ yr (PFIZER-BIONTECH COMIRNATY) 12/20/2021 Imm Admin: COVID-19 vaccine, age 12+ yr, bivalent (EventBug) Only the first 3 history entries have [...] frequent urination, hematuria, nephrolithiasis and renal failure. CERTIFIED REGISTERED NURSE ANESTHETIST: Negative for abnormal vaginal bleeding, abnormal vaginal [...] 7.6 oz (86.4kg) SpO2 97% BMI 34.26 kg/(m^2). Diagnostic tests reviewed for today's visit: Lab [...] 400 QTC Calculation (Bazett) 461 Calculated P [place] 49 Calculated R [place] -16 Calculated T [place] 45 Impression NORMAL SINUS RHYTHM LOW VOLTAGE QRS, CONSIDER PULMONARY DISEASE, PERICARDIAL EFFUSION, OR NORMAL VARIANT BORDERLINE ECG No results found for this or any previous visit (from the past 46904 hours). Instructions Given to Patient: Instructions located in the after visit summary. Patient given verbal and written preop instructions and voices comprehension and compliance. SIGNATURE: Kanchan Burton PA-C PATIENT NAME: Parisa Sanchez DATE: September 06, 2024 TIME: 1:02 PM PAGER/CONTACT #: [facility] 09-06-2024 History and physical note Images from the original note were not included. [facility] HISTORY AND PHYSICAL EXAMINATION SERVICE DATE: 09/06/2024 SERVICE TIME: 1:00 PM PRIMARY CARE PHYSICIAN: Mack Jarrett MD, DO Assessment Patient has the following [...] BMI less than or equal to 35 kg/m^2 Does not have a large neck Non-male patient STOP-Bang Score: 2 I - PHYSICAL EVALUATION AIRWAY Patient intubated: No. Mallampati: II. TM distance: >3 FB. Neck ROM: full ROM without neurological symptoms. Mouth opening: adequate. Short neck: no. Thick neck: no Lip Bite Test: II Microretrognathia/Micronagthia/Re cessed Chin: No DENTAL Dental findings: teeth intact. II - ANESTHESIA PLAN Anesthetic plan additional comments: *PACC/TCI - anesthesia choice. Beta Osiel Monitoring Plan Post Procedure Analgesic Plan PLAN This patient is optimally prepared for surgery pending LABS. CONSULTS: Patient does not require consults for optimization at this time. The Following Tests/Procedures Have Been Initiated: EKG, CBC, CMP, PT, PTT, T&S and conabo ordered by surgical service Planned [...] Immunization Status Current Care Gaps Covid-19 Vaccine ( season) Overdue since 06/25/2024 12/27/2023 Imm Admin: COVID-19 [...] frequent urination, hematuria, nephrolithiasis and renal failure. CERTIFIED REGISTERED NURSE ANESTHETIST: Negative for abnormal vaginal bleeding, abnormal vaginal [...] 7.6 oz (86.4kg) SpO2 97% BMI 34.26 kg/(m^2). Diagnostic tests reviewed for today's visit: Lab [...] 400 QTC Calculation (Bazett) 461 Calculated P [place] 49 Calculated R [place] -16 Calculated T [place] 45 Impression NORMAL SINUS RHYTHM LOW VOLTAGE QRS, CONSIDER PULMONARY DISEASE, PERICARDIAL EFFUSION, OR NORMAL VARIANT BORDERLINE ECG No results found for this or any previous visit (from the past 67883 hours). Instructions Given to Patient: Instructions located in the after visit summary. Patient given verbal and written preop instructions and voices comprehension and compliance. SIGNATURE: Kanchan Burton PA-C PATIENT NAME: Parisa Sanchez DATE: September 06, 2024 TIME: 1:02 PM PAGER/CONTACT #: documented in this encounter [facility] 09-06-2024 Note HNO ID: [id number] Author: NADEGE ELIZONDO, PhD Service: ? Author Type: Psychologist Type: Progress Notes Filed: 09/06/2024 11:33 Note Text: [facility] [place] Name: Parisa Sanchez MR#: [id number] Date: 09/06/2024 Time: 1 hour Referred by: [...] could be seen again. Nadege Rodriguez, Ph.D. [facility] 09-06-2024 History of Present illness Narrative [facility] [place] Name: Parisa Sanchez MR#: [id number] Date: 09/06/2024 Time: 1 hour Referred by: [...] could be seen again. Nadege Rodriguez, Ph.D. documented in this encounter [facility] 05-26-2024 Miscellaneous Notes Called and lvm for pt to call office back regarding pap and HPV results. Both results were negative. documented in this encounter [facility] 05-26-2024 Telephone encounter Note Called and lvm for pt to call office back regarding pap and HPV results. Both results were negative. [facility] 05-26-2024 Note Patient Education Oncology Cancer Screening: Female A [...] risk should start screening at an earlier a (more content not included)... [facility] 05-18-[facility]24 History of Present illness Narrative Parisa Sanchez is a pleasant 64 y.o. 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 She is postmenopausal. Hysterectomy: yes - total 2018, for endometrial carcinoma She is sexually active. Denies painful intercourse. Denies pelvic pain. Employment: retired Vaginal Bleeding none Hot flashes / menopausal symptoms - None Bladder issues - None Bowel issues - None History of abnormal Pap smear: no Last pap: 2022- negative at another office Family history of uterine or ovarian cancer: yes - endometrial carcinoma Family hx pancreatic or prostate cancer: no Family history of colon cancer: yes - Diagnosed in 2004- chemotherapy Family history of breast cancer: yes - mother at the age of 42 Regular self breast exam: yes Last mammogram: 2023- at [facility] negative Dexa Scan: Negative Colonoscopy: 2-3 years ago PHQ9 depression screenin Flu shot this flu season: 11/2022 OB History 3 Para 3 Term 3 AB Living 2 SAB IAB Ectopic Multiple Live Births 3 Past Medical History: Diagnosis Date Allergic Tape, Percocet, prednisone, keflex Arthritis 03/10/2020 Right Hip Cataract Colon cancer ([facility] Dental disease crowns Depression Diabetes ([facility]) Diabetes mellitus type 2, controlled ([facility]) Disease of thyroid gland Eczema History of chemotherapy 2005 HL (hearing loss) hearing aids Hx of blood clots 2005 and 2010 Hyperlipidemia Hypertension Obesity Peripheral neuropathy 03/10/2020 Left Foot Uterine cancer (CMS-HCC) Varicella 1990 Visual impairment glasses left Past Surgical History: Procedure Laterality Date APPENDECTOMY 2005 SECTION x3 CHOLECYSTECTOMY 2004 COLON SURGERY colon resection COLONOSCOPY COLONOSCOPY N/A 05/02/2021 Performed by Jose Chambers DO at [facility] CYSTOSCOPY W/ SPINCTEROTOMY DEBRIDEMENT WOUND ABDOMEN N/A 11/18/2018 Performed by Giuseppe Cotto MD at [facility] EYE SURGERY HEMICOLECTOMY HERNIA REPAIR RECURRENT INCARCERATED INCISIONAL HERNIA REPAIR WITH LEFT MYOFASCIAL FLAP ADVANCEMENT AND RIGHT MYOFASCIAL FLAP ADVANCEMENT N/A 04/03/2018 Performed by Giuseppe Cotto MD at [facility] TOTAL HYSTERECTOMY ABDOMINAL BSO/REGIONAL LYMPHADENECTOMY, LEFT URETEROLYSIS, PARTIAL GREATER OMENTECTOMY, BIOPSY VAGINA, CYTOLOGIC PELVIC WASHINGS N/A 04/03/2018 Performed by Maurizio Gutierres MD at [facility] Family History Problem Relation Age of Onset Hypertension Father Stroke Father Arthritis Father COPD Father Diabetes Father Diabetes Mother Breast cancer Mother 42 Cancer Mother Diabetes Brother COPD Brother Diabetes Brother Diabetes Sister Asthma Daughter Asthma Daughter Anesthesia problems Neg Hx Current Outpatient Medications Medication Sig Dispense Refill acetaminophen (TYLENOL) 500 mg tablet Take 1 tablet (500 mg total) by mouth every 6 (six) hours as needed for pain Indications: headache. MONICA-D 24 HOUR 180-240 mg per 24 hr tablet Take 1 tablet by mouth in the morning. 30 tablet 6 amLODIPine (NORVASC) 5 mg tablet TAKE 1 TABLET BY MOUTH IN THE MORNING 90 tablet 1 blood sugar diagnostic (ONETOUCH [...] the morning. 90 tablet 1 escitalopram (LEXAPRO) 20 mg tablet Take 1 tablet (20 mg total) by mouth in the morning. 90 tablet 1 lancets 33 gauge misc Inject 1 Lancet. under the skin in the morning. 100 each 3 lisinopriL (PRINIVIL,ZESTRIL) 20 mg tablet Take 1 tablet (20 mg total) by mouth in the morning. 90 tablet 1 metFORMIN (GLUCOPHAGE) 500 mg tablet Take 2 tablets (1,000 mg total) by mouth in the morning and 2 tablets (1,000 mg total) in the evening. Take with meals. 360 tablet 1 vbvriwim-sdkx-OB-calcium &mins (THERAGRAN-M) 9 mg iron-400 mcg tablet Take 1 tablet by mouth in the morning. mupirocin (BACTROBAN) 2 % ointment Apply 1 Application topically in the morning and 1 Application before bedtime. 22 g 0 nystatin (MYCOSTATIN) cream Apply topically 3 (three) times a day. 60 g 1 simvastatin (ZOCOR) 20 mg tablet Take 1 tablet by mouth nightly 90 tablet 1 triamcinolone (NASACORT) 55 mcg nasal inhaler Administer 2 sprays into each nostril in the morning. prasterone, dhea, (INTRAROSA) 6.5 mg insert INSERT 1 SUPPOSITORY VAGINALLY ONCE DAILY IN THE MORNING 84 each 3 No current facility-administered medications for this visit. ALLERGIES Allergies Allergen Reactions Cephalexin Rash Prednisone Rash Adhesive Tape-Silicones Oxycodone-Acetaminophen Vomiting Review of Systems Constitutional: Negative. Respiratory: Negative. Negative for chest tightness and shortness of breath. Cardiovascular: Negative. Negative for chest pain and palpitations. Gastrointestinal: Negative. Negative for constipation, diarrhea, nausea and vomiting. Endocrine: Negative. Genitourinary: Negative. Negative for dyspareunia, pelvic pain and vaginal bleeding. Musculoskeletal: Negative. Skin: Negative. Allergic/Immunologic: Negative. Neurological: Negative. Hematological: Negative. Psychiatric/Behavioral: Negative. Physical Exam BP 100/72 Ht 158.8 cm (5' 2.5 ) Wt 86.3 kg (190 lb 3.2 oz) BMI 34.23 kg/m Physical Exam Vitals and nursing note reviewed. Constitutional: Appearance: Normal appearance. HENT: Head: Normocephalic and atraumatic. Cardiovascular: Rate and Rhythm: Normal rate and regular rhythm. Pulses: Normal pulses. Heart sounds: Normal heart sounds. Pulmonary: Effort: Pulmonary effort is normal. Breath sounds: Normal breath sounds. Chest: Breasts: Breasts are symmetrical. Right: Normal. No mass, skin change or tenderness. Left: Normal. No mass, skin change or tenderness. Abdominal: General: Bowel sounds are normal. Palpations: Abdomen is soft. Genitourinary: General: Normal vulva. Labia: Right: No rash or lesion. Left: No rash or lesion. Vagina: Normal. Adnexa: Right adnexa normal and left adnexa normal. Right: No mass, tenderness or fullness. Left: No mass, tenderness or fullness. Comments: Cervix and uterus surgically absent. Musculoskeletal: General: Normal range of motion. Cervical back: Normal range of motion and neck supple. Skin: General: Skin is warm and dry. Neurological: Mental Status: She is alert and oriented to person, place, and time. Psychiatric: Mood and Affect: Mood normal. Speech: Speech normal. Behavior: Behavior normal. Thought Content: Thought content normal. Judgment: Judgment normal. Assessment / Plan Parisa was seen today for annual exam. Diagnoses and all orders for this visit: Well woman exam with routine gynecological exam Smear, vaginal, as part of routine gynecological examination - Pap Smear; Future - High risk HPV w/jj; Future Encounter for screening mammogram for malignant neoplasm of breast - Mammography screening bilateral with CAD; Future Standardized adult depression screening tool completed Vaginal atrophy - prasterone, dhea, (INTRAROSA) 6.5 mg insert; INSERT 1 SUPPOSITORY VAGINALLY ONCE DAILY IN THE MORNING Dyspareunia in female - prasterone, dhea, (INTRAROSA) 6.5 mg insert; INSERT 1 SUPPOSITORY VAGINALLY ONCE DAILY IN THE MORNING Vaginal dryness, menopausal - prasterone, dhea, (INTRAROSA) 6.5 mg insert; INSERT 1 SUPPOSITORY VAGINALLY ONCE DAILY IN THE MORNING Patient states need for vaginal pap yearly. BMI is above average; Discussed eating tips for weight loss and and exercise steps. Discussed SBE. Discussed taking a multivitamin. Discussed Calcium and Vitamin D for prevention of osteoporosis. Discussed need for yearly mammogram after 40 yo. Order placed. Patient to discuss colon cancer screening recommendations with PCP. Educational material provided. All questions answered. RTO for annual compliance representative dealer exam and / or PRN. GERSON Waite APRN-CNP 05/18/24 1344 documented in this encounter [facility] [employer] [facility] 05-17-2024 History of Present illness Narrative Images from the original note were not included. [address] [place] [address] SUBJECTIVE: Patient ID: Parisa Sanchez is a 64 y.o. female. Chief Complaint Patient presents with Diabetes Presents for follow up for DM States she spilled coffee last week on her left foot. There was one large blister but this has popped. States she has been soaking foot in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 without long-term current use of insulin ([facility] Diagnosis Preoperative examination Preoperative examination, unspecified Incisional hernia, without obstruction or gangrene Incisional hernia without mention of obstruction or gangrene Colorectal cancer (HCC)- Primary Malignant neoplasm of rectosigmoid junction Preoperative examination Preoperative examination, unspecified Incisional hernia, without obstruction or gangrene Incisional hernia without mention of obstruction or gangrene Primary hypertension Unspecified essential hypertension PONV (postoperative nausea and vomiting) Nausea with vomiting Type 2 diabetes mellitus without complication, without long-term current use of insulin ([facility]) History of DVT (deep vein thrombosis) Personal history of venous thrombosis and embolism Class 1 obesity due to excess calories without serious comorbidity with body mass index (BMI) of 34.0 to 34.9 in adult Preoperative examination Preoperative examination, unspecified Incisional hernia, without obstruction or gangrene Incisional hernia without mention of obstruction or gangrene [facility] Colorectal cancer (HCC)- Primary Malignant neoplasm of rectosigmoid junction Preoperative examination Preoperative examination, unspecified Incisional hernia, without obstruction or gangrene Incisional hernia without mention of obstruction or gangrene Primary hypertension Unspecified essential hypertension PONV (postoperative nausea and vomiting) Nausea with vomiting Type 2 diabetes mellitus without complication, without long-term current use of insulin (HCC) History of DVT (deep vein thrombosis) Personal history of venous thrombosis and embolism Class 1 obesity due to excess calories without serious comorbidity with body mass index (BMI) of 34.0 to 34.9 in adult Preoperative examination Preoperative examination, unspecified Incisional hernia, without obstruction or gangrene Incisional hernia without mention of obstruction or gangrene * Assessment & Plan Note - Kanchan Burton PA-C - 09/06/2024 3:14 PM EDTAssociated Problem(s): Class 1 obesity due to excess calories without serious comorbidity with bodymass index (BMI) of 34.0 to 34.9 in adult -BMI 34.28 * Assessment & Plan Note - Kanchan Burton PA-C - 09/06/2024 3:13 PM EDTAssociated Problem(s): History of DVT (deep vein thrombosis) -DVT in lower extremity in 2005 while receiving chemo for colon cancer -h/o PICC line DVT in RUE around 2009 -denies additional episodes -no longer on AC * Assessment & Plan Note - Kanchan Burton PA-C - 09/06/2024 3:10 PM EDTAssociated Problem(s): Type 2 diabetes mellitus without complication, without long-term current useof insulin (HCC) -on Jardiance and Metformin -BP in office today 122/72 * Assessment & Plan Note - Kanchan Burton PA-C - 09/06/2024 3:10 PM EDTAssociated Problem(s): PONV (postoperative nausea and vomiting) -reported by patient * Assessment & Plan Note - Kanchan Burton PA-C - 09/06/2024 3:09 PM EDTAssociated Problem(s): Primary hypertension -controlled with Amlodipine and Lisinopril -BP in office today 122/72 * Assessment & Plan Note - Kanchan Burton PA-C - 09/06/2024 3:09 PM EDTAssociated Problem(s): Colorectal cancer (HCC) -s/p resection and chemo ~2004 [facility] Diagnosis Renal mass- Primary Unspecified disorder of kidney and ureter Right renal mass Unspecified disorder of kidney and ureter Type 2 diabetes mellitus without complication, without long-term current use of insulin ([facility]) documented in this encounter [facility]* Diagnosis Colorectal cancer (HCC)- Primary Malignant neoplasm of rectosigmoid junction Preoperative examination Preoperative examination, unspecified Incisional hernia, without obstruction or gangrene Incisional hernia without mention of obstruction or gangrene Primary hypertension Unspecified essential hypertension PONV (postoperative nausea and vomiting) Nausea with vomiting Type 2 diabetes mellitus without complication, without long-term current use of insulin ([facility]) History of DVT (deep vein thrombosis) Personal history of venous thrombosis and embolism Class 1 obesity due to excess calories without serious comorbidity with body mass index (BMI) of 34.0 to 34.9 in adult Postoperative visit- Primary Other specified aftercare following surgery [facility]* Diagnosis Colorectal cancer (HCC)- Primary Malignant neoplasm of rectosigmoid junction Preoperative examination Preoperative examination, unspecified Incisional hernia, without obstruction or gangrene Incisional hernia without mention of obstruction or gangrene Primary hypertension Unspecified essential hypertension PONV (postoperative nausea and vomiting) Nausea with vomiting Type 2 diabetes mellitus without complication, without long-term current use of insulin (HCC) History of DVT (deep vein thrombosis) Personal history of venous thrombosis and embolism Class 1 obesity due to excess calories without serious comorbidity with body mass index (BMI) of 34.0 to 34.9 in adult Paresthesia and pain of right extremity- Primary Pain in limb [facility] Diagnosis Renal mass- Primary Unspecified disorder of kidney and ureter Right renal mass Unspecified disorder of kidney and ureter Seasonal allergic rhinitis due to pollen Primary hypertension Unspecified essential hypertension Mixed hyperlipidemia documented [facility]* Diagnosis Renal mass- Primary Unspecified disorder of kidney and ureter Right renal mass Unspecified disorder of kidney and ureter Seasonal allergic rhinitis due to pollen Primary hypertension Unspecified essential hypertension Mixed hyperlipidemia [facility] N[facility]ative - Reported* Type Description Date Medical History hyperlipidemia Medical History HTN Medical History Diabetes type 2 Medical History colon cancer Medical History uterine cancer Surgical History x 3 Surgical History hernia surgery x 2 Surgical History bowel reconstruction Surgical History cholecystectomy Surgical History hysterectomy, total with BSO Surgical History hernia repair Hospitalization History see surgical hx [facility] Other InstructionsNot on filedocumented in this encounter [email or web address] System[facility]ructionsNot on filedocumented in this encounter [facility] SystemInstructionsNot on filedocumented in this encounter [facility] SystemInstructionsNot on filedocumented in this encounter [facility] SystemInstructionsNot on filedocumented in this encounter [facility] SystemInstructionsNot on filedocumented in this encounter [facility] SystemInstructions* Attachments The following attachments cannot be sent through Care Everywhere. * High Blood Pressure Discharge Instructions (Lao) documented in this encounterProOhiohealth Grady Memorial HospitalUS-ST Construction Material Int'l. SystemInstructionsNot on file documented in this encounterProJackson Hospital Health SystemInstructionsNot on file documented in this encounterPro[facility] SystemInstructions* Attachments The following attachments cannot be sent through Care Everywhere. * Minor Skin Light ED (Lao) documented in this encounterProLouis [facility] SystemInstructions* Attachments The following attachments cannot be sent through Care Everywhere. * Calcium and vitamin D for bone health (Lao) * How to Perform Breast Self-Examination (Lao) documented in this encounterProLouis [facility] SystemInstructionsNot on file documented in this encounterProTrumbull Regional Medical CenterInstructionsNot on file documented in this encounterProTrumbull Regional Medical CenterReason for referral (narrative)* Consultation (Routine) - Pending Review Specialty Diagnoses / Procedures Referred By Yasmani andre Referred To Contact Urology Diagnoses Right renal mass Giuseppe Cotto MD [address] [address] [facility] [address] [place] [address] Referral ID Status Reason Start Date Expiration Date Visits Requested Visits Authorized [id number] Pending Review Specialty Services Required 02/25/2023 02/25/2024 1 1 [facility] (n[facility] Consultation (Routine) - Pending Review Specialty Diagnoses / Procedures Referred By Yasmani andre Referred To Contact Podiatry Diagnoses Referral of patient Yashira Roman APRN-RETAIL ASSOCIATE [address] [place] [address] Erick Marcial, JYOTI [address] [place] [address] [place] [address] Referral ID Status Reason Start Date Expiration Date Visits Requested Visits Authorized [id number] Pending Review Specialty Services Required 12/01/2023 11/30/2024 1 1 [facility] Narrative* Consult, Test, Treat (Routine) - Closed Specialty Diagnoses / Procedures Referred By Yasmani andre Referred To Contact Diagnoses Preoperative examination Incisional hernia, without obstruction or gangrene Procedures CONSULT TO [facility]/OUTPATIENT [facility] 60 MINUTES Ann Fuentesly, HEEL TOP LIFT SPLITTER.RETAIL ASSOCIATE [address] [place] [address] Phone: tel: fax: Referral ID Status Reason Start Date Expiration Date V isits Requested Visits Authorized [id number] Closed PCP Requested Referral 04/22/2024 04/21/2025 1 1 [facility] Narrative* Consult, Test, Treat (Routine) - Closed Specialty Diagnoses / Procedures Referred By Yasmani andre Referred To Contact Diagnoses Preoperative examination Incisional hernia, without obstruction or gangrene Procedures REFER TO [facility] - PREOPERATIVE OPTIMIZATION OFFICE/OUTPATIENT [facility] 60 MINUTES Eve Fuentes, HEEL TOP LIFT SPLITTER.RETAIL ASSOCIATE [address] [place] [address] Phone: tel: fax: Referral ID Status Reason Start Date Expiration Date V isits Requested Visits Authorized [id number] Closed PCP Requested Referral 04/22/2024 04/21/2025 1 1 [facility] Summary Purpose Family History No Family [...] Referral Specialty Diagnoses / Procedures Referred By Yasmani andre Referred To Contact Radiology Diagnoses Renal mass Procedures MR abdomen with and without contrast Leopoldo Chiu MD [address] [place] [address] Referral ID Status Reason Start Date Expiration Date V isits Requested Visits Authorized [id number] Pending Review 04/19/2023 04/18/2024 1 1 Specialty Diagnoses / Procedures Referred By Yasmani andre Referred To Contact Radiology Diagnoses Right renal mass Procedures IR cryoablation renal right Leopoldo Chiu MD [facility] [place] [address] Referral ID Status Reason Start Date Expiration Date V isits Requested Visits Authorized [id number] Pending Review 03/10/2023 03/09/2024 1 1 Additional Source Comments INFORMATION SOURCE (unrecogn ized section and content) DATE CREATED AUTHOR 04/05/2021 [facility] DATE CREATED AUTHOR AUTHOR'S ORGANIZ ATION 11/24/2021 [facility] DATE CREATED AUTHOR AUTHOR'S ORGANIZ ATION 03/11/2023 [facility] DATE CREATED AUTHOR AUTHOR'S ORGANIZ ATION 04/07/2023 [facility] DATE CREATED AUTHOR AUTHOR'S ORGANIZ ATION 01/06/2024 [facility] DATE CREATED AUTHOR AUTHOR'S ORGANIZ ATION 05/19/2024 [facility] DATE CREATED AUTHOR AUTHOR'S ORGANIZ ATION 08/29/2024 [facility] DATE CREATED AUTHOR AUTHOR'S ORGANIZ ATION 10/20/[address] [facility] REASON FOR VISIT (unrecogniz ed section and content) Reason Comments Hernia Pt presents today wi th an abdominal hernia located on the right side of her abdomen. She states that she has had it for a couple of years. She states that it does not currently cause her any pain. She was seeing Dr. Cotto at [facility] and he was going to do the surgery, but [facility] no longer takes [employer] insurance. Specialty Diagnoses / Procedures Referred By Yasmani andre Referred To Contact General Surgery Diagnoses Non-recurrent abdominal hernia without obstruction or gangrene, unspecified hernia type Procedures [place] OFFICE/OUTPATIENT NEW HIGH MDM 60 MINUTES Luzmaria Booker DO [address] [facility] [address] [place] [address] Phone: tel: fax: Luzmaria Booker DO [address] [facility] [address] [place] [address] Phone: tel: fax: Referral ID Status Reason Start Date Expiration Date V isibing Requested Visits Authorized [id number] Closed Specialty Services Required 12/30/2023 06/27/2024 1 1 Reason Comments Calladrien Sanchez 63yo Ne w Patient, referred by Jayden, for callous. BS149 A1C 6.3V. Abel 12/01/2023 Patient relates she is hearing impaired. SS10 SS 10 Specialty Diagnoses / Procedures Referred By Contac t Referred To Contact Podiatry Diagnoses Type 2 diabetes mellitus with hyperglycemia, without long-term current use of insulin ([facility]) Callus of foot Procedures AMB REFERRAL TO PODIATRY Yashira Roman CRNP [address], [facility] [place] [address] Phone: tel: fax: Michael Curran, DPM [address] [place] [address] Phone: tel: fax: Referral ID Status Reason Start Date Expiration Date Visits Re quested Visits Authorized [id number] Closed 12/04/2023 12/03/2024 1 1 Reason Comments New Patient Ventral hernia Specialty Diagnoses / Procedures Referred By Contac t Referred To Contact General Surgery Diagnoses Ventral hernia without obstruction or gangrene Mendy Plascencia, TONY [address] [facility] [address] [place] [address] [place] [address] [place] [address] Referral ID Status Reason Start Date Expiration Date Visits Requested Visits Authorized [id number] Pending Review Specialty Services Required 01/07/2024 1 1 Reason Comments Med Refill Reason Comments Right Renal Mass Specialty Diagnoses / Procedures Referred By Contac t Referred To Contact Urology Diagnoses Right renal mass Giuseppe Cotto MD [address] [address] [facility] [address] [place] [address] Referral ID Status Reason Start Date Expiration Date Visits Requested Visits Authorized [id number] Pending Review Specialty Services Required 02/25/2023 02/25/2024 [...] CT ABD & PELVIS W/O CONTRAST Eve Fuentes, HEEL TOP LIFT SPLITTER.[facility] [address] [address] Phone: tel: fax: [place] [address] Referral ID Status Reason Start Date Expiration Date V isits Requested Visits Authorized [id number] Closed Auto-Generat ed Referral Patient Cleared - Admin/Chairm an/Director advise to proceed or did not respond 04/16/2024 10/13/2024 1 1 Reason Comments 07.22.25 Cure Open Complex AWR 6 h ours los 5 Reason Onset Date Comments Med Refill 04/27/2024 Reason Comments Diabetes Reason Comments Annual Exam Pt is here for an An nual Exam. Reason Comments Post Op Reason Comments Post Op Follow Up Reason Onset Date Comments Med Refill 10/21/2024 Care Teams (unrecognized sec tion and content) Physics Department Chair Relationship Specialty Start Date End Date Mack Jarrett MD [address], [place] [address] PCP - General Family Medicine 12/11/23 Yashira Roman CRNP [address], [place] [address] Primary Care Provider Nurse Practitioner 12/11/23 Physics Department Chair Relationship Specialty Start Date End Date Mack Jarrett MD [address] [place] [address] PCP - General Family Medicine 12/11/23 Yashira Roman CRNP [address] [place] [address] Primary Care Provider Nurse Practitioner 12/11/23 Physics Department Chair Relationship Specialty Start Date End Date Mack Jarrett MD [address] [place] [address] PCP - General Family Medicine 12/11/23 Yashira Roman CRNP [address] [place] [address] Primary Care Provider Nurse Practitioner 12/11/23 Physics Department Chair Relationship Specialty Start Date End Date Caryn Mahmood APRN-HARDWARE INSTALLER [address] [place] [address] PCP - General Internal Medicine 05/22/22 Physics Department Chair Relationship Specialty Start Date End Date Caryn Mahmood HEEL TOP LIFT SPLITTER-HARDWARE INSTALLER [address] [place] [address] PCP - General Internal Medicine 05/22/22 Physics Department Chair Relationship Specialty Start Date End Date Caryn Mahmood APRN-HARDWARE INSTALLER [address] [place] [address] PCP - General Internal Medicine 05/22/22 Physics Department Chair Relationship Specialty Start Date End Date Caryn Mahmood APRN-HARDWARE INSTALLER [address] [place] [address] PCP - General Internal Medicine 05/22/22 Physics Department Chair Relationship Specialty Start Date End Date Yashira Roman [facility] [address] [place] [address] PCP - General Family Medicine 08/04/23 Physics Department Chair Relationship Specialty Start Date End Date Caryn Mahmood, [facility] [address] [place] [address] PCP - General Internal Medicine 05/22/22 Physics Department Chair Relationship Specialty Start Date End Date Caryn Mahmood, [facility]IFT [facility] [address] [place] [address] PCP - General Internal Medicine 05/22/22 Physics Department Chair Relationship Specialty Start Date End Date Yashira Roman [facility] [address] [place] [address] PCP - General Family Medicine 08/04/23 Physics Department Chair Relationship Specialty Start Date End Date Caryn Mahmood, [facility] [address] [place] [address] PCP - General Internal Medicine 05/22/22 Physics Department Chair Relationship Specialty Start Date End Date Yashira Roman [facility] [address] [place] [address] PCP - General Family Medicine 08/04/23 Physics Department Chair Relationship Specialty Start Date End Date Yashira Roman, HEEL TOP LIFT SPLITTER-RETAIL ASSOCIATE [address] [place] [address] PCP - General Family Medicine 08/04/23 Physics Department Chair Relationship Specialty Start Date End Date Williamnickyreymundo Mackchristiano Macros [address] [place] [address] PCP - General Family Medicine 01/07/24 Luzmaria Booker, DO [address] [facility] [address] [place], [place] [id number] Referring General Surgery 01/07/24 Physics Department Chair Relationship Specialty Start Date End Date Yashira Roman HEEL TOP LIFT SPLITTER-RETAIL ASSOCIATE [address] [place] [address] PCP - General Family Medicine 08/04/23 Physics Department Chair Relationship Specialty Start Date End Date Williamjoyce Mack NewbyardDO [address] [place] [address] PCP - General Family Medicine 01/07/24 Luzmaria Booker, DO [address] [facility] [address] [place], [place] [id number] Referring General Surgery 01/07/24 Physics Department Chair Relationship Specialty Start Date End Date Williamjoyce Mack NewbyardDO [address] [place] [address] PCP - General Family Medicine 01/07/24 Luzmaria Booker, [address] [facility] [address] [place], [place] [address] Referring General Surgery 01/07/24 Physics Department Chair Relationship Specialty Start Date End Date Mack Jarrett DO [address] [place] [address] PCP - General Family Medicine 01/07/24 Luzmaria Booker, DO [address] [facility] [place] [address] Referring General Surgery 01/07/24 Physics Department Chair Relationship Specialty Start Date End Date Yashira Roman HEEL TOP LIFT SPLITTER-[facility] [address] [place] [address] PCP - General Family Medicine 08/04/23 Physics Department Chair Relationship Specialty Start Date End Date Yashira Roman [facility] [address] [place] [address] PCP - General Family Medicine 08/04/23 Physics Department Chair Relationship Specialty Start Date End Date Yashira Roman HEEL TOP LIFT SPLITTER-[facility] [address] [place] [address] PCP - General Family Medicine 08/04/23 Physics Department Chair Relationship Specialty Start Date End Date Yashira Roamn [facility] [address] [place] [address] PCP - General Family Medicine 08/04/23 Physics Department Chair Relationship Specialty Start Date End Date Yashira Roman [facility] [address] [place] [address] PCP - General Family Medicine 08/04/23 Physics Department Chair Relationship Specialty Start Date End Date Yashira Roman [facility] [address] [place] [address] PCP - General Family Medicine 08/04/23 Physics Department Chair Relationship Specialty Start Date End Date Mack Jarrett [address] [place] [address] PCP - General Family Medicine 01/07/24 Luzmaria Booker, [address] [facility] [place] [address] Referring General Surgery 01/07/24 Physics Department Chair Relationship Specialty Start Date End Date WilliamnickyMack dwyer JennyDO [address] [place] [address] PCP - General Family Medicine 01/07/24 Luzmaria Booker, [address] [facility] [place] [address] Referring General Surgery 01/07/24 Physics Department Chair Relationship Specialty Start Date End Date Yashira Roman APRN-RETAIL ASSOCIATE [address] LEFT PM 08/23/24 [place] [address] PCP - General Family Medicine 08/04/23 Physics Department Chair Relationship Specialty Start Date End Date WilliamnickyMack dwyerDO [address] [place] [address] PCP - General Family Medicine 01/07/24 Luzmaria Booker DO [address] [facility] [place] [address] Referring General Surgery 01/07/24 Physics Department Chair Relationship Specialty Start Date End Date Mack Jarrett DO [address] [place] [address] PCP - General Family Medicine 01/07/24 Luzmaria Booker, [address] [facility] [place] [address] Referring General Surgery 01/07/24 Physics Department Chair Relationship Specialty Start Date End Date Mack Jarrett [address] [place] [address] PCP - General Family Medicine 01/07/24 Luzmaria Booker, [address] [facility] [place] [address] Referring General Surgery 01/07/24 Physics Department Chair Relationship Specialty Start Date End Date Luzmaria Clancy, HEEL TOP LIFT SPLITTER-RETAIL ASSOCIATE [address] [place] [address] PCP - General Internal Medicine 10/21/24 Physics Department Chair Relationship Specialty Start Date End Date Luzmaria Clancy, HEEL TOP LIFT SPLITTER-RETAIL ASSOCIATE [address] [place] [address] PCP - General Internal Medicine 10/21/24 Source Comments (unrecognize d section and content) In the event this informatio n is protected by the Federal Confidentiality of Alcohol and Drug Abuse Patient Records regulations: The Federal rules restrict any use of the information to criminally investigate or prosecute any alcohol or drug abuse patient.[facility] HospitalIn the event this information is protected by the Federal Confidentiality of Alcohol and Drug Abuse Patient Records regulations: The Federal rules restrict any use of the information to criminally investigate or prosecute any alcohol or drug abuse patient.[facility] HospitalIn the event this information is protected by the Federal Confidentiality of Alcohol and Drug Abuse Patient Records regulations: The Federal rules restrict any use of the information to criminally investigate or prosecute any alcohol or drug abuse patient.[facility] HospitalIn the event this information is protected by the Federal Confidentiality of Alcohol and Drug Abuse Patient Records regulations: The Federal rules restrict any use of the information to criminally investigate or prosecute any alcohol or drug abuse patient.[facility] HospitalIn the event this information is protected by the Federal Confidentiality of Alcohol and Drug Abuse Patient Records regulations: The Federal rules restrict any use of the information to criminally investigate or prosecute any alcohol or drug abuse patient.[facility] HospitalIn the event this information is protected by the Federal Confidentiality of Alcohol and Drug Abuse Patient Records regulations: The Federal rules restrict any use of the information to criminally investigate or prosecute any alcohol or drug abuse patient.[facility] HospitalIn the event this information is protected by the Federal Confidentiality of Alcohol and Drug Abuse Patient Records regulations: The Federal rules restrict any use of the information to criminally investigate or prosecute any alcohol or drug abuse patient.[facility] HospitalIn the event this information is protected by the Federal Confidentiality of Alcohol and Drug Abuse Patient Records regulations: The Federal rules restrict any use of the information to criminally investigate or prosecute any alcohol or drug abuse patient.[facility] HospitalIn the event this information is protected by the Federal Confidentiality of Alcohol and Drug Abuse Patient Records regulations: The Federal rules restrict any use of the information to criminally investigate or prosecute any alcohol or drug abuse patient.[facility] HospitalIn the event this information is protected by the Federal Confidentiality of Alcohol and Drug Abuse Patient Records regulations: The Federal rules restrict any use of the information to criminally investigate or prosecute any alcohol or drug abuse patient.[facility] FOR RECORDS PERTAINING TO PATIENTS WHO ARE [...] BE BASED ON THE PRIMARY CLINICAL RECORDS. [facility] [employer] [facility]. provides no warranty or guarantee of the accuracy or completeness of information in this document.
== END 2024-11-29 10:52 | disposition home or self-care (01) ==
LOC: MAMMO 10:51
PROVIDERS: PCP Family Medicine; Visit Provider Nurse Practitioner Obstetrics & Gynecology
DX: Z12.31 Encounter for screening mammogram for malignant neoplasm of breast (principal); Z80.3 Family history of malignant neoplasm of breast
CPT/HCPCS: 77063; 77067